=== PATIENT | male | born 1955 | race Caucasian/White ===

== ENCOUNTER → 2020-06-26 13:07 | Outpatient (CLI) | payer MEDICARE, OTHER, SELFPAY ==
--- NOTE | ~2020-06-26 | MR_ITS ---
EXAMINATION: MR brain/brain stem wo con DATE: 06/26/2020 14:03 INDICATION: Transient cerebral ischemic attack. Left arm weakness. 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 TECHNIQUE: Magnetic resonance imaging (MRI) of the brain and brainstem was performed without intraven ous contrast. Sequences included sagittal and axial T1-weighted FSE, axial diffusion-weighted FS EPI, axial T2*-weighted GRE, axial T2-weighted FLAIR Propeller, and axial T2-weighted Propeller. Apparent diffusion coefficient (ADC) maps were created. COMPARISON: None. FINDINGS: There are scattered areas of nonspecific increased T2-weighted signal intensity in the cere bral white matter and deejay. There is no intracranial hemorrhage, acute infarction, or abnormal intrac ranial mass lesion. The ventricles are normal in size. The orbits are normal. There is mild mucosal t hickening in the ethmoid sinuses. The mastoid air cells are normal. IMPRESSION: 1. Mild nonspecific cerebral white matter disease and pontine disease, which likely represents chroni c small vessel ischemic disease. Reviewed, dictated and finalized at location B. TENDER PAPER MACHINE IMPRESSION: 1. Mild nonspecific cerebral white matter disease and pontine disease, which filiberto alfaro represents chronic small vessel ischemic disease.
--- NOTE | ~2020-06-26 | MR_ITS ---
EXAMINATION: MR cervical spine wo con DATE: 06/26/2020 14:34 INDICATION: Other cervical disc displacement. TECHNIQUE: Magnetic resonance imaging (MRI) of the cervical spine was performed without intravenous c ontrast. Sequences included sagittal T2-weighted FSE, sagittal STIR FSE, sagittal T1-weighted FSE, ax ial MERGE, and axial T2-weighted FSE. COMPARISON: None FINDINGS: There is 2 mm retrolisthesis of C4 on C5 and C5 on C6. Vertebral body heights are normal. T here is mildly decreased disc height at C4-C5 and moderately decreased disc height at C5-C6 and C6-C7 . The spinal cord signal intensity is normal. The following disc levels are specifically discussed: C2-C3: There is a central protrusion. There is no uncovertebral joint osteoarthritis. There is modera te right and severe left facet joint osteoarthritis. There is no neural foraminal stenosis. There is mild central canal stenosis. C3-C4: The disc is bulging. There is mild bilateral uncovertebral joint osteoarthritis. There is mild bilateral facet joint osteoarthritis. There is mild bilateral neural foraminal stenosis. There is mi ld central canal stenosis. C4-C5: The disc is bulging. There is moderate right and severe left uncovertebral joint osteoarthriti s. There is mild bilateral facet joint osteoarthritis. There is mild right and moderate left neural f oraminal stenosis. There is mild central canal stenosis with ventral indentation of spinal cord. C5-C6: The disc is bulging. There is severe bilateral uncovertebral joint osteoarthritis. There is mi ld bilateral facet joint osteoarthritis. There is moderate bilateral neural foraminal stenosis. There is mild central canal stenosis with ventral indentation of the spinal cord. C6-C7: The disc is bulging. There is severe bilateral uncovertebral joint osteoarthritis. There is no facet joint osteoarthritis. There is moderate bilateral neural foraminal stenosis. There is mild dick tral canal stenosis with ventral indentation of the spinal cord. C7-T1: The disc does not extend beyond the endplate margin. There is no uncovertebral joint osteoarth ritis. There is mild bilateral facet joint osteoarthritis. There is no neural foraminal stenosis. The re is no central canal stenosis. IMPRESSION: 1. Moderate cervical spondylosis. Reviewed, dictated and finalized at location B. FIC INCIDENT MANAGEMENT MANAGER
== END ==
PROVIDERS: PCP Internal Medicine; Visit Provider Internal Medicine
DX: G45.9 Transient cerebral ischemic attack, unspecified (principal); M50.20 Other cervical disc displacement, unspecified cervical region; M47.892 Other spondylosis, cervical region; R93.0 Abnormal findings on diagnostic imaging of skull and head, not elsewhere classified
CPT/HCPCS: 70551; 72141

== ENCOUNTER → 2020-11-21 10:25 | Outpatient (CLI) | payer MEDICARE, OTHER, SELFPAY ==
--- NOTE | ~2020-11-21 | XR_ITS ---
EXAMINATION: XR chest 2V DATE: 11/21/2020 10:43 INDICATION: Cough and COPD TECHNIQUE: PA and lateral views of the chest are obtained. COMPARISON: None available FINDINGS: The lungs are hyperinflated but free of acute opacities. There is scarring of the lung apic es. There is no pleural effusion or pneumothorax. The heart size is normal. A coronary artery stent i s noted. There are bridging osteophytes at multiple levels in the spine, consistent with diffuse idio pathic skeletal hyperostosis (DISH). IMPRESSION: 1. Hyperinflation without acute cardiopulmonary abnormality. Reviewed, dictated and finalized at location A.
== END ==
PROVIDERS: PCP Internal Medicine; Visit Provider Internal Medicine
DX: J44.9 Chronic obstructive pulmonary disease, unspecified (principal); R91.8 Other nonspecific abnormal finding of lung field
CPT/HCPCS: 71046

== ENCOUNTER 2022-03-27 08:13 | Outpatient (CLI) | payer MEDICARE, OTHER, SELFPAY ==
--- NOTE | ~2022-03-27 | US_ITS ---
EXAMINATION: US aorta DATE: 03/27/2022 09:05 INDICATION: Screening for abdominal aortic aneurysm TECHNIQUE: Grayscale, color Doppler, and pulsed Doppler images of the aorta and common iliac arteries were obtained. COMPARISON: None. FINDINGS: The proximal aorta measures 2.8 cm AP.. The proximal to mid aorta measures 2.8 cm AP. The region of t he mid to distal aorta as well as the common iliac arteries is obscured by large amount of shadowing bowel gas. IMPRESSION: 1. Normal caliber proximal to mid abdominal aorta. The region of the mid to distal abdominal aorta an d common iliac arteries is obscured by shadowing bowel gas. Reviewed, dictated and finalized at location A. IMPRESSION: 1. Normal caliber proximal to mid abdominal aorta. The region of the mid to dis raf abdominal aorta and common iliac arteries is obscured by shadowing bowel ga s.
--- NOTE | ~2022-03-27 | CT_ITS ---
EXAMINATION: CT lung screening DATE: 03/27/2022 08:58 INDICATION: Personal history of nicotine dependence, current smoker with 45 pack year history TECHNIQUE: Computed tomography (CT) of the chest was performed without intravenous contrast. The dose -length product (DLP) was 116.91 mGy-cm. Automated exposure control and iterative reconstruction tech [employer] were employed. COMPARISON: None FINDINGS: There is severe emphysema. There is a 5 mm nodule in the right lung apex. No pleural effusi on or pneumothorax. There our secretions in the trachea. No pathologically enlarged thoracic lymph no paulo are identified. The heart size is normal. Calcified coronary artery atherosclerosis is noted. Craig cified pulmonary nodules and calcified right hilar lymph nodes are consistent with old granulomatous disease. Punctate calcifications in an otherwise normal spleen likely represent healed granulomatous disease. Pneumobilia is noted in the left hepatic lobe, likely related to prior biliary intervention. There are bridging osteophytes at multiple levels in the spine, consistent with diffuse idiopathic s keletal hyperostosis (DISH). IMPRESSION: 1. Lung-RADS category 2: Benign appearance or behavior. Continue annual screening with noncontrast lo w-dose chest CT in 12 months. Reviewed, dictated and finalized at location B. IMPRESSION: 1. Lung-RADS category 2: Benign appearance or behavior. Continue annual screeni ng with noncontrast low-dose chest CT in 12 months.
== END 2022-03-27 08:14 | disposition home or self-care (01) ==
LOC: ANHIMG 08:22
PROVIDERS: PCP Internal Medicine; Visit Provider Internal Medicine
DX: Z12.2 Encounter for screening for malignant neoplasm of respiratory organs (principal); Z87.891 Personal history of nicotine dependence; Z13.6 Encounter for screening for cardiovascular disorders
CPT/HCPCS: 71271; 76775

== ENCOUNTER 2022-04-10 09:59 | Outpatient (CLI) | payer MEDICARE, OTHER, SELFPAY ==
--- NOTE | 2022-04-10 12:08 | WPDPFTINT ---
PFT Procedure Performed PFT Procedure Performed Plethysmography (Lung Vol) Diffusing Cap (DLCO) Flow Vol Loop Spirometry w/o Bronchodil PFT Interpretation This is a pulmonary function test with spirometry, plethysmography and diffusing capacity. The test was performed and results interpreted in accordance with the 2019 and 2005 ATS/ERS Task Force guidelines respectively using the Global Lung Function Initiative-2012 reference equations. Patient demonstrated good effort and cooperation. Reproducibility criteria were met. The quality of the spirometry maneuver was Grade A. Findings: Spirometry: There is decreased maximal expiratory airflow at all lung volumes with concave expiratory flow tracing. The contour the inspiratory flow tracing is normal. The FVC is 3.33 L, 85% predicted. The FEV1 is 1.61 L, a 53% predicted. The FEV1: FVC ratio is 48%. Plethysmography: The total lung capacity is 6.12 L, 96% predicted. The functional residual capacity is 4.49 L, 135% predicted. The residual volume is 2.79 L, 126% predicted. Diffusion capacity: The diffusing capacity unadjusted for hemoglobin and carboxyhemoglobin is 16.2, 63% predicted. The diffusing capacity adjusted for alveolar volume is 2.15, 51% predicted. Impression: There is a moderately severe obstructive abnormality. The lung volumes are normal. The diffusing capacity unadjusted for hemoglobin is mildly decreased and remains moderately decreased when adjusted for alveolar volume. There are no prior studies for comparison
== END 2022-04-10 10:00 | disposition home or self-care (01) ==
LOC: ANHPFT 10:01
PROVIDERS: PCP Internal Medicine; Visit Provider Internal Medicine
DX: J44.9 Chronic obstructive pulmonary disease, unspecified (principal); R94.2 Abnormal results of pulmonary function studies
CPT/HCPCS: 94375; 94726; 94729

== ENCOUNTER 2022-08-14 16:30 | Outpatient (RCR) | payer MEDICARE, OTHER, SELFPAY ==
[2022-05-21 12:21] VITALS: PULSE 87
== END 2022-08-14 18:37 | disposition home or self-care (01) ==
LOC: ANHCPREHAB 16:30
PROVIDERS: PCP Internal Medicine; Visit Provider Internal Medicine
DX: Z95.5 Presence of coronary angioplasty implant and graft (principal)
CPT/HCPCS: 93798

== ENCOUNTER 2022-10-17 11:32 | Outpatient (CLI) | payer MEDICARE, OTHER, SELFPAY ==
[2022-10-20 14:42] LABS: Alpha-1-Antitrypsin, QN 120 mg/dL (83-199)
== END 2022-10-17 11:33 | disposition home or self-care (01) ==
PROVIDERS: PCP Internal Medicine; Visit Provider Internal Medicine Pulmonary Disease
DX: E88.01 Alpha-1-antitrypsin deficiency (principal)
CPT/HCPCS: 36415; 82103

== ENCOUNTER 2022-10-21 12:44 | Outpatient (CLI) | payer MEDICARE, OTHER, SELFPAY ==
--- NOTE | 2022-10-22 10:28 | WPDSIXMINUTE ---
Six Minute Walk Procedure Procedure Performed Pulmonary Stress Test (6 min walk) Six Minute Walk Six Minute Walk: This is a 6 minute walk test. The test was performed and interpreted in accordance with the 2014 ERS/ATS task force guidelines. Findings: The patient's resting room air oxygen saturation measured by pulse oximetry was 98% and heart rate was 65 bpm. Patient ambulated for 244 meters and oxygen saturation remained 98 to 100%. Heart rate at the end of the study was 70 bpm. The patient did not qualify for supplemental oxygen at rest or with ambulation. There are no prior studies for comparison.
== END 2022-10-21 12:45 | disposition home or self-care (01) ==
LOC: ANHPFT 12:45
PROVIDERS: PCP Internal Medicine; Visit Provider Internal Medicine Pulmonary Disease
DX: J40 Bronchitis, not specified as acute or chronic (principal); Z72.0 Tobacco use
CPT/HCPCS: 94618

== ENCOUNTER → 2023-04-29 12:53 | Outpatient (CLI) | payer MEDICARE, OTHER, SELFPAY ==
--- NOTE | ~2023-04-29 | CT_ITS ---
EXAMINATION: CT lung screening DATE: 04/29/2023 13:14 INDICATION: Personal history of nicotine dependence TECHNIQUE: Computed tomography (CT) of the chest was performed without intravenous contrast. The dose -length product was 47.80 mGy-cm. Automated exposure control and iterative reconstruction technique w ere employed. COMPARISON: CT dated 03/27/2022 FINDINGS: No thoracic lymphadenopathy. There is atherosclerosis. Heart size normal. No significant pl eural or pericardial effusion. There is evidence for chronic granulomatous disease. There is apical p leural thickening/scarring. There is a stable 4 mm right apical nodule, image 18. There is lower lobe atelectasis. There is severe emphysema. No new pulmonary nodules or masses. No focal airspace consol idation. There is diffuse idiopathic skeletal hyperostosis (DISH) of the thoracic spine. There is pne umobilia of the left hepatic lobe, consistent with previous sphincterotomy. IMPRESSION: 1. Lung-RADS category 2: Benign appearance or behavior. Continue annual screening with noncontrast lo w-dose chest CT in 12 months. Reviewed, dictated and finalized at location L. IMPRESSION: 1. Lung-RADS category 2: Benign appearance or behavior. Continue annual screeni ng with noncontrast low-dose chest CT in 12 months.
== END ==
PROVIDERS: PCP Internal Medicine Pulmonary Disease; Visit Provider Internal Medicine Pulmonary Disease
DX: Z12.2 Encounter for screening for malignant neoplasm of respiratory organs (principal); Z87.891 Personal history of nicotine dependence
CPT/HCPCS: 71271

== ENCOUNTER 2024-05-03 13:48 | Outpatient (CLI) | payer MEDICARE, OTHER, SELFPAY ==
--- NOTE | ~2024-05-03 | CT_ITS ---
CT Scan of the Chest without Contrast: Clinical Indication: Lung cancer screening, nicotine dependence Technique: Contiguous sections were acquired throughout the chest without intravenous contrast. Dose reduction technique was used on this scan by utilizing automated exposure control and iterative recon struction technique. The dose-length product (DLP) was 41.38 mGy-cm. COMPARISON: 04/29/2023 Findings: There is no evidence of any significant mediastinal, hilar or axillary lymphadenopathy. Coronary nadia ry calcifications are present. There is no evidence of pleural or pericardial effusion. 6 mm right lower lobe pulmonary nodule present (axial image 90). Severe emphysema present. Images through the upper abdomen reveal no abnormalities. Impression: Lung RADS 3: Probably benign. Six-month follow-up CT recommended. Reviewed, dictated and finalized at location . Impression: Lung RADS 3: Probably benign. Six-month follow-up CT recommended.
== END 2024-05-03 13:49 | disposition home or self-care (01) ==
LOC: MICIMG 13:49
PROVIDERS: PCP Internal Medicine Pulmonary Disease; Visit Provider Internal Medicine Pulmonary Disease
DX: Z12.2 Encounter for screening for malignant neoplasm of respiratory organs (principal); Z87.891 Personal history of nicotine dependence; R91.8 Other nonspecific abnormal finding of lung field
CPT/HCPCS: 71271

== ENCOUNTER 2024-10-24 17:14 | Inpatient (IN) | payer MEDICARE, OTHER, SELFPAY ==
[2024-10-24] VITALS (40 sets, daily range): BP systolic 72–99; BP diastolic 40–70; PULSE 83–99; RESP 11–25; TEMP 36.4–36.6; O2SAT 96–100; BMI 18.2
--- NOTE | ~2024-10-24 | CT_ITS ---
EXAMINATION: CTA chest PE protocol DATE: 10/25/2024 21:04 CDT INDICATION: Elevated d-dimer, shortness of breath and hypoxia. COPD exacerbation, with inability to o btain adequate oxygenation. TECHNIQUE: Computed tomographic angiography (CTA) of the chest was performed with 100 mL Omnipaque-35 0 intravenous contrast. The dose-length product was 222.62 mGy-cm. Maximum intensity projection 3D-re constructions of the aorta and other arteries were constructed by the technologist on a separate work station. COMPARISON: 05/03/2024 FINDINGS/OBSERVATIONS: PULMONARY ARTERIES: No filling defect is identified within the main or proximal pulmonary artery. The main pulmonary artery is not enlarged. THORACIC AORTA: No aneurysmal dilatation or dissection is present. The great vessels are intact LUNGS: Redemonstration of severe panlobular bullous emphysema. While the lung disease is significant, it is unchanged from 05/03/2024. Interval development of small bilateral pleural effusions, right greater than left with adjacent comp ressive atelectasis. The 6 mm nodule within the right lower lobe is not visualized on the current study, likely secondary to patient's tachypnea rather than nodule resolution. MEDIASTINUM: No morphologically suspicious or pathologically enlarged lymph nodes are identified with in the mediastinum or bilateral axilla. BONES OF THE CHEST: No acute fracture. Significant degenerative disease. No lytic or blastic lesions. HEART: The heart is of normal size, without pericardial effusion. IMPRESSION: No pulmonary embolus. No thoracic aortic dissection. Severe panlobular bullous emphysema, unchanged from 05/03/2024. Interval development of small bilateral pleural effusions, right greater than left with adjacent comp ressive atelectasis. Reviewed, dictated and finalized at location A. IMPRESSION: No pulmonary embolus. No thoracic aortic dissection. Severe panlobular bullous emphysema, unchanged from 05/03/2024. Interval development of small bilateral pleural effusions, right greater than l eft with adjacent compressive atelectasis.
--- NOTE | ~2024-10-24 | XR_ITS ---
CHEST RADIOGRAPH CLINICAL HISTORY: sob, cough . COMPARISON: 11/21/2020 TECHNIQUE: Single portable view of the chest. FINDINGS The cardiomediastinal silhouette is unremarkable. Panlobular emphysematous disease with a bibasilar distribution of lucency. Interstitial thickening is detected bilaterally, with a bilateral upper lobe distribution. The lungs are otherwise clear. IMPRESSION: Emphysematous disease, without focal infiltrate or effusion. Reviewed, dictated and finalized at location A.
--- NOTE | ~2024-10-24 | XR_ITS ---
XR chest 1V portable 10/28/2024 08:19 Indication: COPD Procedure: AP portable chest Comparison: Comparison to multiple prior studies sequentially, with oldest reviewed study dated 10/2020. Findings: Patchy bilateral airspace disease most confluent in the right upper and left lower lobe, co nsistent with pneumonia. Heart size normal. There is atherosclerosis of the aorta. No pleural effusio n or pneumothorax. The lungs are hyperinflated which is consistent with, but not diagnostic of chroni c obstructive pulmonary disease. No acute osseous abnormality. Impression: 1: Patchy bilateral airspace disease, compatible with pneumonia. Reviewed, dictated and finalized at location A. Impression: 1: Patchy bilateral airspace disease, compatible with pneumonia.
--- NOTE | 2024-10-24 17:20 | ECG_ITS ---
Test Date: 2024-10-24 17:19:59 Measurements Intervals [place] Rate: 96 P: 71 DC: 120 QRS: 257 QRSD: 113 T: 99 QT: 371 QTc: 469 Interpretive Statements SINUS RHYTHM POSSIBLE LEFT ATRIAL ENLARGEMENT INCOMPLETE RIGHT BUNDLE BRANCH BLOCK CONSIDER HIGH LATERAL INFARCT, AGE INDETERMINATE INFERIOR INFARCT, AGE INDETERMINATE EXTENSIVE ANTERIOR INFARCT, AGE INDETERMINATE ABNORMAL ECG No previous ECG available for comparison Electronically Signed On 10-24-2024 20:31:59 CDT by Boris Du D.O.
--- NOTE | 2024-10-24 17:26 | ED.SOB ---
HPI - SOB/Dyspnea General Chief Complaint: Shortness of Breath/Dyspnea <Hollis Veras PA-C - Last Filed: 10/24/24 22:53> Stated Complaint: dyspnea <PIOTR Joyce Last Filed: 10/24/24 22:53> Time Seen by Provider: 10/24/24 17:22 <Hollis Veras PA-C - Last Filed: 10/24/24 22:53> Source: patient <PIOTR Joyce Last Filed: 10/24/24 22:53> Mode of arrival: EMS <PIOTR Joyce Last Filed: 10/24/24 22:53> Limitations: no limitations <PIOTR Joyce Last Filed: 10/24/24 22:53> History of Present Illness HPI Narrative: This is a 69-year-old male with PMH of COPD who presents to the ED for chief complaint of shortness of breath over the past 3 days. Patient reports dyspnea on exertion significantly increased today and was unable to get across the rubor walked to his car without becoming severely winded. States that he then called EMS. EMS reports on room air he was saturating in the 70% range so they placed him on nasal cannula and DuoNeb. They do report that his sats went up in the mid 90s with these measures. Patient states he does not normally use oxygen but has been using his prescribed inhalers with no relief. States that he has had a bit of a cough lately and was around a sick family member with viral illness. Denies fevers, chills, chest pain, abdominal pain. <Hollis Veras PA-C - Last Filed: 10/24/24 22:53> Related Data Home Medications: Home Medications ?Medication ?Instructions ?Recorded ?Confirmed ?Last Taken ?Type clopidogrel 75 mg tablet 75 mg PO DAILY 05/21/22 10/24/24 Unknown History isosorbide mononitrate 60 mg 30 mg PO BID 05/21/22 10/24/24 Unknown History tablet,extended release 24 hr metoprolol tartrate 25 mg tablet 25 mg PO DAILY 05/21/22 10/24/24 Unknown History rosuvastatin 10 mg tablet 10 mg PO DAILY 05/21/22 10/24/24 Unknown History sacubitril 24 mg-valsartan 26 mg 1 tablet PO BID 05/21/22 10/24/24 Unknown History tablet (Entresto) cyanocobalamin (vitamin B-12) 1,000 mcg PO DAILY 10/24/24 10/24/24 Unknown History 1,000 mcg tablet ergocalciferol (vitamin D2) 1,250 1,250 mcg PO WEEKLY 10/24/24 10/24/24 Unknown History mcg (50,000 unit) capsule pramipexole 1 mg tablet 1 mg PO HS 10/24/24 10/24/24 Unknown History <Hollis Veras PA-C - Last Filed: 10/24/24 22:53> Allergies/Adverse Reactions: Allergies Allergy/AdvReac Type Severity Reaction Status Date / Time No Known Allergies Allergy Verified 10/24/24 17:21 <Hollis Veras PA-C - Last Filed: 10/24/24 22:53> Review of Systems Review of Systems: All systems as dictated in HPI <Hollis Veras PA-C - Last Filed: 10/24/24 22:53> [facility] Surgical History Surgical History: Surgical History History of cholecystectomy Stented coronary artery 2014 & 2018 <Hollis Veras PA-C - Last Filed: 10/24/24 22:53> Family History Family History: Family History Father Acute myocardial infarction Mother Skin cancer Breast cancer Brain cancer Sibling , One brother . Lung cancer Son Diverticulitis Migraines HPV in male <Hollis Veras PA-C - Last Filed: 10/24/24 22:53> Social History Social History: Social History Smoking packs per day: 1 Smoking cigarettes per day: 20.0 Years smoked: 46 Smoking pack-years: 46.00 Smoking status: Current every day smoker Tobacco type: cigarettes Second hand tobacco smoke exposure: Yes Additional smoking assessment comments: states he also smokes cannibus 3 + times per week 2 hits Alcohol intake: never Substance use: current Substance use type: marijuana Do You Feel Safe in your Home?: Yes Lack of Transportation: No Lack of Food: Never True Current Housing: I Have Housing Concerned About Future Housing: No Difficulty Paying Gas/Electric Bills: No Difficulty Paying for Meds: No Currently Unemployed: No Education: Associate Degree Difficulty w/ Childcare or Family Care: No Spiritual care concerns: Yes <Hollis Veras PA-C - Last Filed: 10/24/24 22:53> Exam Narrative: GENERAL: In respiratory distress. Appears chronically emphysematous. HEAD: Normocephalic, atraumatic. EYES: PERRLA and EOMI. ENT: Nares clear, no rhinorrhea or epistaxis. Mucous membranes moist. Oropharynx without tonsillar hypertrophy exudate or other lesions. NECK: Supple. No adenopathy or masses. CHEST: Patient is in respiratory distress, tripod position. Pursed lip breathing. Able to speak in 3-4 word sentences. Saturating 90% on 2 L nasal cannula. HEART: Regular rate and rhythm. No murmur heard. Normal peripheral pulses. ABDOMEN: Soft, nontender, nondistended, normal active bowel sounds. MSK: Normal range of motion. No edema. SKIN: Warm, dry, no rash. NEURO: Alert and oriented x4. No focal deficits. PSYCH: Normal mood and affect. <Hollis Veras PA-C - Last Filed: 10/24/24 22:53> Course DOCUMENTATION CONSULTANT/PA Physician Supervision agree with notes and management <Gerardo Bowen MD - Last Filed: 10/24/24 19:44> Vital Signs Vital signs: Vital Signs Pulse Rate 98 10/24/24 17:15 Respiratory Rate 20 10/24/24 17:15 Pulse Oximetry 98 10/24/24 17:15 Oxygen Delivery Nasal Cannula 10/24/24 17:15 Oxygen Flow Rate 2 10/24/24 17:15 Temperature 97.8 F 10/24/24 21:25 Pulse Rate 87 10/24/24 21:25 Respiratory Rate 20 10/24/24 21:25 Blood Pressure 80/40 L 10/24/24 21:25 Pulse Oximetry 99 10/24/24 21:25 Oxygen Delivery BiPAP 10/24/24 22:31 Oxygen Flow Rate 2 10/24/24 17:15 Fraction of Inspired Oxygen 21 10/24/24 20:13 <Hollis Veras PA-C - Last Filed: 10/24/24 22:53> Vital Signs Pulse Rate 98 10/24/24 17:15 Respiratory Rate 20 10/24/24 17:15 Pulse Oximetry 98 10/24/24 17:15 Oxygen Delivery Nasal Cannula 10/24/24 17:15 Oxygen Flow Rate 2 10/24/24 17:15 Temperature 97.8 F 10/24/24 21:25 Pulse Rate 87 10/24/24 21:25 Respiratory Rate 20 10/24/24 21:25 Blood Pressure 80/40 L 10/24/24 21:25 Pulse Oximetry 99 10/24/24 21:25 Oxygen Delivery BiPAP 10/24/24 22:31 Oxygen Flow Rate 2 10/24/24 17:15 Fraction of Inspired Oxygen 21 10/24/24 20:13 <Gerardo Bowen MD - Last Filed: 10/24/24 19:44> MDM - SOB/Dyspnea MDM Narrative Medical decision making narrative: This is a 69-year-old male presenting in respiratory distress with likely COPD exacerbation. He is meeting sepsis criteria on arrival and requiring BiPAP for work of breathing. The blood pressure soft in the 80s over 50s. He was saturating 70% on room air for EMS. Afebrile. Lab work shows elevated white count of 15.5 on arrival. Lactic acid elevated at 3.3. He was started on sepsis bolus fluids as well as community-acquired antibiotics for COPD exacerbation/pneumonia. Chest x-ray: IMPRESSION: Emphysematous disease, without focal infiltrate or effusion. Patient's work of breathing is drastically improved on BiPAP. He is saturating well on FiO2 21%. Pressure remained stable in the 80s and 90s. Discussed plan of admission with the patient he is agreeable. Discussed with hospitalist DOCUMENTATION CONSULTANTSuma who will admit the patient to IMU. <Hollis Veras PA-C - Last Filed: 10/24/24 22:53> Lab Data Result diagrams: 10/24/24 17:34 10/24/24 17:33 <PIOTR Joyce Last Filed: 10/24/24 22:53> Labs: Lab Results 10/24/24 10/24/24 Range/Units 17:33 17:34 WBC 15.5 H (4.5-10.0) K/mm3 RBC 4.05 L (4.6-6.20) M/mm3 Hgb 12.8 L (14.0-18.0) g/dL Hct 38.8 L (42.0-52.0) % MCV 95.8 (80-100) fl MCH 31.6 (26-34) pg MCHC 33.0 (32-36) g/dl RDW 12.5 (11.5-14.5) % Plt Count 198 (150-375) k/mm3 MPV 9.8 (7.4-10.4) fl Immature Gran % (Auto) 0.5 (0-0.5) % Neut % (Auto) 79.5 H (45.5-73.1) % Lymph % (Auto) 7.6 L (18.3-44.2) % [place] % (Auto) 12.1 H (2.6-8.5) % Eos % (Auto) 0.1 (0-4.4) % Baso % (Auto) 0.2 (0.2-1.2) % Lymph # (Auto) 1.18 (0.9-3.2) K/mm3 [place] # (Auto) 1.9 H (0.1-0.6) K/mm3 Eos # (Auto) 0.0 (0-0.3) K/mm3 Baso # (Auto) 0.0 (0.0-0.1) K/mm3 Abs Immat Gran (auto) 0.08 H (0.00-0.031) K/mm3 Absolute Neuts (auto) 12.3 H (1.3-6.7) K/mm3 Absolute Nucleated RBC 0.000 (0.0-0.012) K/mm3 Nucleated RBC % 0.0 (0.0-0.2) % ESR 25 H (0-20) mm/hr Sodium 129 L (137-145) mmol/L Potassium 4.2 (3.4-5.0) mmol/L Chloride 94 L (98-107) mmol/L Carbon Dioxide 24 (22-30) mmol/L Anion Gap 11 (4-12) mmol/L BUN 13 (9-20) mg/dL Creatinine 0.86 (0.7-1.3) mg/dL Estim Creat Clear Calc 47 ml/min Estimated GFR > 60 (59 - ) Glucose 122 H (65-110) mg/dL Lactic Acid 3.3 H (0.7-2.0) mmol/L Calcium 8.6 (8.4-10.2) mg/dL Magnesium 1.8 (1.6-2.3) mg/dL Total Bilirubin 0.7 (0.2-1.3) mg/dL AST 36 (17-59) U/L ALT 23 (6-50) U/L Alkaline Phosphatase 79 (38-126) U/L Troponin I 0.806 H* (0.000-0.034) ng/mL C-Reactive Protein 2.0 H (<1.0) mg/dL Total Protein 7.0 (6.3-8.2) g/dL Albumin 4.2 (3.5-5.1) g/dL Influenza A (RT-PCR) Negative (Negative) Influenza B (RT-PCR) Negative (Negative) RSV (RT-PCR) Negative (Negative) SARS-CoV-2 RNA (RT-PCR) Negative (Negative) <Hollis Veras PA-C - Last Filed: 10/24/24 22:53> Lab Results 10/24/24 10/24/24 Range/Units 17:33 17:34 WBC 15.5 H (4.5-10.0) K/mm3 RBC 4.05 L (4.6-6.20) M/mm3 Hgb 12.8 L (14.0-18.0) g/dL Hct 38.8 L (42.0-52.0) % MCV 95.8 (80-100) fl MCH 31.6 (26-34) pg MCHC 33.0 (32-36) g/dl RDW 12.5 (11.5-14.5) % Plt Count 198 (150-375) k/mm3 MPV 9.8 (7.4-10.4) fl Immature Gran % (Auto) 0.5 (0-0.5) % Neut % (Auto) 79.5 H (45.5-73.1) % Lymph % (Auto) 7.6 L (18.3-44.2) % [place] % (Auto) 12.1 H (2.6-8.5) % Eos % (Auto) 0.1 (0-4.4) % Baso % (Auto) 0.2 (0.2-1.2) % Lymph # (Auto) 1.18 (0.9-3.2) K/mm3 [place] # (Auto) 1.9 H (0.1-0.6) K/mm3 Eos # (Auto) 0.0 (0-0.3) K/mm3 Baso # (Auto) 0.0 (0.0-0.1) K/mm3 Abs Immat Gran (auto) 0.08 H (0.00-0.031) K/mm3 Absolute Neuts (auto) 12.3 H (1.3-6.7) K/mm3 Absolute Nucleated RBC 0.000 (0.0-0.012) K/mm3 Nucleated RBC % 0.0 (0.0-0.2) % ESR 25 H (0-20) mm/hr Sodium 129 L (137-145) mmol/L Potassium 4.2 (3.4-5.0) mmol/L Chloride 94 L (98-107) mmol/L Carbon Dioxide 24 (22-30) mmol/L Anion Gap 11 (4-12) mmol/L BUN 13 (9-20) mg/dL Creatinine 0.86 (0.7-1.3) mg/dL Estim Creat Clear Calc 47 ml/min Estimated GFR > 60 (59 - ) Glucose 122 H (65-110) mg/dL Lactic Acid 3.3 H (0.7-2.0) mmol/L Calcium 8.6 (8.4-10.2) mg/dL Magnesium 1.8 (1.6-2.3) mg/dL Total Bilirubin 0.7 (0.2-1.3) mg/dL AST 36 (17-59) U/L ALT 23 (6-50) U/L Alkaline Phosphatase 79 (38-126) U/L Troponin I 0.806 H* (0.000-0.034) ng/mL C-Reactive Protein 2.0 H (<1.0) mg/dL Total Protein 7.0 (6.3-8.2) g/dL Albumin 4.2 (3.5-5.1) g/dL Influenza A (RT-PCR) Negative (Negative) Influenza B (RT-PCR) Negative (Negative) RSV (RT-PCR) Negative (Negative) SARS-CoV-2 RNA (RT-PCR) Negative (Negative) <Gerardo Bowen MD - Last Filed: 10/24/24 19:44> ABG Data ABG results: 10/24/24 17:59 VBG pH 7.288 L VBG pCO2 56.8 H VBG pO2 < 27.0 L VBG HCO3 26.6 O2 Delivery Device Nasal cannula O2 Liters/Min 2.0 FiO2 28 <Hollis Veras PA-C - Last Filed: 10/24/24 22:53> 10/24/24 17:59 VBG pH 7.288 L VBG pCO2 56.8 H VBG pO2 < 27.0 L VBG HCO3 26.6 O2 Delivery Device Nasal cannula O2 Liters/Min 2.0 FiO2 28 <Gerardo Bowen MD - Last Filed: 10/24/24 19:44> ECG Data EKG #1: ECG completion date: 10/24/24 <Hollis Veras PA-C - Last Filed: 10/24/24 22:53> ECG completion time: 17:19 <Hollis Veras PA-C - Last Filed: 10/24/24 22:53> Prior ECG tracings: not available for review <Hollis Veras PA-C - Last Filed: 10/24/24 22:53> Discharge Plan Discharge Clinical Impression: COPD exacerbation, Sepsis, Elevated troponin, Acute hypercapnic respiratory failure <Hollis Veras PA-C - Last Filed: 10/24/24 22:53> Patient Disposition: Still a Patient <Hollis Veras PA-C - Last Filed: 10/24/24 22:53> Condition: Stable <Hollis Veras PA-C - Last Filed: 10/24/24 22:53>
[2024-10-24] MEDS: methylPREDNISolone SOD SUCC 125 MG VIAL IV PUSH (17:38)
[2024-10-24] MEDS: SODIUM CHLORIDE 0.9% IV 1,000 ML 999 ML IV CONT ×2 (17:40)
--- NOTE | 2024-10-24 17:41 | PC.NURSE ---
called lab to add on Trop I, CRP, and ESR
--- NOTE | 2024-10-24 17:42 | PC.NURSE ---
per RN Rossi, will wait until patient has IV fluids to draw second set of blood cultures due to poor perfusion
[2024-10-24 17:45] LABS: Basophils Percent Auto 0.2 % (0.2-1.2); Eosinophils Percent Auto 0.1 % (0-4.4); Hematocrit 38.8 % (42.0-52.0); Hemoglobin 12.8 g/dL (14.0-18.0); Immature Granulocyte Absolute 0.08 K/mm3 (0.00-0.031); Immature Granulocyte Percent A 0.5 % (0-0.5); Lymphocytes Absolute Auto 1.18 K/mm3 (0.9-3.2); Lymphocytes Percent Auto 7.6 % (18.3-44.2); Mean Corpuscular Hemoglobin 31.6 pg (26-34); Mean Corpuscular Volume 95.8 fl (80-100); Mean Platelet Volume 9.8 fl (7.4-10.4); Monocytes Absolute Auto 1.9 K/mm3 (0.1-0.6); Monocytes Percent Auto 12.1 % (2.6-8.5); Neutrophils Absolute Auto 12.3 K/mm3 (1.3-6.7); Neutrophils Percent Auto 79.5 % (45.5-73.1); Platelet Count Result 198 k/mm3 (150-375); Red Blood Count 4.05 M/mm3 (4.6-6.20); Red Cell Distribution Width 12.5 % (11.5-14.5); White Blood Count 15.5 K/mm3 (4.5-10.0)
[2024-10-24] MEDS: MAGNESIUM SULF 1 GM/D5W 100 ML 1 GM/100 ML BAG IVPB (17:48)
[2024-10-24 17:57] LABS: Lactic Acid Reflex 3.3 mmol/L (0.7-2.0)
[2024-10-24] MEDS: ALBUTEROL SULFATE NEB 2.5 MG/3 ML INH 10 MG INHALATION (18:01)
[2024-10-24] MEDS: IPRATROPIUM BR 0.02% INH SOLN 0.5 MG/2.5 ML VIAL 1 MG INHALATION (18:01)
[2024-10-24 18:05] LABS: Alanine Aminotransferase 23 U/L (6-50); Albumin Level 4.2 g/dL (3.5-5.1); Alkaline Phosphatase 79 U/L (38-126); Anion Gap 11 mmol/L (4-12); Aspartate Amino Transferase 36 U/L (17-59); Bilirubin,Total 0.7 mg/dL (0.2-1.3); Blood Urea Nitrogen 13 mg/dL (9-20); Calcium 8.6 mg/dL (8.4-10.2); Carbon Dioxide 24 mmol/L (22-30); Chloride 94 mmol/L (98-107); Estimated CRCL calculation 47 ml/min; Estimated Glomerular Filt Rate > 60; Glucose 122 mg/dL (65-110); Magnesium 1.8 mg/dL (1.6-2.3); Potassium 4.2 mmol/L (3.4-5.0); Sodium 129 mmol/L (137-145)
[2024-10-24 18:11] LABS: Device NASAL CANNULA; Fractional Inspired Oxygen 28 %; HCO3 VBG 26.6 mEq/l (24.0-30.0); PCO2 VBG 56.8 mmHg (42.0-48.0); PO2 VBG < 27.0 mmHg (35.0-45.0); pH VBG 7.288 (7.300-7.400)
[2024-10-24 18:15] LABS: Erythrocyte Sedimentation Rate 25 mm/hr (0-20)
[2024-10-24 18:17] LABS: Troponin I 0.806 ng/mL (0.000-0.034)
[2024-10-24 18:22] LABS: Influenza A QL RT-PCR Negative (Negative); Influenza B QL RT-PCR Negative (Negative); RSV RNA, RT-PCR Negative (Negative); SARS-CoV-2 RNA PCR Negative (Negative)
--- OUTSIDE RECORDS SUMMARY | 2024-10-24 18:36 | XMS_ITS ---
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 Name Role Phone Chase Barrientos Primary Care Provider [phone] REASON FOR VISIT lab Medications Medication SIG (Take, Route, Frequency, Duration) Notes Start Date End Date Status Isosorbide Mononitrate ER 60 MG TAKE 1/2 TABLET BY MOUTH TWICE A DAY for 90 Active Metoprolol Tartrate 25 MG TAKE 1 TABLET BY MOUTH DAILY WITH FOOD for 90 Active Vitamin D (Ergocalciferol) 1.25 MG (79724 UT) TAKE 1 CAPSULE BY MOUTH WEEKLY for 27 Active Pramipexole Dihydrochloride 1 MG TAKE 1 TABLET BY MOUTH AT NIGHT for 90 Active Entresto 24-26 MG 1/2 tablet Orally Tw ice a day for 90 days Active Nitroglycerin 0.4 MG 1 tablet every 5 MINUTES Sublingual as directed As needed up to 3 as needed for chest pain Active Clopidogrel Bisulfate 75 MG TAKE 1 TABLE T BY MOUTH EVERY DAY for 90 Active Vitamin B-12 1000 MCG TAKE 1 TABLET BY M OUTH EVERY DAY for 90 Active Rosuvastatin Calcium 10 MG 1 tablet Oral ly Once a day Active Aspirin Adult Low Dose 81 MG 1 tablet Or ally Once a day for 90 days Active hydrOXYzine Pamoate 25 MG 1 CAPSULE N EEDED ORALLY UP TO THREE TIMES DAILY 30 DAYS for 90 days Active Nebulizer - as directed FOR DX J44.9 EXTERNALLY DIRECTED Active Albuterol Sulfate (2.5 MG/3ML) 0.083% 3 mL as needed FOR COUGH OR DYSPEA Inhalation EVERY 4 HOURS Active Ventolin HFA 108 (90 Base) MCG/ACT 2 puffs as needed for dyspnea (BRAND NAME ONLY) Inhalation every 4 hrs Active Stiolto Respimat 2.5-2.5 MCG/ACT 2 puffs Inhalation Once a day Active Social History Sex Assigned At : Social History Observation Description Sex Assigned At Male Encounters Encounter Location Date Provider Diagnosis [address] [place] [address] 03/30/2024 Chase Barrientos Plan Of Treatment No Information Progress Notes * SOPHIEJosiasDOB:1955 (69 yo M)Acc No.[id number]:03/30/2024 UNLOCKED PROGRESS NOTE Patient: Josias NICOLE Provider: Jenna Barrientos :1955 A ge:68 Y S ex:Male Date:03/30/2024 Phone: Address:[address] [place] [address] [address] , [id number] Subjective: * Chief Complaints: * 1 . Lab. * Medical History: * Medications: T aking Stiolto Respimat 2.5-2.5 MCG/ACT Aerosol Solution 2 puffs Inhalation Once a day , Taking Albuterol Sulfate (2.5 MG/3ML) 0.083% Nebulization Solution 3 mL as needed FOR COUGH OR DYSPEA Inhalation EVERY 4 HOURS , Taking Nebulizer - Miscellaneous as directed FOR DX J44.9 EXTERNALLY DIRECTED , Taking hydrOXYzine Pamoate 25 MG Capsule 1 CAPSULE NEEDED ORALLY UP TO THREE TIMES DAILY 30 DAYS , Taking Ventolin HFA 108 (90 Base) MCG/ACT Aerosol Solution 2 puffs as needed for dyspnea (BRAND NAME ONLY) Inhalation every 4 hrs , Taking Vitamin B-12 1000 MCG Tablet TAKE 1 TABLET BY MOUTH EVERY DAY , Taking Clopidogrel Bisulfate 75 MG Tablet TAKE 1 TABLET BY MOUTH EVERY DAY , Taking Nitroglycerin 0.4 MG Tablet Sublingual 1 tablet every 5 MINUTES Sublingual as directed As needed up to 3 as needed for chest pain, Taking Aspirin Adult Low Dose 81 MG Tablet Delayed Release 1 tablet Orally Once a day , Taking Rosuvastatin Calcium 10 MG Tablet 1 tablet Orally Once a day , Taking Entresto 24-26 MG Tablet 1/2 tablet Orally Twice a day , Taking Pramipexole Dihydrochloride 1 MG Tablet TAKE 1 TABLET BY MOUTH AT NIGHT , Taking Metoprolol Tartrate 25 MG Tablet TAKE 1 TABLET BY MOUTH DAILY WITH FOOD , Taking Isosorbide Mononitrate ER 60 MG Tablet Extended Release 24 Hour TAKE 1/2 TABLET BY MOUTH TWICE A DAY , Taking Vitamin D (Ergocalciferol) 1.25 MG (63582 UT) Capsule TAKE 1 CAPSULE BY MOUTH WEEKLY Objective: * Vitals: Assessment: Plan: * Treatment: * * Electronic signature of Scott Barrientos , [id number] on 10/24/2024 at 06:36 PM CDT Sign off status: Pending * Provider: Jenna Barrientos Date: 03/30/2024 Generated for Valorie campos/Jennifer/Shanice on: 10/24/2024 06:36 PM CDT
--- OUTSIDE RECORDS SUMMARY | 2024-10-24 18:36 | XMS_ITS | CONTINUITY OF CARE DOCUMENT ---
Author Name gala, gala Address Unknown Organization [facility] Address [address] [place] [address] Phone [phone] Care Team Providers Care Nylon Operator Name Role Phone Emi ESPAÑA, Zi Cunha Unavailable STEPHANIE BARKLEY MD Unavailable STEPHANIE BARKLEY MD Unavailable PROBLEMS Condition Status Date Provider Notes Blood glucose abnormal= 11/30 labs gluc elev active Ernesto Whiting RN Shortness of breath active Salinas Fregoso CAD-s/p stent placement active Ori Valladares MD Tobacco abuse active Ori Valladares MD Acute myocardial infarction, of other anterior wall, subsequent episode of care active Ori Valladares MD Palpitations active Kristen Elena MD Angina active Kristen Elena MD Anxiety, chronic active Ori Valladares MD Restless leg syndrome active Ori Hull Cardiology examination active Zi tim MD CHF - systolic active Zi Middleton MD PSVT active Stepan Mckenzie Cardiomyopathy active Zi Middleton MD Cardiology examination active Zi tim MD ENCOUNTERS Date Type Provider Location Encounter Diag nosis - In-person encounter Office Visit Zi Middleton MD [facility] - In-person encounter Office Visit Zi Middleton MD [facility] Cardiology examination - In-person encounter Office Visit Zi Middleton MD [facility] - In-person encounter Office Visit Zi Middleton MD [facility] - In-person encounter Office Visit Zi Middleton MD [facility] - In-person encounter Office Visit Zi Middleton MD [facility] - In-person encounter Office Visit Zi Middleton MD [facility] Cardiomyopathy - In-person encounter Office Visit Kristen Elena MD [facility] PSVT - In-person encounter Office Visit Kristen Elena MD [facility] - In-person encounter Office Visit Zi Middleton MD [facility] - In-person encounter Office Visit Zi Middleton MD [facility] CHF - systolic - In-person encounter Office Visit Zi Middleton MD [facility] Cardiology examination - In-person encounter Office Visit Ori Valladares MD [facility] Restless leg syndrome - In-person encounter Office Visit Ori Valladares MD [facility] - In-person encounter Office Visit Ori Valladares MD [facility] - In-person encounter Office Visit Ori Valladares MD [facility] - In-person encounter Office Visit Ori Valladares MD [facility] Anxiety, chronic - In-person encounter Office Visit Kristen Elena MD [facility] - In-person encounter Office Visit Kristen Elena MD [facility] PalpitationsAngina - In-person encounter Office Visit Ori Valladares MD [facility] CAD-s/p stent placementTobacco abuseAcute myocardial infarction, of other anterior wall, subsequent episode of care VITAL SIGNS Date Observation Value Provider Body Mass Index (Ratio) 17.35 kg/m2 Jerzy Middleton MD blood pressure, diastolic 59 mm[Hg] Bird [facility] blood pressure, systolic 83 mm[Hg] April linder Gipsy oxygen saturation, oximetry 100 % [facility] pulse rate 71 /min [facility] blood pressure, cuff size regular Bird [facility] weight E&M 110.8 [lb_av] [facility] height E&M 67 [in_i] [facility] Body Mass Index (Ratio) 16.94 kg/m2 Sarabjit ntha Cranmer blood pressure, diastolic 58 mm[Hg] Li nkLogic blood pressure, systolic 102 mm[Hg] Cheryle kLogic blood pressure, cuff size small Ta bitjoselyn Davenport blood pressure, diastolic 58 mm[Hg] Ta bitha Davenport blood pressure, systolic 102 mm[Hg] Tab itha Davenport oxygen saturation, oximetry 97 % Rebecca Davenport pulse rate 71 /min Rebecca Davenport weight E&M 108.2 [lb_av] Rebecca Davenport respiratory rate E&M 12 /min Rebecca Davenport height E&M 67 [in_i] Rebecca Davenport blood pressure, diastolic 45 mm[Hg] Li nkLogic blood pressure, systolic 70 mm[Hg] Cheryle Melonyogic blood pressure, diastolic 45 mm[Hg] Li tannerLogic blood pressure, systolic 70 mm[Hg] Cheryle Melonyogic Body Mass Index (Ratio) 16.91 kg/m2 Sarabjit diego Smith pulse rate 81 /min Velia Raphael weight E&M 108 [lb_av] Velia Raphael blood pressure, diastolic 45 mm[Hg] An bharat Raphael blood pressure, systolic 70 mm[Hg] Any a blood pressure, cuff size large An bharat height E&M 67 [in_i] Velia Body Mass Index (Ratio) 16.91 kg/m2 Jerzy Middleton MD blood pressure, diastolic -1 mm[Hg] Ailyn hartLog blood pressure, systolic 88 mm[Hg] [facility], [facility] 63 mm[Hg] An bharat blood pressure, systolic 88 mm[Hg] Any a pulse rate 80 /min Velia blood pressure, cuff size large An bharat oxygen saturation, oximetry 97 % Velia weight E&M 108 [lb_av] Velia height E&M 67 [in_i] Velia Body Mass Index (Ratio) 17.07 kg/m2 Jerzy Middleton MD blood pressure, diastolic 66 mm[Hg] St anam Fuentes blood pressure, systolic 97 mm[Hg] Lilian Fuentes oxygen saturation, oximetry 97 % Charla Fuentes pulse rate 99 /min Charla Fuentes respiratory rate E&M 18 /min Charla rodgers weight E&M 109 [lb_av] Charla Alfredo height E&M 67 [in_i] Charla Alfredo Body Mass Index (Ratio) 17.85 kg/m2 Jerzy Middleton MD blood pressure, diastolic 59 mm[Hg] Li sa Daly blood pressure, systolic 86 mm[Hg] Lis a Daly blood pressure, cuff size regular Li sa Daly pulse rate 73 /min Juliet Daly oxygen saturation, oximetry 97 % Juliet Daly weight E&M 114 [lb_av] Juliet Daly Body Mass Index (Ratio) 18.01 kg/m2 Jerzy Middleton MD blood pressure, diastolic 56 mm[Hg] Li nkLogic blood pressure, systolic 98 mm[Hg] Cheryle kLogic blood pressure, diastolic 56 mm[Hg] Christiana daronsaji Reid blood pressure, systolic 98 mm[Hg] Marco nicolasa Reid oxygen saturation, oximetry 97 % Agnieszka Reid pulse rate 70 /min Agnieszka hull weight E&M 115 [lb_av] Agnieszka hull respiratory rate E&M 16 /min Shara Reid height E&M 67 [in_i] Agnieszka hull Body Mass Index (Ratio) 17.70 kg/m2 Stepan Mckenzie blood pressure, cuff size regular Ke rri Gruenenfelder blood pressure, diastolic 59 mm[Hg] Ke rri Gruenenfelder blood pressure, systolic 89 mm[Hg] Ker ri Gruenenfelder oxygen saturation, oximetry 99 % Cinthya Gruenenfelder respiratory rate E&M 14 /min Cinthya G ruenenfelder pulse rate 86 /min Cinthya Bansal lder weight E&M 113 [lb_av] Cinthya Bansal lder height E&M 67 [in_i] Cinthya Bansal lder Body Mass Index (Ratio) 17.54 kg/m2 Stepan Mckenzie blood pressure, diastolic 59 mm[Hg] Ri daron Zuhair blood pressure, systolic 90 mm[Hg] Nicolas helle Moffett blood pressure, cuff size regular Ri daron Moffett oxygen saturation, oximetry 98 % Binta Moffett respiratory rate E&M 16 /min Efremell e Moffett pulse rate 69 /min Binta Galvez son weight E&M 112 [lb_av] Binta Galvez son height E&M 67 [in_i] Binta Galvez [facility] Body Mass Index (Ratio) 17.07 kg/m2 Jerzy Middleton MD blood pressure, cuff size regular Ri daron Moffett blood pressure, diastolic 64 mm[Hg] Ri daron Moffett blood pressure, systolic 85 mm[Hg] Nicolas nicolasa Moffett oxygen saturation, oximetry 96 % Binta Moffett respiratory rate E&M 16 /min Efremell e Moffett pulse rate 77 /min Binta Galvez [facility] weight E&M 109 [lb_av] Binta Galvez [facility] height E&M 67 [in_i] Binta Galvez [facility] Body Mass Index (Ratio) 17.07 kg/m2 Jerzy Middleton MD blood pressure, diastolic 63 mm[Hg] Ailyn nkLogic blood pressure, systolic 91 mm[Hg] Cheryle kLogic blood pressure, diastolic 63 mm[Hg] Ri daron Moffett blood pressure, systolic 91 mm[Hg] Nicolas nicolasa Moffett blood pressure, cuff size regular Tawny Moffett oxygen saturation, oximetry 98 % Binta Moffett respiratory rate E&M 16 /min Jim Moffett pulse rate 77 /min Binta Galvez son weight E&M 109 [lb_av] Binta Galvez son height E&M 67 [in_i] Binta terrazas Body Mass Index (Ratio) 17.01 kg/m2 Carol ssa Puhse blood pressure, diastolic 70 mm[Hg] Li nkLogic blood pressure, systolic 137 mm[Hg] Cheryle kLogic blood pressure, cuff size large Ta nelda Van blood pressure, diastolic 70 mm[Hg] Ta nelda Van blood pressure, systolic 137 mm[Hg] [facility] oxygen saturation, oximetry 97 % [facility] respiratory rate E&M 18 /min [facility] pulse rate 79 /min [facility] weight E&M 108.6 [lb_av] [facility] height E&M 67 [in_i] Leta Prescott Body Mass Index (Ratio) 22.39 kg/m2 John Valladares MD blood pressure, cuff size regular Ke rri Matt blood pressure, diastolic 72 mm[Hg] Ke rri Matt blood pressure, systolic 111 mm[Hg] Naseem Gutierrez oxygen saturation, oximetry 98 % Cinthya Gutierrez respiratory rate E&M 18 /min Cinthya thomas pulse rate 75 /min Cinthya brownlee weight E&M 143 [lb_av] Cinthya Bansal gunnarer height E&M 67 [in_i] Cinthya Bansal er blood pressure, diastolic 70 mm[Hg] Ke colby Gutierrez blood pressure, systolic 160 mm[Hg] Naseem Gutierrez Body Mass Index (Ratio) 21.92 kg/m2 John Valladares MD oxygen saturation, oximetry 97 % Cinthya Gutierrez pulse rate 78 /min Cinthya Bansal [facility] respiratory rate E&M 16 /min Cinthya Watkins devanteriodereck blood pressure, cuff size regular [facility], diastolic 80 mm[Hg] Ke rri Matt blood pressure, systolic 130 mm[Hg] Naseem Nunnhareshruperto weight E&M 140 [lb_av] Cinthya Bansal [facility] height E&M 67 [in_i] Cinthya Bansal gunnar Body Mass Index (Ratio) 21.45 kg/m2 Sebastián Contreras blood pressure, cuff size regular Kellen Crooks blood pressure, diastolic 70 mm[Hg] Kellen Crooks blood pressure, systolic 110 mm[Hg] Kash Crooks oxygen saturation, oximetry 98 % Shira Crooks respiratory rate E&M 16 /min Shira Crooks pulse rate 87 /min Shira Crooks weight E&M 137 [lb_av] Shira Crooks height E&M 67 [in_i] Shira Crooks Body Mass Index (Ratio) 23.80 kg/m2 John Valladares MD blood pressure, cuff size regular Nm stan Ortez blood pressure, diastolic 75 mm[Hg] Nm stan Ortez blood pressure, systolic 106 mm[Hg] Ana Ortez oxygen saturation, oximetry 98 % Eliz Ortez respiratory rate E&M 15 /min Eliz Ortez pulse rate 82 /min Eliz Ortez weight E&M 152 [lb_av] Eliz Ortez height E&M 67 [in_i] Eliz Ortez blood pressure, diastolic 73 mm[Hg] Me stan Valdovinos blood pressure, systolic 106 mm[Hg] Ana Valdovinos pulse rate 71 /min Eliz Valdovinos oxygen saturation, oximetry 98 % Eliz Valdovinos respiratory rate E&M 16 /min Eliz Valdovinos Body Mass Index (Ratio) 22.83 kg/m2 Carol Valdovinos weight E&M 145.8 [lb_av] Eliz Valdovinos blood pressure, diastolic 77 mm[Hg] Byron Almeidakailey Kayden blood pressure, systolic 111 mm[Hg] Glendy Monique pulse rate 96 /min AureliaRosario wolf oxygen saturation, oximetry 98 % Aurelia Souzaenson respiratory rate E&M 18 /min Uriel Monique Body Mass Index (Ratio) 22.49 kg/m2 RadhaRosario Monique weight E&M 143.6 [lb_av] Aurelia fountain Body Mass Index (Ratio) 22.05 kg/m2 Carolnicole Valdovinos blood pressure, diastolic 81 mm[Hg] Me stan Valdovinos blood pressure, systolic 120 mm[Hg] Ana Valdovinos pulse rate 89 /min Eliz Valdovinos oxygen saturation, oximetry 98 % Eliz Valdovinos respiratory rate E&M 18 /min Eliz Valdovinos weight E&M 140.8 [lb_av] Eliz aVldovinos Body Mass Index (Ratio) 23.02 kg/m2 Anea gabrielle Brown blood pressure, diastolic 83 mm[Hg] An elian [facility] blood pressure, systolic 121 mm[Hg] Ane atris [facility] pulse rate 86 /min Aneatris [facility] oxygen saturation, oximetry 97 % Aneatris [facility] respiratory rate E&M 18 /min Aneatri s [facility] weight E&M 147 [lb_av] Aneatris [facility] height E&M 67 [in_i] Aneatris [facility] ALLERGIES No Known Drug Allergies RESULTS Date Observation Value Provider Reference Range Interpretation Location hemoglobin A1C, blood, as % of total hemoglobin 5.6 % OF TOTAL HGB LinkLog[facility] <5.7 Normal prothrombin time (patient) 10.0 s LinkLog[facility] 9.0-11.5 Normal international normalized ratio (INR) 1.0 [facility] Normal basophils as percent of blood leukocytes 0.6 % Link[facility] Normal eosinophils as percent of blood leukocytes 4.2 % Link[facility] Normal monocyte count, blood 13.3 % Link[facility] Normal lymphocyte count, blood 23.2 % Link[facility] Normal neutrophils as percent of blood leukocytes 58.7 % Link[facility] Normal basophils, absolute, manual 51 cells/mcL [facility] 0-200 Normal eosinophils, absolute, manual 357 cells/mcL [facility] 15-500 Normal monocytes, absolute, manual 1131 cells/mcL [facility] 200-950 High lymphocytes, absolute 1972 CELLS/UL Link[facility] [id number] Normal Absolute Neutrophil count 4990 cells/mcL [facility] [id number] Normal mean platelet volume 10.3 fL [facility] 7.5-12.5 Normal platelet count 282 THOUSAND/UL [facility] 140-400 Normal red blood cell distribution width 12.4 % [facility] 11.0-15.0 Normal mean corpuscular hemoglobin concentration, RBC 34.4 G/DL [facility] 32.0-36.0 Normal mean corpuscular hemoglobin, RBC 32.1 pg [facility] 27.0-33.0 Normal mean corpuscular volume, RBC 93.2 fL [facility] 80.0-100.0 Normal hematocrit, blood 39.5 % [facility] 38.5-50.0 Normal hemoglobin electrophoresis, blood 13.6 [facility] 13.2-17.1 Normal erythrocyte (RBC) count 4.24 MILLION/UL Link[facility] 4.20-5.80 Normal leukocyte (white blood cells) count, blood 8.5 THOUSAND/UL Link[facility] 3.8-10.8 Normal alanine aminotransferase (SGPT), serum 17 1/L [facility] 9-46 Normal aspartate aminotransferase (SGOT), serum 22 1/L [facility] 10-35 Normal alkaline phosphatase, serum 63 1/L [facility] 35-144 Normal bilirubin, serum, total 0.4 mg/dL Link[facility] 0.2-1.2 Normal albumin/globulin ratio, serum 1.5 (calc) LinkLogic 1.0-2.5 Normal globulins, serum, total 2.7 G/DL (CALC) LinkLogic 1.9-3.7 Normal albumin, serum 4.1 g/dL Link[facility] 3.6-5.1 Normal protein, total, serum 6.8 g/dL [facility] 6.1-8.1 Normal calcium, serum 9.4 mg/dL [facility] 8.6-10.3 Normal carbon dioxide, venous blood 26 mmol/L [facility] 20-32 Normal chloride, serum 101 mmol/L [facility] 98-110 Normal potassium, serum 5.0 mmol/L Link[facility] 3.5-5.3 Normal sodium, serum 134 mmol/L [facility] 135-146 Low urea nitrogen/creatinine ratio, serum NOT APPLICABLE (calc) Link[facility]ic 6-22 creatinine, serum 0.89 mg/dL Link[facility] 0.70-1.35 Normal urea nitrogen, blood 9 mg/dL [facility] 7-25 Normal blood glucose, random 122 mg/dL Link[facility] 65-99 High cholesterol, non-HDL, total 62 MG/DL (CALC) LinkLogic <130 Normal cholesterol/HDL ratio, serum, percent 2.0 (calc) Link[facility]ic <5.0 Normal LDL cholesterol, serum 42 MG/DL (CALC) LinkLogic Normal triglyceride, serum, fasting 113 mg/dL LinkLogic <150 Normal HDL cholesterol, serum 63 mg/dL LinkLogic > OR = 40 Normal cholesterol, serum 125 mg/dL LinkLogic <200 Normal HISTORY OF MEDICATION USE Medication Status Instructions Dates Provider Indications Com ments metoprolol tartrate 25 mg tablet active Jose Madden NP guaifenesin 600 mg tablet extended release 12hr active 1 tablet by mouth twice a day Jose Madden NP nicotine 21 mg/24 hr patch 24 hour active 1 patch to skin once a day Jose Madden NP Stiolto Respimat 2.5-2.5 mcg/actuation mist active Jose Madden NP hydroxyzine pamoate 25 mg capsule active Jose Madden NP albuterol sulfate 90 mcg/actuation HFA aerosol inhaler active Jose Madden NP Crestor 10 mg tablet active Take 1 tablet by mouth once a day Cinthya Gutierrez Spiriva Respimat 1.25 mcg/actuation mist completed - Jose Madden NP Entresto 24-26 mg tablet active TAKE 1 TABLET BY MOUTH TWICE A DAY Jeannette Serna Entresto 24-26 mg tablet completed Take 1 tablet by mouth twice a day - Jeannette Serna Plavix 75 mg tablet active Take 1 tablet by mouth once daily Zi Middleton MD isosorbide mononitrate 60 mg tablet extended release 24 hr active 0.5 tablet once a day Ori Valladares MD Symbicort 160-4.5 mcg/actuation HFA aerosol inhaler completed 1 puff twice a day - Jose Madden NP BUSPIRONE HCL 15 MG ORAL TABLET completed one tablet twice daily - Eliz Ortez ASMANEX HFA AEROSOL completed 1-2 puffs twice daily - Eliz Ortez Ventolin HFA 90 mcg/actuation HFA aerosol inhaler completed 2 puff every four to six hours - Kesha Aiken ergocalciferol (vitamin D2) 1,250 mcg (50,000 unit) capsule active 1 tablet once a week Zi Middleton MD Crestor 10 mg tablet completed once a day - Cinthya Gutierrez COZAAR 25 MG ORAL TABLET completed once daily - Eliz Ortez Asacol HD 800 mg tablet,delayed release (/EC) completed 1 tablet twice a day - Kesha Aiken Cardizem 30 mg tablet completed 1 three times a day - Zi Middleton MD RANEXA 500 MG ORAL TABLET EXTENDED RELEASE 12 HOUR completed one tablet twice daily - Cinthya Gutierrez LORAZEPAM 1 MG TABS completed three times a day - Jose Madden NP Nexium 40 mg capsule,delayed release(/EC) completed 1 tablet once a day - Kesha Aiken PREDNISONE 10 MG ORAL TABLET completed 1 tab daily - Eliz Valdovinos [facility] VITAMIN E CAPSULE active 1 tablet once a day Zi Middleton MD ASPIRIN 81 MG ORAL TABLET active 1 tablet once a day Zi Middleton MD CRESTOR 10 MG ORAL TABLET completed ONE TAB. DAILY - Eliz Valdovinos Brilinta 90 mg tablet completed 1 tablet once a day - Zi Middleton MD ISOSORBIDE MONONITRATE ER 60 MG ORAL TABLET EXTENDED RELEASE 24 HOUR completed 1/2 tab twice daily - Ori Valladares MD AMLODIPINE BESYLATE 2.5 MG ORAL TABLET completed 1 tab daily - Kristen Elena MD SOCIAL HISTORY Date Observation Value Provider Underweight yes Zi rizo MD personal history of marijuana use yes Jose Shultzreri [employer] drug use no Jose Bonareri [employer] alcohol use no Jose Bonareri [employer] smoking/tobacco cess ation, patient education and counseling yes Jose Shultzreri [employer] smoking, year quit 2015 Jose Aldrichri [employer] smoking, date started 1974 Jose Bonareri [employer] smoking history, tot al pack/year 47 Jose Shultzreri [employer] smoking history, tot al pack/day 5-10 cigs a day Jose Shultzreri [employer] cigarette use yes Jose Bonareri [employer] smoking status Current every day smoker V corey Wallaceri [employer] Underweight yes Arias Morris personal history of marijuana use yes Zi Middleton MD drug use no Zi rizo MD alcohol use no Zi rizo MD smoking/tobacco cess ation, patient education and counseling yes Zi Middleton MD smoking, year quit 2015 Zi Middleton MD smoking, date started 1974 Ethan Middleton MD smoking history, tot al pack/year 47 Zi Middleton MD smoking history, tot al pack/day 1-2 cigs a day Zi Middleton MD cigarette use yes Zi loving MD smoking status Current every day smoker S eric Middleton MD Underweight yes Zi irzo MD personal history of marijuana use yes Jose Shultzabelardo [employer] drug use no Jose Shultzabelardo [employer] alcohol use no Velia Lim smoking/tobacco cess ation, patient education and counseling yes Velia Lim smoking, year quit 2015 Velia Will wi smoking, date started 1974 Velia W carey smoking history, tot al pack/year 47 Velia Lim smoking history, tot al pack/day 1-2 cigs a day Velia Lim cigarette use yes Velia Lim smoking status Current every day smoker A shannon Lim Underweight yes Zi rizo MD social history E&M Patient is a former smoker. Smoking History: P atient currently smokes every day. P atient has been counseled to quit. Zi Middleton MD social history reviewed E&M revi ewed - no changes required Zi Middleton MD smoking/tobacco cess ation, patient education and counseling yes Velia Lim smoking, year quit 2015 Velia Will wi smoking, date started 1974 Veliasallie patino smoking history, tot al pack/year 47 Velia Lim smoking history, tot al pack/day 1-2 cigs a day Velia Lim cigarette use yes Velia Lim smoking status Current every day smoker A shannon Raphael Underweight yes Zi rizo MD social history E&M Patient is a former smoker. Smoking History: P atient currently smokes every day. P atient has been counseled to quit. Zi Middleton MD social history reviewed E&M revi ewed - no changes required Zi Middleton MD smoking/tobacco cess ation, patient education and counseling yes Charla Fuentes smoking, year quit 2015 Charla johansen smoking, date started 1975 Charla Fuentes smoking history, tot al pack/year 47 Charla Fuentes smoking history, tot al pack/day 1-2 cigs a day Charla Fuentes cigarette use yes Charla Fuentes smoking status Current every day smoker Kevyn Fuentes Underweight yes Zi rizo MD social history reviewed E&M revi ewed - no changes required Zi Middleton MD smoking history, tot al pack/year 47 Ernesto Whiting RN Underweight yes Zi rizo MD social history reviewed E&M revi ewed - no changes required Zi Middleton MD social history E&M Patient is a former smoker. Smoking History: P atient currently smokes every day. P atient has been counseled to quit. Zi Middleton MD alcohol use no Zi rizo MD smoking/tobacco cess ation, patient education and counseling yes Agnieszka Reid smoking, year quit 2015 Agnieszka Reid smoking, date started 1974 Rowdy Nixon smoking history, tot al pack/day 1-2 cigs a day Agnieszka Reid cigarette use yes Agnieszka Kelley french smoking status Current every day smoker Monica Reid Underweight yes Stepan Mckenzie social history E&M Patient is a former smoker. Smoking History: P atient currently smokes every day. P atient has been counseled to quit. Stepan Mckenzie social history reviewed E&M revi ewed - no changes required Stepan Mckenzie smoking/tobacco cess ation, patient education and counseling yes Cinthya Gutierrez smoking, year quit 2015 Cinthya abel smoking, date started 1974 Cinthya Gutierrez smoking history, tot al pack/day 1-2 cigs a day Cinthya Gutierrez cigarette use yes Cinthya harden smoking status Current every day smoker Jenna Gutierrez Underweight yes Stepan Rileynicole social history E&M Patient is a former smoker. Smoking History: P angela currently smokes every day. P angela has been counseled to quit. Stepan Crrosa social history reviewed E&M revi ewed - no changes required Stepan Rileynicole smoking/tobacco cess ation, patient education and counseling yes Binta Moffett smoking, year quit 2015 Bintaalonso Moffett smoking, date started 1974 Chris Benton smoking history, tot al pack/day 1-2 cigs a day Binta Moffett cigarette use yes Binta bruce smoking status Current every day smoker R sarahy Moffett Underweight yes Zi rizo MD social history E&M Patient is a former smoker. Smoking History: P angela currently smokes every day. P angela has been counseled to quit. Zi Midldeton MD social history reviewed E&M revi ewed - no changes required Zi Middleton MD smoking/tobacco cess ation, patient education and counseling yes Binta Moffett smoking, year quit 2015 Binta Moffett smoking, date started 1974 Chris Benton smoking history, tot al pack/day 1-2 cigs a day Binta Moffett cigarette use yes Binta bruce smoking status Current every day smoker R sarahy Zuhair Underweight yes Zi rizo MD smoking/tobacco cess ation, patient education and counseling yes Binta Moffett smoking, year quit 2015 Binta Moffett smoking, date started 1974 Chris Benton smoking history, tot al pack/day 1-2 cigs a day Binta Moffett cigarette use yes Binta nievesclaire smoking status Current every day smoker R sarahy Zuhair Underweight yes Bharti Limjovanna number of grandchildren Zi Middleton MD smoking/tobacco cess ation, patient education and counseling yes Zi Middleton MD social history E&M Patient is a former smoker. Smoking History: P atient currently smokes every day. Zi Middleton MD social history reviewed E&M revi ewed - no changes required Zi Middleton MD smoking status Current every day smoker Darrian Borja social history reviewed E&M revi ewed - no changes required Ori Valladares MD smoking/tobacco cess ation, patient education and counseling yes Cinthya Gutierrez alcohol use no Cinthya brownlee smoking, year quit 2015 Cinthya abel smoking, date started 1974 Cinthya Gutierrez smoking history, tot al pack/day 1-2 cigs a day Cinthya Gutierrez cigarette use yes Cinthya harden smoking status Current every day smoker K diego Gutierrez smoking status Current every day smoker K diego Gutierrez alcohol use no Cinthya brownlee smoking, year quit 2015 Cinthya abel smoking, date started 1974 Cinthyatawny Gutierrez smoking history, tot al pack/day 1-2 cigs a day Cinthya Matt cigarette use yes Cinthya Edouard harden smoking status Current every day smoker Jenna cortez Matt social history reviewed E&M revi ewed - no changes required Ori Valladares MD social history reviewed E&M revi ewed - no changes required Ori Valladares MD alcohol use no Shira Crooks smoking, year quit 2015 Shira Bree garcia smoking, date started 1974 Shira Crooks smoking history, tot al pack/day 0.5 Shirasallie Crooks cigarette use yes Shira Crooks smoking status Former smoker Shira Crooks smoking, year quit 2015 Delmi stephens NP social history E&M Patient is a former smoker. Smoking History: Lien miller is a former smoker. Delim Mota NP number of grandchildren Ori Valladares MD S ya Mota NP social history reviewed E&M revi ewed - no changes required Delmi Mota NP smoking, date started 1974 Kaushal rizo Pérez smoking history, tot al pack/day 0.5 Eliz Pérez cigarette use yes Eliz Pérez smoking status Former smoker Delmi esteves NP social history E&M S moking History: Lien miller currently smokes every day. Lien miller has been counseled to quit. Ori Valladares MD smoking/tobacco cess ation, patient education and counseling yes Ori Valladares MD smoking, date started 1974 Ori Valladares MD smoking history, tot al pack/day 0.5 Ori Valladares MD smoking status Current every day smoker U ryan Valladares MD social history reviewed E&M revi ewed - no changes required Ori Valladares MD cigarette use yes Eliz Valdovinos social history E&M Smoking Histo ry: P atient currently smokes every day. P atient has been counseled to quit. Kristen Elena MD social history reviewed E&M revi ewed - no changes required Kristen Elena MD smoking/tobacco cess ation, patient education and counseling yes Aurelia Monique smoking, date started 1974 Monse Moinque smoking history, tot al pack/day 0.5 Aurelia Monique cigarette use yes Aurelia fountain smoking status current every day smoker Monica Monique social history E&M Patient carlos fernández smokes every day. Smoking History: P atient currently smokes every day. P atient has been counseled to quit. Kristen Elena MD social history reviewed E&M revi ewed - no changes required Kristen Elena MD smoking/tobacco cess ation, patient education and counseling yes Eliz Valdovinos smoking, date started 1974 Kaushal Valdovinos smoking history, tot al pack/day 1 Eliz Valdovinos cigarette use yes Eliz Valdovinos smoking status current every day smoker Monica Valdovinos social history E&M Patient carlos fernández smokes every day. Smoking History: P atient currently smokes every day. P atient has been counseled to quit. Ori Valladares MD social history reviewed E&M revi ewed - no changes required Ori Valladares MD smoking/tobacco cess ation, patient education and counseling yes Ori Valladares MD smoking, date started 1975 Yoly Ochoa smoking history, tot al pack/day 1 Jerica Ochoa cigarette use yes Jerica Ochoa smoking status current every day smoker U ryan Valladares MD FUNCTIONAL STATUS Date Observation Value Provider HRA, CV Assess/Plan, Angina (inactive) Management Plan continue current therapy Jose Madden NP HRA, CV Assess/Plan, Angina (inactive) Management Plan continue current therapy Zi Middleton MD HRA, CV Assess/Plan, Angina (inactive) Management Plan continue current therapy Jose Madden NP HRA, CV Assess/Plan, Angina (inactive) Management Plan continue current therapy Zi Middleton MD HRA, CV Assess/Plan, Angina (inactive) Management Plan continue current therapy Zi Middleton MD HRA, CV Assess/Plan, Angina (inactive) Management Plan continue current therapy Zi Middleton MD HRA, CV Assess/Plan, Angina (inactive) Management Plan continue current therapy Zi Middleton MD HRA, CV Assess/Plan, Angina (inactive) Management Plan continue current therapy Stepan Mckenzie HRA, CV Assess/Plan, Angina (inactive) Management Plan continue current therapy Stepan Mckenzie HRA, CV Assess/Plan, Angina (inactive) Management Plan continue current therapy Zi Middleton MD HRA, CV Assess/Plan, Angina (inactive) Management Plan continue current therapy Zi Middleton MD HRA, CV Assess/Plan, Angina (inactive) Management Plan continue current therapy Ori Valladares MD periodic limb movement index absent (0) Kristen Elena MD HRA, CV Assess/Plan, Angina (inactive) Management Plan continue current therapy Ori Valladares MD HRA, CV Assess/Plan, Angina (inactive) Management Plan continue current therapy Ori Valladares MD HRA, CV Assess/Plan, Angina (inactive) Management Plan continue current therapy Delmi Mota NP FAMILY HISTORY Family Member Condition Father Family History of Co ronary Artery Disease: INSURANCE PROVIDERS Payer name Policy type / Coverage type [facility] [employer] [phone] [place] MEDIC[place] Medicare [id number] ADVANCE DIRECTIVES Name Date DISCUSSED - NO DECISION MADE TREATMENT PLAN Date Name Performer [id number],Karie M ultifactorial, advised him to stop smoking . August 16, 2022 S till smoking March 07, 2023 T he Patient was reencouraged to stop smoking. Zi Middleton MD [id number],C, H is updated medication list for this problem includes: Isosorbide Mononitrate 60 Mg Tablet Extended Release 24 Hr (Isosorbide mononitrate) ..... 0.5 tablet once a day Plavix 75 Mg Tablet (Clopidogrel) ..... Take 1 tablet by mouth once daily prior stent in the LAD h ad stent in RCA Stress nuc from 04/2022 C ONCLUSIONS: 1 . Normal sinus rhythm. Non-specific T wave abnormality Old inferior wall myocardial infarction. Old anterior wall myocardial i nfarction. 2 . Normal Regadenoson ECG with no ischemic ST or T changes. There is no ECG evidence of myocardial ischemia with v asodilator stress. 3 . No arrhythmias seen during stress portion of the exam. 4 . Mildly enlarged left ventricle. 5 . Abnormal LV fntn Moderate to severe left ventricular dysfunction. Left Ventricular Ejection Fraction is 28 % TID: 1.07. 6 . Abnormal perfusion imaging in grace-septal wall with a severe perfusion, which is large in size and is not reversible. A bnormal perfusion imaging in the apical wall with a severe perfusion defect, which is moderate in size and is not reversible. Zi Middleton MD [id number],C, D iscussion of benefits for remote patient monitoring took place. Patient gives consent for remote monitoring of physiologic parameters including, but not limited to, weight, blood pressure, pulse oximetry, respiratory flow rate. RPM monitor reviewed Zi Middleton MD [id number],C, W e cannot increase his entresto dose. H is updated medication list for this problem includes: Entresto 24-26 Mg Tablet (Sacubitril-valsartan) ..... Take 1 tablet by mouth twice a day Isosorbide Mononitrate 60 Mg Tablet Extended Release 24 Hr (Isosorbide mononitrate) ..... 0.5 tablet once a day Plavix 75 Mg Tablet (Clopidogrel) ..... Take 1 tablet by mouth once daily Zi Middleton MD [id number],S,g et tele montior and keep lifevest until monitor avaialiable Zi Middleton MD [id number],C, p rior stent in the LAD h ad stent in RCA Stress nuc from 04/2022 C ONCLUSIONS: 1 . Normal sinus rhythm. Non-specific T wave abnormality Old inferior wall myocardial infarction. Old anterior wall myocardial i nfarction. 2 . Normal Regadenoson ECG with no ischemic ST or T changes. There is no ECG evidence of myocardial ischemia with v asodilator stress. 3 . No arrhythmias seen during stress portion of the exam. 4 . Mildly enlarged left ventricle. 5 . Abnormal LV fntn Moderate to severe left ventricular dysfunction. Left Ventricular Ejection Fraction is 28 % TID: 1.07. 6 . Abnormal perfusion imaging in grace-septal wall with a severe perfusion, which is large in size and is not reversible. A bnormal perfusion imaging in the apical wall with a severe perfusion defect, which is moderate in size and is not reversible. Zi Middleton MD [id number],S, C ath from february 2022 S UMMARY 1 . Mild candywraper stenosis to the distal edge of LAD stent 2 . Mild-Mod ISR of the RCA stent 3 . Apical hypokinesis of LVG with LVEF 35-40% 4 . Elevated LVEDP and normal SBP iZ Middleton MD [id number],C, M ultifactorial, advised him to stop smoking . August 16, 2022 S till smoking Zi Middleton MD [id number],C, D iscussion of benefits for remote patient monitoring took place. Patient gives consent for remote monitoring of physiologic parameters including, but not limited to, weight, blood pressure, pulse oximetry, respiratory flow rate. RPM monitor reviewed Zi Middleton MD [id number],C, T he Patient was reencouraged to stop smoking. 1 PPD August 16, 2022 T he Patient was reencouraged to stop smoking. October 16, 2022 T he Patient was reencouraged to stop smoking. Zi Middleton MD [id number],C, S een on monitoring analyst, as well as PVCs and PACs. The average heart rate was 87bpm with a maximum rate of 141bpm and a minimum rate of 57bpm. PSVT was documented as 5 beats with a maximum rate of 116bpm. Zi Middleton MD [id number],S, M ultifactorial, advised him to stop smoking . August 16, 2022 S till smoking Zi Middleton MD [id number],C, p rior stent in the LAD h ad stent in RCA Stress nuc from 04/2022 C ONCLUSIONS: 1 . Normal sinus rhythm. Non-specific T wave abnormality Old inferior wall myocardial infarction. Old anterior wall myocardial i nfarction. 2 . Normal Regadenoson ECG with no ischemic ST or T changes. There is no ECG evidence of myocardial ischemia with v asodilator stress. 3 . No arrhythmias seen during stress portion of the exam. 4 . Mildly enlarged left ventricle. 5 . Abnormal LV fntn Moderate to severe left ventricular dysfunction. Left Ventricular Ejection Fraction is 28 % TID: 1.07. 6 . Abnormal perfusion imaging in grace-septal wall with a severe perfusion, which is large in size and is not reversible. A bnormal perfusion imaging in the apical wall with a severe perfusion defect, which is moderate in size and is not reversible. Zi Middleton MD [id number],B, Zi Middleton MD [id number],C, H e has been on optimal medical therapy and his EF has been depressed around 25%. He has been on optimal medical therapy to see if his EF improves, per pt request. Echo was done today showing EF of ~30%. I discussed with him about undergoing dual chamber ICD implant, discussed risks and benefits, details of the procedure, he expressed understanding and was agreeable. & #13;August 16, 2022 R epeat echo, he has been on Entresto. Will see if EF is better than 40% or not. May also need to consider getting a MUGA done for more precise EF. Zi Middleton MD [id number],S, D iscussion of benefits for remote patient monitoring took place. Patient gives consent for remote monitoring of physiologic parameters including, but not limited to, weight, blood pressure, pulse oximetry, respiratory flow rate. RPM monitor reviewed Zi Middleton MD [id number],C,D iscussion of benefits for remote patient monitoring took place. Patient gives consent for remote monitoring of physiologic parameters including, but not limited to, weight, blood pressure, pulse oximetry, respiratory flow rate. RPM monitor reviewed Zi Middleton MD [id number],S,Episodes of a nxiety Zi Middleton MD [id number],C, M ultifactorial, advised him to stop smoking . August 16, 2022 S till smoking Zi Middleton MD [id number],C, T he Patient was reencouraged to stop smoking. 1 PPD August 16, 2022 T he Patient was reencouraged to stop smoking. Zi Middleton MD [id number],C, H e has been on optimal medical therapy and his EF has been depressed around 25%. He has been on optimal medical therapy to see if his EF improves, per pt request. Echo was done today showing EF of ~30%. I discussed with him about undergoing dual chamber ICD implant, discussed risks and benefits, details of the procedure, he expressed understanding and was agreeable. & #13;August 16, 2022 R epeat echo, he has been on Entresto. Will see if EF is better than 40% or not. May also need to consider getting a MUGA done for more precise EF. Zi Middleton MD [id number],C, C ath from february 2022 S PEARL 1 . Mild candywraper stenosis to the distal edge of LAD stent 2 . Mild-Mod ISR of the RCA stent 3 . Apical hypokinesis of LVG with LVEF 35-40% 4 . Elevated LVEDP and normal SBP Zi Middleton MD [id number],C, H henrique has been on optimal medical therapy and his EF has been depressed around 25%. He has been on optimal medical therapy to see if his EF improves, per pt request. Echo was done today showing EF of ~30%. I discussed with him about undergoing dual chamber ICD implant, discussed risks and benefits, details of the procedure, he expressed understanding and was agreeable. Stepan Tonyte [id number],B,S een on monitoring analyst, as well as PVCs and PACs. The average heart rate was 87bpm with a maximum rate of 141bpm and a minimum rate of 57bpm. PSVT was documented as 5 beats with a maximum rate of 116bpm. Stepan Rileynicole [id number],C H henrique has been on optimal medical therapy and his EF has been depressed around 25%. He has been on optimal medical therapy to see if his EF improves, per pt request. His Echo is later today, we will see if it continues to be decreased and proceed with ICD implantation. Pt understood and was agreeable. Stepan Tonyjosiahrosa [id number],C, C ath from february 2022 S PEARL 1 . Mild candywraper stenosis to the distal edge of LAD stent 2 . Mild-Mod ISR of the RCA stent 3 . Apical hypokinesis of LVG with LVEF 35-40% 4 . Elevated LVEDP and normal SBP Stepan Mckenzie [id number],C,M ultifactorial, advised him to stop smoking . Stepan Mckenzie [id number],C, p rior stent in the LAD h ad stent in RCA Stress nuc from 04/2022 C ONCLUSIONS: 1 . Normal sinus rhythm. Non-specific T wave abnormality Old inferior wall myocardial infarction. Old anterior wall myocardial i nfarction. 2 . Normal Regadenoson ECG with no ischemic ST or T changes. There is no ECG evidence of myocardial ischemia with v asodilator stress. 3 . No arrhythmias seen during stress portion of the exam. 4 . Mildly enlarged left ventricle. 5 . Abnormal LV fntn Moderate to severe left ventricular dysfunction. Left Ventricular Ejection Fraction is 28 % TID: 1.07. 6 . Abnormal perfusion imaging in grace-septal wall with a severe perfusion, which is large in size and is not reversible. A bnormal perfusion imaging in the apical wall with a severe perfusion defect, which is moderate in size and is not reversible. Stepan Mckenzie [id number],C,H e has been on optimal medical therapy and his EF has been depressed around 25%, he would like to wait a little longer and see if it improves. Will follow up in one month and continue with ICD implantation if there is no improvement. Pt was agreeable. D ue to presence of bradycardia he should not be on BB, will check 2 week telemetry. Stepan Mckenzie [id number],C,C ath from february PEARL 1 . Mild candywraper stenosis to the distal edge of LAD stent 2 . Mild-Mod ISR of the RCA stent 3 . Apical hypokinesis of LVG with LVEF 35-40% 4 . Elevated LVEDP and normal SBP Stepan Mckenzie [id number],S, T he Patient was reencouraged to stop smoking. 1 PPD Zi Middleton MD [id number],C, H is updated medication list for this problem includes: Isosorbide Mononitrate 60 Mg Tablet Extended Release 24 Hr (Isosorbide mononitrate) ..... 0.5 tablet once a day Plavix 75 Mg Tablet (Clopidogrel) ..... Take 1 tablet by mouth once daily Zi Middleton MD [id number],C, H ad PFTs done at [facility] by PCP Zi Middleton MD [id number],C, p rior stent in the LAD needs nuc study h ad stent in RCA E KG is abnormal Zi Middleton MD [id number],C, B P runs a little low. ideally he needs to go on Farxiga or Jardiance and needs to be on Entresto. Will give him samples of Farxiga 10 mg and Entresto 24-26 mg BID, have him come back in 2 weeks and see if he is toleratig the medications. He will ultimately need ICD if he is not able to improve his LVF on med Rx. May 17, 2022 R cierawed with him about ICD stress test EF 28%. Echo EF 25% Zi Middleton MD [id number],C, C hest pain free. EKG is abn needs nuc study and echo R eviewed nuclear stress and echo, will try med Rx for now. Zi Middleton MD [id number],C, C hest pain free. EKG is abn needs nuc study and echo R eviewed nuclear stress and echo, will try med Rx for now. Zi Middleton MD [id number],C,B P runs a little low. ideally he needs to go on Farxiga or Jardiance and needs to be on Entresto. Will give him samples of Farxiga 10 mg and Entresto 24-26 mg BID, have him come back in 2 weeks and see if he is toleratig the medications. He will ultimately need ICD if he is not able to improve his LVF on med Rx. Zi Middleton MD [id number],C, T he Patient was reencouraged to stop smoking. Zi Middleton MD [id number],C,Had PFTs done at [facility] by PCP Zi Middleton MD [id number],C, p rior stent in the LAD needs nuc study h ad stent in RCA E KG is abnormal Zi Middleton MD [id number],C,E cho 03/2022 C ONCLUSIONS: 1 . Abnormal septal motion consistent with pacemaker or ICD implant . Severe global left ventricular systolic hypokinesis. N ormal left ventricular size. Normal left ventricular wall thickness. E/E': 12.0 Left ventricular ejection fraction is measured at 2 5 %. 2 . Normal right ventricular size. 3 . There is non-specific thickening of the mitral valve leaflets. There is trace physiologic mitral valve regurgitation. 4 . Normal appearing tricuspid valve leaflets. There is trace physiologic tricuspid valve regurgitation. IVC is dilated with normal r espiratory response, consistent with mildly elevated right atrial pressures. Estimated peak pulmonary artery systolic p ressure is 20.0 mmHg. E lectronically Signed By: Zi Middleton MD, [facility] 2 21:35:43 CDT Stress nuclear 04/2022 C ONCLUSIONS: 1 . Normal sinus rhythm. Non-specific T wave abnormality Old inferior wall myocardial infarction. Old anterior wall myocardial i nfarction. 2 . Normal Regadenoson ECG with no ischemic ST or T changes. There is no ECG evidence of myocardial ischemia with v asodilator stress. 3 . No arrhythmias seen during stress portion of the exam. 4 . Mildly enlarged left ventricle. 5 . Abnormal LV fntn Moderate to severe left ventricular dysfunction. Left Ventricular Ejection Fraction is 28 % TID: 1.07. 6 . Abnormal perfusion imaging in grace-septal wall with a severe perfusion, which is large in size and is not reversible. A bnormal perfusion imaging in the apical wall with a severe perfusion defect, which is moderate in size and is not reversible. Zi Middleton MD [id number],S,T he Patient was reencouraged to stop smoking. Zi Middleton MD [id number],C,p rior stent in the LAD needs nuc study h ad stent in RCA E KG is abnormal Zi Middleton MD [id number],C, C hest pain free. EKG is abn needs nuc study and echo Zi Middleton MD Cardiology: C omplete cessation encouraged Jose Madden NP Cardiology: H is updated medication list for this problem includes: Isosorbide Mononitrate 60 Mg Tablet Extended Release 24 Hr (Isosorbide mononitrate) ..... 0.5 tablet once a day Plavix 75 Mg Tablet (Clopidogrel) ..... Take 1 tablet by mouth once daily prior stent in the LAD h ad stent in RCA Stress nuc from 04/2022 C ONCLUSIONS: 1 . Normal sinus rhythm. Non-specific T wave abnormality Old inferior wall myocardial infarction. Old anterior wall myocardial i nfarction. 2 . Normal Regadenoson ECG with no ischemic ST or T changes. There is no ECG evidence of myocardial ischemia with v asodilator stress. 3 . No arrhythmias seen during stress portion of the exam. 4 . Mildly enlarged left ventricle. 5 . Abnormal LV fntn Moderate to severe left ventricular dysfunction. Left Ventricular Ejection Fraction is 28 % TID: 1.07. 6 . Abnormal perfusion imaging in grace-septal wall with a severe perfusion, which is large in size and is not reversible. A bnormal perfusion imaging in the apical wall with a severe perfusion defect, which is moderate in size and is not reversible. October 17, 2023 n o angina T his visit has been a part of the consistent, comprehensive, and ongoing management of the chronic medical condition(s) listed above for the patient. February 27, 2024 C ontinue with entresto and lopresoor June 08, 2024 A RRANGE FOR NUCLEAR STRESS TO EVAL THE STENTS PLACED IN LAD AND RCA WILL GET A PET CT DONE Jose Madden NP Cardiology: Scar E HAD AN EF OF 25% BEFORE ENTRESTO AND NOW IS 45% l ast echo 11/2022 ef 45% R PM BP Avg 98/63 HR 82 February 27, 2024 c ontinue with medrx despite low BP. June 08, 2024 O n Entresto and BB C ONCLUSIONS: 1 . Technically difficult study, secondary to poor acoustic windows. There is poor endocardial visualization. Interpretation is b ased on available limited views. Moderate global left ventricular systolic hypokinesis . There is hypokinesis in the apical a nterior wall and apex. Normal left ventricular systolic function. Normal left ventricular size. Normal left ventricular wall t hickness. There is E to A wave reversal consistent with impaired LV relaxation. E/E': 7.9. Left ventricular ejection fraction is m easured at 40 %. 2 . Normal right ventricular size. Normal right ventricular systolic function. 3 . There is non-specific thickening of the mitral valve leaflets. There is trace physiologic mitral valve regurgitation. 4 . Normal appearing tricuspid valve leaflets. There is mild tricuspid regurgitation. Estimated peak pulmonary artery systolic p ressure is 24.0 mmHg. Jose Madden ESTATE PLANNER Cardiology: R EMAINS ON PLAVIX RARE NOSEBLEED OTHERWISE STABLE ON IT C ath from february 2022 S UMMARY 1 . Mild candywraper stenosis to the distal edge of LAD stent 2 . Mild-Mod ISR of the RCA stent 3 . Apical hypokinesis of LVG with LVEF 35-40% 4 . Elevated LVEDP and normal SBP June 08, 2024 N o angina Jose Madden ESTATE PLANNER Cardiology:LVEF 40% ON ECHO ON 04/16/24 T his visit has been a part of the consistent, comprehensive, and ongoing management of the chronic medical condition(s) listed above for the patient. & #13;Has soft BPs C linically appears compensated H is updated medication list for this problem includes: Metoprolol Tartrate 25 Mg Tablet (Metoprolol tartrate) Isosorbide Mononitrate 60 Mg Tablet Extended Release 24 Hr (Isosorbide mononitrate) ..... 0.5 tablet once a day Plavix 75 Mg Tablet (Clopidogrel) ..... Take 1 tablet by mouth once daily C ONCLUSIONS: 1 . Technically difficult study, secondary to poor acoustic windows. There is poor endocardial visualization. Interpretation is b ased on available limited views. Moderate global left ventricular systolic hypokinesis . There is hypokinesis in the apical a nterior wall and apex. Normal left ventricular systolic function. Normal left ventricular size. Normal left ventricular wall t hickness. There is E to A wave reversal consistent with impaired LV relaxation. E/E': 7.9. Left ventricular ejection fraction is m easured at 40 %. 2 . Normal right ventricular size. Normal right ventricular systolic function. 3 . There is non-specific thickening of the mitral valve leaflets. There is trace physiologic mitral valve regurgitation. 4 . Normal appearing tricuspid valve leaflets. There is mild tricuspid regurgitation. Estimated peak pulmonary artery systolic p ressure is 24.0 mmHg. Jose Maryanne ELY Cardiology:The Patie nt was reencouraged to stop smoking. 1 /2 PPD Zi Middleton MD Cardiology: H is updated medication list for this problem includes: Isosorbide Mononitrate 60 Mg Tablet Extended Release 24 Hr (Isosorbide mononitrate) ..... 0.5 tablet once a day Plavix 75 Mg Tablet (Clopidogrel) ..... Take 1 tablet by mouth once daily prior stent in the LAD h ad stent in RCA Stress nuc from 04/2022 C ONCLUSIONS: 1 . Normal sinus rhythm. Non-specific T wave abnormality Old inferior wall myocardial infarction. Old anterior wall myocardial i nfarction. 2 . Normal Regadenoson ECG with no ischemic ST or T changes. There is no ECG evidence of myocardial ischemia with v asodilator stress. 3 . No arrhythmias seen during stress portion of the exam. 4 . Mildly enlarged left ventricle. 5 . Abnormal LV fntn Moderate to severe left ventricular dysfunction. Left Ventricular Ejection Fraction is 28 % TID: 1.07. 6 . Abnormal perfusion imaging in grace-septal wall with a severe perfusion, which is large in size and is not reversible. A bnormal perfusion imaging in the apical wall with a severe perfusion defect, which is moderate in size and is not reversible. October 17, 2023 n o angina T his visit has been a part of the consistent, comprehensive, and ongoing management of the chronic medical condition(s) listed above for the patient. February 27, 2024 C ontinue with entresto and lopresoor Zi Middleton MD Cardiology: H E HAD AN EF OF 25% BEFORE ENTRESTO AND NOW IS 45% l ast echo 11/2022 ef 45% R PM BP Avg 98/63 HR 82 February 27, 2024 c ontinue with medrx despite low BP. Zi Middleton MD Cardiology:He needs a new echo done this year and blood work. Zi Middleton MD Cardiology: B P IS LOWISH CANNOT INCREASE O n Entresto 24-26 mg BID. Cannot be increased. His updated medication list for this problem includes: Isosorbide Mononitrate 60 Mg Tablet Extended Release 24 Hr (Isosorbide mononitrate) ..... 0.5 tablet once a day Plavix 75 Mg Tablet (Clopidogrel) ..... Take 1 tablet by mouth once daily Zi Middleton MD Cardiology: T he Patient was reencouraged to stop smoking. 1 PPD August 16, 2022 T he Patient was reencouraged to stop smoking. October 16, 2022 T he Patient was reencouraged to stop smoking. October 17, 2023 I DONT WRIITE FOR CHANTIX DUE TO THE SUICIDE IDEATION RISK HOWEVER CAN GET FROM PCP WITH FREQUEN F/U IF PCP IS AGREEABLE Jose Madden NP Cardiology: H is updated medication list for this problem includes: Isosorbide Mononitrate 60 Mg Tablet Extended Release 24 Hr (Isosorbide mononitrate) ..... 0.5 tablet once a day Plavix 75 Mg Tablet (Clopidogrel) ..... Take 1 tablet by mouth once daily prior stent in the LAD h ad stent in RCA Stress nuc from 04/2022 C ONCLUSIONS: 1 . Normal sinus rhythm. Non-specific T wave abnormality Old inferior wall myocardial infarction. Old anterior wall myocardial i nfarction. 2 . Normal Regadenoson ECG with no ischemic ST or T changes. There is no ECG evidence of myocardial ischemia with v asodilator stress. 3 . No arrhythmias seen during stress portion of the exam. 4 . Mildly enlarged left ventricle. 5 . Abnormal LV fntn Moderate to severe left ventricular dysfunction. Left Ventricular Ejection Fraction is 28 % TID: 1.07. 6 . Abnormal perfusion imaging in grace-septal wall with a severe perfusion, which is large in size and is not reversible. A bnormal perfusion imaging in the apical wall with a severe perfusion defect, which is moderate in size and is not reversible. October 17, 2023 n o angina Jose Madden NP Cardiology:REMAINS O N PLAVIX RARE NOSEBLEED OTHERWISE STABLE ON IT C ath from february 2022 S UMMARY 1 . Mild candywraper stenosis to the distal edge of LAD stent 2 . Mild-Mod ISR of the RCA stent 3 . Apical hypokinesis of LVG with LVEF 35-40% 4 . Elevated LVEDP and normal SBP Jose Madden NP Cardiology:BP IS LOW GISEL CANNOT INCREASE O n Entresto 24-26 mg BID. Cannot be increased. His updated medication list for this problem includes: Isosorbide Mononitrate 60 Mg Tablet Extended Release 24 Hr (Isosorbide mononitrate) ..... 0.5 tablet once a day Plavix 75 Mg Tablet (Clopidogrel) ..... 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 August 16, 2022 S till smoking March 07, 2023 T he Patient was reencouraged to stop smoking. Zi Middleton MD Cardiology: H is updated medication list for this problem includes: Isosorbide Mononitrate 60 Mg Tablet Extended Release 24 Hr (Isosorbide mononitrate) ..... 0.5 tablet once a day Plavix 75 Mg Tablet (Clopidogrel) ..... Take 1 tablet by mouth once daily prior stent in the LAD h ad stent in RCA Stress nuc from 04/2022 C ONCLUSIONS: 1 . Normal sinus rhythm. Non-specific T wave abnormality Old inferior wall myocardial infarction. Old anterior wall myocardial i nfarction. 2 . Normal Regadenoson ECG with no ischemic ST or T changes. There is no ECG evidence of myocardial ischemia with v asodilator stress. 3 . No arrhythmias seen during stress portion of the exam. 4 . Mildly enlarged left ventricle. 5 . Abnormal LV fntn Moderate to severe left ventricular dysfunction. Left Ventricular Ejection Fraction is 28 % TID: 1.07. 6 . Abnormal perfusion imaging in grace-septal wall with a severe perfusion, which is large in size and is not reversible. A bnormal perfusion imaging in the apical wall with a severe perfusion defect, which is moderate in size and is not reversible. Zi Middleton MD Cardiology: D iscussion of benefits for remote patient monitoring took place. Patient gives consent for remote monitoring of physiologic parameters including, but not limited to, weight, blood pressure, pulse oximetry, respiratory flow rate. RPM monitor reviewed Zi Middleton MD Cardiology: W henrique cannot increase his entresto dose. H is updated medication list for this problem includes: Entresto 24-26 Mg Tablet (Sacubitril-valsartan) ..... Take 1 tablet by mouth twice a day Isosorbide Mononitrate 60 Mg Tablet Extended Release 24 Hr (Isosorbide mononitrate) ..... 0.5 tablet once a day Plavix 75 Mg Tablet (Clopidogrel) ..... Take 1 tablet by mouth once daily Zi Middleton MD Cardiology:get tele montior and keep lifevest until monitor avaialiable Zi Middleton MD Cardiology: p rior stent in the LAD h ad stent in RCA Stress nuc from 04/2022 C ONCLUSIONS: 1 . Normal sinus rhythm. Non-specific T wave abnormality Old inferior wall myocardial infarction. Old anterior wall myocardial i nfarction. 2 . Normal Regadenoson ECG with no ischemic ST or T changes. There is no ECG evidence of myocardial ischemia with v asodilator stress. 3. No arrhythmias seen during stress portion of the exam. 4 . Mildly enlarged left ventricle. 5 . Abnormal LV fntn Moderate to severe left ventricular dysfunction. Left Ventricular Ejection Fraction is 28 % TID: 1.07. 6 . Abnormal perfusion imaging in grace-septal wall with a severe perfusion, which is large in size and is not reversible. A bnormal perfusion imaging in the apical wall with a severe perfusion defect, which is moderate in size and is not reversible. Zi Middleton MD Cardiology: C ath from february 2022 S UMMARY 1 . Mild candywraper stenosis to the distal edge of LAD stent 2 . Mild-Mod ISR of the RCA stent 3 . Apical hypokinesis of LVG with LVEF 35-40% 4 . Elevated LVEDP and normal SBP Zi Middleton MD Cardiology: M ultifactorial, advised him to stop smoking . August 16, 2022 S till smoking Zi Middleton MD Cardiology: D iscussion of benefits for remote patient monitoring took place. Patient gives consent for remote monitoring of physiologic parameters including, but not limited to, weight, blood pressure, pulse oximetry, respiratory flow rate. RPM monitor reviewed Zi Middleton MD Cardiology: T he Patient was reencouraged to stop smoking. 1 PPD August 16, 2022 T he Patient was reencouraged to stop smoking. October 16, 2022 T he Patient was reencouraged to stop smoking. Zi Middleton MD Cardiology: S een on monitoring analyst, as well as PVCs and PACs. The average heart rate was 87bpm with a maximum rate of 141bpm and a minimum rate of 57bpm. PSVT was documented as 5 beats with a maximum rate of 116bpm. Zi Middleton MD Cardiology: M ultifactorial, advised him to stop smoking . August 16, 2022 S till smoking iZ Middleton MD Cardiology: p rior stent in the LAD h ad stent in RCA Stress nuc from 04/2022 C ONCLUSIONS: 1 . Normal sinus rhythm. Non-specific T wave abnormality Old inferior wall myocardial infarction. Old anterior wall myocardial i nfarction. 2 . Normal Regadenoson ECG with no ischemic ST or T changes. There is no ECG evidence of myocardial ischemia with v asodilator stress. 3. No arrhythmias seen during stress portion of the exam. 4 . Mildly enlarged left ventricle. 5 . Abnormal LV fntn Moderate to severe left ventricular dysfunction. Left Ventricular Ejection Fraction is 28 % TID: 1.07. 6 . Abnormal perfusion imaging in grace-septal wall with a severe perfusion, which is large in size and is not reversible. A bnormal perfusion imaging in the apical wall with a severe perfusion defect, which is moderate in size and is not reversible. Zi Middleton MD Cardiology Zi Middleton MD Cardiology: Scar duenas has been on optimal medical therapy and his EF has been depressed around 25%. He has been on optimal medical therapy to see if his EF improves, per pt request. Echo was done today showing EF of ~30%. I discussed with him about undergoing dual chamber ICD implant, discussed risks and benefits, details of the procedure, he expressed understanding and was agreeable. August 16, 2022 R epeat echo, he has been on Entresto. Will see if EF is better than 40% or not. May also need to consider getting a MUGA done for more precise EF. Zi Middleton MD Cardiology: D iscussion of benefits for remote patient monitoring took place. Patient gives consent for remote monitoring of physiologic parameters including, but not limited to, weight, blood pressure, pulse oximetry, respiratory flow rate. RPM monitor reviewed Zi Middleton MD Cardiology:Discussio n of benefits for remote patient monitoring took place. Patient gives consent for remote monitoring of physiologic parameters including, but not limited to, weight, blood pressure, pulse oximetry, respiratory flow rate. RPM monitor reviewed Zi Middleton MD Cardiology:Episodes of anxiety S eric Middleton MD Cardiology: Monica ultifactorial, advised him to stop smoking . August 16, 2022 S till smoking Zi Middleton MD Cardiology: T he Patient was reencouraged to stop smoking. 1 PPD August 16, 2022 T he Patient was reencouraged to stop smoking. Zi Middleton MD Cardiology: Scar duenas has been on optimal medical therapy and his EF has been depressed around 25%. He has been on optimal medical therapy to see if his EF improves, per pt request. Echo was done today showing EF of ~30%. I discussed with him about undergoing dual chamber ICD implant, discussed risks and benefits, details of the procedure, he expressed understanding and was agreeable. August 16, 2022 R epeat echo, he has been on Entresto. Will see if EF is better than 40% or not. May also need to consider getting a MUGA done for more precise EF. Zi Middleton MD Cardiology: C ath from february 2022 S PEARL 1 . Mild candywraper stenosis to the distal edge of LAD stent 2 . Mild-Mod ISR of the RCA stent 3 . Apical hypokinesis of LVG with LVEF 35-40% 4 . Elevated LVEDP and normal SBP Zi Middleton MD Electrophysiology: Scar duenas has been on optimal medical therapy and his EF has been depressed around 25%. He has been on optimal medical therapy to see if his EF improves, per pt request. Echo was done today showing EF of ~30%. I discussed with him about undergoing dual chamber ICD implant, discussed risks and benefits, details of the procedure, he expressed understanding and was agreeable. Stepan te Electrophysiology:Se en on monitoring analyst, as well as PVCs and PACs. The average heart rate was 87bpm with a maximum rate of 141bpm and a minimum rate of 57bpm. PSVT was documented as 5 beats with a maximum rate of 116bpm. Stepan te Electrophysiology: Scar duenas has been on optimal medical therapy and his EF has been depressed around 25%. He has been on optimal medical therapy to see if his EF improves, per pt request. His Echo is later today, we will see if it continues to be decreased and proceed with ICD implantation. [facility] understood [facility] february [facility] S PEARL 1 . Mild candywraper stenosis to the distal edge of LAD stent 2 . Mild-Mod ISR of the RCA stent 3 . Apical hypokinesis of LVG with LVEF 35-40% 4 . Elevated LVEDP and normal SBP [facility]Mu ltifactorial, advised him to stop smoking . [facility] Electrophysiology: p rior stent in the LAD h ad stent in RCA Stress nuc from 04/2022 C ONCLUSIONS: 1 . Normal sinus rhythm. Non-specific T wave abnormality Old inferior wall myocardial infarction. Old anterior wall myocardial i nfarction. 2 . Normal Regadenoson ECG with no ischemic ST or T changes. There is no ECG evidence of myocardial ischemia with v asodilator stress. 3 . No arrhythmias seen during stress portion of the exam. 4 . Mildly enlarged left ventricle. 5 . Abnormal LV fntn Moderate to severe left ventricular dysfunction. Left Ventricular Ejection Fraction is 28 % TID: 1.07. 6 . Abnormal perfusion imaging in grace-septal wall with a severe perfusion, which is large in size and is not reversible. A bnormal perfusion imaging in the apical wall with a severe perfusion defect, which is moderate in size and is not reversible. Stepan Rileynicole Electrophysiology:He has been on optimal medical therapy and his EF has been depressed around 25%, he would like to wait a little longer and see if it improves. Will follow up in one month and continue with ICD implantation if there is no improvement. Pt was agreeable. D ue to presence of bradycardia he should not be on BB, will check 2 week telemetry. Stepan Rileynicole Electrophysiology:Ca from february PEARL 1 . Mild candywraper stenosis to the distal edge of LAD stent 2 . Mild-Mod ISR of the RCA stent 3 . Apical hypokinesis of LVG with LVEF 35-40% 4 . Elevated LVEDP and normal SBP Stepan Mckenzie Cardiology: T he Patient was reencouraged to stop smoking. 1 PPD Zi Middleton MD Cardiology: H is updated medication list for this problem includes: Isosorbide Mononitrate 60 Mg Tablet Extended Release 24 Hr (Isosorbide mononitrate) ..... 0.5 tablet once a day Plavix 75 Mg Tablet (Clopidogrel) ..... Take 1 tablet by mouth once daily Zi Middleton MD Cardiology: H ad PFTs done at [facility] by PCP Zi Middleton MD Cardiology: p rior stent in the LAD needs nuc study h ad stent in RCA E KG is abnormal Zi Middleton MD Cardiology: B P runs a little low. ideally he needs to go on Farxiga or Jardiance and needs to be on Entresto. Will give him samples of Farxiga 10 mg and Entresto 24-26 mg BID, have him come back in 2 weeks and see if he is toleratig the medications. He will ultimately need ICD if he is not able to improve his LVF on med Rx. May 17, 2022 R eviewed with him about ICD stress test EF 28%. Echo EF 25% Zi Middleton MD Cardiology: C hest pain free. EKG is abn needs nuc study and echo R eviewed nuclear stress and echo, will try med Rx for now. Zi Middleton MD Cardiology: C hest pain free. EKG is abn needs nuc study and echo R eviewed nuclear stress and echo, will try med Rx for now. Zi Middleton MD Cardiology:BP runs a little low. ideally he needs to go on Farxiga or Jardiance and needs to be on Entresto. Will give him samples of Farxiga 10 mg and Entresto 24-26 mg BID, have him come back in 2 weeks and see if he is toleratig the medications. He will ultimately need ICD if he is not able to improve his LVF on med Rx. Zi Middleton MD Cardiology: T he Patient was reencouraged to stop smoking. Zi Middleton MD Cardiology:Had PFTs done at [facility] by PCP Zi Middleton MD Cardiology: p rior stent in the LAD needs nuc study h ad stent in RCA E KG is abnormal Zi Middleton MD Cardiology:Echo 03/22 C ONCLUSIONS: 1 . Abnormal septal motion consistent with pacemaker or ICD implant . Severe global left ventricular systolic hypokinesis. N ormal left ventricular size. Normal left ventricular wall thickness. E/E': 12.0 Left ventricular ejection fraction is measured at 2 5 %. 2 . Normal right ventricular size. 3 . There is non-specific thickening of the mitral valve leaflets. There is trace physiologic mitral valve regurgitation. 4 . Normal appearing tricuspid valve leaflets. There is trace physiologic tricuspid valve regurgitation. IVC is dilated with normal r espiratory response, consistent with mildly elevated right atrial pressures. Estimated peak pulmonary artery systolic p ressure is 20.0 mmHg. E lectronically Signed By: Kevyn Middleton MD, [facility] 21:35:43 CDT Stress nuclear 04/2022 C ONCLUSIONS: 1 . Normal sinus rhythm. Non-specific T wave abnormality Old inferior wall myocardial infarction. Old anterior wall myocardial i nfarction. 2 . Normal Regadenoson ECG with no ischemic ST or T changes. There is no ECG evidence of myocardial ischemia with v asodilator stress. 3 . No arrhythmias seen during stress portion of the exam. 4 . Mildly enlarged left ventricle. 5 . Abnormal LV fntn Moderate to severe left ventricular dysfunction. Left Ventricular Ejection Fraction is 28 % TID: 1.07. 6 . Abnormal perfusion imaging in grace-septal wall with a severe perfusion, which is large in size and is not reversible. A bnormal perfusion imaging in the apical wall with a severe perfusion defect, which is moderate in size and is not reversible. Zi Middleton MD Cardiology:The Patie nt was reencouraged to stop smoking. Zi Middleton MD Cardiology:prior taz nt in the LAD needs nuc study h ad stent in RCA E KG is abnormal Zi Middleton MD Cardiology: C hest pain free. EKG is abn needs nuc study and echo Zi Middleton MD Cardiology Follow up :The Patient was reencouraged to stop smoking. Ori Valladares MD Cardiology Follow up :Placed on pramipexole, but caused insomnia. He will discontinue this and is advised to drink tonic water at night for cramping. Ori Valladares MD Cardiology Follow up :Chest pain free. Effort tolerance stable. Stress test was normal. Patent stent on cath a few years. Ori Valladares MD Cardiology:Described as similar to those experienced prior to his previous cath in 2012. Will order routine stress test. Ori Valladares MD Cardiology Ori Valladares MD Cardiology:The Patie nt was reencouraged to stop smoking. Ori Valladares MD Cardiology Follow up Ori de leon MD Cardiology Follow up Ori de leon MD Cardiology:Occasiona l jabbing pain that lasts for about a second. Recommend that he discuss repeat stress test with Dr. Clemente. His updated medication list for this problem includes: Cardizem 30 Mg Oral Tabs (Diltiazem hcl) ..... One three times a day Ranexa 500 Mg Oral [id number] (Ranolazine) ..... One tablet twice daily Aspirin 81 Mg Tabs (Aspirin) ..... One tab. daily Brilinta 90 Mg Tabs (Ticagrelor) ..... One tab. daily Ori Valladares MD Cardiology:Occasiona l jabbing pain that lasts for about a second. His updated medication list for this problem includes: Cardizem 30 Mg Oral Tabs (Diltiazem hcl) ..... One three times a day Ranexa 500 Mg Oral [id number] (Ranolazine) ..... One tablet twice daily Aspirin 81 Mg Tabs (Aspirin) ..... One tab. daily Brilinta 90 Mg Tabs (Ticagrelor) ..... One tab. daily Delmi Mota NP Cardiology:Patient has quit smok ing since September Delmi Mota NP Cardiology:He is sti ll experiencing panic/anxiety attacks. They usually happen in the afternoon and he believes this is due to stress at work. Delmi Mota NP Cardiology:Stable. His updated medication list for this problem includes: Cardizem 30 Mg Oral Tabs (Diltiazem hcl) ..... One three times a day Ranexa 500 Mg Oral Re24e-rhr (Ranolazine) ..... One tablet twice daily Aspirin 81 Mg Tabs (Aspirin) ..... One tab. daily Brilinta 90 Mg Tabs (Ticagrelor) ..... One tab. daily Delmi Mota NP Cardiology:Chest autumn n free. On aspirin and Brilinta 90mg daily. Ori Valladares MD Cardiology:Unchanged. Remains on inhalers. Ori Valladares MD Cardiology:He is now following a psychiatrist. On Buspirone 15 mg twice daily. He does not feel that the antidepressants that he has tried have been effective. Ori Valladares MD Cardiology Kristen ritter MD hos follow up:The Pa martell was reencouraged to stop smoking. Ori Valladares MD Date Name myocardial blood luis w (PET) Stress Cardiac PET-C T MAGNESIUM HEMOGLOBIN A1c LIPID PANEL COMPREHENSIVE METABO LIC PANEL, W/EGFR Carotid Duplex Bilat eral Complete Echo HEMOGLOBIN A1c LIPID PANEL Lipoprotein (a) CRP, high sensitivit y Troponin T PROBNP, N TERMINAL Monitor - Telemetry (Mobile Cardiac) Complete Echo EKG MUGA (LVEF) Complete Echo AICD Implant - SLHV Complete Echo Monitor - Telemetry (Mobile Cardiac) RPM (remote patient monitoring) Cardiac Cath - Left - GC PROTHROMBIN TIME WIT H INR CBC (INCLUDES DIFF/P LT) HEMOGLOBIN A1c LIPID PANEL COMPREHENSIVE METABO LIC PANEL, W/EGFR Stress Regadenoson Complete Echo Complete Echo STR - Routine Holter Monitor 24 Hr ECP Commercial DLCO - 22177 FRC - 13245 FVC - 11373 ECP Commercial Complete Echo Carotid Duplex Bilat eral HISTORY OF PROCEDURES Procedure Date Procedure Name Provider Procedure Notes S tatus Complex e/m visit add on Zi Middleton MD [06/14/2024 - solo] MEDICARE [ 06/09/2024 - bobby] completed EKG Zi Middleton MD [06/14/2024 - solo] MEDICARE [ 06/09/2024 - bobby] completed EKG Zi Middleton MD completed EKG Zi Middleton MD completed EKG Zi Middleton MD completed EKG Zi Middleton MD completed EKG Kristen ritter MD completed EKG Zi Middleton MD completed EKG Zi Middleton MD completed EKG Zi Middleton MD completed Stress EKG Kristen ritter MD completed Stress EKG Kristen ritter MD completed EKG Ori Valladares MD completed SNOMED-CT: 042025498400640 Current Medications Documented Ori Valladares MD completed SNOMED-CT: [id number] Current Medications Documented Ori Valladares MD completed SNOMED-CT: 92520596 Physical Exam, Performed: Pulse Exam of Foot Ori Valladares MD completed SNOMED-CT: 01541810 Physical Exam, Performed: Pulse Exam of Foot Ori Valladares MD completed SNOMED-CT: [id number] Current Medications Documented Ori Valladares MD completed SNOMED-CT: 753652591 Smoking Cessation Counseling Ori Valladares MD completed SNOMED-CT: 08049464 Physical Exam, Performed: Pulse Exam of Foot Ori Valladares MD completed EKG Ori Valladares MD completed SNOMED-CT: [id number] Current Medications Documented Ori Valladares MD completed SNOMED-CT: 172543536 Smoking Cessation Counseling Ori Valladares MD completed SNOMED-CT: 72826624 Physical Exam, Performed: Pulse Exam of Foot Ori Valladares MD completed SNOMED-CT: [id number] Current Medications Documented Ori Valladares MD completed SNOMED-CT: 639852464 Smoking Cessation Counseling Kristen Elena MD completed EKG Kristen ritter MD completed SNOMED-CT: [id number] Current Medications Documented Kristen Elena MD completed BLOOD COUNT HEMOGLOBIN Kristen galarza MD completed FVC - 86202 Kristen ritter MD completed FRC - 51148 Kristen ritter MD completed DLCO - 80323 Kristen ritter MD completed EKG Kristen ritter MD completed
--- OUTSIDE RECORDS SUMMARY | 2024-10-24 18:37 | XMS_ITS ---
Author Organization [facility] Address [address] [place] [address] Care Team Providers Care Manufacturing Production Technician Name Role Phone Chase Barrientos Primary Care Provider [phone] REASON FOR VISIT Med Refill Medications Medication SIG (Take, Route, Frequency, Duration) Notes Start Date End Date Status hydrOXYzine Pamoate 25 MG 1 CAPSULE ORALLY THREE TIMES DAILY for 90 days As needed anxiety Active Social History Sex Assigned At : Social History Observation Description Sex Assigned At Male Encounters Encounter Location Date Provider Diagnosis [address] [address] 05/28/2024 Chase Barrientos Anxiety about knowledge deficit F41.1 Assessments Encounter Date Diagnosis (ICD Code) Assessment Notes Treatment Notes Treatment Clinical Notes Section Notes 05/28/2024 Anxiety about knowledge deficit (ICD-10 - F41.1) Plan Of Treatment Medication Medication Name Sig Start Date Stop Date Notes hydrOXYzine Pamoate 25 MG 1 CAPSULE ORAL LY THREE TIMES DAILY for 90 days Progress Notes * Josias RAMIREZDOB:1955 (69 yo M)Acc No.[id number]:05/28/2024 Patient: Vadim BROOKS Josias :1955 A ge:69 Y S ex:Male Phone: Address:[address] [place] [address] , [place], [address] * Refills Refill hydrOXYzine Pamoate Capsule, 25 MG, 270, 1 CAPSULE ORALLY THREE TIMES DAILY, 90 days, Refills=0 * true * Date: Generated for Printi ng/Faxing/eTransmitting on: 0 10/24/2024 06:36 PM CDT
--- OUTSIDE RECORDS SUMMARY | 2024-10-24 18:37 | XMS_ITS ---
Author Organization [facility] Address [address] [place] [address] Care Team Providers Care Concession Worker Name Role Phone Chase Barrientos Primary Care Provider REASON FOR VISIT Refill Medications Medication SIG (Take, Route, Fr equency, Duration) Notes Start Date End Date Status Vitamin B-12 1000 MCG TAKE 1 TABLET BY M OUTH EVERY DAY for 90 Active Social History Sex Assigned At : Social History Observation Description Sex Assigned At Male Encounters Encounter Location Date Provider Diagnosis [address] [address] 07/16/2024 Chase Barrientos Plan Of Treatment Medication Medication Name Sig Start Date Stop Date Notes Vitamin B-12 1000 MCG TAKE 1 TABLET BY M OUTH EVERY DAY for 90 Progress Notes * Josias RAMIREZDOB:1955 (69 yo M)Acc No.[id number]:07/16/2024 Patient: Vadim Josias BROOKS :1955 A ge:69 Y S ex:Male Phone: Address:[address] [place] [address] , [place], [address] * Refills Refill Vitamin B-12 Tablet, 1000 MCG, 90 Tablet, TAKE 1 TABLET BY MOUTH EVERY DAY, 90, Refills=3 * true * Date: Generated for Mendezi ng/Faxing/eTransmitting on: 0 10/24/2024 06:36 PM CDT
--- OUTSIDE RECORDS SUMMARY | 2024-10-24 18:37 | XMS_ITS | Patient Health Record ---
Author Organization [facility] Address [address] [place] [address] Care Team Providers Care Manager Country Name Role Phone Chase Barrientos Primary Care Provider Allergies No Known Allergies Results Component Value Reference Range Notes Hemoglobin A1c* Reviewed date:05/28/2024 10:44:36 AM Interpretation: Performing Lab:[facility], [facility], Phone - [phone], [facility] Notes/Report: Hemoglobin A1c 5.9 4.8-5.6 % . Prediabetes: 5.7 - 6.4 Diabetes: >6.4 Glycemic control for adults with diabetes: <7.0 Iron and TIBC* Reviewed date:05/28/2024 10:44:36 AM Interpretation: Performing Lab:[facility], [facility], Phone - [phone], [facility] Notes/Report: Iron Bind.Cap.(TIBC) 457 250-450 ug/dL UIBC 371 111-343 ug/dL Iron 86 38-169 ug/dL Iron Saturation 19 15-55 % CBC With Differential/Platel et* Reviewed date:05/28/2024 10:44:36 AM Interpretation: Performing Lab:[facility], [facility], Phone - [phone], [facility] Notes/Report: WBC 14.0 3.4-10.8 x10E3/uL RBC 4.44 4.14-5.80 x10E6/uL Hemoglobin 14.5 13.0-17.7 g/dL Hematocrit 43.6 37.5-51.0 % MCV 98 79-97 fL MCH 32.7 26.6-33.0 pg MCHC 33.3 31.5-35.7 g/dL RDW 12.0 11.6-15.4 % Platelets 310 150-450 x10E3/uL Neutrophils 67 Not Estab. % Lymphs 15 Not Estab. % Monocytes 15 Not Estab. % Eos 2 Not Estab. % Basos 1 Not Estab. % Neutrophils (Absolute) 9.5 1.4-7.0 x10E3/uL Lymphs (Absolute) 2.1 0.7-3.1 x10E3/uL Monocytes(Absolute) 2.0 0.1-0.9 x10E3/uL Eos (Absolute) 0.2 0.0-0.4 x10E3/uL Baso (Absolute) 0.1 0.0-0.2 x10E3/uL Immature Granulocytes 0 Not Estab. % Immature Grans (Abs) 0.0 0.0-0.1 x10E3/uL PDF Report Reviewed date:05/28/2024 10:44:36 AM Interpretation: Performing Lab:[facility], Phone - [phone], Director - [facility] Notes/Report: PDF Report1 LCLS TSH Rfx on Abnormal to Free T4 Reviewed date:05/28/2024 10:44:36 AM Interpretation: Performing Lab:[facility], Phone - [phone], Director - [facility] Notes/Report: TSH 1.610 0.450-4.500 uIU/mL CMP 14 Comprehensive Metabol ic Panel* Reviewed date:05/28/2024 10:44:36 AM Interpretation: Performing Lab:[facility] [address], Phone - [phone], Director - [facility] Notes/Report: Glucose 99 70-99 mg/dL BUN 14 8-27 mg/dL Creatinine 0.98 0.76-1.27 mg/dL eGFR 83 >59 mL/min/1.73 BUN/Creatinine Ratio 14 10-24 Sodium 141 134-144 mmol/L Potassium 5.2 3.5-5.2 mmol/L Chloride 102 96-106 mmol/L Carbon Dioxide, Total 19 20-29 mmol/L Calcium 9.9 8.6-10.2 mg/dL Protein, Total 7.5 6.0-8.5 g/dL Albumin 4.6 3.9-4.9 g/dL Globulin, Total 2.9 1.5-4.5 g/dL Bilirubin, Total 0.5 0.0-1.2 mg/dL Alkaline Phosphatase 87 44-121 IU/L AST (SGOT) 25 0-40 IU/L ALT (SGPT) 16 0-44 IU/L Vitamin D, 25-Hydroxy* Reviewed date:05/28/2024 10:44:36 AM Interpretation: Performing Lab:[facility] [address] [facility], Phone - [phone], Director - [facility] Notes/Report: Vitamin D, 25-Hydroxy 38.2 30.0-100.0 ng/mL Vitamin D deficiency has been defined by the Ethel of Medicine and an Endocrine Society practice guideline as a level of serum 25-OH vitamin D less than 20 ng/mL (1,2). The Endocrine Society went on to further define vitamin D insufficiency as a level between 21 and 29 ng/mL (2). 1. IOM (Ethel of Medicine). 2010. Dietary reference intakes for calcium and D. [place]: The National Academies Press. 2. Katerine MF, [place], Gertrude MCKEON, et al. Evaluation, treatment, and prevention of vitamin D deficiency: an Endocrine Society clinical practice guideline. JCEM. 2010; 96(7):1911-30. Lipid Panel* Reviewed date:05/28/2024 10:44:36 AM Interpretation: Performing Lab:[facility], Phone - [phone], Director - [facility] Notes/Report: Cholesterol, Total 128 100-199 mg/dL Triglycerides 120 0-149 mg/dL HDL Cholesterol 61 >39 mg/dL VLDL Cholesterol Craig 21 5-40 mg/dL LDL Chol Calc (NIH) 46 0-99 mg/dL PSA, Serum (Serial Monitor)* Reviewed date:05/28/2024 10:44:36 AM Interpretation: Performing Lab:[facility] [employer] [employer], Phone - [phone], Director - [facility] Notes/Report: Prostate Specific Ag 0.6 0.0-4.0 ng/mL Rosey ECLIA methodology. . According to the [place] U[employer] Association, Serum PSA should decrease and remain at undetectable levels after radical prostatectomy. The AUA defines biochemical recurrence as an initial PSA value 0.2 ng/mL or greater followed by a subsequent confirmatory PSA value 0.2 ng/mL or greater. Values obtained with different assay methods or kits cannot be used interchangeably. Results cannot be interpreted as absolute evidence of the presence or absence of malignant disease. PDF . Reason For Referral Reason NONHEALING LESION RI GHT LEG FOR ONE YEAR, POSSIBLE SQUAMOUS CELL CA Diagnosis 1 Nonhealing nonsurgic al wound (T14.8XXA) Referral Organization [facility] Referring Provider First Name Chase Referring Provider Last Name Iliana Referring Provider Speciality Internal M edicine Referred Provider Specialty Dermatology General Notes SABINA Lim, Akosua Lopez 05/10/2024 08:14:47 AM > Referral to [facility]. Letter to Pt Clinical Notes [facility], [address] [place] [phone], , Referral Priority Routine Medications Medication SIG (Take, Route, Frequency, Duration) Notes Start Date End Date Status Nitroglycerin 0.4 MG 1 tablet every 5 MINUTES Sublingual as directed Active Metoprolol Tartrate 25 MG TAKE 1 TABLET BY MOUTH DAILY WITH FOOD for 90 Active Clopidogrel Bisulfate 75 MG TAKE 1 TABLE T BY MOUTH EVERY DAY for 90 Active Vitamin B-12 1000 MCG TAKE 1 TABLET BY M OUTH EVERY DAY for 90 Active Vitamin D (Ergocalciferol) 1.25 MG (01247 UT) TAKE 1 CAPSULE BY MOUTH WEEKLY for 27 Active Rosuvastatin Calcium 10 MG 1 tablet Oral ly Once a day Active Pramipexole Dihydrochloride 1 MG TAKE 1 TABLET BY MOUTH AT NIGHT for 90 Active Nebulizer - as directed FOR DX J44.9 EXTERNALLY DIRECTED Active Isosorbide Mononitrate ER 60 MG TAKE 1/2 TABLET BY MOUTH TWICE A DAY for 90 Active Albuterol Sulfate (2.5 MG/3ML) 0.083% 3 mL as needed FOR COUGH OR DYSPEA Inhalation EVERY 4 HOURS Active hydrOXYzine Pamoate 25 MG 1 CAPSULE ORALLY THREE TIMES DAILY for 90 days As needed anxiety Active Stiolto Respimat 2.5-2.5 MCG/ACT 2 puffs Inhalation Once a day Active Entresto 24-26 MG 1/2 tablet Orally Tw ice a day for 90 days Active Ventolin HFA 108 (90 Base) MCG/ACT 2 puffs as needed for dyspnea (BRAND NAME ONLY) Inhalation every 4 hrs Active Aspirin Adult Low Dose 81 MG 1 tablet Or ally Once a day for 90 days Active Social History Tobacco Use: Social History Observation Description Date Details (start date - stop date) Current Smoker NA - NA Sex Assigned At : Social History Observation Description Sex Assigned At Male Dont use, Tobacco Use/Smoking Question Answer Notes Are you a current smoker Problems Problem Type SNOMED Code ICD Code Onset Dates Problem Status W/U Status Risk Notes Problem Tobacco user (284624615) Nicotine dependence, unspecified, uncomplicated (F17.200) Active confirmed Problem Generalized anxiety disorder (22143423) Generalized anxiety disorder (F41.1) Active confirmed Problem 078070613 Ischemic cardiomyopathy (I25.5) Active confirmed Problem Major depression (190929397) Major depression (F32.9) Active confirmed Working diagnosis , eval for bipolar chemistry . Problem 99651728 Vitamin D deficiency (E55.9) Active confirmed Problem 19276063 Restless leg syndrome (G25.81) Active confirmed Problem Benzodiazepine dependence (622989480) Benzodiazepine dependence (F13.20) Active confirmed Problem Vitamin B12 deficiency (010092802) Vitamin B12 deficiency (E53.8) Active confirmed Problem 84735396 Hyperlipidemia, unspecified hyperlipidemia type (E78.5) Active confirmed Problem 88808598 Chronic obstructive pulmonary disease, unspecified COPD type (J44.9) Active confirmed Problem 233907336 Coronary artery disease of [place] artery of [place] heart with stable angina pectoris (I25.118) Active confirmed Problem 628745472 Stented coronary artery (Z95.5) Active confirmed Problem 54831326 Crohn's disease without complication, unspecified gastrointestinal tract location (K50.90) Active confirmed Problem 535490777 Diverticulosis o f colon (K57.30) Active confirmed Vital Signs Heart Rate 83 /min 03/30/2024 Respiratory Rate 16 /min 03/30/2024 Blood pressure diastolic 80 mm Hg 03/30/2024 Oximetry 98 % 03/30/2024 Height 65 in 03/30/2024 Blood pressure systolic 120 mm Hg 03/30/2024 Weight 107.4 lbs 03/30/2024 BMI 17.87 kg/m2 03/30/2024 Encounters Encounter Location Date Provider Diagnosis [address] [address] 03/30/2024 Chase Barrientos [address] [address] 03/30/2024 Chase Barrientos Chronic obstructive pulmonary disease, unspecified COPD type J44.9 ; Coronary artery disease of [place] artery of [place] heart with stable angina pectoris I25.118 ; Hyperlipidemia, unspecified hyperlipidemia type E78.5 ; Major depression F32.9 ; Vitamin D deficiency E55.9 ; Generalized anxiety disorder F41.1 ; Nonhealing nonsurgical wound T14.8XXA ; Prostate cancer screening Z12.5 ; Restless leg syndrome G25.81 and Screening for diabetes mellitus Z13.[address] [address] 05/28/2024 Chase Barrientos Anxiety about knowledge deficit F41.[address] [address] 07/16/2024 Chase Barrientos Assessments Encounter Date Diagnosis (ICD Code) Assessment Notes Treatment Notes Treatment Clinical Notes Section Notes 03/30/2024 Chronic obstructive pulmonary disease, unspecified COPD type (ICD-10 - J44.9) 03/30/2024 Coronary artery disease of [place] artery of [place] heart with stable angina pectoris (ICD-10 - I25.118) 05/28/2024 Anxiety about knowledge deficit (ICD-10 - F41.1) 03/30/2024 Hyperlipidemia, unspecified hyperlipidemia type (ICD-10 - E78.5) 03/30/2024 Major depression (ICD-10 - F32.9) 03/30/2024 Vitamin D deficiency (ICD-10 - E55.9) 03/30/2024 Generalized anxiety disorder (ICD-10 - F41.1) 03/30/2024 Nonhealing nonsurgical wound (ICD-10 - T14.8XXA) 03/30/2024 Prostate cancer screening (ICD-10 - Z12.5) 03/30/2024 Restless leg syndrome (ICD-10 - G25.81) 03/30/2024 Screening for diabetes mellitus (ICD-10 - Z13.1) Plan Of Treatment No Information Insurance Providers Payer Name Payer Address Payer Phone Subscriber Number Group Number Insured Name Patient Relationship to Insured Coverage Start Date Coverage End Date MEDICARE PART A [address] [place] [phone] [id number] Josias Ramirez Self - patient is the insured 2 Medical (General) History Medical History History ICD Code chronic obstructive pulmonary disease (C OPD) 3 stents 2019 Surgical History Surgery Date(Month/Year) Stent 2019 Stent 2015 Gallbladder removal Hospitalization History Reason Date(Month/Year) Stent 2018
--- NOTE | 2024-10-24 18:56 | P.HP_ITS ---
H&P: HPI History of Present Illness Date/Time: 10/24/24 18:56 Chief Complaint: Shortness of breath Narrative: 69-year-old male past medical history of COPD complaining of shortness of breath. Patient states that he was using home inhalers with no relief. Per the ED attending when the patient arrived. In the tripod position and acute respiratory distress. Patient placed on BiPAP in the emergency room. Patient seen on the floor on 2 L nasal cannula he states that he does not need BiPAP he is breathing just fine. He states that he is hungry and he sees sandwiches instead of talking to the provider. Patient in no acute respiratory distress at this time. Lung sounds with wheezing. In the ED patient has leukocytosis of 15.5, hemoglobin of 12.8, venous gas showing hypercarbic and hypoxic respiratory failure, sodium of 129, lactic acid 3.3, troponin of 0.806, C-reactive protein of 2.0, influenza A/B RSV and COVID negative. Chest x-ray shows emphysema. Patient was started on DuoNebs, azithromycin Rocephin magnesium Solu-Medrol and IV fluids per sepsis protocol. Review of Systems Review of Systems: 12 systems were reviewed and are negativ e except for as per HPI. [facility]LY [facility], [facility] Surgical History Surgical History History of cholecystectomy Stented coronary artery 2014 & 2018 Family History Family History Father Acute myocardial infarction Mother Skin cancer Breast cancer Brain cancer Sibling , One brother . Lung cancer Son Diverticulitis Migraines HPV in male Social History Social History Smoking packs per day: 1 Smoking cigarettes per day: 20.0 Years smoked: 46 Smoking pack-years: 46.00 Smoking status: Current every day smoker Tobacco type: cigarettes Second hand tobacco smoke exposure: Yes Additional smoking assessment comments: states he also smokes cannibus 3 + times per week 2 hits Alcohol intake: never Substance use: current Substance use type: marijuana Do You Feel Safe in your Home?: Yes Lack of Transportation: No Lack of Food: Never True Current Housing: I Have Housing Concerned About Future Housing: No Difficulty Paying Gas/Electric Bills: No Difficulty Paying for Meds: No Currently Unemployed: No Education: Associate Degree Difficulty w/ Childcare or Family Care: No Spiritual care concerns: Yes Meds Home Medications and Allergies Home Medications ?Medication ?Instructions ?Recorded ?Confirmed ?Type clopidogrel 75 mg tablet 75 mg PO DAILY 05/21/22 10/24/24 History isosorbide mononitrate 60 mg 30 mg PO BID 05/21/22 10/24/24 History tablet,extended release 24 hr metoprolol tartrate 25 mg tablet 25 mg PO DAILY 05/21/22 10/24/24 History rosuvastatin 10 mg tablet 10 mg PO DAILY 05/21/22 10/24/24 History sacubitril 24 mg-valsartan 26 mg 1 tablet PO BID 05/21/22 10/24/24 History tablet (Entresto) Ventolin HFA 90 mcg/actuation 1 inh inhalation QID PRN Shortness 08/19/23 10/24/24 Rx aerosol inhaler (albuterol sulfate) Of Breath #8 grams guaifenesin 600 mg tablet, See Rx Instructions .Route 07/23/24 10/24/24 Rx extended release 12 hr .COMPLEX #60 tabs tiotropium 2.5 mcg-olodaterol 2.5 See Rx Instructions .Route 10/08/24 10/24/24 Rx mcg/actuation mist for inhalation .COMPLEX #4 mL (Stiolto Respimat) cyanocobalamin (vitamin B-12) 1,000 mcg PO DAILY 10/24/24 10/24/24 History 1,000 mcg tablet ergocalciferol (vitamin D2) 1,250 1,250 mcg PO WEEKLY 10/24/24 10/24/24 History mcg (50,000 unit) capsule pramipexole 1 mg tablet 1 mg PO HS 10/24/24 10/24/24 History Allergies Allergy/AdvReac Type Severity Reaction Status Date / Time No Known Allergies Allergy Verified 10/24/24 17:21 Vital Signs Vital Signs - 24 hr 10/24/24 17:15 10/24/24 17:22 10/24/24 17:23 Temperature Pulse Rate 98 98 96 Respiratory Rate 20 24 H 17 Blood Pressure 83/56 L Pulse Oximetry 98 100 99 Oxygen Delivery Nasal Cannula Oxygen Flow Rate 2 10/24/24 17:24 10/24/24 17:25 10/24/24 17:29 Temperature 97.6 F Pulse Rate 99 98 99 Respiratory Rate 22 H 17 25 H Blood Pressure 83/56 L 73/53 L 78/52 L Pulse Oximetry 100 100 100 Oxygen Delivery Oxygen Flow Rate 10/24/24 17:30 10/24/24 17:31 10/24/24 17:42 Temperature Pulse Rate 95 94 90 Respiratory Rate 11 L 13 12 Blood Pressure 72/57 L 83/61 L Pulse Oximetry 100 100 100 Oxygen Delivery Oxygen Flow Rate 10/24/24 17:45 10/24/24 17:50 10/24/24 18:00 Temperature Pulse Rate 95 92 83 Respiratory Rate 21 H 14 20 Blood Pressure 81/61 L Pulse Oximetry Oxygen Delivery Oxygen Flow Rate 10/24/24 18:00 10/24/24 18:00 10/24/24 18:00 Temperature Pulse Rate 92 Respiratory Rate 13 18 Blood Pressure 83/61 L Pulse Oximetry 100 100 Oxygen Delivery BiPAP BiPAP Oxygen Flow Rate 10/24/24 18:01 10/24/24 18:10 10/24/24 18:15 Temperature Pulse Rate 93 94 94 Respiratory Rate 16 24 H 23 H Blood Pressure 99/62 L Pulse Oximetry 100 100 Oxygen Delivery Oxygen Flow Rate 10/24/24 18:20 10/24/24 18:30 10/24/24 18:31 Temperature Pulse Rate 96 94 92 Respiratory Rate 20 17 18 Blood Pressure 90/64 L 86/64 L Pulse Oximetry 100 100 100 Oxygen Delivery Oxygen Flow Rate 10/24/24 18:40 10/24/24 18:45 Temperature Pulse Rate 90 90 Respiratory Rate 13 12 Blood Pressure 92/63 L Pulse Oximetry 100 100 Oxygen Delivery Oxygen Flow Rate Exam Narrative: General: Chronically ill appearing, no acute distress HEENT: normocephalic, atraumatic. Mucous membranes moist. EOMI, PERRLA, bilateral sclera anicteric, no conjunctival injection. Neck supple without JVD, lymphadenopathy, or bruit. Respiratory: Wheezing to ascultation bilaterally. No rales/rhonic/wheezes. Cardiovascular: Regular rate and rhythm, normal S1-S2 upon ascultation. No murmurs, rubs, or clicks. PMI is nondisplaced, capillary refill less than 3 second. Abdomen: Soft, round, no pulsatile masses, nondistended and nontender. No rebound, no guarding. No CVA tenderness, no hepatosplenomegaly. Bowel sounds present to all four quadrants. No high pitch or tinkling sounds, resonant to percussion. Extremities: No cyanosis, clubbing, or edema present. Pulses are palpable 2/2. Active ROM to all four extremities. Neuro: Alert and orientated x 4. PERRLA. Cranial nerves 2-12 intact without focal deficit. Skin: Warm, dry, and intact, without rash, erythema, or lesion. Psych: pleasant, cooperative, normal speech, normal affect, no hallucinations, no dysarthia On BiPAP H&P: Results Labs Labs: Short CBC 10/24/24 Range/Units 17:34 WBC 15.5 H (4.5-10.0) K/mm3 Hgb 12.8 L (14.0-18.0) g/dL Hct 38.8 L (42.0-52.0) % Plt Count 198 (150-375) k/mm3 BMP 10/24/24 17:33 Sodium 129 L Potassium 4.2 Chloride 94 L Carbon Dioxide 24 BUN 13 Creatinine 0.86 Glucose 122 H Calcium 8.6 Cardiac Enzymes 10/24/24 Range/Units 17:33 Troponin I 0.806 H* (0.000-0.034) ng/mL Liver Function 10/24/24 Range/Units 17:33 Total Bilirubin 0.7 (0.2-1.3) mg/dL AST 36 (17-59) U/L ALT 23 (6-50) U/L Alkaline Phosphatase 79 (38-126) U/L Albumin 4.2 (3.5-5.1) g/dL Assessment and Plan Assessment and plan (1) COPD exacerbation: Code(s): J44.1 - Chronic obstructive pulmonary disease with (acute) exacerbation Status: Acute Assessment and Plan: BiPAP as needed Azithromycin Rocephin Scheduled breathing treatments Magnesium x1 IV Solu-Medrol DuoNebs Q 4 (2) Sepsis: Code(s): A41.9 - Sepsis, unspecified organism Status: Acute Assessment and Plan: Hypotension and lactic at 3.3 Sepsis bolus protocol Blood cultures pending Repeat lactic increased Blood pressure goal for systolic and 80 and map above 60 Calcium, albumin and fluids ordered (3) Elevated troponin: Code(s): R79.89 - Other specified abnormal findings of blood chemistry Status: Acute Assessment and Plan: Likely demanding ischemia Trend troponin till flat EKG shows sinus rhythm QTC of 469 Repeat troponin trending down (4) Afib: Code(s): I48.91 - Unspecified atrial fibrillation Status: Acute Assessment and Plan: Rhythm rate controlled Metoprolol ordered with parameters Quality VTE Prophylaxis VTE prophylaxis: mechanical ordered and pharmacologic ordered Hospitalist MIPS Advance Care Plan I have confirmed that the patient's Advanced Care Plan is present, code status is documented, or surrogate decision maker is listed in patient medical record.: Yes Medication Reconciliation I have utilized all available resources to obtain, update and review the patients current medications (includes all prescriptions, OTC, herbals, c annabis, and nutritional supplements).: Yes
--- NOTE | 2024-10-24 19:40 | PC.NURSE ---
Respiratory at bedside. Mask change attempted due to continual leak. Facial hair obstructing good seal.
[2024-10-24 19:43] LABS: Reflex Lactic Acid Yes or No Add Lactic
[2024-10-24] MEDS: SODIUM CHLORIDE 0.9% IV 500 ML IV CONT ×2 (20:21→23:48)
[2024-10-24] MEDS: SODIUM CHLORIDE 0.9% IV 1,000 ML 125 ML IV CONT (20:21)
[2024-10-24] MEDS: AZITHROMYCIN 500 MG/NS 250 ML 500 MG/250 ML BAG 250 MG IVPB (20:21)
[2024-10-24] MEDS: MIDODRINE HCL 10 MG TABLET PO (21:43)
[2024-10-24] MEDS: ALBUMIN HUMAN 25% 25 GM/100 ML 100 ML IVPB (22:01)
[2024-10-24 22:07] LABS: Lactic Acid Reflex 3.7 mmol/L (0.7-2.0)
--- NOTE | 2024-10-24 22:15 | ADMGEN ---
This patient, Josias Ramirez, was admitted to IMU Room 211-01 at 2108. Patient/family oriented to hospital policies and general routines including ID bracelet, bed and alarms, visiting hours, pain management, procedures, bathroom and other care routines, personal items, smoking policy, room service/diet, and visiting hours. Information on how to activate the Rapid Response Team has been discussed. Patient/Family are encouraged to report perceived risks to care and to ask questions if they do not understand what they are told or what they should do.
[2024-10-24 22:54] LABS: Anion Gap 11 mmol/L (4-12); Blood Urea Nitrogen 11 mg/dL (9-20); Carbon Dioxide 19 mmol/L (22-30); Chloride 102 mmol/L (98-107); Estimated CRCL calculation 65 ml/min; Estimated Glomerular Filt Rate > 60; Glucose 138 mg/dL (65-110); Magnesium 2.1 mg/dL (1.6-2.3); Phosphorus 2.9 mg/dL (2.5-4.5); Potassium 4.1 mmol/L (3.4-5.0); Sodium 132 mmol/L (137-145)
[2024-10-24 23:13] LABS: Troponin I 0.545 ng/mL (0.000-0.034)
[2024-10-25] VITALS (36 sets, daily range): BP systolic 92–162; BP diastolic 55–100; PULSE 56–133; RESP 17–39; TEMP 36.4–36.8; O2SAT 94–100; BMI 18.2
--- NOTE | 2024-10-25 | ECHO_ITS ---
Patient Info Name: Josias Ramirez Age: 69 years : 1955 Gender: Male Ht: 67 in Wt: 116 lbs BSA: 1.57 m2 HR: 99 bpm BP: 105 / 68 mmHg Technical Quality: Fair Exam Date: 10/25/2024 2:32 PM Exam Location: Echo Lab Patient Status: Inpatient Admit Date: 10/25/2024 Staff Ordering Physician: Raya Watkins MD Decorator Hand: Una Lim RDCS Attending Provider: Raya Watkins MD Exam Type: CA echo dop color flow w con Study Info Indications - NSTEMI Complete two-dimensional, color flow and Doppler transthoracic echocardiogram is performed with contrast to opacify the left ventricle and to improve the deliniation of the left ventricle endocardial borders. Contrast/Agitated Saline Contrast/Ag. Saline: Definity Amount: 2.00 ml Existing IV Access: Yes IV Access Condition: patent with no signs of infiltration Summary 1. Definity contrast administered improved wall motion interpretation. 2. Left ventricular chamber dimension is moderately enlarged. 3. Mid to apical anteroseptum/septum are akinetic. Basal segments have normal contractility and remaining wall segments are hypokinetic. 4. Left ventricular systolic function is severely reduced, estimated at 30-35%. 5. The left ventricular diastolic function is grade I diastolic dysfunction. 6. There is mild aortic valve sclerosis. 7. There is mild to moderate mitral valve regurgitation. 8. There is trace tricuspid valve regurgitation. 9. No pulmonary hypertension, estimated pulmonary arterial systolic pressure is 39 mmHg. Left Ventricle Definity contrast administered improved wall motion interpretation. Mid to apical anteroseptum/septum are akinetic. Basal segments have normal contractility and remaining wall segments are hypokinetic. Tissue doppler is not performed. Left ventricular chamber dimension is moderately enlarged. Left ventricular systolic function is severely reduced, estimated at 30-35%. The left ventricular diastolic function is grade I diastolic dysfunction. Right Ventricle Right ventricular systolic function is normal and with normal TAPSE 1.9 cm. Right ventricular chamber dimension is normal. Left Atria Left atrial chamber dimension is normal. Right Atria Right atrial chamber dimension is normal. Aortic Valve The aortic valve is trileaflet. There is mild aortic valve sclerosis. There is no aortic valve stenosis. There is no aortic valve regurgitation. Pulmonic Valve There is no pulmonic regurgitation. Mitral Valve There is no mitral valve stenosis. There is mild to moderate mitral valve regurgitation. Tricuspid Valve There is trace tricuspid valve regurgitation. No pulmonary hypertension, estimated pulmonary arterial systolic pressure is 39 mmHg. Pericardium/Pleural There is no pericardial effusion. Inferior Vena Cava Normal inferior vena cava with >50% collapse upon inspiration consistent with normal right atrial pressure, 5 mmHg. Aorta The aortic root size at the sinus of Valsalva is normal. Left Ventricular Outflow Tract Name Value Normal LVOT 2D LVOT Diameter 1.79 cm LVOT Doppler LVOT Peak Gradient 4 mmHg LVOT Mean Gradient 3 mmHg LVOT VTI 19.96 cm LVOT VTI/AV VTI Ratio 0.88 LVOT Stroke Volume 49.98 ml LVOT CO 11.67 l/min LVOT CI 7.45 L/min/m2 Tricuspid Valve Name Value Normal TV Regurgitation Doppler TR Peak Velocity 292.07 cm/s TR Peak Gradient 34 mmHg Estimated PAP/RSVP RA Pressure 5 mmHg <=5 PA Systolic Pressure 39 mmHg <36 RV Systolic Pressure 39 mmHg <36 Aorta Name Value Normal Ascending Aorta Ao Root Diameter (MM) 3.46 cm Ao Root Diam Index (MM) 2.21 cm/m2 Aortic Valve Name Value Normal AV Doppler AV Peak Velocity 110.43 cm/s AV Peak Gradient 5 mmHg AV Mean Gradient 3 mmHg AV VTI 22.79 cm AV Area (Cont Eq VTI) 2.19 cm2 >=3.00 AV Area (Cont Eq Hamlet) 2.16 cm2 AV Regurgitation 2D LVOT Area 2.50 cm2 Ventricles Name Value Normal LV Dimensions 2D/MM IVS Diastolic Thickness (2D) 0.92 cm 0.60-1.00 LVID Diastole (2D) 4.13 cm 4.20-5.80 LVIW Diastolic Thickness (2D) 0.86 cm 0.60-1.00 LVID Systole (2D) 2.86 cm 2.50-4.00 LVOT Diameter 1.79 cm LV Mass (2D Cubed) 113.13 g 88.00-224.00 LV Mass Index (2D Cubed) 0.01 g/cm2 0.00-0.01 Relative Wall Thickness (2D) 0.42 LV Fractional Shortening/Ejection Fraction 2D/MM LV Fractional Shortening (2D) 31 % 25-43 LV EF (2D Teichartisz) 59 % 52-72 LV Diastolic Volume (4C MOD) 109.55 ml LV EF (4C MOD) 31 % LV Diastolic Volume (2C MOD) 118.38 ml LV EF (2C MOD) 42 % LV Diastolic Volume (BP MOD) 115.40 ml 62.00-150.00 LV Diastolic Volume Index (BP MOD) 0.07 l/m2 0.03-0.07 LV Systolic Volume (BP MOD) 76.80 ml 21.00-61.00 LV Systolic Volume Index (BP MOD) 0.05 l/m2 0.01-0.03 LV EF (BP MOD) 33 % 52-72 LV Diastolic Length (4C) 8.20 cm LV Systolic Length (4C) 7.43 cm LV Stroke Volume (4C MOD) 33.79 ml RV Dimensions 2D/MM RVID Diastole (2D) 3.09 cm 2.50-3.50 Atria Name Value Normal LA Dimensions LA Dimension (MM) 3.08 cm 3.00-4.10 LA Volume (4C A-L) 37.51 ml LA Volume (BP A-L) 34.85 ml RA Dimensions RA Area (4C) 13.15 cm2 <=18.00 Report Signatures
[2024-10-25] MEDS: methylPREDNISolone SOD SUCC 125 MG VIAL 60 MG IV PUSH ×5 (00:07→20:21)
[2024-10-25] MEDS: PRAMIPEXOLE 1 MG TABLET PO ×2 (00:07→20:21)
[2024-10-25] MEDS: CALCIUM GLUC 2,000 MG/NS 100ML 2,000 MG/100 ML BAG 100 MG IVPB (00:07)
[2024-10-25] MEDS: IPRATROPIUM 0.5 MG/ALBUTEROL SULFATE 2.5 MG AMPUL.NEB 3 ML INHALATION ×5 (01:56→23:01)
[2024-10-25] MEDS: hydrOXYzine HCL 25 MG TABLET PO (04:52)
[2024-10-25 04:59] LABS: Basophils Percent Auto 0.1 % (0.2-1.2); Hemoglobin 11.4 g/dL (14.0-18.0); Immature Granulocyte Absolute 0.05 K/mm3 (0.00-0.031); Immature Granulocyte Percent A 0.4 % (0-0.5); Lymphocytes Absolute Auto 0.63 K/mm3 (0.9-3.2); Lymphocytes Percent Auto 4.9 % (18.3-44.2); Mean Corpuscular HGB Conc 32.6 g/dl (32-36); Mean Corpuscular Hemoglobin 31.2 pg (26-34); Mean Corpuscular Volume 95.9 fl (80-100); Mean Platelet Volume 10.4 fl (7.4-10.4); Monocytes Absolute Auto 0.2 K/mm3 (0.1-0.6); Monocytes Percent Auto 1.3 % (2.6-8.5); Neutrophils Absolute Auto 11.9 K/mm3 (1.3-6.7); Neutrophils Percent Auto 93.3 % (45.5-73.1); Platelet Count Result 193 k/mm3 (150-375); Red Blood Count 3.65 M/mm3 (4.6-6.20); Red Cell Distribution Width 12.7 % (11.5-14.5); White Blood Count 12.7 K/mm3 (4.5-10.0)
[2024-10-25 05:17] LABS: Anion Gap 10 mmol/L (4-12); Blood Urea Nitrogen 11 mg/dL (9-20); Calcium 8.7 mg/dL (8.4-10.2); Carbon Dioxide 18 mmol/L (22-30); Chloride 105 mmol/L (98-107); Estimated CRCL calculation 73 ml/min; Estimated Glomerular Filt Rate > 60; Glucose 141 mg/dL (65-110); Lactic Acid Reflex 2.7 mmol/L (0.7-2.0); Sodium 133 mmol/L (137-145)
[2024-10-25] MEDS: SODIUM CHLORIDE 0.9% IV 1,000 ML 125 ML IV CONT (05:48)
[2024-10-25] MEDS: UMECLIDINIUM/VILANTEROL 62.5-25 MCG ELLIPTA 1 PUFF INHALATION (08:09)
[2024-10-25] MEDS: ISOSORBIDE MONONITRATE 30 MG TAB.ER.24H PO (09:30)
[2024-10-25] MEDS: DOCUSATE SODIUM 100 MG CAPSULE PO (09:30)
[2024-10-25] MEDS: ENOXAPARIN 40 MG/0.4 ML SYRINGE SUB-Q (09:30)
[2024-10-25] MEDS: CLOPIDOGREL BISULFATE 75 MG TABLET PO (09:30)
[2024-10-25] MEDS: METOPROLOL SUCCINATE EXT REL 25 MG TABCR PO (09:37)
[2024-10-25] MEDS: ROSUVASTATIN 10 MG TABLET PO (09:39)
[2024-10-25] MEDS: MIDODRINE HCL 10 MG TABLET PO ×3 (09:39→17:20)
--- NOTE | 2024-10-25 13:00 | P.PNIM_ITS ---
Progress Note: A&P Assessment and Plan (1) COPD exacerbation: Code(s): J44.1 - Chronic obstructive pulmonary disease with (acute) exacerbation Status: Acute Assessment and Plan: BiPAP as needed Azithromycin Rocephin Scheduled breathing treatments IV Solu-Medrol DuoNebs Q 4 will get ABG DDimer, BNP and Procalcitonin, Resp PCR pending consult pulmonary (2) Sepsis: Code(s): A41.9 - Sepsis, unspecified organism Status: Acute Assessment and Plan: Hypotension and lactic at 3.3 Sepsis bolus protocol Blood cultures pending IV Abx Blood pressure goal for systolic and 80 and map above 60 continue to monitor (3) Elevated troponin: Code(s): R79.89 - Other specified abnormal findings of blood chemistry Status: Acute Assessment and Plan: Likely demanding ischemia Trend troponin EKG shows sinus rhythm QTC of 469 will get Echo Consult cardiology (4) Afib: Code(s): I48.91 - Unspecified atrial fibrillation Status: Acute Assessment and Plan: Rhythm rate controlled Metoprolol ordered with parameters Subjective Date/time seen: 10/25/24 13:00 Interval history: per HPI: 69-year-old male past medical history of COPD complaining of shortness of breath . Patient states that he was using home inhalers with no relief. Per the ED attending when the patient arrived. In the tripod position and acute respiratory distress. Patient placed on BiPAP in the emergency room. Patient seen on the floor on 2 L nasal cannula he states that he does not need BiPAP he is breathing just fine. He states that he is hungry and he sees sandwiches instead of talking to the provider. Patient in no acute respiratory distress at this time. Lung sounds with wheezing. In the ED patient has leukocytosis of 15.5, hemoglobin of 12.8, venous gas showi ng hypercarbic and hypoxic respiratory failure, sodium of 129, lactic acid 3.3, troponin of 0.806, C-reactive protein of 2.0, influenza A/B RSV and COVID negative. Chest x-ray shows emphysema. Patient was started on DuoNebs, azithromycin Rocephin magnesium Solu-Medrol and IV fluids per sepsis protocol. 10/25/24 Patient was seen and examined at bedside. He is feeling better. Breathing is better. Denies any chest pain, abdominal pain, nausea vomiting. Continue with Rocephin azithromycin for possible pneumonia. Continue Solu-Medrol and DuoNeb for COPD exacerbation Concern for sepsis. Follow culture result. Continue with IV antibiotics WBC 12.7, hemoglobin 11.4, sodium 133, creatinine 0.6 Chest x-ray showed emphysema Elevated troponin. We will get echo. Will check troponin level. Will consult Cardiology Review of Systems Review of Systems: 12 systems were reviewed and are negativ e except for as per HPI. Exam Narrative: General: Chronically ill appearing, no acute distress HEENT: normocephalic, atraumatic. Mucous membranes moist. EOMI, PERRLA, bilateral sclera anicteric, no conjunctival injection. Neck supple without JVD, lymphadenopathy, or bruit. Respiratory: Wheezing to ascultation bilaterally. No rales/rhonic/wheezes. Cardiovascular: Regular rate and rhythm, normal S1-S2 upon ascultation. No murmurs, rubs, or clicks. PMI is nondisplaced, capillary refill less than 3 second. Abdomen: Soft, round, no pulsatile masses, nondistended and nontender. No rebound, no guarding. No CVA tenderness, no hepatosplenomegaly. Bowel sounds present to all four quadrants. No high pitch or tinkling sounds, resonant to percussion. Extremities: No cyanosis, clubbing, or edema present. Pulses are palpable 2/2. Active ROM to all four extremities. Neuro: Alert and orientated x 4. PERRLA. Cranial nerves 2-12 intact without focal deficit. Skin: Warm, dry, and intact, without rash, erythema, or lesion. Psych: pleasant, cooperative, normal speech, normal affect, no hallucinations, no dysarthia On BiPAP Objective Data Vital Signs Vital Signs: Vital Signs - 24 hr 10/24/24 17:15 10/24/24 17:22 10/24/24 17:23 Temperature Pulse Rate 98 98 96 Respiratory Rate 20 24 H 17 Blood Pressure 83/56 L Pulse Oximetry 98 100 99 Oxygen Delivery Nasal Cannula Oxygen Flow Rate 2 Fraction of Inspired Oxygen 10/24/24 17:24 10/24/24 17:25 10/24/24 17:29 Temperature 97.6 F Pulse Rate 99 98 99 Respiratory Rate 22 H 17 25 H Blood Pressure 83/56 L 73/53 L 78/52 L Pulse Oximetry 100 100 100 Oxygen Delivery Oxygen Flow Rate Fraction of Inspired Oxygen 10/24/24 17:30 10/24/24 17:31 10/24/24 17:42 Temperature Pulse Rate 95 94 90 Respiratory Rate 11 L 13 12 Blood Pressure 72/57 L 83/61 L Pulse Oximetry 100 100 100 Oxygen Delivery Oxygen Flow Rate Fraction of Inspired Oxygen 10/24/24 17:45 10/24/24 17:50 10/24/24 18:00 Temperature Pulse Rate 95 92 83 Respiratory Rate 21 H 14 20 Blood Pressure 81/61 L Pulse Oximetry Oxygen Delivery Oxygen Flow Rate Fraction of Inspired Oxygen 10/24/24 18:00 10/24/24 18:00 10/24/24 18:00 Temperature Pulse Rate 92 Respiratory Rate 13 18 Blood Pressure 83/61 L Pulse Oximetry 100 100 Oxygen Delivery BiPAP BiPAP Oxygen Flow Rate Fraction of Inspired Oxygen 10/24/24 18:01 10/24/24 18:10 10/24/24 18:15 Temperature Pulse Rate 93 94 94 Respiratory Rate 16 24 H 23 H Blood Pressure 99/62 L Pulse Oximetry 100 100 Oxygen Delivery Oxygen Flow Rate Fraction of Inspired Oxygen 10/24/24 18:20 10/24/24 18:30 10/24/24 18:31 Temperature Pulse Rate 96 94 92 Respiratory Rate 20 17 18 Blood Pressure 90/64 L 86/64 L Pulse Oximetry 100 100 100 Oxygen Delivery Oxygen Flow Rate Fraction of Inspired Oxygen 10/24/24 18:40 10/24/24 18:45 10/24/24 18:50 Temperature Pulse Rate 90 90 94 Respiratory Rate 13 12 17 Blood Pressure 92/63 L 89/70 L Pulse Oximetry 100 100 100 Oxygen Delivery Oxygen Flow Rate Fraction of Inspired Oxygen 10/24/24 19:00 10/24/24 19:01 10/24/24 19:10 Temperature Pulse Rate 90 91 89 Respiratory Rate 14 18 20 Blood Pressure 81/56 L 88/64 L Pulse Oximetry 100 100 100 Oxygen Delivery Oxygen Flow Rate Fraction of Inspired Oxygen 10/24/24 19:15 10/24/24 19:20 10/24/24 19:27 Temperature Pulse Rate 92 88 89 Respiratory Rate 14 15 18 Blood Pressure 81/58 L Pulse Oximetry 100 99 100 Oxygen Delivery BiPAP Oxygen Flow Rate Fraction of Inspired Oxygen 10/24/24 19:30 10/24/24 19:31 10/24/24 19:40 Temperature Pulse Rate 91 91 90 Respiratory Rate 14 16 22 H Blood Pressure 86/65 L 95/61 L Pulse Oximetry 99 98 96 Oxygen Delivery Oxygen Flow Rate Fraction of Inspired Oxygen 10/24/24 19:45 10/24/24 19:50 10/24/24 20:00 Temperature Pulse Rate 95 91 89 Respiratory Rate 20 23 H 18 Blood Pressure 92/66 L 88/60 L Pulse Oximetry 97 97 98 Oxygen Delivery Oxygen Flow Rate Fraction of Inspired Oxygen 10/24/24 20:01 10/24/24 20:13 10/24/24 20:15 Temperature Pulse Rate 90 88 Respiratory Rate 16 19 Blood Pressure Pulse Oximetry 97 97 98 Oxygen Delivery BiPAP Oxygen Flow Rate Fraction of Inspired Oxygen 21 10/24/24 20:21 10/24/24 20:26 10/24/24 21:13 Temperature Pulse Rate 87 87 Respiratory Rate 16 22 H Blood Pressure 78/58 L 90/57 L Pulse Oximetry 99 99 Oxygen Delivery BiPAP Oxygen Flow Rate Fraction of Inspired Oxygen 10/24/24 21:25 10/24/24 22:31 10/25/24 00:00 Temperature 97.8 F 97.9 F Pulse Rate 87 85 Respiratory Rate 20 18 Blood Pressure 80/40 L 92/55 L Pulse Oximetry 99 98 Oxygen Delivery BiPAP Oxygen Flow Rate Fraction of Inspired Oxygen 10/25/24 00:00 10/25/24 00:00 10/25/24 02:00 Temperature Pulse Rate 86 81 Respiratory Rate 20 Blood Pressure Pulse Oximetry Oxygen Delivery BiPAP Oxygen Flow Rate Fraction of Inspired Oxygen 21 10/25/24 02:10 10/25/24 02:10 10/25/24 04:00 Temperature Pulse Rate 84 81 Respiratory Rate 20 20 Blood Pressure Pulse Oximetry 96 97 Oxygen Delivery BiPAP BiPAP Oxygen Flow Rate Fraction of Inspired Oxygen 21 10/25/24 04:00 10/25/24 04:00 10/25/24 07:46 Temperature 98.2 F Pulse Rate 84 79 Respiratory Rate 24 H 17 Blood Pressure 109/77 100/66 Pulse Oximetry 97 97 Oxygen Delivery Oxygen Flow Rate Fraction of Inspired Oxygen 10/25/24 07:58 10/25/24 07:58 10/25/24 08:00 Temperature Pulse Rate 86 Respiratory Rate 20 Blood Pressure Pulse Oximetry 98 98 Oxygen Delivery Room Air Nasal Cannula Oxygen Flow Rate 2 Fraction of Inspired Oxygen 21 10/25/24 08:00 10/25/24 08:09 10/25/24 08:14 Temperature Pulse Rate 68 97 88 Respiratory Rate 20 25 H Blood Pressure Pulse Oximetry 98 Oxygen Delivery BiPAP Oxygen Flow Rate Fraction of Inspired Oxygen 10/25/24 09:37 10/25/24 10:00 10/25/24 11:34 Temperature 97.5 F L Pulse Rate 68 68 86 Respiratory Rate 24 H Blood Pressure 105/68 Pulse Oximetry 100 Oxygen Delivery Oxygen Flow Rate Fraction of Inspired Oxygen Intake/Output Intake/Output: Intake & Output 10/22/24 10/23/24 10/24/24 10/25/24 23:59 23:59 23:59 23:59 Intake Total 2250 2748 Balance 2250 2748 Meds/Results Medications: Active Medications Generic Name Dose Route Start Last Admin Trade Name Freq PRN Reason Stop Dose Admin Acetaminophen 650 mg 10/24/24 18:55 Acetaminophen 325 Mg Tablet PO Q4H PRN Mild Pain (1-3) or Fever Hydrocodone Bitart/Acetaminophen 1 tab 10/24/24 19:04 Hydrocodone/Acetaminophen (*Crx) 5-325 Mg Tablet PO Q4H PRN Moderate Pain (4-6) Albuterol/Ipratropium 3 ml 10/24/24 20:00 10/25/24 07:58 Ipratropium 0.5 Mg/Albuterol Sulfate 2.5 Mg Ampul.Neb 3 Ml INHALATION 3 ml Q6HRT LIANE Administration Clopidogrel Bisulfate 75 mg 10/25/24 09:00 10/25/24 09:30 Clopidogrel Bisulfate 75 Mg Tablet PO 75 mg DAILY LIANE Administration Docusate Sodium 100 mg 10/25/24 09:00 10/25/24 09:30 Docusate Sodium 100 Mg Capsule PO 100 mg Q12HR LIANE Administration Enoxaparin Sodium 40 mg 10/25/24 09:00 10/25/24 09:30 Enoxaparin 40 Mg/0.4 Ml Syringe SUB-Q 40 mg DAILY LIANE Administration Sodium Chloride 1,000 mls @ 125 mls/hr 10/24/24 18:55 10/25/24 05:48 Normal Saline Iv IV CONT 125 mls/hr .Q8H LIANE Administration Isosorbide Mononitrate 30 mg 10/24/24 23:15 10/25/24 09:30 Isosorbide Mononitrate 30 Mg Tab.Er.24h PO 30 mg Q12HR LIANE Administration Methylprednisolone Sodium Succinate 60 mg 10/25/24 00:00 10/25/24 12:03 Methylprednisolone Sod Succ 125 Mg Vial IV PUSH 60 mg Q6HR LIANE Administration Metoprolol Succinate 25 mg 10/25/24 09:00 10/25/24 09:37 Metoprolol Succinate Ext Rel 25 Mg Tabcr PO 25 mg QAM LIANE Administration Midodrine 10 mg 10/24/24 21:25 10/25/24 09:39 Midodrine Hcl 10 Mg Tablet PO 10 mg TID LIANE Administration Pramipexole Dihydrochloride 1 mg 10/24/24 23:15 10/25/24 00:07 Pramipexole 1 Mg Tablet PO 1 mg HS LIANE Administration Rosuvastatin Calcium 10 mg 10/25/24 09:00 10/25/24 09:39 Rosuvastatin 10 Mg Tablet PO 10 mg DAILY LIANE Administration Umeclidinium/Vilanterol 1 puff 10/25/24 08:00 10/25/24 08:09 Umeclidinium/Vilanterol 62.5-25 Mcg Ellipta INHALATION 1 puff DAILYRT LIANE Administration Radiology Results: ITS Impressions Chest X-Ray 10/24/24 18:53 IMPRESSION: Emphysematous disease, without focal infiltrate or effusion. Labs Labs: Laboratory Results - last 24 hr 10/24/24 10/24/24 10/24/24 17:33 17:34 17:59 WBC 15.5 H RBC 4.05 L Hgb 12.8 L Hct 38.8 L MCV 95.8 MCH 31.6 MCHC 33.0 RDW 12.5 Plt Count 198 MPV 9.8 Immature Gran % (Auto) 0.5 Neut % (Auto) 79.5 H Lymph % (Auto) 7.6 L Camp % (Auto) 12.1 H Eos % (Auto) 0.1 Baso % (Auto) 0.2 Lymph # (Auto) 1.18 Camp # (Auto) 1.9 H Eos # (Auto) 0.0 Baso # (Auto) 0.0 Abs Immat Gran (auto) 0.08 H Absolute Neuts (auto) 12.3 H Absolute Nucleated RBC 0.000 Nucleated RBC % 0.0 ESR 25 H VBG pH 7.288 L VBG pCO2 56.8 H VBG pO2 < 27.0 L VBG HCO3 26.6 O2 Delivery Device Nasal cannula O2 Liters/Min 2.0 FiO2 28 Sodium 129 L Potassium 4.2 Chloride 94 L Carbon Dioxide 24 Anion Gap 11 BUN 13 Creatinine 0.86 Estim Creat Clear Calc 47 Estimated GFR > 60 Glucose 122 H Lactic Acid 3.3 H Calcium 8.6 Phosphorus Magnesium 1.8 Total Bilirubin 0.7 AST 36 ALT 23 Alkaline Phosphatase 79 Troponin I 0.806 H* C-Reactive Protein 2.0 H Total Protein 7.0 Albumin 4.2 Influenza A (RT-PCR) Negative Influenza B (RT-PCR) Negative RSV (RT-PCR) Negative SARS-CoV-2 RNA (RT-PCR) Negative 10/24/24 10/24/24 10/25/24 21:47 22:24 04:32 WBC 12.7 H RBC 3.65 L Hgb 11.4 L Hct 35.0 L MCV 95.9 MCH 31.2 MCHC 32.6 RDW 12.7 Plt Count 193 MPV 10.4 Immature Gran % (Auto) 0.4 Neut % (Auto) 93.3 H Lymph % (Auto) 4.9 L Camp % (Auto) 1.3 L Eos % (Auto) 0.0 Baso % (Auto) 0.1 L Lymph # (Auto) 0.63 L Camp # (Auto) 0.2 Eos # (Auto) 0.0 Baso # (Auto) 0.0 Abs Immat Gran (auto) 0.05 H Absolute Neuts (auto) 11.9 H Absolute Nucleated RBC 0.000 Nucleated RBC % 0.0 ESR VBG pH VBG pCO2 VBG pO2 VBG HCO3 O2 Delivery Device O2 Liters/Min FiO2 Sodium 132 L 133 L Potassium 4.1 4.0 Chloride 102 105 Carbon Dioxide 19 L 18 L Anion Gap 11 10 BUN 11 11 Creatinine 0.68 L 0.60 L Estim Creat Clear Calc 65 73 Estimated GFR > 60 > 60 Glucose 138 H 141 H Lactic Acid 3.7 H 2.7 H Calcium 8.0 L 8.7 Phosphorus 2.9 Magnesium 2.1 Total Bilirubin AST ALT Alkaline Phosphatase Troponin I 0.545 H* D C-Reactive Protein Total Protein Albumin Influenza A (RT-PCR) Influenza B (RT-PCR) RSV (RT-PCR) SARS-CoV-2 RNA (RT-PCR) Quality VTE Prophylaxis VTE prophylaxis: mechanical ordered and pharmacologic ordered
[2024-10-25] MEDS: ALPRAZolam (*CRX) 0.25 MG TABLET (13:01)
--- NOTE | 2024-10-25 13:18 | PC.NURSE ---
Pt with increasing shortness of breath. Very anxious, keeps ripping at bi-pap machine. O2 sat initially 95%. Dropping to 81% while bi-pap was ill-fitting and pt unable to sit still. Dr. Watkins called, order for xanax PO and ABG. Respiratory at bedside to adjust bipap and deliver neb treament.
[2024-10-25 13:27] LABS: Alveolar/Arterial O2 Gradient 55.9 mmHg; Base Excess ABG -10.8 mEq/l (+/-2.0); Fractional Inspired Oxygen 28 %; HCO3 ABG 15.6 mEq/l (22.0-26.0); Oxygen Content ABG 17.5 %vol (16.0-22.0); Oxygen Saturation ABG 96.7 % (95.0-100.0); Oxyhemoglobin 96.5 % THb (90.0-100.0); PCO2 ABG 36.7 mmHg (35.0-45.0); PO2 ABG 100.4 mmHg (80.0-100.0); PO2 FiO2 Ratio Arterial Blood 3.59 %; Total Hemoglobin 12.8 g/dL (12.0-18.0)
[2024-10-25 13:30] LABS: Device BIPAP; Expiratory Pressure 5 cmH2O; Inspiratory Pressure 10 cmH2O; Modified Allen's Test Pass; Site Drawn RIGHT RADIAL; pH ABG 7.247 (7.350-7.450)
--- NOTE | 2024-10-25 14:05 | PM.CNPUL ---
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 CT scan on 03/27/2022 with severe apical predominant panlobular emphysema.? PFTs on 04/10/2022 demonstrate moderately severe obstructive abnormality, FEV1 1.61 L, 53% predicted, FEV1:FVC ratio 48%, ?normal lung volumes, DLCO moderately decreased when adjusted for alveolar volume at 51%. ?No oxygen at rest, with ambulation or at night per 6 minutes walk on 10/21/2022 and overnight oximetry on 10/12/2022. Outpatient exacerbation 03/2023. he was clinically stable with dyspnea on exertion at 5 blocks, M MRC grade of 1, cat score of 17 on Stiolto Respimat 1 puff twice a day, rescue albuterol which she use 2 to 3 times a month and guaifenesin 1200 p.o. twice a day. He was smoking 10 cigarettes a day. He was up-to-date on influenza and COVID vaccine and received RSV and 2022. 10/24/2024: Patient presents with 3 days history acute worsening shortness of breath, dyspnea on exertion and hypoxic respiratory distress. He had wheezing in the emergency room. Son had COVID last week his initial COVID test in the ED was negative. Treated with steroids, bronchodilators, ceftriaxone and azithromycin. 10/26/2023: The patient tells me he feels about the same as yesterday. When I enter the room he was on BiPAP rate of 16 breathing 30, pressures 10/5 with tidal volumes 576. He was on 28% FiO2 with saturations 98%. ABG 7.25/37/100. His white blood cell count is 12.7, creatinine 0.6. His weight is 52.9. He was in mild respiratory distress with decreased air movement bilaterally. He said the machine was not giving him air fast enough and I switched him to a noninvasive ventilation mode with the AVAPS mode rate of 20, tidal volume 500, EPAP 5, minimal inspiratory pressure 6, maximal inspiratory pressure 25, inspiratory time 0.8, rise of 1 and 28% FiO2. Peak airway pressures were 12. Patient told me this felt better. Plan: I will check a D-dimer and if this is positive will do a CT angiogram of the chest. Place the patient on DuoNebs q.4 hours. Currently is on Solu-Medrol 60 mg IV q.8 hours, will continue. Continue ceftriaxone and azithromycin, both day 2. I have ordered an respiratory pathogen panel, urine Legionella, urine pneumococcal, serum mycoplasma IgM and will repeat COVID, RSV, influenza swab on 10/27/2023. Will place on guaifenesin 1200 mg p.o. b.i.d. to aid expectoration. Patient with difficulty breathing on BiPAP and I have changed to noninvasive ventilation with the AVAPS mode and will check a blood gas in 30 minutes.. Patient tells me he takes Ativan 2 mg 4 times a day at home and he is very anxious at this time. Discussed with girlfriend in the room, Drs. Watkins and Walt. (2) Acute hypercapnic respiratory failure: Code(s): J96.02 - Acute respiratory failure with hypercapnia Status: Acute Assessment and Plan: Patient is on no oxygen at rest, with activity or with sleep. VBG in the emergency department on 2 L was 7.29/57/less than 27. Plan: Patient in mild respiratory distress on BiPAP and if changed to noninvasive ventilation with the AVAPS mode using the settings as above which were adjusted for comfort. Will repeat a blood gas in 30 minutes. I have discussed the case with the director of strategic partnerships to make him aware that the patient is in mild respiratory distress on maximal noninvasive ventilation settings and and he has a history of severe anxiety requiring Ativan 2 mg p.o. 4 times a day at home in case he needs transfer to the ICU for respiratory failure or agitation requiring Precedex. I did talk to the patient and he is in agreement for intubation if needed. History of Present Illness History of Present Illness Consult date: 10/25/24 Chief complaint: COPD exacerbation, sepsis Narrative: 10/25/2024: This is a new pulmonary consult for COPD exacerbation on BiPAP. 69-year-old with a history of gold grade 2 group B COPD on no home oxygen, coronary artery disease S/P LAD and RCA stents, CHF (previously with EF of 25% wearing a life vest with plans for an ICD) per outside cardiology. patient last seen on 06/30/2024 in the [facility]. 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 CT scan on 03/27/2022 with severe apical predominant panlobular emphysema.? PFTs on 04/10/2022 demonstrate moderately severe obstructive abnormality, FEV1 1.61 L, 53% predicted, FEV1:FVC ratio 48%, ?normal lung volumes, DLCO moderately decreased when adjusted for alveolar volume at 51%. ?No oxygen at rest, with ambulation or at night per 6 minutes walk on 10/21/2022 and overnight oximetry on 10/12/2022. Outpatient exacerbation 03/2023. he was clinically stable with dyspnea on exertion at 5 blocks, M MRC grade of 1, cat score of 17 on Stiolto Respimat 1 puff twice a day, rescue albuterol which she use 2 to 3 times a month and guaifenesin 1200 p.o. twice a day. He was smoking 10 cigarettes a day. He was up-to-date on influenza and COVID vaccine and received RSV and 2022. The patient is currently on BiPAP so history is limited. Patient has acute illness for the last 3 days with worsening shortness of breath and dyspnea on exertion. patient's girlfriend tells me that his son who lives with him had COVID last week and the patient did well and is now back at work. His girlfriend who is in the room went to his house and he was in distress and they called EMS on 10/24/2024. Room air saturations were 70 the placed him on oxygen gave him a DuoNeb. In the emergency department blood pressure was 80/40, heart rate 87, 2 L nasal cannula saturation 98%. he had wheezing on exam. He was placed on BiPAP for work of breathing or respiratory distress. His white blood cell count was 15.5 with eosinophil 0.1% equals 15 per micro L, creatinine 0.86. Venous blood gas on 2 L 7.29/57/ less than 27. COVID, influenza, RSV RT PCR studies negative. Chest x-ray with hyperinflation and increased interstitial infiltrates in the upper lobes. Patient was treated with IV steroids, DuoNebs, ceftriaxone and azithromycin. 10/26/2023: The patient tells me he feels about the same as yesterday. When I enter the room he was on BiPAP rate of 16 breathing 30, pressures 10/5 with tidal volumes 576. He was on 28% FiO2 with saturations 98%. ABG 7.25/37/100. His white blood cell count is 12.7, creatinine 0.6. His weight is 52.9. He was in mild respiratory distress with decreased air movement bilaterally. He said the machine was not giving him air fast enough and I switched him to a noninvasive ventilation mode with the AVAPS mode rate of 20, tidal volume 500, EPAP 5, minimal inspiratory pressure 6, maximal inspiratory pressure 25, inspiratory time 0.8, rise of 1 and 28% FiO2. Peak airway pressures were 12. Patient told me this felt better. DATA: 04/29/24: CT Scan of the Chest without Contrast: Clinical Indication: Lung cancer screening, nicotine dependence COMPARISON: 04/29/2023 Findings: There is no evidence of any significant mediastinal, hilar or axillary lymphadenopathy. Coronary artery calcifications are present. There is no evidence of pleural or pericardial effusion. 6 mm right lower lobe pulmonary nodule present (axial image 90). Severe emphysema present. Images through the upper abdomen reveal no abnormalities. Impression: Lung RADS 3: Probably benign. Six-month follow-up CT recommended. 04/29/23:?EXAMINATION: CT lung screening ?INDICATION: Personal history of nicotine dependence ?COMPARISON: CT dated 03/27/2022 ?FINDINGS: No thoracic lymphadenopathy. There is atherosclerosis. Heart size normal. No significant pleural or pericardial effusion. There is evidence for chronic granulomatous disease. There is apical pleural thickening/scarring. There is a stable 4 mm right apical nodule, image 18. There is lower lobe atelectasis. There is severe emphysema. No new pulmonary nodules or masses. No focal airspace consolidation. There is diffuse idiopathic skeletal hyperostosis (DISH) of the thoracic spine. There is pneumobilia of the left hepatic lobe, consistent with previous sphincterotomy. ?IMPRESSION: ?1. Lung-RADS category 2: Benign appearance or behavior. Continue annual screening with noncontrast low-dose chest CT in 12 months. ?10/21/2022 This is a 6 minute walk test. The test was performed and interpreted in accordance with the 2014 ERS/ATS task force guidelines. ??Findings:? The patient's resting room air oxygen saturation measured by pulse oximetry was 98% and heart rate was 65 bpm.? Patient ambulated for 244 meters and oxygen saturation remained 98 to 100%.? Heart rate at the end of the study was 70 bpm. ??The patient did not qualify for supplemental oxygen at rest or with ambulation. ??There are no prior studies for comparison. ? 10/12/2022: Overnight oximetry on room air.? Basal saturation 93.8%.? High saturation 99%.? Low saturation 87%.? Time with saturation less than or equal to 88% was 33 seconds.? Oxygen desaturation index was 9 events per hour.? Patient requires no supplemental oxygen at night. ? ??04/10/2022 PFTs ??The test was performed and results interpreted in accordance with the 2019 and 2005 ATS/ERS Task Force guidelines respectively using the Global Lung Function Initiative-2012 reference equations. Patient demonstrated good effort and cooperation. Reproducibility criteria were met. The quality of the spirometry maneuver was Grade A. ???Findings: ???Spirometry:? There is decreased maximal expiratory airflow at all lung volumes with concave expiratory flow tracing.? The contour the inspiratory flow tracing is normal.? The FVC is 3.33 L, 85% predicted.? The FEV1 is 1.61 L, a 53% predicted.? The FEV1:? FVC ratio is 48%.?Plethysmography:? The total lung capacity is 6.12 L, 96% predicted.? The functional residual capacity is 4.49 L, 135% predicted.? The residual volume is 2.79 L, 126% predicted.?Diffusion capacity:? The diffusing capacity unadjusted for hemoglobin and carboxyhemoglobin is 16.2, 63% predicted.? The diffusing capacity adjusted for alveolar volume is 2.15, 51% predicted. ???Impression:?There is a moderately severe obstructive abnormality.?? The lung volumes are normal.? The diffusing capacity unadjusted for hemoglobin is mildly decreased and?remains moderately decreased when adjusted for alveolar volume. ???There are no prior studies for comparison. ? ?03/27/2022 EXAMINATION: CT lung screening ???DATE: 03/27/2022 08:58 ???INDICATION: Personal history of nicotine dependence, current smoker with 45 pack year history. ??COMPARISON: None ???FINDINGS: There is severe emphysema. There is a 5 mm nodule in the right lung apex. No pleural effusion or pneumothorax. There our secretions in the trachea. No pathologically enlarged thoracic lymph nodes are identified. The heart size is normal. Calcified coronary artery atherosclerosis is noted. Calcified pulmonary nodules and calcified right hilar lymph nodes are consistent with old granulomatous disease. Punctate calcifications in an otherwise normal spleen likely represent healed granulomatous disease. Pneumobilia is noted in the left hepatic lobe, likely related to prior biliary intervention. There are bridging osteophytes at multiple levels in the spine, consistent with diffuse idiopathic skeletal hyperostosis (DISH). ???IMPRESSION: ???1. Lung-RADS category 2: Benign appearance or behavior. Continue annual screening with noncontrast low-dose chest CT in 12 months. ?04/04/2022:? Echocardiogram at [facility]: ??Conclusions:? 1. Abnormal septal motion consistent with pacemaker ICD implant.? Severe global LV systolic hypokinesis.? Normal left ventricular size.? Normal left ventricular wall thickness.? Left ventricular ejection fraction is measured at 25%.? Normal right ventricular size.? There is nonspecific thickening of the mitral valve leaflets.? There is trace physiologic mitral valve regurgitation.? Normal appearing tricuspid valve leaflets.? There is trace physiologic tricuspid valve regurgitation.? Estimated peak pulmonary arterial systolic pressure is 20. Review of Systems Review of Systems: ROS unobtainable: Yes unobtainable due to medical condition [facility] Surgical History Surgical History History of cholecystectomy Stented coronary artery 2014 & 2018 Family History Family History Father Acute myocardial infarction Mother Skin cancer Breast cancer Brain cancer Sibling , One brother . Lung cancer Son Diverticulitis Migraines HPV in male Social History Social History Smoking packs per day: 1 Smoking cigarettes per day: 20.0 Years smoked: 46 Smoking pack-years: 46.00 Smoking status: Current every day smoker Tobacco type: cigarettes Second hand tobacco smoke exposure: Yes Additional smoking assessment comments: states he also smokes cannibus 3 + times per week 2 hits Alcohol intake: never Substance use: current Substance use type: marijuana Do You Feel Safe in your Home?: Yes Lack of Transportation: No Lack of Food: Never True Current Housing: I Have Housing Concerned About Future Housing: No Difficulty Paying Gas/Electric Bills: No Difficulty Paying for Meds: No Currently Unemployed: No Education: Associate Degree Difficulty w/ Childcare or Family Care: No Spiritual care concerns: No Meds Home Medications and Allergies Home Medications ?Medication ?Instructions ?Recorded ?Confirmed ?Type clopidogrel 75 mg tablet 75 mg PO DAILY 05/21/22 10/24/24 History isosorbide mononitrate 60 mg 30 mg PO BID 05/21/22 10/24/24 History tablet,extended release 24 hr metoprolol tartrate 25 mg tablet 25 mg PO DAILY 05/21/22 10/24/24 History rosuvastatin 10 mg tablet 10 mg PO DAILY 05/21/22 10/24/24 History sacubitril 24 mg-valsartan 26 mg 1 tablet PO BID 05/21/22 10/24/24 History tablet (Entresto) Ventolin HFA 90 mcg/actuation 1 inh inhalation QID PRN Shortness 08/19/23 10/24/24 Rx aerosol inhaler (albuterol sulfate) Of Breath #8 grams guaifenesin 600 mg tablet, See Rx Instructions .Route 07/23/24 10/24/24 Rx extended release 12 hr .COMPLEX #60 tabs tiotropium 2.5 mcg-olodaterol 2.5 See Rx Instructions .Route 10/08/24 10/24/24 Rx mcg/actuation mist for inhalation .COMPLEX #4 mL (Stiolto Respimat) cyanocobalamin (vitamin B-12) 1,000 mcg PO DAILY 10/24/24 10/24/24 History 1,000 mcg tablet ergocalciferol (vitamin D2) 1,250 1,250 mcg PO WEEKLY 10/24/24 10/24/24 History mcg (50,000 unit) capsule pramipexole 1 mg tablet 1 mg PO HS 10/24/24 10/24/24 History Allergies Allergy/AdvReac Type Severity Reaction Status Date / Time No Known Allergies Allergy Verified 10/24/24 17:21 Vital Signs Vital Signs - 24 hr 10/24/24 17:15 10/24/24 17:22 10/24/24 17:23 Temperature Pulse Rate 98 98 96 Respiratory Rate 20 24 H 17 Blood Pressure 83/56 L Pulse Oximetry 98 100 99 Oxygen Delivery Nasal Cannula Oxygen Flow Rate 2 Fraction of Inspired Oxygen 10/24/24 17:24 10/24/24 17:25 10/24/24 17:29 Temperature 36.4 C Pulse Rate 99 98 99 Respiratory Rate 22 H 17 25 H Blood Pressure 83/56 L 73/53 L 78/52 L Pulse Oximetry 100 100 100 Oxygen Delivery Oxygen Flow Rate Fraction of Inspired Oxygen 10/24/24 17:30 10/24/24 17:31 10/24/24 17:42 Temperature Pulse Rate 95 94 90 Respiratory Rate 11 L 13 12 Blood Pressure 72/57 L 83/61 L Pulse Oximetry 100 100 100 Oxygen Delivery Oxygen Flow Rate Fraction of Inspired Oxygen 10/24/24 17:45 10/24/24 17:50 10/24/24 18:00 Temperature Pulse Rate 95 92 83 Respiratory Rate 21 H 14 20 Blood Pressure 81/61 L Pulse Oximetry Oxygen Delivery Oxygen Flow Rate Fraction of Inspired Oxygen 10/24/24 18:00 10/24/24 18:00 10/24/24 18:00 Temperature Pulse Rate 92 Respiratory Rate 13 18 Blood Pressure 83/61 L Pulse Oximetry 100 100 Oxygen Delivery BiPAP BiPAP Oxygen Flow Rate Fraction of Inspired Oxygen 10/24/24 18:01 10/24/24 18:10 10/24/24 18:15 Temperature Pulse Rate 93 94 94 Respiratory Rate 16 24 H 23 H Blood Pressure 99/62 L Pulse Oximetry 100 100 Oxygen Delivery Oxygen Flow Rate Fraction of Inspired Oxygen 10/24/24 18:20 10/24/24 18:30 10/24/24 18:31 Temperature Pulse Rate 96 94 92 Respiratory Rate 20 17 18 Blood Pressure 90/64 L 86/64 L Pulse Oximetry 100 100 100 Oxygen Delivery Oxygen Flow Rate Fraction of Inspired Oxygen 10/24/24 18:40 10/24/24 18:45 10/24/24 18:50 Temperature Pulse Rate 90 90 94 Respiratory Rate 13 12 17 Blood Pressure 92/63 L 89/70 L Pulse Oximetry 100 100 100 Oxygen Delivery Oxygen Flow Rate Fraction of Inspired Oxygen 10/24/24 19:00 10/24/24 19:01 10/24/24 19:10 Temperature Pulse Rate 90 91 89 Respiratory Rate 14 18 20 Blood Pressure 81/56 L 88/64 L Pulse Oximetry 100 100 100 Oxygen Delivery Oxygen Flow Rate Fraction of Inspired Oxygen 10/24/24 19:15 10/24/24 19:20 10/24/24 19:27 Temperature Pulse Rate 92 88 89 Respiratory Rate 14 15 18 Blood Pressure 81/58 L Pulse Oximetry 100 99 100 Oxygen Delivery BiPAP Oxygen Flow Rate Fraction of Inspired Oxygen 10/24/24 19:30 10/24/24 19:31 10/24/24 19:40 Temperature Pulse Rate 91 91 90 Respiratory Rate 14 16 22 H Blood Pressure 86/65 L 95/61 L Pulse Oximetry 99 98 96 Oxygen Delivery Oxygen Flow Rate Fraction of Inspired Oxygen 10/24/24 19:45 10/24/24 19:50 10/24/24 20:00 Temperature Pulse Rate 95 91 89 Respiratory Rate 20 23 H 18 Blood Pressure 92/66 L 88/60 L Pulse Oximetry 97 97 98 Oxygen Delivery Oxygen Flow Rate Fraction of Inspired Oxygen 10/24/24 20:01 10/24/24 20:13 10/24/24 20:15 Temperature Pulse Rate 90 88 Respiratory Rate 16 19 Blood Pressure Pulse Oximetry 97 97 98 Oxygen Delivery BiPAP Oxygen Flow Rate Fraction of Inspired Oxygen 21 10/24/24 20:21 10/24/24 20:26 10/24/24 21:13 Temperature Pulse Rate 87 87 Respiratory Rate 16 22 H Blood Pressure 78/58 L 90/57 L Pulse Oximetry 99 99 Oxygen Delivery BiPAP Oxygen Flow Rate Fraction of Inspired Oxygen 10/24/24 21:25 10/24/24 22:31 10/25/24 00:00 Temperature 36.6 C 36.6 C Pulse Rate 87 85 Respiratory Rate 20 18 Blood Pressure 80/40 L 92/55 L Pulse Oximetry 99 98 Oxygen Delivery BiPAP Oxygen Flow Rate Fraction of Inspired Oxygen 10/25/24 00:00 10/25/24 00:00 10/25/24 02:00 Temperature Pulse Rate 86 81 Respiratory Rate 20 Blood Pressure Pulse Oximetry Oxygen Delivery BiPAP Oxygen Flow Rate Fraction of Inspired Oxygen 21 10/25/24 02:10 10/25/24 02:10 10/25/24 04:00 Temperature Pulse Rate 84 81 Respiratory Rate 20 20 Blood Pressure Pulse Oximetry 96 97 Oxygen Delivery BiPAP BiPAP Oxygen Flow Rate Fraction of Inspired Oxygen 21 10/25/24 04:00 10/25/24 04:00 10/25/24 07:46 Temperature 36.8 C Pulse Rate 84 79 Respiratory Rate 24 H 17 Blood Pressure 109/77 100/66 Pulse Oximetry 97 97 Oxygen Delivery Oxygen Flow Rate Fraction of Inspired Oxygen 10/25/24 07:58 10/25/24 07:58 10/25/24 08:00 Temperature Pulse Rate 86 Respiratory Rate 20 Blood Pressure Pulse Oximetry 98 98 Oxygen Delivery Room Air Nasal Cannula Oxygen Flow Rate 2 Fraction of Inspired Oxygen 21 10/25/24 08:00 10/25/24 08:09 10/25/24 08:14 Temperature Pulse Rate 68 97 88 Respiratory Rate 20 25 H Blood Pressure Pulse Oximetry 98 Oxygen Delivery BiPAP Oxygen Flow Rate Fraction of Inspired Oxygen 10/25/24 09:37 10/25/24 10:00 10/25/24 11:34 Temperature 36.4 C L Pulse Rate 68 68 86 Respiratory Rate 24 H Blood Pressure 105/68 Pulse Oximetry 100 Oxygen Delivery Oxygen Flow Rate Fraction of Inspired Oxygen 10/25/24 13:13 10/25/24 13:13 10/25/24 13:23 Temperature Pulse Rate 127 H 127 H 113 H Respiratory Rate 34 H 34 H 28 H Blood Pressure Pulse Oximetry 94 Oxygen Delivery BiPAP Oxygen Flow Rate Fraction of Inspired Oxygen Exam Const: General: cooperative, healthy appearing and in distress Orientation/consciousness: oriented to person, oriented to place and oriented to time Other: In mild distress on noninvasive ventilation HENMT: Head: normal to inspection Ears: hearing grossly normal bilaterally Eyes: General: appearance normal, both eyes and all related structures Neck: Neck: normal visual inspection Chest: Chest palpation & inspection: normal inspection of the chest Resp: Effort & Inspection: normal respiratory effort and able to speak in complete sentences Auscultation: no crackles, no rales, no rhonchi, no wheezes and diminished lung sounds Other: no wheezes Cardio: Jugular venous distension: no JVD GI: Inspection: normal to inspection GI Palp: No abdominal tenderness Skin: General skin exam: normal color Neuro: General: oriented to person, oriented to place and oriented to time Extrem: General: normal to inspection and no edema Psych: Appearance: grossly normal Results Laboratory Findings 10/25/24 04:32 10/25/24 04:32 ABG, PT/INR, D-dimer: ABG ABG pH 7.247 (7.350-7.450) L* 10/25/24 13:23 ABG pCO2 36.7 mmHg (35.0-45.0) 10/25/24 13:23 ABG pO2 100.4 mmHg (80.0-100.0) H 10/25/24 13:23 ABG O2 Saturation 96.7 % (95.0-100.0) 10/25/24 13:23 Abnormal lab findings: Abnormal Labs 10/24/24 10/24/24 10/24/24 17:33 17:34 17:59 WBC 15.5 H RBC 4.05 L Hgb 12.8 L Hct 38.8 L Neut % (Auto) 79.5 H Lymph % (Auto) 7.6 L Crane % (Auto) 12.1 H Baso % (Auto) Lymph # (Auto) Crane # (Auto) 1.9 H Abs Immat Gran (auto) 0.08 H Absolute Neuts (auto) 12.3 H ESR 25 H ABG pH ABG pO2 ABG HCO3 VBG pH 7.288 L VBG pCO2 56.8 H VBG pO2 < 27.0 L Sodium 129 L Chloride 94 L Carbon Dioxide Creatinine Glucose 122 H Lactic Acid 3.3 H Calcium Troponin I 0.806 H* C-Reactive Protein 2.0 H 10/24/24 10/24/24 10/25/24 21:47 22:24 04:32 WBC 12.7 H RBC 3.65 L Hgb 11.4 L Hct 35.0 L Neut % (Auto) 93.3 H Lymph % (Auto) 4.9 L Crane % (Auto) 1.3 L Baso % (Auto) 0.1 L Lymph # (Auto) 0.63 L Crane # (Auto) Abs Immat Gran (auto) 0.05 H Absolute Neuts (auto) 11.9 H ESR ABG pH ABG pO2 ABG HCO3 VBG pH VBG pCO2 VBG pO2 Sodium 132 L 133 L Chloride Carbon Dioxide 19 L 18 L Creatinine 0.68 L 0.60 L Glucose 138 H 141 H Lactic Acid 3.7 H 2.7 H Calcium 8.0 L Troponin I 0.545 H* D C-Reactive Protein 10/25/24 13:23 WBC RBC Hgb Hct Neut % (Auto) Lymph % (Auto) Crane % (Auto) Baso % (Auto) Lymph # (Auto) Crane # (Auto) Abs Immat Gran (auto) Absolute Neuts (auto) ESR ABG pH 7.247 L* ABG pO2 100.4 H ABG HCO3 15.6 L VBG pH VBG pCO2 VBG pO2 Sodium Chloride Carbon Dioxide Creatinine Glucose Lactic Acid Calcium Troponin I C-Reactive Protein Diagnostic Findings Additional studies: ITS Impressions Chest X-Ray 10/24/24 18:53 IMPRESSION: Emphysematous disease, without focal infiltrate or effusion.
[2024-10-25 14:18] LABS: NT Pro B Type Natriuretic Pept 5950 pg/mL (19.9-100)
--- NOTE | 2024-10-25 14:18 | PM.CNCAR ---
Assessment and Plan Assessment and plan (1) Elevated troponin: Code(s): R79.89 - Other specified abnormal findings of blood chemistry Status: Acute Assessment and Plan: Troponin levels are elevated at 0.806, 0.545. He denies any chest pain and his EKG does not show any acute ischemic changes. He does have a known history of coronary artery disease with prior stenting. 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 Third level pending. His troponin levels are probably related to hypoxia and hypotension. At this point do not plan to initiate any ischemic workup. (2) COPD exacerbation: Code(s): J44.1 - Chronic obstructive pulmonary disease with (acute) exacerbation Status: Acute Assessment and Plan: On BiPAP, receiving DuoNebs. Pulmonology following. (3) Cardiomyopathy: Code(s): I42.9 - Cardiomyopathy, unspecified Status: Acute Assessment and Plan: Reportedly has a history of severe cardiomyopathy with EF 25%. Ordered records be obtained from [facility]. Does not have any clinical signs of CHF currently. Resume GDMT when blood pressure improves. (4) Coronary artery disease: Code(s): I25.10 - Atherosclerotic heart disease of [place] coronary artery without angina pectoris Status: Acute Assessment and Plan: As above, stable. Continue Plavix, statin. History of Present Illness History of Present Illness Consult date/time: 10/25/24 14:18 Requesting physician: Raya Watkins MD Consult reason: Other (elevated troponin) Reason For Visit: COPD exacerbation, sepsis Narrative: Josias Ramirez is a 69-year-old male with COPD, coronary artery disease, and cardiomyopathy. This is a patient follows with [facility] (Dr. Middleton). He comes to hospital with a chief complaint of shortness of breath and is being treated for COPD exacerbation. During his workup, troponin levels were sampled and were found to be elevated. Cardiology is consulted because of elevated troponin levels. Patient is on BiPAP at the time of my evaluation and has some difficulty communicating, but he is able to tell me that he has not been experiencing any chest pain. He also says that he has a history of 3 stents with the most recent 1 placed a couple of years ago. Doing well from a cardiac standpoint per the patient's who is at the bedside and able to provide some history. Review of Systems Review of Systems: All systems reviewed & are unremarkable except as noted in HPI and below [facility] Surgical History Surgical History History of cholecystectomy Stented coronary artery 2015 & 2019 Family History Family History Father Acute myocardial infarction Mother Skin cancer Breast cancer Brain cancer Sibling , One brother . Lung cancer Son Diverticulitis Migraines HPV in male Social History Social History Smoking packs per day: 1 Smoking cigarettes per day: 20.0 Years smoked: 46 Smoking pack-years: 46.00 Smoking status: Current every day smoker Tobacco type: cigarettes Second hand tobacco smoke exposure: Yes Additional smoking assessment comments: states he also smokes cannibus 3 + times per week 2 hits Alcohol intake: never Substance use: current Substance use type: marijuana Do You Feel Safe in your Home?: Yes Lack of Transportation: No Lack of Food: Never True Current Housing: I Have Housing Concerned About Future Housing: No Difficulty Paying Gas/Electric Bills: No Difficulty Paying for Meds: No Currently Unemployed: No Education: Associate Degree Difficulty w/ Childcare or Family Care: No Spiritual care concerns: No Meds Home Medications and Allergies Home Medications ?Medication ?Instructions ?Recorded ?Confirmed ?Type clopidogrel 75 mg tablet 75 mg PO DAILY 05/21/22 10/24/24 History isosorbide mononitrate 60 mg 30 mg PO BID 05/21/22 10/24/24 History tablet,extended release 24 hr metoprolol tartrate 25 mg tablet 25 mg PO DAILY 05/21/22 10/24/24 History rosuvastatin 10 mg tablet 10 mg PO DAILY 05/21/22 10/24/24 History sacubitril 24 mg-valsartan 26 mg 1 tablet PO BID 05/21/22 10/24/24 History tablet (Entresto) Ventolin HFA 90 mcg/actuation 1 inh inhalation QID PRN Shortness 08/19/23 10/24/24 Rx aerosol inhaler (albuterol sulfate) Of Breath #8 grams guaifenesin 600 mg tablet, See Rx Instructions .Route 07/23/24 10/24/24 Rx extended release 12 hr .COMPLEX #60 tabs tiotropium 2.5 mcg-olodaterol 2.5 See Rx Instructions .Route 10/08/24 10/24/24 Rx mcg/actuation mist for inhalation .COMPLEX #4 mL (Stiolto Respimat) cyanocobalamin (vitamin B-12) 1,000 mcg PO DAILY 10/24/24 10/24/24 History 1,000 mcg tablet ergocalciferol (vitamin D2) 1,250 1,250 mcg PO WEEKLY 10/24/24 10/24/24 History mcg (50,000 unit) capsule pramipexole 1 mg tablet 1 mg PO HS 10/24/24 10/24/24 History Allergies Allergy/AdvReac Type Severity Reaction Status Date / Time No Known Allergies Allergy Verified 10/24/24 17:21 Vital Signs Vital Signs - 24 hr 10/24/24 17:15 10/24/24 17:22 10/24/24 17:23 Temperature Pulse Rate 98 98 96 Respiratory Rate 20 24 H 17 Blood Pressure 83/56 L Pulse Oximetry 98 100 99 Oxygen Delivery Nasal Cannula Oxygen Flow Rate 2 Fraction of Inspired Oxygen 10/24/24 17:24 10/24/24 17:25 10/24/24 17:29 Temperature 36.4 C Pulse Rate 99 98 99 Respiratory Rate 22 H 17 25 H Blood Pressure 83/56 L 73/53 L 78/52 L Pulse Oximetry 100 100 100 Oxygen Delivery Oxygen Flow Rate Fraction of Inspired Oxygen 10/24/24 17:30 10/24/24 17:31 10/24/24 17:42 Temperature Pulse Rate 95 94 90 Respiratory Rate 11 L 13 12 Blood Pressure 72/57 L 83/61 L Pulse Oximetry 100 100 100 Oxygen Delivery Oxygen Flow Rate Fraction of Inspired Oxygen 10/24/24 17:45 10/24/24 17:50 10/24/24 18:00 Temperature Pulse Rate 95 92 83 Respiratory Rate 21 H 14 20 Blood Pressure 81/61 L Pulse Oximetry Oxygen Delivery Oxygen Flow Rate Fraction of Inspired Oxygen 10/24/24 18:00 10/24/24 18:00 10/24/24 18:00 Temperature Pulse Rate 92 Respiratory Rate 13 18 Blood Pressure 83/61 L Pulse Oximetry 100 100 Oxygen Delivery BiPAP BiPAP Oxygen Flow Rate Fraction of Inspired Oxygen 10/24/24 18:01 10/24/24 18:10 10/24/24 18:15 Temperature Pulse Rate 93 94 94 Respiratory Rate 16 24 H 23 H Blood Pressure 99/62 L Pulse Oximetry 100 100 Oxygen Delivery Oxygen Flow Rate Fraction of Inspired Oxygen 10/24/24 18:20 10/24/24 18:30 10/24/24 18:31 Temperature Pulse Rate 96 94 92 Respiratory Rate 20 17 18 Blood Pressure 90/64 L 86/64 L Pulse Oximetry 100 100 100 Oxygen Delivery Oxygen Flow Rate Fraction of Inspired Oxygen 10/24/24 18:40 10/24/24 18:45 10/24/24 18:50 Temperature Pulse Rate 90 90 94 Respiratory Rate 13 12 17 Blood Pressure 92/63 L 89/70 L Pulse Oximetry 100 100 100 Oxygen Delivery Oxygen Flow Rate Fraction of Inspired Oxygen 10/24/24 19:00 10/24/24 19:01 10/24/24 19:10 Temperature Pulse Rate 90 91 89 Respiratory Rate 14 18 20 Blood Pressure 81/56 L 88/64 L Pulse Oximetry 100 100 100 Oxygen Delivery Oxygen Flow Rate Fraction of Inspired Oxygen 10/24/24 19:15 10/24/24 19:20 10/24/24 19:27 Temperature Pulse Rate 92 88 89 Respiratory Rate 14 15 18 Blood Pressure 81/58 L Pulse Oximetry 100 99 100 Oxygen Delivery BiPAP Oxygen Flow Rate Fraction of Inspired Oxygen 10/24/24 19:30 10/24/24 19:31 10/24/24 19:40 Temperature Pulse Rate 91 91 90 Respiratory Rate 14 16 22 H Blood Pressure 86/65 L 95/61 L Pulse Oximetry 99 98 96 Oxygen Delivery Oxygen Flow Rate Fraction of Inspired Oxygen 10/24/24 19:45 10/24/24 19:50 10/24/24 20:00 Temperature Pulse Rate 95 91 89 Respiratory Rate 20 23 H 18 Blood Pressure 92/66 L 88/60 L Pulse Oximetry 97 97 98 Oxygen Delivery Oxygen Flow Rate Fraction of Inspired Oxygen 10/24/24 20:01 10/24/24 20:13 10/24/24 20:15 Temperature Pulse Rate 90 88 Respiratory Rate 16 19 Blood Pressure Pulse Oximetry 97 97 98 Oxygen Delivery BiPAP Oxygen Flow Rate Fraction of Inspired Oxygen 21 10/24/24 20:21 10/24/24 20:26 10/24/24 21:13 Temperature Pulse Rate 87 87 Respiratory Rate 16 22 H Blood Pressure 78/58 L 90/57 L Pulse Oximetry 99 99 Oxygen Delivery BiPAP Oxygen Flow Rate Fraction of Inspired Oxygen 10/24/24 21:25 10/24/24 22:31 10/25/24 00:00 Temperature 36.6 C 36.6 C Pulse Rate 87 85 Respiratory Rate 20 18 Blood Pressure 80/40 L 92/55 L Pulse Oximetry 99 98 Oxygen Delivery BiPAP Oxygen Flow Rate Fraction of Inspired Oxygen 10/25/24 00:00 10/25/24 00:00 10/25/24 02:00 Temperature Pulse Rate 86 81 Respiratory Rate 20 Blood Pressure Pulse Oximetry Oxygen Delivery BiPAP Oxygen Flow Rate Fraction of Inspired Oxygen 21 10/25/24 02:10 10/25/24 02:10 10/25/24 04:00 Temperature Pulse Rate 84 81 Respiratory Rate 20 20 Blood Pressure Pulse Oximetry 96 97 Oxygen Delivery BiPAP BiPAP Oxygen Flow Rate Fraction of Inspired Oxygen 21 10/25/24 04:00 10/25/24 04:00 10/25/24 07:46 Temperature 36.8 C Pulse Rate 84 79 Respiratory Rate 24 H 17 Blood Pressure 109/77 100/66 Pulse Oximetry 97 97 Oxygen Delivery Oxygen Flow Rate Fraction of Inspired Oxygen 10/25/24 07:58 10/25/24 07:58 10/25/24 08:00 Temperature Pulse Rate 86 Respiratory Rate 20 Blood Pressure Pulse Oximetry 98 98 Oxygen Delivery Room Air Nasal Cannula Oxygen Flow Rate 2 Fraction of Inspired Oxygen 21 10/25/24 08:00 10/25/24 08:09 10/25/24 08:14 Temperature Pulse Rate 68 97 88 Respiratory Rate 20 25 H Blood Pressure Pulse Oximetry 98 Oxygen Delivery BiPAP Oxygen Flow Rate Fraction of Inspired Oxygen 10/25/24 09:37 10/25/24 10:00 10/25/24 11:34 Temperature 36.4 C L Pulse Rate 68 68 86 Respiratory Rate 24 H Blood Pressure 105/68 Pulse Oximetry 100 Oxygen Delivery Oxygen Flow Rate Fraction of Inspired Oxygen 10/25/24 12:00 10/25/24 12:00 10/25/24 13:13 Temperature Pulse Rate 113 H 127 H Respiratory Rate 34 H Blood Pressure Pulse Oximetry 95 94 Oxygen Delivery BiPAP BiPAP Oxygen Flow Rate Fraction of Inspired Oxygen 10/25/24 13:13 10/25/24 13:23 10/25/24 14:00 Temperature Pulse Rate 127 H 113 H 110 H Respiratory Rate 34 H 28 H Blood Pressure Pulse Oximetry Oxygen Delivery Oxygen Flow Rate Fraction of Inspired Oxygen Exam Const: General: comfortable, no acute distress and awake Orientation/consciousness: patient oriented x3 Other: on BiPAP HENMT: Head: normal to inspection Eyes: General: appearance normal, both eyes and all related structures Pupils: Equal, round and reactive pupils present Neck: Neck: normal visual inspection, supple and no JVD Carotids: normal carotid upstroke Resp: Effort & Inspection: normal respiratory effort Auscultation: clear to auscultation bilaterally and diminished lung sounds Cardio: Rate: regular rate Rhythm: regular rhythm Heart sounds: S1 normal heart sound present, S2 normal heart sound present and no murmurs GI: Auscultation: normal bowel sounds Skin: General skin exam: normal color Neuro: General: patient oriented x3 Cranial nerves: Yes Equal, round and reactive pupils present Extrem: General: normal to inspection Psych: Appearance: grossly normal Mental Status: mental status grossly normal Results Labs and Meds 10/25/24 04:32 10/25/24 04:32 Lab results: Cardiac Enzymes 10/24/24 10/24/24 Range/Units 17:33 22:24 AST 36 (17-59) U/L Troponin I 0.806 H* 0.545 H* D (0.000-0.034) ng/mL CBC 10/24/24 10/25/24 Range/Units 17:34 04:32 WBC 15.5 H 12.7 H (4.5-10.0) K/mm3 RBC 4.05 L 3.65 L (4.6-6.20) M/mm3 Hgb 12.8 L 11.4 L (14.0-18.0) g/dL Hct 38.8 L 35.0 L (42.0-52.0) % Plt Count 198 193 (150-375) k/mm3 Lymph # (Auto) 1.18 0.63 L (0.9-3.2) K/mm3 [place] # (Auto) 1.9 H 0.2 (0.1-0.6) K/mm3 Eos # (Auto) 0.0 0.0 (0-0.3) K/mm3 Baso # (Auto) 0.0 0.0 (0.0-0.1) K/mm3 Comprehensive Metabolic Panel 10/24/24 10/24/24 10/25/24 Range/Units 17:33 22:24 04:32 Sodium 129 L 132 L 133 L (137-145) mmol/L Potassium 4.2 4.1 4.0 (3.4-5.0) mmol/L Chloride 94 L 102 105 (98-107) mmol/L Carbon Dioxide 24 19 L 18 L (22-30) mmol/L BUN 13 11 11 (9-20) mg/dL Creatinine 0.86 0.68 L 0.60 L (0.7-1.3) mg/dL Glucose 122 H 138 H 141 H (65-110) mg/dL Calcium 8.6 8.0 L 8.7 (8.4-10.2) mg/dL AST 36 (17-59) U/L ALT 23 (6-50) U/L Alkaline Phosphatase 79 (38-126) U/L Total Protein 7.0 (6.3-8.2) g/dL Albumin 4.2 (3.5-5.1) g/dL Intake and Output 10/24/24 10/25/24 10/25/24 23:59 07:59 15:59 Intake Total 2250 2090 658 Balance 2250 2090 658 Intake: IV 2250 1850 Sodium Chloride 0.9% IV 1,000 2000 1000 ml @ 125 mls/hr IV CONT .Q8H [facility] Rx#:[id number] Sodium Chloride 0.9% IV 500 ml 500 @ 500 mls/hr IV CONT .Q1H ONE Rx#:[id number] Albumin Human 25% 25 gm/100 ml 100 100 ml @ 60 mls/hr IVPB ONCE ONE Rx#:[id number] Azithromycin 500 mg/Ns 250 ml 250 500 mg In 250 ml @ 250 mls/hr IVPB ONCE STA Rx#:[id number] Calcium Gluc 2,000 mg/Ns 100Ml 100 2,000 mg In 100 ml @ 100 mls/hr IVPB ONCE ONE Rx#:[id number] Magnesium Sulf 1 gm/D5w 100 ml 100 1 gm In 100 ml @ 100 mls/hr IVPB ONCE ONE Rx#:[id number] cefTRIAXone 1 GM/NS 50 ML 1 gm 50 In 50 ml @ 100 mls/hr IVPB ONCE STA Rx#:[id number] Oral 240 338 Patient Weight 10/25/24 23:59 Weight 52.9 kg
[2024-10-25 14:21] LABS: D Dimer 1.03 ug/mL (<0.48)
[2024-10-25 14:34] LABS: Troponin I 0.255 ng/mL (0.000-0.034)
[2024-10-25 14:40] LABS: Alveolar/Arterial O2 Gradient 71.6 mmHg; Base Excess ABG -4.4 mEq/l (+/-2.0); Fractional Inspired Oxygen 28 %; HCO3 ABG 20.3 mEq/l (22.0-26.0); Oxygen Content ABG 16.1 %vol (16.0-22.0); Oxygen Saturation ABG 96.3 % (95.0-100.0); Oxyhemoglobin 95.7 % THb (90.0-100.0); PCO2 ABG 35.9 mmHg (35.0-45.0); PO2 ABG 85.7 mmHg (80.0-100.0); PO2 FiO2 Ratio Arterial Blood 3.06 %; Total Hemoglobin 11.9 g/dL (12.0-18.0)
[2024-10-25 14:41] LABS: Device BIPAP; Modified Allen's Test Pass; Site Drawn RIGHT RADIAL
[2024-10-25 14:42] LABS: Expiratory Pressure 5 cmH2O
[2024-10-25] MEDS: PERFLUTREN LIPID MICROSPHERES 1.5 ML VIAL DILUTED TO 10 ML TOTAL VOLUME IV PUSH (14:50)
[2024-10-25 14:57] LABS: Procalcitonin 0.4 ng/mL
--- NOTE | 2024-10-25 15:18 | IVDEFINITY ---
Prior to administration of IV Definity the patient was educated on the risks and benefits of the imaging enhancing agent including potential adverse side effects. The patient verbalized understanding. Allergies were verified. No exclusion criteria were identified and at least one of the following inclusion criteria were met: 1) physician request, 2) patient technically difficult to image (per the [place] [employer] guidelines of two or more segments not discernable within the apical view), or 3) questionable left ventricular function. ?
--- NOTE | 2024-10-25 15:27 | WPDCNINT ---
Assessment and Plan Assessment and plan (1) COPD exacerbation: Code(s): J44.1 - Chronic obstructive pulmonary disease with (acute) exacerbation Status: Acute (2) Acute and chronic respiratory failure with hypoxia: Code(s): J96.21 - Acute and chronic respiratory failure with hypoxia Status: Acute Assessment and Plan: Patient has acute on chronic respiratory failure secondary to COPD exacerbation Patient is on and NIPPV and using accessory muscles but is not tachypneic and able to speak full sentences. His blood gas does not show any hyper car be a or hypoxia and he is only on 28% FiO2 I suspect anxiety is playing a part as patient states that he takes than X and Ativan at home which improves his breathing. Patient has been pulling his BiPAP mask off few times earlier I will transfer him to ICU and started on Precedex infusion for anxiolysis tube allow safe and effective and NIPPV Obviously if he fails or deteriorates he may need intubation and mechanical ventilation P Pulmonology is patient ABG reviewed Continue steroids and bronchodilator Continue antibiotics Rocephin azithromycin CTA chest ordered and pending (3) Cardiomyopathy: Code(s): I42.9 - Cardiomyopathy, unspecified Status: Acute Assessment and Plan: Patient has history of cardiomyopathy Continue Plavix but hold Imdur and metoprolol in light of soft blood pressure Continue statin (4) Sepsis: Code(s): A41.9 - Sepsis, unspecified organism Status: Acute Assessment and Plan: Patient met criteria for sepsis and had elevated lactic acid level which has improved Chest x-ray did not show any pneumonia patient is on empiric antibiotics in the phone Rocephin azithromycin I will check UA Blood cultures ordered and pending (5) Elevated troponin: Code(s): R79.89 - Other specified abnormal findings of blood chemistry Status: Acute Assessment and Plan: Mild elevation in troponin level which is already improving. EKG reviewed and patient denies any chest pain Likely type 2 NSTEMI from respiratory failure Continue aspirin and statin Resume beta-nae when blood pressure allows Echo has been done and report is pain (6) Coronary artery disease: Code(s): I25.10 - Atherosclerotic heart disease of nikolai coronary artery without angina pectoris Status: Acute Assessment and Plan: See above (7) Afib: Code(s): I48.91 - Unspecified atrial fibrillation Status: Acute Assessment and Plan: Continue beta-nae AddIV p.r.n. metoprolol Plan DVT prophylaxis - Lovenox Stress ulcer prophylaxis - Nutrition - NPO Code Status - Full Code Total Critical Care Time - 35 minutes Due to a high probability of clinically significant, life threatening deterioration, the patient required my highest level of preparedness to intervene emergently and I personally spent this critical care time directly and personally managing the patient. This critical care time included obtaining a history; examining the patient; pulse oximetry; ordering and review of studies; arranging urgent treatment with development of a management plan; evaluation of patient's response to treatment; frequent reassessment; and discussions with other providers. It was exclusive of separately billable procedures and treating other patients and teaching time. 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 He was admitted yesterday with chief complaint of shortness of breath. He states that despite using inhalers multiple times he felt no relief and had to come to the ER. In ER he was in respiratory distress and was placed on BiPAP and then later weaned down to nasal cannula. This morning he again became short of breath and was placed on BiPAP. I was asked to evaluate patient due to his work of breathing. Patient tells me that he is feeling short of breath and also feeling anxious. He states that he takes Ativan at home although he was unable to give me does. He states that the Ativan takes distress away and makes his breathing better. He denies any chest pain abdominal pain nausea vomiting at this time. No fever. On exam patient is using accessory muscles but is not tachypneic and able to speak full sentences. On BiPAP his respiratory rate was 20 2-23 with tidal volumes in the range of 500 cc. History was limited due to patient being on BiPAP and in respiratory failure. Patient was tested negative for RSV COVID influenza at the time of admission and was started on antibiotics Rocephin azithromycin and bronchodilator along with Solu-Medrol. Patient was also evaluated by web services professional to made some adjustment in his NIPPV settings to AVAP CT scan on 03/27/2022 with severe apical predominant panlobular emphysema.? PFTs on 04/10/2022 demonstrate moderately severe obstructive abnormality, FEV1 1.61 L, 53% predicted, FEV1:FVC ratio 48%, ?normal lung volumes, DLCO moderately decreased when adjusted for alveolar volume at 51%. ?No oxygen at rest, with ambulation or at night per 6 minutes walk on 10/21/2022 and overnight oximetry on 10/12/2022. Review of Systems Review of Systems: ROS unobtainable: Yes unobtainable due to medical condition [facility] Surgical History Surgical History History of cholecystectomy Stented coronary artery 2014 & 2018 Family History Family History Father Acute myocardial infarction Mother Skin cancer Breast cancer Brain cancer Sibling , One brother . Lung cancer Son Diverticulitis Migraines HPV in male Social History Social History Smoking packs per day: 1 Smoking cigarettes per day: 20.0 Years smoked: 46 Smoking pack-years: 46.00 Smoking status: Current every day smoker Tobacco type: cigarettes Second hand tobacco smoke exposure: Yes Additional smoking assessment comments: states he also smokes cannibus 3 + times per week 2 hits Alcohol intake: never Substance use: current Substance use type: marijuana Do You Feel Safe in your Home?: Yes Lack of Transportation: No Lack of Food: Never True Current Housing: I Have Housing Concerned About Future Housing: No Difficulty Paying Gas/Electric Bills: No Difficulty Paying for Meds: No Currently Unemployed: No Education: Associate Degree Difficulty w/ Childcare or Family Care: No Spiritual care concerns: No Meds Home Medications and Allergies Home Medications ?Medication ?Instructions ?Recorded ?Confirmed ?Type clopidogrel 75 mg tablet 75 mg PO DAILY 05/21/22 10/24/24 History isosorbide mononitrate 60 mg 30 mg PO BID 05/21/22 10/24/24 History tablet,extended release 24 hr metoprolol tartrate 25 mg tablet 25 mg PO DAILY 05/21/22 10/24/24 History rosuvastatin 10 mg tablet 10 mg PO DAILY 05/21/22 10/24/24 History sacubitril 24 mg-valsartan 26 mg 1 tablet PO BID 05/21/22 10/24/24 History tablet (Entresto) Ventolin HFA 90 mcg/actuation 1 inh inhalation QID PRN Shortness 08/19/23 10/24/24 Rx aerosol inhaler (albuterol sulfate) Of Breath #8 grams guaifenesin 600 mg tablet, See Rx Instructions .Route 07/23/24 10/24/24 Rx extended release 12 hr .COMPLEX #60 tabs tiotropium 2.5 mcg-olodaterol 2.5 See Rx Instructions .Route 10/08/24 10/24/24 Rx mcg/actuation mist for inhalation .COMPLEX #4 mL (Stiolto Respimat) cyanocobalamin (vitamin B-12) 1,000 mcg PO DAILY 10/24/24 10/24/24 History 1,000 mcg tablet ergocalciferol (vitamin D2) 1,250 1,250 mcg PO WEEKLY 10/24/24 10/24/24 History mcg (50,000 unit) capsule pramipexole 1 mg tablet 1 mg PO HS 10/24/24 10/24/24 History Allergies Allergy/AdvReac Type Severity Reaction Status Date / Time No Known Allergies Allergy Verified 10/24/24 17:21 Vital Signs Vital Signs - 24 hr 10/24/24 17:15 10/24/24 17:22 10/24/24 17:23 Temperature Pulse Rate 98 98 96 Respiratory Rate 20 24 H 17 Blood Pressure 83/56 L Pulse Oximetry 98 100 99 Oxygen Delivery Nasal Cannula Oxygen Flow Rate 2 Fraction of Inspired Oxygen 10/24/24 17:24 10/24/24 17:25 10/24/24 17:29 Temperature 36.4 C Pulse Rate 99 98 99 Respiratory Rate 22 H 17 25 H Blood Pressure 83/56 L 73/53 L 78/52 L Pulse Oximetry 100 100 100 Oxygen Delivery Oxygen Flow Rate Fraction of Inspired Oxygen 10/24/24 17:30 10/24/24 17:31 10/24/24 17:42 Temperature Pulse Rate 95 94 90 Respiratory Rate 11 L 13 12 Blood Pressure 72/57 L 83/61 L Pulse Oximetry 100 100 100 Oxygen Delivery Oxygen Flow Rate Fraction of Inspired Oxygen 10/24/24 17:45 10/24/24 17:50 10/24/24 18:00 Temperature Pulse Rate 95 92 83 Respiratory Rate 21 H 14 20 Blood Pressure 81/61 L Pulse Oximetry Oxygen Delivery Oxygen Flow Rate Fraction of Inspired Oxygen 10/24/24 18:00 10/24/24 18:00 10/24/24 18:00 Temperature Pulse Rate 92 Respiratory Rate 13 18 Blood Pressure 83/61 L Pulse Oximetry 100 100 Oxygen Delivery BiPAP BiPAP Oxygen Flow Rate Fraction of Inspired Oxygen 10/24/24 18:01 10/24/24 18:10 10/24/24 18:15 Temperature Pulse Rate 93 94 94 Respiratory Rate 16 24 H 23 H Blood Pressure 99/62 L Pulse Oximetry 100 100 Oxygen Delivery Oxygen Flow Rate Fraction of Inspired Oxygen 10/24/24 18:20 10/24/24 18:30 10/24/24 18:31 Temperature Pulse Rate 96 94 92 Respiratory Rate 20 17 18 Blood Pressure 90/64 L 86/64 L Pulse Oximetry 100 100 100 Oxygen Delivery Oxygen Flow Rate Fraction of Inspired Oxygen 10/24/24 18:40 10/24/24 18:45 10/24/24 18:50 Temperature Pulse Rate 90 90 94 Respiratory Rate 13 12 17 Blood Pressure 92/63 L 89/70 L Pulse Oximetry 100 100 100 Oxygen Delivery Oxygen Flow Rate Fraction of Inspired Oxygen 10/24/24 19:00 10/24/24 19:01 10/24/24 19:10 Temperature Pulse Rate 90 91 89 Respiratory Rate 14 18 20 Blood Pressure 81/56 L 88/64 L Pulse Oximetry 100 100 100 Oxygen Delivery Oxygen Flow Rate Fraction of Inspired Oxygen 10/24/24 19:15 10/24/24 19:20 10/24/24 19:27 Temperature Pulse Rate 92 88 89 Respiratory Rate 14 15 18 Blood Pressure 81/58 L Pulse Oximetry 100 99 100 Oxygen Delivery BiPAP Oxygen Flow Rate Fraction of Inspired Oxygen 10/24/24 19:30 10/24/24 19:31 10/24/24 19:40 Temperature Pulse Rate 91 91 90 Respiratory Rate 14 16 22 H Blood Pressure 86/65 L 95/61 L Pulse Oximetry 99 98 96 Oxygen Delivery Oxygen Flow Rate Fraction of Inspired Oxygen 10/24/24 19:45 10/24/24 19:50 10/24/24 20:00 Temperature Pulse Rate 95 91 89 Respiratory Rate 20 23 H 18 Blood Pressure 92/66 L 88/60 L Pulse Oximetry 97 97 98 Oxygen Delivery Oxygen Flow Rate Fraction of Inspired Oxygen 10/24/24 20:01 10/24/24 20:13 10/24/24 20:15 Temperature Pulse Rate 90 88 Respiratory Rate 16 19 Blood Pressure Pulse Oximetry 97 97 98 Oxygen Delivery BiPAP Oxygen Flow Rate Fraction of Inspired Oxygen 21 10/24/24 20:21 10/24/24 20:26 10/24/24 21:13 Temperature Pulse Rate 87 87 Respiratory Rate 16 22 H Blood Pressure 78/58 L 90/57 L Pulse Oximetry 99 99 Oxygen Delivery BiPAP Oxygen Flow Rate Fraction of Inspired Oxygen 10/24/24 21:25 10/24/24 22:31 10/25/24 00:00 Temperature 36.6 C 36.6 C Pulse Rate 87 85 Respiratory Rate 20 18 Blood Pressure 80/40 L 92/55 L Pulse Oximetry 99 98 Oxygen Delivery BiPAP Oxygen Flow Rate Fraction of Inspired Oxygen 10/25/24 00:00 10/25/24 00:00 10/25/24 02:00 Temperature Pulse Rate 86 81 Respiratory Rate 20 Blood Pressure Pulse Oximetry Oxygen Delivery BiPAP Oxygen Flow Rate Fraction of Inspired Oxygen 21 10/25/24 02:10 10/25/24 02:10 10/25/24 04:00 Temperature Pulse Rate 84 81 Respiratory Rate 20 20 Blood Pressure Pulse Oximetry 96 97 Oxygen Delivery BiPAP BiPAP Oxygen Flow Rate Fraction of Inspired Oxygen 21 10/25/24 04:00 10/25/24 04:00 10/25/24 07:46 Temperature 36.8 C Pulse Rate 84 79 Respiratory Rate 24 H 17 Blood Pressure 109/77 100/66 Pulse Oximetry 97 97 Oxygen Delivery Oxygen Flow Rate Fraction of Inspired Oxygen 10/25/24 07:58 10/25/24 07:58 10/25/24 08:00 Temperature Pulse Rate 86 Respiratory Rate 20 Blood Pressure Pulse Oximetry 98 98 Oxygen Delivery Room Air Nasal Cannula Oxygen Flow Rate 2 Fraction of Inspired Oxygen 21 10/25/24 08:00 10/25/24 08:09 10/25/24 08:14 Temperature Pulse Rate 68 97 88 Respiratory Rate 20 25 H Blood Pressure Pulse Oximetry 98 Oxygen Delivery BiPAP Oxygen Flow Rate Fraction of Inspired Oxygen 10/25/24 09:37 10/25/24 10:00 10/25/24 11:34 Temperature 36.4 C L Pulse Rate 68 68 86 Respiratory Rate 24 H Blood Pressure 105/68 Pulse Oximetry 100 Oxygen Delivery Oxygen Flow Rate Fraction of Inspired Oxygen 10/25/24 12:00 10/25/24 12:00 10/25/24 13:13 Temperature Pulse Rate 113 H 127 H Respiratory Rate 34 H Blood Pressure Pulse Oximetry 95 94 Oxygen Delivery BiPAP BiPAP Oxygen Flow Rate Fraction of Inspired Oxygen 10/25/24 13:13 10/25/24 13:23 10/25/24 14:00 Temperature Pulse Rate 127 H 113 H 110 H Respiratory Rate 34 H 28 H Blood Pressure Pulse Oximetry Oxygen Delivery Oxygen Flow Rate Fraction of Inspired Oxygen 10/25/24 14:34 10/25/24 15:12 10/25/24 15:12 Temperature Pulse Rate 103 H 121 H 121 H Respiratory Rate 23 H 25 H 25 H Blood Pressure Pulse Oximetry 100 100 Oxygen Delivery BiPAP BiPAP Oxygen Flow Rate Fraction of Inspired Oxygen Exam Narrative: General: Pt is frail old male who looks older than his age and on BiPAP, appears anxious Lungs/Chest: Bilateral wheezing, use of accessory muscles but not tachypneic able to speak full sentence Cardiac: Tachycardia. Normal S1 S2. No murmurs Circulation: Pedal pulses are intact and symmetrical. Abdomen: Normal bowel sounds. Soft. NT. ND. Extremities: No clubbing, cyanosis or edema. Warm : Lazo in place Neurologic: AO x3 Moves all 4 extremities to painful stimuli. PERRL Results Labs 10/25/24 04:32 10/25/24 04:32 Labs: Impressions Chest X-Ray 10/24/24 18:53 IMPRESSION: Emphysematous disease, without focal infiltrate or effusion. Short CBC 10/24/24 10/25/24 Range/Units 17:34 04:32 WBC 15.5 H 12.7 H (4.5-10.0) K/mm3 Hgb 12.8 L 11.4 L (14.0-18.0) g/dL Hct 38.8 L 35.0 L (42.0-52.0) % Plt Count 198 193 (150-375) k/mm3 BMP 10/24/24 10/24/24 10/25/24 17:33 22:24 04:32 Sodium 129 L 132 L 133 L Potassium 4.2 4.1 4.0 Chloride 94 L 102 105 Carbon Dioxide 24 19 L 18 L BUN 13 11 11 Creatinine 0.86 0.68 L 0.60 L Glucose 122 H 138 H 141 H Calcium 8.6 8.0 L 8.7 Cardiac Enzymes 10/24/24 10/24/24 10/25/24 Range/Units 17:33 22:24 13:54 Troponin I 0.806 H* 0.545 H* D 0.255 H* (0.000-0.034) ng/mL Liver Function 10/24/24 Range/Units 17:33 Total Bilirubin 0.7 (0.2-1.3) mg/dL AST 36 (17-59) U/L ALT 23 (6-50) U/L Alkaline Phosphatase 79 (38-126) U/L Albumin 4.2 (3.5-5.1) g/dL Quality VTE Prophylaxis VTE prophylaxis: pharmacologic ordered Hospitalist MIPS Advance Care Plan I have confirmed that the patient's Advanced Care Plan is present, code status is documented, or surrogate decision maker is listed in patient medical record.: Yes Medication Reconciliation I have utilized all available resources to obtain, update and review the patients current medications (includes all prescriptions, OTC, herbals, cannabis, and nutritional supplements).: Yes
[2024-10-25] MEDS: cefTRIAXone 2 GM/NS 100 ML 2 GM/100 ML BAG IVPB (15:35)
[2024-10-25] MEDS: dexmedeTOMIDine 400 MCG/100 ML 400 MCG/100 ML BAG IV CONT (16:37)
[2024-10-25] MEDS: AZITHROMYCIN 500 MG/NS 250 ML 500 MG/250 ML BAG 250 MG IVPB (16:47)
[2024-10-25 18:08] LABS: MRSA (PCR) NOT DETECTED (NOT DETECTE)
[2024-10-25 19:10] LABS: Add Urine Microscopic? YES; Appearance Urine Clear (Clear); Bacteria Urine None Seen /hpf; Bilirubin Urine Negative (Negative); Blood Urine Negative (Negative); Color Urine Yellow (Yellow); Glucose Urine UA Trace mg/dL (Negative); Hyaline Casts Urine Present /lpf; Ketones Urine Negative (Negative); Leukocyte Esterase Ur Negative LEU/UL (Negative); Nitrate Urine Negative (Negative); Protein Urine 1+ mg/dL (Negative); RBC Urine 0-2 /hpf (0-2); Squamous Epithelial Cell Urine Occasional /hpf (Few); Urobilinogen Urine 0.2 mg/dL (<2.0); WBC Urine 0-5 /hpf (0-3); pH Urine 5.5 (5.0-9.0)
[2024-10-25] MEDS: guaiFENesin 12 HR 600 MG TABCR 1200 MG PO (20:21)
[2024-10-25] MEDS: MIDAZOLAM HCL (*CRX) 2 MG/2 ML VIAL 1 MG IV PUSH (20:50)
--- NOTE | 2024-10-25 22:42 | PCRCNOTE ---
1999 TX not given due to pt being at CT.
[2024-10-26] VITALS (34 sets, daily range): BP systolic 107–137; BP diastolic 55–99; PULSE 48–99; RESP 18–31; TEMP 36.2–36.7; O2SAT 92–100
[2024-10-26] MEDS: IPRATROPIUM 0.5 MG/ALBUTEROL SULFATE 2.5 MG AMPUL.NEB 3 ML INHALATION ×5 (03:18→21:06)
[2024-10-26] MEDS: dexmedeTOMIDine 400 MCG/100 ML 400 MCG/100 ML BAG 9.26 MCG IV CONT ×3 (03:26→23:42)
[2024-10-26 04:53] LABS: Hemoglobin 12.1 g/dL (14.0-18.0); Mean Corpuscular HGB Conc 32.7 g/dl (32-36); Mean Corpuscular Hemoglobin 31.7 pg (26-34); Mean Corpuscular Volume 96.9 fl (80-100); Mean Platelet Volume 10.2 fl (7.4-10.4); Platelet Count Result 195 k/mm3 (150-375); Red Blood Count 3.82 M/mm3 (4.6-6.20); Red Cell Distribution Width 13.2 % (11.5-14.5); White Blood Count 11.8 K/mm3 (4.5-10.0)
[2024-10-26 05:14] LABS: Anion Gap 6 mmol/L (4-12); Blood Urea Nitrogen 18 mg/dL (9-20); Calcium 9.4 mg/dL (8.4-10.2); Carbon Dioxide 26 mmol/L (22-30); Chloride 105 mmol/L (98-107); Estimated CRCL calculation 51 ml/min; Estimated Glomerular Filt Rate > 60; Glucose 147 mg/dL (65-110); Potassium 5.8 mmol/L (3.4-5.0); Sodium 137 mmol/L (137-145)
[2024-10-26] MEDS: methylPREDNISolone SOD SUCC 125 MG VIAL 60 MG IV PUSH (05:18)
--- NOTE | 2024-10-26 08:32 | PC.NURSE ---
Pt. refusing to take any medications at this time because can't you see I can't breathe right now. Pt. became irate at family at bedside and they have left.
--- NOTE | 2024-10-26 08:46 | P.PNINT_ITS ---
Progress Note: A&P Assessment and Plan (1) Acute and chronic respiratory failure with hypoxia: Code(s): J96.21 - Acute and chronic respiratory failure with hypoxia Status: Acute Assessment and Plan: Patient has acute on chronic respiratory failure secondary to COPD exacerbation and component of anxiety Patient was transferred to ICU yesterday and was on AVAPS. He claimed that he takes Ativan at home although I was not able to confirm a prescription for this pharmacy. He was started on Precedex infusion and has made significant improvement and is not in respiratory distress this morning. He is down to room air I will add p.r.n. 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 He plans to change patient from IV Solu- Medrol to p.o. prednisone ABG reviewed Continue bronchodilator Continue antibiotics Rocephin azithromycin CTA chest IMPRESSION: No pulmonary embolus. No thoracic aortic dissection. Severe panlobular bullous emphysema, unchanged from 05/03/2024. Interval development of small bilateral pleural effusions, right greater than left with adjacent compressive atelectasis. (2) COPD exacerbation: Code(s): J44.1 - Chronic obstructive pulmonary disease with (acute) exacerbation Status: Acute Assessment and Plan: See above (3) Cardiomyopathy: Code(s): I42.9 - Cardiomyopathy, unspecified Status: Acute Assessment and Plan: Patient has history of cardiomyopathy Continue Plavix but holding Imdur Continue statin and beta (4) Sepsis: Code(s): A41.9 - Sepsis, unspecified organism Status: Acute Assessment and Plan: Patient met criteria for sepsis and had elevated lactic acid level which has improved Chest x-ray did not show any pneumonia patient is on empiric antibiotics in the phone Rocephin azithromycin UA was not Blood cultures ordered and pending (5) Elevated troponin: Code(s): R79.89 - Other specified abnormal findings of blood chemistry Status: Acute Assessment and Plan: Mild elevation in troponin level which is already improving. EKG reviewed and patient denies any chest pain Likely type 2 NSTEMI from respiratory failure Continue aspirin, beta blood and statin Echo Summary 10/25 1. Definity contrast administered improved wall motion interpretation. 2. Left ventricular chamber dimension is moderately enlarged. 3. Mid to apical anteroseptum/septum are akinetic. Basal segments have normal contractility and remaining wall segments are hypokinetic. 4. Left ventricular systolic function is severely reduced, estimated at 30- 35%. 5. The left ventricular diastolic function is grade I diastolic dysfunction. 6. There is mild aortic valve sclerosis. 7. There is mild to moderate mitral valve regurgitation. 8. There is trace tricuspid valve regurgitation. 9. No pulmonary hypertension, estimated pulmonary arterial systolic pressure is 39 mmHg. (6) Coronary artery disease: Code(s): I25.10 - Atherosclerotic heart disease of habematolel coronary artery without angina pectoris Status: Acute Assessment and Plan: See above (7) Afib: Code(s): I48.91 - Unspecified atrial fibrillation Status: Acute Assessment and Plan: Continue beta-nae p.o. metoprolol IV p.r.n. metoprolol Plan DVT prophylaxis - Lovenox Stress ulcer prophylaxis - Nutrition - NPO Code Status - Full Code Total Critical Care Time - 35 minutes Due to a high probability of clinically significant, life threatening deterioration, the patient required my highest level of preparedness to intervene emergently and I personally spent this critical care time directly and personally managing the patient. This critical care time included obtaining a history; examining the patient; pulse oximetry; ordering and review of studies; arranging urgent treatment with development of a management plan; evaluation of patient's response to treatment; frequent reassessment; and discussions with other providers. It was exclusive of separately billable procedures and treating other patients and teaching time. Please see Assessment and Plan section and the rest of the note for further information on patient assessment and treatment Subjective Date/time seen: 10/26/24 Patient was transferred yesterday to ICU and started on Precedex infusion. He wore BiPAP for most of the night and came off to room air at 5:45 a.m. this morning. When I evaluated him he was on Precedex infusion at 0.7 appeared calm with no respiratory distress or use accessory muscles. He was satting 94-95% on room air. He states that he was feeling better his breathing was better and he slept well. His only request was that he would like to eat food and is very hungry. He denied any other complaints. Patient denies fever, chest pain, shortness of breath, cough, nausea vomiting, abdominal pain,, diarrhea, headache or constipation.. All other systems were reviewed and negative Review of Systems Review of Systems: All systems reviewed & are unremarkable except as noted in HPI and below (HPI) Exam Narrative: General: Pt is frail old male who looks older than his age and room air Lungs/Chest: Bilateral minimal wheezing, no use of accessory muscles or tachypnea. Able to speak full sentence Cardiac: RRR. Normal S1 S2. No murmurs Circulation: Pedal pulses are intact and symmetrical. Abdomen: Normal bowel sounds. Soft. NT. ND. Extremities: No clubbing, cyanosis or edema. Warm : Lazo in place Neurologic: AO x3 Moves all 4 extremities to painful stimuli. PERRL a AO x3 Objective Data Vital Signs Vital Signs: Vital Signs - 24 hr 10/25/24 09:37 10/25/24 10:00 10/25/24 11:34 Temperature 36.4 C L Pulse Rate 68 68 86 Respiratory Rate 24 H Blood Pressure 105/68 Pulse Oximetry 100 Oxygen Delivery Fraction of Inspired Oxygen 10/25/24 12:00 10/25/24 12:00 10/25/24 13:13 Temperature Pulse Rate 113 H 127 H Respiratory Rate 34 H Blood Pressure Pulse Oximetry 95 94 Oxygen Delivery BiPAP BiPAP Fraction of Inspired Oxygen 10/25/24 13:13 10/25/24 13:23 10/25/24 14:00 Temperature Pulse Rate 127 H 113 H 110 H Respiratory Rate 34 H 28 H Blood Pressure Pulse Oximetry Oxygen Delivery Fraction of Inspired Oxygen 10/25/24 14:34 10/25/24 15:12 10/25/24 15:12 Temperature Pulse Rate 103 H 121 H 121 H Respiratory Rate 23 H 25 H 25 H Blood Pressure Pulse Oximetry 100 100 Oxygen Delivery BiPAP BiPAP Fraction of Inspired Oxygen 10/25/24 15:28 10/25/24 15:36 10/25/24 16:00 Temperature 36.6 C Pulse Rate 118 H 133 H Respiratory Rate 25 H 27 H Blood Pressure 162/100 H Pulse Oximetry 96 97 Oxygen Delivery BiPAP Fraction of Inspired Oxygen 10/25/24 16:33 10/25/24 16:37 10/25/24 16:40 Temperature Pulse Rate 108 H 129 H 108 H Respiratory Rate 27 H 31 H 27 H Blood Pressure Pulse Oximetry 100 Oxygen Delivery BiPAP Fraction of Inspired Oxygen 10/25/24 17:00 10/25/24 17:10 10/25/24 17:40 Temperature Pulse Rate 120 H 120 H 93 Respiratory Rate 31 H 28 H 25 H Blood Pressure 133/91 H Pulse Oximetry 98 Oxygen Delivery Fraction of Inspired Oxygen 10/25/24 18:00 10/25/24 18:00 10/25/24 18:00 Temperature Pulse Rate 88 64 70 Respiratory Rate 24 H 20 Blood Pressure 104/78 Pulse Oximetry 97 Oxygen Delivery Fraction of Inspired Oxygen 10/25/24 19:15 10/25/24 19:45 10/25/24 20:00 Temperature 36.4 C Pulse Rate 65 63 64 Respiratory Rate 39 H 34 H 22 H Blood Pressure 122/83 Pulse Oximetry 99 Oxygen Delivery Fraction of Inspired Oxygen 10/25/24 20:00 10/25/24 20:00 10/25/24 20:00 Temperature Pulse Rate 63 64 Respiratory Rate 22 H Blood Pressure Pulse Oximetry 99 Oxygen Delivery BiPAP Fraction of Inspired Oxygen 28 10/25/24 20:40 10/25/24 21:15 10/25/24 22:00 Temperature Pulse Rate 64 60 Respiratory Rate 20 Blood Pressure Pulse Oximetry 95 Oxygen Delivery Nasal Cannula Fraction of Inspired Oxygen 10/25/24 22:00 10/25/24 22:00 10/25/24 23:02 Temperature Pulse Rate 60 60 56 L Respiratory Rate 20 28 H 20 Blood Pressure 120/81 Pulse Oximetry 98 98 Oxygen Delivery BiPAP Fraction of Inspired Oxygen 10/25/24 23:02 10/25/24 23:07 10/26/24 00:00 Temperature Pulse Rate 56 L 58 L Respiratory Rate 20 20 Blood Pressure Pulse Oximetry 99 Oxygen Delivery BiPAP Fraction of Inspired Oxygen 28 10/26/24 00:00 10/26/24 00:00 10/26/24 00:00 Temperature 36.6 C Pulse Rate 56 L 48 L 56 L Respiratory Rate 20 20 Blood Pressure 123/83 Pulse Oximetry 99 Oxygen Delivery Fraction of Inspired Oxygen 10/26/24 01:00 10/26/24 02:00 10/26/24 02:00 Temperature Pulse Rate 65 56 L 56 L Respiratory Rate 31 H 21 H Blood Pressure 113/82 Pulse Oximetry 99 Oxygen Delivery Fraction of Inspired Oxygen 10/26/24 02:00 10/26/24 02:18 10/26/24 03:19 Temperature Pulse Rate 56 L 56 L 54 L Respiratory Rate 21 H 20 21 H Blood Pressure Pulse Oximetry 100 Oxygen Delivery BiPAP Fraction of Inspired Oxygen 10/26/24 03:26 10/26/24 03:26 10/26/24 04:00 Temperature 36.2 C L Pulse Rate 56 L 56 L 56 L Respiratory Rate 20 20 21 H Blood Pressure 116/83 Pulse Oximetry 99 Oxygen Delivery Fraction of Inspired Oxygen 10/26/24 04:00 10/26/24 04:00 10/26/24 04:00 Temperature Pulse Rate 55 L 78 Respiratory Rate 20 Blood Pressure Pulse Oximetry 99 Oxygen Delivery BiPAP Fraction of Inspired Oxygen 28 10/26/24 04:20 10/26/24 05:45 10/26/24 06:00 Temperature Pulse Rate 55 L 90 Respiratory Rate 21 H Blood Pressure Pulse Oximetry 99 97 Oxygen Delivery BiPAP Room Air Fraction of Inspired Oxygen 10/26/24 06:00 10/26/24 06:00 10/26/24 08:00 Temperature Pulse Rate 90 90 Respiratory Rate 20 20 Blood Pressure 107/55 L Pulse Oximetry 94 Oxygen Delivery Room Air Fraction of Inspired Oxygen 28 10/26/24 08:00 10/26/24 08:00 10/26/24 08:05 Temperature Pulse Rate 92 92 86 Respiratory Rate 26 H 25 H Blood Pressure 136/86 Pulse Oximetry 99 99 Oxygen Delivery BiPAP Fraction of Inspired Oxygen 10/26/24 08:05 Temperature Pulse Rate 86 Respiratory Rate 20 Blood Pressure Pulse Oximetry Oxygen Delivery Fraction of Inspired Oxygen Intake/Output Intake/Output: Intake & Output 10/23/24 10/24/24 10/25/24 10/26/24 23:59 23:59 23:59 23:59 Intake Total 2250 4000.1 120.1 Output Total 450 425 Balance 2250 3550.1 -304.9 Meds/Results Medications: Active Medications Generic Name Dose Route Start Last Admin Trade Name Freq PRN Reason Stop Dose Admin Acetaminophen 650 mg 10/24/24 18:55 Acetaminophen 325 Mg Tablet PO Q4H PRN Mild Pain (1-3) or Fever Hydrocodone Bitart/Acetaminophen 1 tab 10/24/24 19:04 Hydrocodone/Acetaminophen (*Crx) 5-325 Mg Tablet PO Q4H PRN Moderate Pain (4-6) Albuterol/Ipratropium 3 ml 10/25/24 16:00 10/26/24 08:05 Ipratropium 0.5 Mg/Albuterol Sulfate 2.5 Mg Ampul.Neb 3 Ml INHALATION 3 ml Q4HRT LIANE Administration Alprazolam 1 mg 10/26/24 07:50 Alprazolam (*Crx) 0.5 Mg Tablet PO TID PRN Anxiety Clopidogrel Bisulfate 75 mg 10/25/24 09:00 10/25/24 09:30 Clopidogrel Bisulfate 75 Mg Tablet PO 75 mg DAILY LIANE Administration Docusate Sodium 100 mg 10/25/24 09:00 10/25/24 20:22 Docusate Sodium 100 Mg Capsule PO Not Given Q12HR LIANE Enoxaparin Sodium 40 mg 10/25/24 09:00 10/25/24 09:30 Enoxaparin 40 Mg/0.4 Ml Syringe SUB-Q 40 mg DAILY LIANE Administration Guaifenesin 1,200 mg 10/25/24 14:30 10/25/24 20:21 Guaifenesin 12 Hr 600 Mg Tabcr PO 1,200 mg Q12HR LIANE Administration Ceftriaxone Sodium 2 gm in 100 mls @ 200 mls/hr 10/25/24 14:00 10/25/24 17:24 Rocephin 2 Gm/Ns 100 Ml IVPB Infused Q24H LIANE Infusion Azithromycin 500 mg in 250 mls @ 250 mls/hr 10/25/24 14:00 10/25/24 16:47 Zithromax IVPB 250 mls/hr Q24H LIANE Administration Dexmedetomidine HCl 400 mcg in 100 mls @ 9.258 mls/hr 10/25/24 15:30 10/26/24 06:00 Precedex 400 Mcg/100 Ml IV CONT 0.7 mcg/kg/hr .[id number] LIANE 9.26 mls/hr Titration Protocol 0.7 MCG/KG/HR Isosorbide Mononitrate 30 mg 10/24/24 23:15 10/25/24 09:30 Isosorbide Mononitrate 30 Mg Tab.Er.24h PO 30 mg Q12HR LIANE Administration Methylprednisolone Sodium Succinate 60 mg 10/25/24 14:00 10/26/24 05:18 Methylprednisolone Sod Succ 125 Mg Vial IV PUSH 60 mg Q8HR LIANE Administration Metoprolol Succinate 25 mg 10/25/24 09:00 10/25/24 09:37 Metoprolol Succinate Ext Rel 25 Mg Tabcr PO 25 mg QAM LIANE Administration Metoprolol Tartrate 5 mg 10/25/24 15:39 Metoprolol Tartrate Inj 5 Mg/5 Ml Vial IV PUSH Q4H PRN Heart rate > 120 and SBP > 100 Midodrine 10 mg 10/24/24 21:25 10/25/24 17:20 Midodrine Hcl 10 Mg Tablet PO 10 mg TID LIANE Administration Multi-Ingred Cream/Lotion/Oil/Oint 1 applic 10/25/24 21:00 10/25/24 20:21 Mineral Oil/White Petrolatum Ointment EACH EYE Not Given Q12HR [facility] Pramipexole Dihydrochloride 1 mg 10/24/24 23:15 10/25/24 20:21 Pramipexole 1 Mg Tablet PO 1 mg HS LIANE Administration Rosuvastatin Calcium 10 mg 10/25/24 09:00 10/25/24 09:39 Rosuvastatin 10 Mg Tablet PO 10 mg DAILY LIANE Administration Radiology Results: ITS Impressions Chest X-Ray 10/24/24 18:53 IMPRESSION: Emphysematous disease, without focal infiltrate or effusion. Chest CTA 10/25/24 21:04 IMPRESSION: No pulmonary embolus. No thoracic aortic dissection. Severe panlobular bullous emphysema, unchanged from 05/03/2024. Interval development of small bilateral pleural effusions, right greater than left with adjacent compressive atelectasis. Labs Labs: Laboratory Results - last 24 hr 10/25/24 10/25/24 10/25/24 13:23 13:54 14:32 WBC RBC Hgb Hct MCV MCH MCHC RDW Plt Count MPV D-Dimer 1.03 H Puncture Site Right radial Right radial ABG pH 7.247 L* 7.370 ABG pCO2 36.7 35.9 ABG pO2 100.4 H 85.7 ABG PO2/FiO2 Ratio 3.59 3.06 ABG HCO3 15.6 L 20.3 L ABG O2 Saturation 96.7 96.3 ABG O2 Content 17.5 16.1 ABG Base Excess -10.8 -4.4 A-a Gradient 55.9 71.6 Oxyhemoglobin 96.5 95.7 Total Hemoglobin 12.8 11.9 L O2 Delivery Device Bipap Bipap O2 Liters/Min Not Reportable Not Reportable FiO2 28 28 Expiratory Pressure 5 5 Inspiratory Pressure 10 Not Reportable Sodium Potassium Chloride Carbon Dioxide Anion Gap BUN Creatinine Estim Creat Clear Calc Estimated GFR Glucose Calcium Troponin I 0.255 H* NT-Pro-B Natriuret Pep 5950 H Procalcitonin 0.4 Urine Color Urine Appearance Urine pH Ur Specific [place] Urine Protein Urine Glucose (UA) Urine Ketones Ur Blood (Man) Urine Nitrate Urine Bilirubin Urine Urobilinogen Leukocyte Esterase Rfl Urine RBC Urine WBC Ur Squamous Epith Cells Urine Bacteria Urine Casts Hyaline Casts Nasal MRSA (PCR) 10/25/24 10/25/24 10/26/24 16:45 17:55 04:33 WBC 11.8 H RBC 3.82 L Hgb 12.1 L Hct 37.0 L MCV 96.9 MCH 31.7 MCHC 32.7 RDW 13.2 Plt Count 195 MPV 10.2 D-Dimer Puncture Site ABG pH ABG pCO2 ABG pO2 ABG PO2/FiO2 Ratio ABG HCO3 ABG O2 Saturation ABG O2 Content ABG Base Excess A-a Gradient Oxyhemoglobin Total Hemoglobin O2 Delivery Device O2 Liters/Min FiO2 Expiratory Pressure Inspiratory Pressure Sodium 137 Potassium 5.8 H Chloride 105 Carbon Dioxide 26 Anion Gap 6 BUN 18 Creatinine 0.89 Estim Creat Clear Calc 51 Estimated GFR > 60 Glucose 147 H Calcium 9.4 Troponin I NT-Pro-B Natriuret Pep Procalcitonin Urine Color Yellow Urine Appearance Clear Urine pH 5.5 Ur Specific [place] 1.020 Urine Protein 1+ H Urine Glucose (UA) Trace H Urine Ketones Negative Ur Blood (Man) Negative Urine Nitrate Negative Urine Bilirubin Negative Urine Urobilinogen 0.2 Leukocyte Esterase Rfl Negative Urine RBC 0-2 Urine WBC 0-5 Ur Squamous Epith Cells Occasional Urine Bacteria None seen Urine Casts 11-20 Hyaline Casts Present Nasal MRSA (PCR) Not detected Quality VTE Prophylaxis VTE prophylaxis: pharmacologic ordered
--- NOTE | 2024-10-26 09:19 | P.PNPL_ITS ---
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 CT scan on 03/27/2022 with severe apical predominant panlobular emphysema.? PFTs on 04/10/2022 demonstrate moderately severe obstructive abnormality, FEV1 1.61 L, 53% predicted, FEV1:FVC ratio 48%, ?normal lung volumes, DLCO moderately decreased when adjusted for alveolar volume at 51%. ?No oxygen at rest, with ambulation or at night per 6 minutes walk on 10/21/2022 and overnight oximetry on 10/12/2022. Outpatient exacerbation 03/2023. he was clinically stable with dyspnea on exertion at 5 blocks, M MRC grade of 1, cat score of 17 on Stiolto Respimat 1 puff twice a day, rescue albuterol which she use 2 to 3 times a month and guaifenesin 1200 p.o. twice a day. He was smoking 10 cigarettes a day. He was up-to-date on influenza and COVID vaccine and received RSV and 2022. 10/24/2024: Patient presents with 3 days history acute worsening shortness of breath, dyspnea on exertion and hypoxic respiratory distress. He had wheezing in the emergency room. Son had COVID last week his initial COVID test in the ED was negative. Treated with steroids, bronchodilators, ceftriaxone and azithromycin. 10/26/2023: The patient tells me he feels about the same as yesterday. When I enter the room he was on BiPAP rate of 16 breathing 30, pressures 10/5 with tidal volumes 576. He was on 28% FiO2 with saturations 98%. ABG 7.25/37/100. His white blood cell count is 12.7, creatinine 0.6. His weight is 52.9. He was in mild respiratory distress with decreased air movement bilaterally. He said the machine was not giving him air fast enough and I switched him to a noninvasive ventilation mode with the AVAPS mode rate of 20, tidal volume 500, EPAP 5, minimal inspiratory pressure 6, maximal inspiratory pressure 25, inspiratory time 0.8, rise of 1 and 28% FiO2. Peak airway pressures were 12. Patient told me this felt better. Plan: I will check a D-dimer and if this is positive will do a CT angiogram of the chest. Place the patient on DuoNebs q.4 hours. Currently is on Solu- Medrol 60 mg IV q.8 hours, will continue. Continue ceftriaxone and azithromycin, both day 2. I have ordered an respiratory pathogen panel, urine Legionella, urine pneumococcal, serum mycoplasma IgM and will repeat COVID, RSV, influenza swab on 10/27/2023. Will place on guaifenesin 1200 mg p.o. b.i.d. to aid expectoration. Patient with difficulty breathing on BiPAP and I have changed to noninvasive ventilation with the AVAPS mode and will check a blood gas in 30 minutes.. Patient tells me he takes Ativan 2 mg 4 times a day at home and he is very anxious at this time. Discussed with girlfriend in the room, Drs. Watkins and Walt. Patient developed worsening anxiety and shortness of breath and was transferred to the ICU and started on a Precedex drip. CT angiogram of the chest showed no PE, right upper lobe posterior infiltrate new since 05/03/2024 and panlobular emphysema unchanged. Patient had an echocardiogram with an EF of 30-35%, grade 1 diastolic dysfunction, [id number] mitral regurg, normal RV size and function, normal right atrial size, PASP 39. 10/27/2023. Overall patient tells me he is breathing about the same. He is afebrile. He remains on Precedex drip 0.7 and noninvasive ventilation with the AVAPS mode at 28% FiO2 with saturations 100%. He has no wheezing on exam. White blood cell count 11.8, creatinine 0.89. He was +3.5 L yesterday and is +5.5 L since admission. Weight is 51.6 with an admission weight of 48. Respiratory pathogen panel, urine Legionella, urine pneumococcal and mycoplasma IgM pending. Plan: Continue noninvasive ventilation with the AVAPS mode on a p.r.n. basis during the day and continue this at night. Will decrease his Solu-Medrol to prednisone 40 mg p.o. q.day. Continue DuoNebs q.4 hours, guaifenesin 1200 mg p.o. b.i.d.. Continue ceftriaxone and azithromycin, both day 3. Discussed with Dr. Godoy (2) Acute hypercapnic respiratory failure: Code(s): J96.02 - Acute respiratory failure with hypercapnia Status: Acute Assessment and Plan: Patient is on no oxygen at rest, with activity or with sleep. VBG in the emergency department on 2 L was 7.29/57/less than 27. 4/02/11: Plan: Patient in mild respiratory distress on BiPAP and if changed to noninvasive ventilation with the AVAPS mode using the settings as above which were adjusted for comfort. Will repeat a blood gas in 30 minutes. I have discussed the case with the assembler for puller over machine to make him aware that the patient is in mild respiratory distress on maximal noninvasive ventilation settings and and he has a history of severe anxiety requiring Ativan 2 mg p.o. 4 times a day at home in case he needs transfer to the ICU for respiratory failure or agitation requiring Precedex. I did talk to the patient and he is in agreement for intubation if needed. repeat blood gas on the AVAPS settings was 7.37/36/86. Patient developed worsening anxiety and shortness of breath and was transferred to the ICU and started on a Precedex drip. 10/27/2023. Overall patient tells me he is breathing about the same. He is afebrile. He remains on Precedex drip 0.7 and noninvasive ventilation with the AVAPS mode at 28% FiO2 with saturations 100%. Plan: attempt to wean Precedex off today. Subjective Date/time seen: 10/26/24 09:19 Interval history: 10/25/2024: This is a new pulmonary consult for COPD exacerbation on BiPAP. 69-year-old with a history of gold grade 2 group B COPD on no home oxygen, coronary artery disease S/P LAD and RCA stents, CHF (previously with EF of 25% wearing a life vest with plans for an ICD) per outside cardiology. patient last seen on 06/30/2024 in the [facility]. 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 CT scan on 03/27/2022 with severe apical predominant panlobular emphysema.? PFTs on 04/10/2022 demonstrate moderately severe obstructive abnormality, FEV1 1.61 L, 53% predicted, FEV1:FVC ratio 48%, ?normal lung volumes, DLCO moderately decreased when adjusted for alveolar volume at 51%. ?No oxygen at rest, with a mbulation or at night per 6 minutes walk on 10/21/2022 and overnight oximetry on 10/12/2022. Outpatient exacerbation 03/2023. he was clinically stable with dyspnea on exertion at 5 blocks, M MRC grade of 1, cat score of 17 on Stiolto Respimat 1 puff twice a day, rescue albuterol which she use 2 to 3 times a month and guaifenesin 1200 p.o. twice a day. He was smoking 10 cigarettes a day. He was up-to-date on influenza and COVID vaccine and received RSV and 2022. The patient is currently on BiPAP so history is limited. Patient has acute illness for the last 3 days with worsening shortness of breath and dyspnea on exertion. patient's girlfriend tells me that his son who lives with him had COVID last week and the patient did well and is now back at work. His girlfriend who is in the room went to his house and he was in distress and they called EMS on 10/24/2024. Room air saturations were 70 the placed him on oxygen gave him a DuoNeb. In the emergency department blood pressure was 80/40, heart rate 87, 2 L nasal cannula saturation 98%. he had wheezing on exam. He was placed on BiPAP for work of breathing or respiratory distress. His white blood cell count was 15.5 with eosinophil 0.1% equals 15 per micro L, creatinine 0.86. Venous blood gas on 2 L 7.29/57/ less than 27. COVID, influenza, RSV RT PCR studies negative. Chest x-ray with hyperinflation and increased interstitial infiltrates in the upper lobes. Patient was treated with IV steroids, DuoNebs, ceftriaxone and azithromycin. 10/26/2023: The patient tells me he feels about the same as yesterday. When I enter the room he was on BiPAP rate of 16 breathing 30, pressures 10/5 with tidal volumes 576. He was on 28% FiO2 with saturations 98%. ABG 7.25/37/100. His white blood cell count is 12.7, creatinine 0.6. His weight is 52.9. He was in mild respiratory distress with decreased air movement bilaterally. He said the machine was not giving him air fast enough and I switched him to a noninva sive ventilation mode with the AVAPS mode rate of 20, tidal volume 500, EPAP 5, minimal inspiratory pressure 6, maximal inspiratory pressure 25, inspiratory time 0.8, rise of 1 and 28% FiO2. Peak airway pressures were 12. Patient told me this felt better. repeat blood gas on the AVAPS settings was 7.37/36/86. Patient developed worsening anxiety and shortness of breath and was transferred to the ICU and started on a Precedex drip. CT angiogram of the chest showed no PE, right upper lobe posterior infiltrate new since 05/03/2024 and panlobular emphysema unchanged. Patient had an echoca rdiogram with an EF of 30-35%, grade 1 diastolic dysfunction, [id number] mitral regurg, normal RV size and function, normal right atrial size, PASP 39. 10/27/2023. Overall patient tells me he is breathing about the same. He is afebrile. He remains on Precedex drip 0.7 and noninvasive ventilation with the AVAPS mode at 28% FiO2 with saturations 100%. He has no wheezing on exam. White blood cell count 11.8, creatinine 0.89. He was +3.5 L yesterday and is +5.5 L since admission. Weight is 51.6 with an admission weight of 48. DATA: 04/29/24: CT Scan of the Chest without Contrast: Clinical Indication: Lung cancer screening, nicotine dependence COMPARISON: 04/29/2023 Findings: There is no evidence of any significant mediastinal, hilar or axillary lymph adenopathy. Coronary artery calcifications are present. There is no evidence of pleural or pericardial effusion. 6 mm right lower lobe pulmonary nodule present (axial image 90). Severe emphysema present. Images through the upper abdomen reveal no abnormalities. Impression: Lung RADS 3: Probably benign. Six-month follow-up CT recommended. 04/29/23:?EXAMINATION: CT lung screening ?INDICATION: Personal history of nicotine dependence ?COMPARISON: CT dated 03/27/2022 ?FINDINGS: No thoracic lymphadenopathy. There is atherosclerosis. Heart size normal. No significant pleural or pericardial effusion. There is evidence for chronic granulomatous disease. There is apical pleural thickening/scarring. There is a stable 4 mm right apical nodule, image 18. There is lower lobe atelectasis. There is severe emphysema. No new pulmonary nodules or masses. No focal airspace consolidation. There is diffuse idiopathic skeletal hyperostosis (DISH) of the thoracic spine. There is pneumobilia of the left hepatic lobe, consistent with previous sphincterotomy. ?IMPRESSION: ?1. Lung-RADS category 2: Benign appearance or behavior. Continue annual screening with noncontrast low-dose chest CT in 12 months. ?10/21/2022 This is a 6 minute walk test. The test was performed and interpreted in accordance with the 2014 ERS/ATS task force guidelines. ??Findings:? The patient's resting room air oxygen saturation measured by pulse oximetry was 98% and heart rate was 65 bpm.? Patient ambulated for 244 meters and oxygen saturation remained 98 to 100%.? Heart rate at the end of the study was 70 bpm. ??The patient did not qualify for supplemental oxygen at rest or with ambulation. ??There are no prior studies for comparison. ? 10/12/2022: Overnight oximetry on room air.? Basal saturation 93.8%.? High saturation 99%.? Low saturation 87%.? Time with saturation less than or equal to 88% was 33 seconds.? Oxygen desaturation index was 9 events per hour.? Patient requires no supplemental oxygen at night. ? ??04/10/2022 PFTs ??The test was performed and results interpreted in accordance with the 2019 and 2005 ATS/ERS Task Force guidelines respectively using the Global Lung Function Initiative-2012 reference equations. Patient demonstrated good effort and cooperation. Reproducibility criteria were met. The quality of the spirometry maneuver was Grade A. ???Findings: ???Spirometry:? There is decreased maximal expiratory airflow at all lung volumes with concave expiratory flow tracing.? The contour the inspiratory flow tracing is normal.? The FVC is 3.33 L, 85% predicted.? The FEV1 is 1.61 L, a 53% predicted.? The FEV1:? FVC ratio is 48%.?Plethysmography:? The total lung capacity is 6.12 L, 96% predicted.? The functional residual capacity is 4.49 L, 135% predicted.? The residual volume is 2.79 L, 126% predicted.?Diffusion capacity:? The diffusing capacity unadjusted for hemoglobin and carboxyhemoglobin is 16.2, 63% predicted.? The diffusing capacity adjusted for alveolar volume is 2.15, 51% predicted. ???Impression:?There is a moderately severe obstructive abnormality.?? The lung volumes are normal.? The diffusing capacity unadjusted for hemoglobin is mildly decreased and?remains moderately decreased when adjusted for alveolar volume. ???There are no prior studies for comparison. ? ?03/27/2022 EXAMINATION: CT lung screening ???DATE: 03/27/2022 08:58 ???INDICATION: Personal history of nicotine dependence, current smoker with 45 pack year history. ??COMPARISON: None ???FINDINGS: There is severe emphysema. There is a 5 mm nodule in the right lung apex. No pleural effusion or pneumothorax. There our secretions in the trachea. No pathologically enlarged thoracic lymph nodes are identified. The heart size is normal. Calcified coronary artery atherosclerosis is noted. Calcified pulmonary nodules and calcified right hilar lymph nodes are consistent with old granulomatous disease. Punctate calcifications in an otherwise normal spleen likely represent healed granulomatous disease. Pneumobilia is noted in the left hepatic lobe, likely related to prior biliary intervention. There are bridging osteophytes at multiple levels in the spine, consistent with diffuse idiopathic skeletal hyperostosis (DISH). ???IMPRESSION: ???1. Lung-RADS category 2: Benign appearance or behavior. Continue annual screening with noncontrast low-dose chest CT in 12 months. ?04/04/2022:? Echocardiogram at [facility]: ??Conclusions:? 1. Abnormal septal motion consistent with pacemaker ICD implant.? Severe global LV systolic hypokinesis.? Normal left ventricular size.? Normal left ventricular wall thickness.? Left ventricular ejection fraction is measured at 25%.? Normal right ventricular size.? There is nonspecific thicke luli of the mitral valve leaflets.? There is trace physiologic mitral valve regurgitation.? Normal appearing tricuspid valve leaflets.? There is trace physiologic tricuspid valve regurgitation.? Estimated peak pulmonary arterial systolic pressure is 20. Review of Systems Review of Systems: ROS unobtainable: Yes unobtainable due to medical condition Exam Const: General: cooperative, healthy appearing and in distress Orientation/consciousness: oriented to person, oriented to place and oriented to time Other: In mild distress on noninvasive ventilation HENMT: Head: normal to inspection Ears: hearing grossly normal bilaterally Eyes: General: appearance normal, both eyes and all related structures Neck: Neck: normal visual inspection Chest: Chest palpation & inspection: normal inspection of the chest Resp: Effort & Inspection: normal respiratory effort and able to speak in complete sentences Auscultation: no crackles, no rales, no rhonchi, no wheezes and diminished lung sounds Other: no wheezes Cardio: Jugular venous distension: no JVD GI: Inspection: normal to inspection Skin: General skin exam: normal color Neuro: General: oriented to person, oriented to place and oriented to time Extrem: General: normal to inspection and no edema Psych: Appearance: grossly normal Objective Data Vital Signs Vital Signs: Vital Signs - 24 hr 10/25/24 09:37 10/25/24 10:00 10/25/24 11:34 Temperature 36.4 C L Pulse Rate 68 68 86 Respiratory Rate 24 H Blood Pressure 105/68 Pulse Oximetry 100 Oxygen Delivery Fraction of Inspired Oxygen 10/25/24 12:00 10/25/24 12:00 10/25/24 13:13 Temperature Pulse Rate 113 H 127 H Respiratory Rate 34 H Blood Pressure Pulse Oximetry 95 94 Oxygen Delivery BiPAP BiPAP Fraction of Inspired Oxygen 10/25/24 13:13 10/25/24 13:23 10/25/24 14:00 Temperature Pulse Rate 127 H 113 H 110 H Respiratory Rate 34 H 28 H Blood Pressure Pulse Oximetry Oxygen Delivery Fraction of Inspired Oxygen 10/25/24 14:34 10/25/24 15:12 10/25/24 15:12 Temperature Pulse Rate 103 H 121 H 121 H Respiratory Rate 23 H 25 H 25 H Blood Pressure Pulse Oximetry 100 100 Oxygen Delivery BiPAP BiPAP Fraction of Inspired Oxygen 10/25/24 15:28 10/25/24 15:36 10/25/24 16:00 Temperature 36.6 C Pulse Rate 118 H 133 H Respiratory Rate 25 H 27 H Blood Pressure 162/100 H Pulse Oximetry 96 97 Oxygen Delivery BiPAP Fraction of Inspired Oxygen 10/25/24 16:33 10/25/24 16:37 10/25/24 16:40 Temperature Pulse Rate 108 H 129 H 108 H Respiratory Rate 27 H 31 H 27 H Blood Pressure Pulse Oximetry 100 Oxygen Delivery BiPAP Fraction of Inspired Oxygen 10/25/24 17:00 10/25/24 17:10 10/25/24 17:40 Temperature Pulse Rate 120 H 120 H 93 Respiratory Rate 31 H 28 H 25 H Blood Pressure 133/91 H Pulse Oximetry 98 Oxygen Delivery Fraction of Inspired Oxygen 10/25/24 18:00 10/25/24 18:00 10/25/24 18:00 Temperature Pulse Rate 88 64 70 Respiratory Rate 24 H 20 Blood Pressure 104/78 Pulse Oximetry 97 Oxygen Delivery Fraction of Inspired Oxygen 10/25/24 19:15 10/25/24 19:45 10/25/24 20:00 Temperature 36.4 C Pulse Rate 65 63 64 Respiratory Rate 39 H 34 H 22 H Blood Pressure 122/83 Pulse Oximetry 99 Oxygen Delivery Fraction of Inspired Oxygen 10/25/24 20:00 10/25/24 20:00 10/25/24 20:00 Temperature Pulse Rate 63 64 Respiratory Rate 22 H Blood Pressure Pulse Oximetry 99 Oxygen Delivery BiPAP Fraction of Inspired Oxygen 28 10/25/24 20:40 10/25/24 21:15 10/25/24 22:00 Temperature Pulse Rate 64 60 Respiratory Rate 20 Blood Pressure Pulse Oximetry 95 Oxygen Delivery Nasal Cannula Fraction of Inspired Oxygen 10/25/24 22:00 10/25/24 22:00 10/25/24 23:02 Temperature Pulse Rate 60 60 56 L Respiratory Rate 20 28 H 20 Blood Pressure 120/81 Pulse Oximetry 98 98 Oxygen Delivery BiPAP Fraction of Inspired Oxygen 10/25/24 23:02 10/25/24 23:07 10/26/24 00:00 Temperature Pulse Rate 56 L 58 L Respiratory Rate 20 20 Blood Pressure Pulse Oximetry 99 Oxygen Delivery BiPAP Fraction of Inspired Oxygen 28 10/26/24 00:00 10/26/24 00:00 10/26/24 00:00 Temperature 36.6 C Pulse Rate 56 L 48 L 56 L Respiratory Rate 20 20 Blood Pressure 123/83 Pulse Oximetry 99 Oxygen Delivery Fraction of Inspired Oxygen 10/26/24 01:00 10/26/24 02:00 10/26/24 02:00 Temperature Pulse Rate 65 56 L 56 L Respiratory Rate 31 H 21 H Blood Pressure 113/82 Pulse Oximetry 99 Oxygen Delivery Fraction of Inspired Oxygen 10/26/24 02:00 10/26/24 02:18 10/26/24 03:19 Temperature Pulse Rate 56 L 56 L 54 L Respiratory Rate 21 H 20 21 H Blood Pressure Pulse Oximetry 100 Oxygen Delivery BiPAP Fraction of Inspired Oxygen 10/26/24 03:26 10/26/24 03:26 10/26/24 04:00 Temperature 36.2 C L Pulse Rate 56 L 56 L 56 L Respiratory Rate 20 20 21 H Blood Pressure 116/83 Pulse Oximetry 99 Oxygen Delivery Fraction of Inspired Oxygen 10/26/24 04:00 10/26/24 04:00 10/26/24 04:00 Temperature Pulse Rate 55 L 78 Respiratory Rate 20 Blood Pressure Pulse Oximetry 99 Oxygen Delivery BiPAP Fraction of Inspired Oxygen 28 10/26/24 04:20 10/26/24 05:45 10/26/24 06:00 Temperature Pulse Rate 55 L 90 Respiratory Rate 21 H Blood Pressure Pulse Oximetry 99 97 Oxygen Delivery BiPAP Room Air Fraction of Inspired Oxygen 10/26/24 06:00 10/26/24 06:00 10/26/24 08:00 Temperature Pulse Rate 90 90 Respiratory Rate 20 20 Blood Pressure 107/55 L Pulse Oximetry 94 Oxygen Delivery Room Air Fraction of Inspired Oxygen 28 10/26/24 08:00 10/26/24 08:00 10/26/24 08:00 Temperature Pulse Rate 92 92 67 Respiratory Rate 26 H 19 Blood Pressure 136/86 Pulse Oximetry 99 Oxygen Delivery Fraction of Inspired Oxygen 10/26/24 08:05 10/26/24 08:05 10/26/24 08:15 Temperature Pulse Rate 86 86 89 Respiratory Rate 25 H 20 22 H Blood Pressure Pulse Oximetry 99 Oxygen Delivery BiPAP Fraction of Inspired Oxygen Intake/Output Intake/Output: Intake & Output 10/23/24 10/24/24 10/25/24 10/26/24 23:59 23:59 23:59 23:59 Intake Total 2250 4000.1 138.6 Output Total 450 425 Balance 2250 3550.1 -286.4 Meds/Results Medications: Active Medications Generic Name Dose Route Start Last Admin Trade Name Freq PRN Reason Stop Dose Admin Acetaminophen 650 mg 10/24/24 18:55 Acetaminophen 325 Mg Tablet PO Q4H PRN Mild Pain (1-3) or Fever Hydrocodone Bitart/Acetaminophen 1 tab 10/24/24 19:04 Hydrocodone/Acetaminophen (*Crx) 5-325 Mg Tablet PO Q4H PRN Moderate Pain (4-6) Albuterol/Ipratropium 3 ml 10/25/24 16:00 10/26/24 08:05 Ipratropium 0.5 Mg/Albuterol Sulfate 2.5 Mg Ampul.Neb 3 Ml INHALATION 3 ml Q4HRT LIANE Administration Alprazolam 1 mg 10/26/24 07:50 Alprazolam (*Crx) 0.5 Mg Tablet PO TID PRN Anxiety Clopidogrel Bisulfate 75 mg 10/25/24 09:00 10/25/24 09:30 Clopidogrel Bisulfate 75 Mg Tablet PO 75 mg DAILY LIANE Administration Docusate Sodium 100 mg 10/25/24 09:00 10/25/24 20:22 Docusate Sodium 100 Mg Capsule PO Not Given Q12HR LIANE Enoxaparin Sodium 40 mg 10/25/24 09:00 10/25/24 09:30 Enoxaparin 40 Mg/0.4 Ml Syringe SUB-Q 40 mg DAILY LIANE Administration Guaifenesin 1,200 mg 10/25/24 14:30 10/25/24 20:21 Guaifenesin 12 Hr 600 Mg Tabcr PO 1,200 mg Q12HR LIANE Administration Ceftriaxone Sodium 2 gm in 100 mls @ 200 mls/hr 10/25/24 14:00 10/25/24 17:24 Rocephin 2 Gm/Ns 100 Ml IVPB Infused Q24H LIANE Infusion Azithromycin 500 mg in 250 mls @ 250 mls/hr 10/25/24 14:00 10/25/24 16:47 Zithromax IVPB 250 mls/hr Q24H LIANE Administration Dexmedetomidine HCl 400 mcg in 100 mls @ 9.258 mls/hr 10/25/24 15:30 10/26/24 08:00 Precedex 400 Mcg/100 Ml IV CONT 0.7 mcg/kg/hr .[id number] LIANE 9.26 mls/hr Titration Protocol 0.7 MCG/KG/HR Isosorbide Mononitrate 30 mg 10/24/24 23:15 10/25/24 09:30 Isosorbide Mononitrate 30 Mg Tab.Er.24h PO 30 mg Q12HR LIANE Administration Metoprolol Succinate 25 mg 10/25/24 09:00 10/25/24 09:37 Metoprolol Succinate Ext Rel 25 Mg Tabcr PO 25 mg QAM [facility] Administration Metoprolol Tartrate 5 mg 10/25/24 15:39 Metoprolol Tartrate Inj 5 Mg/5 Ml Vial IV PUSH Q4H PRN Heart rate > 120 and SBP > 100 Midodrine 10 mg 10/24/24 21:25 10/25/24 17:20 Midodrine Hcl 10 Mg Tablet PO 10 mg TID [facility] Administration Multi-Ingred Cream/Lotion/Oil/Oint 1 applic 10/25/24 21:00 10/26/24 08:57 Mineral Oil/White Petrolatum Ointment EACH EYE Not Given Q12HR [facility] Pramipexole Dihydrochloride 1 mg 10/24/24 23:15 10/25/24 20:21 Pramipexole 1 Mg Tablet PO 1 mg HS LIANE Administration Prednisone 40 mg 10/26/24 09:20 Prednisone 20 Mg Tablet PO DAILY@0800 [facility] Rosuvastatin Calcium 10 mg 10/25/24 09:00 10/25/24 09:39 Rosuvastatin 10 Mg Tablet PO 10 mg DAILY LIANE Administration Radiology Results: ITS Impressions Chest X-Ray 10/24/24 18:53 IMPRESSION: Emphysematous disease, without focal infiltrate or effusion. Chest CTA 10/25/24 21:04 IMPRESSION: No pulmonary embolus. No thoracic aortic dissection. Severe panlobular bullous emphysema, unchanged from 05/03/2024. Interval development of small bilateral pleural effusions, right greater than left with adjacent compressive atelectasis. Labs Labs: Laboratory Results - last 24 hr 10/25/24 10/25/24 10/25/24 13:23 13:54 14:32 WBC RBC Hgb Hct MCV MCH MCHC RDW Plt Count MPV D-Dimer 1.03 H Puncture Site Right radial Right radial ABG pH 7.247 L* 7.370 ABG pCO2 36.7 35.9 ABG pO2 100.4 H 85.7 ABG PO2/FiO2 Ratio 3.59 3.06 ABG HCO3 15.6 L 20.3 L ABG O2 Saturation 96.7 96.3 ABG O2 Content 17.5 16.1 ABG Base Excess -10.8 -4.4 A-a Gradient 55.9 71.6 Oxyhemoglobin 96.5 95.7 Total Hemoglobin 12.8 11.9 L O2 Delivery Device Bipap Bipap O2 Liters/Min Not Reportable Not Reportable FiO2 28 28 Expiratory Pressure 5 5 Inspiratory Pressure 10 Not Reportable Sodium Potassium Chloride Carbon Dioxide Anion Gap BUN Creatinine Estim Creat Clear Calc Estimated GFR Glucose Calcium Troponin I 0.255 H* NT-Pro-B Natriuret Pep 5950 H Procalcitonin 0.4 Urine Color Urine Appearance Urine pH Ur Specific [place] Urine Protein Urine Glucose (UA) Urine Ketones Ur Blood (Man) Urine Nitrate Urine Bilirubin Urine Urobilinogen Leukocyte Esterase Rfl Urine RBC Urine WBC Ur Squamous Epith Cells Urine Bacteria Urine Casts Hyaline Casts Nasal MRSA (PCR) 10/25/24 10/25/24 10/26/24 16:45 17:55 04:33 WBC 11.8 H RBC 3.82 L Hgb 12.1 L Hct 37.0 L MCV 96.9 MCH 31.7 MCHC 32.7 RDW 13.2 Plt Count 195 MPV 10.2 D-Dimer Puncture Site ABG pH ABG pCO2 ABG pO2 ABG PO2/FiO2 Ratio ABG HCO3 ABG O2 Saturation ABG O2 Content ABG Base Excess A-a Gradient Oxyhemoglobin Total Hemoglobin O2 Delivery Device O2 Liters/Min FiO2 Expiratory Pressure Inspiratory Pressure Sodium 137 Potassium 5.8 H Chloride 105 Carbon Dioxide 26 Anion Gap 6 BUN 18 Creatinine 0.89 Estim Creat Clear Calc 51 Estimated GFR > 60 Glucose 147 H Calcium 9.4 Troponin I NT-Pro-B Natriuret Pep Procalcitonin Urine Color Yellow Urine Appearance Clear Urine pH 5.5 Ur Specific [place] 1.020 Urine Protein 1+ H Urine Glucose (UA) Trace H Urine Ketones Negative Ur Blood (Man) Negative Urine Nitrate Negative Urine Bilirubin Negative Urine Urobilinogen 0.2 Leukocyte Esterase Rfl Negative Urine RBC 0-2 Urine WBC 0-5 Ur Squamous Epith Cells Occasional Urine Bacteria None seen Urine Casts 11-20 Hyaline Casts Present Nasal MRSA (PCR) Not detected
[2024-10-26] MEDS: ALPRAZolam (*CRX) 0.5 MG TABLET 1 MG PO (09:21)
[2024-10-26] MEDS: DOCUSATE SODIUM 100 MG CAPSULE PO ×2 (09:21→20:45)
[2024-10-26] MEDS: METOPROLOL SUCCINATE EXT REL 25 MG TABCR PO (09:21)
[2024-10-26] MEDS: CLOPIDOGREL BISULFATE 75 MG TABLET PO (09:22)
[2024-10-26] MEDS: ROSUVASTATIN 10 MG TABLET PO (09:22)
[2024-10-26] MEDS: ENOXAPARIN 40 MG/0.4 ML SYRINGE SUB-Q (09:22)
[2024-10-26] MEDS: guaiFENesin 12 HR 600 MG TABCR 1200 MG PO ×2 (09:22→20:45)
[2024-10-26] MEDS: MIDODRINE HCL 10 MG TABLET PO ×3 (09:22→17:13)
[2024-10-26] MEDS: predniSONE 20 MG TABLET 40 MG PO (09:23)
--- NOTE | 2024-10-26 09:30 | PC.NURSE ---
Pt. very agitated. Spit pills back at me. Dr. Godoy notified.
--- NOTE | 2024-10-26 10:47 | PCNFU ---
Nutrition Follow-Up Complete: Underweight related to increased energy needs as evidenced by a low BMI of 18.3 Goal: PO intake to remain 75% or greater Patient has limited progress towards goal. We will continue current goal. Pt current nutrition is Clear Liquids. Last recorded weight is 51.6 kg, down from 53 kg on admit. Bowel Motility: No BM reported. Labs Reviewed: Glu 147, K 5.8, Hct 37.0, Hgb 12.1 Meds Noted: Precedex, Rocephin. Skin: WNL Additional Notes: Patient currently on continuos bipap. Diet order clear liquids, drinking sips. Diet supplement of Ensure Clear will be on trays providing an additional 240 kcal and 8 gm protein. Agree with diet orders at this time. Monitor daily in ICU rounds and reassessing intake, wt, labs every 3 days.
[2024-10-26] MEDS: AZITHROMYCIN 500 MG/NS 250 ML 500 MG/250 ML BAG 250 MG IVPB (13:13)
[2024-10-26] MEDS: cefTRIAXone 2 GM/NS 100 ML 2 GM/100 ML BAG IVPB (13:14)
--- NOTE | 2024-10-26 13:25 | P.PNIM_ITS ---
Progress Note: A&P Assessment and Plan (1) COPD exacerbation: Code(s): J44.1 - Chronic obstructive pulmonary disease with (acute) exacerbation Status: Acute Assessment and Plan: BiPAP Azithromycin Rocephin Scheduled breathing treatments IV Solu-Medrol DuoNebs Q 4 DDimer positve, CT neg for PE on Precedex consult pulmonary (2) Sepsis: Code(s): A41.9 - Sepsis, unspecified organism Status: Acute Assessment and Plan: Hypotension and lactic at 3.3 Sepsis bolus protocol Blood cultures pending IV Abx Blood pressure goal for systolic and 80 and map above 60 continue to monitor (3) Elevated troponin: Code(s): R79.89 - Other specified abnormal findings of blood chemistry Status: Acute Assessment and Plan: Likely demanding ischemia Trend troponin EKG shows sinus rhythm QTC of 469 LVEF 30-35%, G1D (4) Afib: Code(s): I48.91 - Unspecified atrial fibrillation Status: Acute Assessment and Plan: Rhythm rate controlled Metoprolol ordered with parameters (5) Hyperkalemia: Code(s): E87.5 - Hyperkalemia Status: Acute Assessment and Plan: will recheck Subjective Date/time seen: 10/26/24 13:25 Interval history: per HPI: 69-year-old male past medical history of COPD complaining of shortness of breath . Patient states that he was using home inhalers with no relief. Per the ED attending when the patient arrived. In the tripod position and acute respiratory distress. Patient placed on BiPAP in the emergency room. Patient seen on the floor on 2 L nasal cannula he states that he does not need BiPAP he is breathing just fine. He states that he is hungry and he sees sandwiches instead of talking to the provider. Patient in no acute respiratory distress at this time. Lung sounds with wheezing. In the ED patient has leukocytosis of 15.5, hemoglobin of 12.8, venous gas showing hypercarbic and hypoxic respiratory failure, sodium of 129, lactic acid 3.3, troponin of 0.806, C-reactive protein of 2.0, influenza A/B RSV and COVID negative. Chest x-ray shows emphysema. Patient was started on DuoNebs, azithromycin Rocephin magnesium Solu-Medrol and IV fluids per sepsis protocol. 10/25/24 Patient was seen and examined at bedside. He is feeling better. Breathing is better. Denies any chest pain, abdominal pain, nausea vomiting. Continue with Rocephin azithromycin for possible pneumonia. Continue Solu-Medrol and DuoNeb for COPD exacerbation Concern for sepsis. Follow culture result. Continue with IV antibiotics WBC 12.7, hemoglobin 11.4, sodium 133, creatinine 0.6 Chest x-ray showed emphysema Elevated troponin. We will get echo. Will check troponin level. Will consult Cardiology Patient was feeling fine in the morning but later he was very anxious has difficulty breathing. Receive Xanax and was feeling better but is still using accessory muscles to breathe. He is on BiPAP. Asking for stronger anxiety medication. Discussed with Pulmonary team, plan to transfer to ICU to start Precedex. ICU attending already has been notified. D-dimer elevated. CTA negative for PE Follow-up blood pressure. Continue midodrine, Imdur and enteresto on hold. 10/26/24 Patient is breathing better. remained on precedex, plan to wean off today. denies chest pain, abd pain, nausea or vomiting. Review of Systems Review of Systems: 12 systems were reviewed and are negativ e except for as per HPI. Exam Narrative: General: Chronically ill appearing, no acute distress HEENT: normocephalic, atraumatic. Mucous membranes moist. EOMI, PERRLA, bilateral sclera anicteric, no conjunctival injection. Neck supple without JVD, lymphadenopathy, or bruit. Respiratory: Wheezing to ascultation bilaterally. No rales/rhonic/wheezes. Cardiovascular: Regular rate and rhythm, normal S1-S2 upon ascultation. No murmurs, rubs, or clicks. PMI is nondisplaced, capillary refill less than 3 second. Abdomen: Soft, round, no pulsatile masses, nondistended and nontender. No rebound, no guarding. No CVA tenderness, no hepatosplenomegaly. Bowel sounds present to all four quadrants. No high pitch or tinkling sounds, resonant to percussion. Extremities: No cyanosis, clubbing, or edema present. Pulses are palpable 2/2. Active ROM to all four extremities. Neuro: Alert and orientated x 4. PERRLA. Cranial nerves 2-12 intact without focal deficit. Skin: Warm, dry, and intact, without rash, erythema, or lesion. Psych: pleasant, cooperative, normal speech, normal affect, no hallucinations, no dysarthia On BiPAP Objective Data Vital Signs Vital Signs: Vital Signs - 24 hr 10/25/24 14:00 10/25/24 14:34 10/25/24 15:12 Temperature Pulse Rate 110 H 103 H 121 H Respiratory Rate 23 H 25 H Blood Pressure Pulse Oximetry 100 100 Oxygen Delivery BiPAP BiPAP Fraction of Inspired Oxygen 10/25/24 15:12 10/25/24 15:28 10/25/24 15:36 Temperature 97.8 F Pulse Rate 121 H 118 H 133 H Respiratory Rate 25 H 25 H 27 H Blood Pressure 162/100 H Pulse Oximetry 96 Oxygen Delivery Fraction of Inspired Oxygen 10/25/24 16:00 10/25/24 16:33 10/25/24 16:37 Temperature Pulse Rate 108 H 129 H Respiratory Rate 27 H 31 H Blood Pressure Pulse Oximetry 97 100 Oxygen Delivery BiPAP BiPAP Fraction of Inspired Oxygen 10/25/24 16:40 10/25/24 17:00 10/25/24 17:10 Temperature Pulse Rate 108 H 120 H 120 H Respiratory Rate 27 H 31 H 28 H Blood Pressure 133/91 H Pulse Oximetry 98 Oxygen Delivery Fraction of Inspired Oxygen 10/25/24 17:40 10/25/24 18:00 10/25/24 18:00 Temperature Pulse Rate 93 88 64 Respiratory Rate 25 H 24 H Blood Pressure 104/78 Pulse Oximetry 97 Oxygen Delivery Fraction of Inspired Oxygen 10/25/24 18:00 10/25/24 19:15 10/25/24 19:45 Temperature Pulse Rate 70 65 63 Respiratory Rate 20 39 H 34 H Blood Pressure Pulse Oximetry Oxygen Delivery Fraction of Inspired Oxygen 10/25/24 20:00 10/25/24 20:00 10/25/24 20:00 Temperature 97.6 F Pulse Rate 64 63 Respiratory Rate 22 H Blood Pressure 122/83 Pulse Oximetry 99 99 Oxygen Delivery BiPAP Fraction of Inspired Oxygen 10/25/24 20:00 10/25/24 20:40 10/25/24 21:15 Temperature Pulse Rate 64 64 Respiratory Rate 22 H 20 Blood Pressure Pulse Oximetry 95 Oxygen Delivery Nasal Cannula Fraction of Inspired Oxygen 10/25/24 22:00 10/25/24 22:00 10/25/24 22:00 Temperature Pulse Rate 60 60 60 Respiratory Rate 20 28 H Blood Pressure 120/81 Pulse Oximetry 98 Oxygen Delivery Fraction of Inspired Oxygen 10/25/24 23:02 10/25/24 23:02 10/25/24 23:07 Temperature Pulse Rate 56 L 56 L 58 L Respiratory Rate 20 20 20 Blood Pressure Pulse Oximetry 98 Oxygen Delivery BiPAP Fraction of Inspired Oxygen 10/26/24 00:00 10/26/24 00:00 10/26/24 00:00 Temperature 97.8 F Pulse Rate 56 L 48 L Respiratory Rate 20 Blood Pressure 123/83 Pulse Oximetry 99 99 Oxygen Delivery BiPAP Fraction of Inspired Oxygen 28 10/26/24 00:00 10/26/24 01:00 10/26/24 02:00 Temperature Pulse Rate 56 L 65 56 L Respiratory Rate 20 31 H 21 H Blood Pressure 113/82 Pulse Oximetry 99 Oxygen Delivery Fraction of Inspired Oxygen 10/26/24 02:00 10/26/24 02:00 10/26/24 02:18 Temperature Pulse Rate 56 L 56 L 56 L Respiratory Rate 21 H 20 Blood Pressure Pulse Oximetry 100 Oxygen Delivery BiPAP Fraction of Inspired Oxygen 10/26/24 03:19 10/26/24 03:26 10/26/24 03:26 Temperature Pulse Rate 54 L 56 L 56 L Respiratory Rate 21 H 20 20 Blood Pressure Pulse Oximetry Oxygen Delivery Fraction of Inspired Oxygen 10/26/24 04:00 10/26/24 04:00 10/26/24 04:00 Temperature 97.2 F L Pulse Rate 56 L 55 L Respiratory Rate 21 H Blood Pressure 116/83 Pulse Oximetry 99 99 Oxygen Delivery BiPAP Fraction of Inspired Oxygen 28 10/26/24 04:00 10/26/24 04:20 10/26/24 05:45 Temperature Pulse Rate 78 55 L Respiratory Rate 20 21 H Blood Pressure Pulse Oximetry 99 97 Oxygen Delivery BiPAP Room Air Fraction of Inspired Oxygen 10/26/24 06:00 10/26/24 06:00 10/26/24 06:00 Temperature Pulse Rate 90 90 90 Respiratory Rate 20 20 Blood Pressure 107/55 L Pulse Oximetry 94 Oxygen Delivery Fraction of Inspired Oxygen 10/26/24 08:00 10/26/24 08:00 10/26/24 08:00 Temperature Pulse Rate 92 92 Respiratory Rate 26 H Blood Pressure 136/86 Pulse Oximetry 99 Oxygen Delivery Room Air Fraction of Inspired Oxygen 28 10/26/24 08:00 10/26/24 08:05 10/26/24 08:05 Temperature Pulse Rate 67 86 86 Respiratory Rate 19 25 H 20 Blood Pressure Pulse Oximetry 99 Oxygen Delivery BiPAP Fraction of Inspired Oxygen 10/26/24 08:15 10/26/24 09:21 10/26/24 10:00 Temperature Pulse Rate 89 67 60 Respiratory Rate 22 H Blood Pressure Pulse Oximetry Oxygen Delivery Fraction of Inspired Oxygen 10/26/24 10:00 10/26/24 10:00 10/26/24 12:00 Temperature Pulse Rate 60 60 Respiratory Rate 28 H 28 H Blood Pressure 131/99 H Pulse Oximetry 98 Oxygen Delivery BiPAP Fraction of Inspired Oxygen 28 10/26/24 12:49 10/26/24 12:50 10/26/24 13:05 Temperature Pulse Rate 69 69 68 Respiratory Rate 24 H 25 H 22 H Blood Pressure Pulse Oximetry 99 Oxygen Delivery BiPAP Fraction of Inspired Oxygen Intake/Output Intake/Output: Intake & Output 10/23/24 10/24/24 10/25/24 10/26/24 23:59 23:59 23:59 23:59 Intake Total 2250 4250.1 157.1 Output Total 450 425 Balance 2250 3800.1 -267.9 Meds/Results Medications: Active Medications Generic Name Dose Route Start Last Admin Trade Name Freq PRN Reason Stop Dose Admin Acetaminophen 650 mg 10/24/24 18:55 Acetaminophen 325 Mg Tablet PO Q4H PRN Mild Pain (1-3) or Fever Hydrocodone Bitart/Acetaminophen 1 tab 10/24/24 19:04 Hydrocodone/Acetaminophen (*Crx) 5-325 Mg Tablet PO Q4H PRN Moderate Pain (4-6) Albuterol/Ipratropium 3 ml 10/25/24 16:00 10/26/24 12:46 Ipratropium 0.5 Mg/Albuterol Sulfate 2.5 Mg Ampul.Neb 3 Ml INHALATION 3 ml Q4HRT LIANE Administration Clopidogrel Bisulfate 75 mg 10/25/24 09:00 10/26/24 09:22 Clopidogrel Bisulfate 75 Mg Tablet PO 75 mg DAILY [facility]ANE Administration Docusate Sodium 100 mg 10/25/24 09:00 10/26/24 09:21 Docusate Sodium 100 Mg Capsule PO 100 mg Q12HR [facility]ANE Administration Enoxaparin Sodium 40 mg 10/25/24 09:00 10/26/24 09:22 Enoxaparin 40 Mg/0.4 Ml Syringe SUB-Q 40 mg DAILY [facility]ANE Administration Guaifenesin 1,200 mg 10/25/24 14:30 10/26/24 09:22 Guaifenesin 12 Hr 600 Mg Tabcr PO 1,200 mg Q12HR [facility]ANE Administration Ceftriaxone Sodium 2 gm in 100 mls @ 200 mls/hr 10/25/24 14:00 10/26/24 13:14 Rocephin 2 Gm/Ns 100 Ml IVPB 200 mls/hr Q24H [facility]ANE Administration Azithromycin 500 mg in 250 mls @ 250 mls/hr 10/25/24 14:00 10/26/24 13:13 Zithromax IVPB 250 mls/hr Q24H [facility] Administration Dexmedetomidine HCl 400 mcg in 100 mls @ 9.258 mls/hr 10/25/24 15:30 10/26/24 10:00 Precedex 400 Mcg/100 Ml IV CONT 0.7 mcg/kg/hr .[id number] [facility] 9.26 mls/hr Titration Protocol 0.7 MCG/KG/HR Isosorbide Mononitrate 30 mg 10/24/24 23:15 10/25/24 09:30 Isosorbide Mononitrate 30 Mg Tab.Er.24h PO 30 mg Q12HR [facility]ANE Administration Lorazepam 1 mg 10/26/24 13:17 Lorazepam (*Crx) 1 Mg Tablet PO Q4H PRN Anxiety Metoprolol Succinate 25 mg 10/25/24 09:00 10/26/24 09:21 Metoprolol Succinate Ext Rel 25 Mg Tabcr PO 25 mg QAM [facility] Administration Metoprolol Tartrate 5 mg 10/25/24 15:39 Metoprolol Tartrate Inj 5 Mg/5 Ml Vial IV PUSH Q4H PRN Heart rate > 120 and SBP > 100 Midodrine 10 mg 10/24/24 21:25 10/26/24 13:13 Midodrine Hcl 10 Mg Tablet PO 10 mg TID [facility] Administration Pramipexole Dihydrochloride 1 mg 10/24/24 23:15 10/25/24 20:21 Pramipexole 1 Mg Tablet PO 1 mg HS [facility] Administration Prednisone 40 mg 10/26/24 09:20 10/26/24 09:23 Prednisone 20 Mg Tablet PO 40 mg DAILY@0800 [facility] Administration Rosuvastatin Calcium 10 mg 10/25/24 09:00 10/26/24 09:22 Rosuvastatin 10 Mg Tablet PO 10 mg DAILY [facility] Administration Radiology Results: ITS Impressions Chest X-Ray 10/24/24 18:53 IMPRESSION: Emphysematous disease, without focal infiltrate or effusion. Chest CTA 10/25/24 21:04 IMPRESSION: No pulmonary embolus. No thoracic aortic dissection. Severe panlobular bullous emphysema, unchanged from 05/03/2024. Interval development of small bilateral pleural effusions, right greater than left with adjacent compressive atelectasis. Labs Labs: Laboratory Results - last 24 hr 10/25/24 10/25/24 10/25/24 13:23 13:54 14:32 WBC RBC Hgb Hct MCV MCH MCHC RDW Plt Count MPV D-Dimer 1.03 H Puncture Site Right radial Right radial ABG pH 7.247 L* 7.370 ABG pCO2 36.7 35.9 ABG pO2 100.4 H 85.7 ABG PO2/FiO2 Ratio 3.59 3.06 ABG HCO3 15.6 L 20.3 L ABG O2 Saturation 96.7 96.3 ABG O2 Content 17.5 16.1 ABG Base Excess -10.8 -4.4 A-a Gradient 55.9 71.6 Oxyhemoglobin 96.5 95.7 Total Hemoglobin 12.8 11.9 L O2 Delivery Device Bipap Bipap O2 Liters/Min Not Reportable Not Reportable FiO2 28 28 Expiratory Pressure 5 5 Inspiratory Pressure 10 Not Reportable Sodium Potassium Chloride Carbon Dioxide Anion Gap BUN Creatinine Estim Creat Clear Calc Estimated GFR Glucose Calcium Troponin I 0.255 H* NT-Pro-B Natriuret Pep 5950 H Procalcitonin 0.4 Urine Color Urine Appearance Urine pH Ur Specific [place] Urine Protein Urine Glucose (UA) Urine Ketones Ur Blood (Man) Urine Nitrate Urine Bilirubin Urine Urobilinogen Leukocyte Esterase Rfl Urine RBC Urine WBC Ur Squamous Epith Cells Urine Bacteria Urine Casts Hyaline Casts Nasal MRSA (PCR) 10/25/24 10/25/24 10/26/24 16:45 17:55 04:33 WBC 11.8 H RBC 3.82 L Hgb 12.1 L Hct 37.0 L MCV 96.9 MCH 31.7 MCHC 32.7 RDW 13.2 Plt Count 195 MPV 10.2 D-Dimer Puncture Site ABG pH ABG pCO2 ABG pO2 ABG PO2/FiO2 Ratio ABG HCO3 ABG O2 Saturation ABG O2 Content ABG Base Excess A-a Gradient Oxyhemoglobin Total Hemoglobin O2 Delivery Device O2 Liters/Min FiO2 Expiratory Pressure Inspiratory Pressure Sodium 137 Potassium 5.8 H Chloride 105 Carbon Dioxide 26 Anion Gap 6 BUN 18 Creatinine 0.89 Estim Creat Clear Calc 51 Estimated GFR > 60 Glucose 147 H Calcium 9.4 Troponin I NT-Pro-B Natriuret Pep Procalcitonin Urine Color Yellow Urine Appearance Clear Urine pH 5.5 Ur Specific [place] 1.020 Urine Protein 1+ H Urine Glucose (UA) Trace H Urine Ketones Negative Ur Blood (Man) Negative Urine Nitrate Negative Urine Bilirubin Negative Urine Urobilinogen 0.2 Leukocyte Esterase Rfl Negative Urine RBC 0-2 Urine WBC 0-5 Ur Squamous Epith Cells Occasional Urine Bacteria None seen Urine Casts 11-20 Hyaline Casts Present Nasal MRSA (PCR) Not detected Quality VTE Prophylaxis VTE prophylaxis: mechanical ordered and pharmacologic ordered
[2024-10-26] MEDS: LORazepam (*CRX) 1 MG TABLET PO ×2 (13:30→20:45)
[2024-10-26 14:18] LABS: Potassium 4.3 mmol/L (3.4-5.0)
[2024-10-26] MEDS: PRAMIPEXOLE 1 MG TABLET PO (20:45)
[2024-10-27] VITALS (39 sets, daily range): BP systolic 107–129; BP diastolic 68–88; PULSE 48–107; RESP 16–28; TEMP 36.2–37.1; O2SAT 93–100
[2024-10-27] MEDS: IPRATROPIUM 0.5 MG/ALBUTEROL SULFATE 2.5 MG AMPUL.NEB 3 ML INHALATION ×6 (01:09→19:54)
[2024-10-27 03:41] LABS: Hematocrit 36.7 % (42.0-52.0); Hemoglobin 12.1 g/dL (14.0-18.0); Mean Corpuscular Hemoglobin 32.1 pg (26-34); Mean Corpuscular Volume 97.3 fl (80-100); Mean Platelet Volume 10.5 fl (7.4-10.4); Platelet Count Result 200 k/mm3 (150-375); Red Blood Count 3.77 M/mm3 (4.6-6.20); Red Cell Distribution Width 13.2 % (11.5-14.5); White Blood Count 14.1 K/mm3 (4.5-10.0)
[2024-10-27 04:01] LABS: Alanine Aminotransferase 24 U/L (6-50); Albumin Level 3.6 g/dL (3.5-5.1); Alkaline Phosphatase 58 U/L (38-126); Anion Gap 8 mmol/L (4-12); Aspartate Amino Transferase 32 U/L (17-59); Bilirubin,Total 0.2 mg/dL (0.2-1.3); Blood Urea Nitrogen 31 mg/dL (9-20); Calcium 9.1 mg/dL (8.4-10.2); Carbon Dioxide 24 mmol/L (22-30); Chloride 106 mmol/L (98-107); Estimated CRCL calculation 49 ml/min; Estimated Glomerular Filt Rate > 60; Glucose 128 mg/dL (65-110); Magnesium 2.6 mg/dL (1.6-2.3); Potassium 4.5 mmol/L (3.4-5.0); Sodium 138 mmol/L (137-145)
[2024-10-27 05:24] LABS: Alveolar/Arterial O2 Gradient 46.8 mmHg; Base Excess ABG -3.1 mEq/l (+/-2.0); Carboxyhemoglobin 0.1 % THb (0-2.0); Fractional Inspired Oxygen 28 %; HCO3 ABG 21.8 mEq/l (22.0-26.0); Methemoglobin ABG 0.1 %THb (0-1.5); Oxygen Saturation ABG 97.8 % (95.0-100.0); Oxyhemoglobin 97.7 % THb (90.0-100.0); PCO2 ABG 38.5 mmHg (35.0-45.0); PO2 ABG 107.4 mmHg (80.0-100.0); PO2 FiO2 Ratio Arterial Blood 3.84 %; Reduced Hemoglobin 2.1 %THb (0-5.0); pH ABG 7.371 (7.350-7.450)
[2024-10-27 05:28] LABS: Site Drawn LEFT BRACHIAL
[2024-10-27 05:29] LABS: Device OTHER DEVICE
[2024-10-27 07:46] LABS: NT Pro B Type Natriuretic Pept 7720 pg/mL (19.9-100)
[2024-10-27] MEDS: LORazepam (*CRX) 1 MG TABLET PO ×4 (08:10→21:17)
--- NOTE | 2024-10-27 09:05 | P.PNPL_ITS ---
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 CT scan on 03/27/2022 with severe apical predominant panlobular emphysema.? PFTs on 04/10/2022 demonstrate moderately severe obstructive abnormality, FEV1 1.61 L, 53% predicted, FEV1:FVC ratio 48%, ?normal lung volumes, DLCO moderately decreased when adjusted for alveolar volume at 51%. ?No oxygen at rest, with ambulation or at night per 6 minutes walk on 10/21/2022 and overnight oximetry on 10/12/2022. Outpatient exacerbation 03/2023. he was clinically stable with dyspnea on exertion at 5 blocks, M MRC grade of 1, cat score of 17 on Stiolto Respimat 1 puff twice a day, rescue albuterol which she use 2 to 3 times a month and guaifenesin 1200 p.o. twice a day. He was smoking 10 cigarettes a day. He was up-to-date on influenza and COVID vaccine and received RSV and 2022. 10/24/2024: Patient presents with 3 days history acute worsening shortness of breath, dyspnea on exertion and hypoxic respiratory distress. He had wheezing in the emergency room. Son had COVID last week his initial COVID test in the ED was negative. Treated with steroids, bronchodilators, ceftriaxone and azithromycin. 10/26/2023: The patient tells me he feels about the same as yesterday. When I enter the room he was on BiPAP rate of 16 breathing 30, pressures 10/5 with tidal volumes 576. He was on 28% FiO2 with saturations 98%. ABG 7.25/37/100. His white blood cell count is 12.7, creatinine 0.6. His weight is 52.9. He was in mild respiratory distress with decreased air movement bilaterally. He said the machine was not giving him air fast enough and I switched him to a noninvasive ventilation mode with the AVAPS mode rate of 20, tidal volume 500, EPAP 5, minimal inspiratory pressure 6, maximal inspiratory pressure 25, inspiratory time 0.8, rise of 1 and 28% FiO2. Peak airway pressures were 12. Patient told me this felt better. Plan: I will check a D-dimer and if this is positive will do a CT angiogram of the chest. Place the patient on DuoNebs q.4 hours. Currently is on Solu- Medrol 60 mg IV q.8 hours, will continue. Continue ceftriaxone and azithromycin, both day 2. I have ordered an respiratory pathogen panel, urine Legionella, urine pneumococcal, serum mycoplasma IgM and will repeat COVID, RSV, influenza swab on 10/27/2023. Will place on guaifenesin 1200 mg p.o. b.i.d. to aid expectoration. Patient with difficulty breathing on BiPAP and I have changed to noninvasive ventilation with the AVAPS mode and will check a blood gas in 30 minutes.. Patient tells me he takes Ativan 2 mg 4 times a day at home and he is very anxious at this time. Discussed with girlfriend in the room, Drs. Watkins and Walt. Patient developed worsening anxiety and shortness of breath and was transferred to the ICU and started on a Precedex drip. CT angiogram of the chest showed no PE, right upper lobe posterior infiltrate new since 05/03/2024 and panlobular emphysema unchanged. Patient had an echocardiogram with an EF of 30-35%, grade 1 diastolic dysfunction, [id number] mitral regurg, normal RV size and function, normal right atrial size, PASP 39. 10/27/2023. Overall patient tells me he is breathing about the same. He is afebrile. He remains on Precedex drip 0.7 and noninvasive ventilation with the AVAPS mode at 28% FiO2 with saturations 100%. He has no wheezing on exam. White blood cell count 11.8, creatinine 0.89. He was +3.5 L yesterday and is +5.5 L since admission. Weight is 51.6 with an admission weight of 48. Respiratory pathogen panel, urine Legionella, urine pneumococcal and mycoplasma IgM pending. Plan: Continue noninvasive ventilation with the AVAPS mode on a p.r.n. basis during the day and continue this at night. Will decrease his Solu-Medrol to prednisone 40 mg p.o. q.day. Continue DuoNebs q.4 hours, guaifenesin 1200 mg p.o. b.i.d.. Continue ceftriaxone and azithromycin, both day 3. 10/27/2024: patient wore the noninvasive ventilation with the AVAPS mode overnight. When I entered the room he was on the noninvasive ventilator and said the airflow was too high and I adjusted the settings to comfort by decreasing his respiratory rate from 20-16. Increasing his inspiratory time from 0.7-1.1 and slowing his rise from a setting of 1 to a setting of 4. He said this was more comfortable. He said he was willing to come off of the noninvasive ventilator and he was placed on 2 L nasal cannula and his saturations were 100% And he was then placed on room air with saturations on room air of 100%. He said his breathing was back to his normal, no cough, a little bit of phlegm which is a baseline and no hemoptysis. His white blood cell count is 14.1, creatinine 0.9. He was -176 mL yesterday and cumulative he is +5.9 mL. His weight is 51.6 kg. Plan: Continue prednisone 40 mg p.o. q.day, day 4 of steroids. Continue DuoNebs q.4 hours. Continue ceftriaxone and azithromycin, both day 4. Goal saturation 90-94% and currently is on room air. Out of bed to chair as tolerated. Discussed with Drs. Godoy and Odilia. (2) Acute hypercapnic respiratory failure: Code(s): J96.02 - Acute respiratory failure with hypercapnia Status: Acute Assessment and Plan: Patient is on no oxygen at rest, with activity or with sleep. VBG in the emergency department on 2 L was 7.29/57/less than 27. 4/02/11: Plan: Patient in mild respiratory distress on BiPAP and if changed to noninvasive ventilation with the AVAPS mode using the settings as above which were adjusted for comfort. Will repeat a blood gas in 30 minutes. I have discussed the case with the major assembly inspector to make him aware that the patient is in mild respiratory distress on maximal noninvasive ventilation settings and and he has a history of severe anxiety requiring Ativan 2 mg p.o. 4 times a day at home in case he needs transfer to the ICU for respiratory failure or agitation requiring Precedex. I did talk to the patient and he is in agreement for intubation if needed. repeat blood gas on the AVAPS settings was 7.37/36/86. Patient developed worsening anxiety and shortness of breath and was transferred to the ICU and started on a Precedex drip. 10/27/2023. Overall patient tells me he is breathing about the same. He is afebrile. He remains on Precedex drip 0.7 and noninvasive ventilation with the AVAPS mode at 28% FiO2 with saturations 100%. Plan: attempt to wean Precedex off today. 10/27/2024: Will continue noninvasive ventilation p.r.n. during the day And at night. Plan: Attempt to wean Precedex off today. Once patient's breathing status has improved and he can tolerate off of the noninvasive ventilator for 24 hours will repeat blood gas to reassess for hypercarbic respiratory failure. Subjective Date/time seen: 10/27/24 09:05 Interval history: 10/25/2024: This is a new pulmonary consult for COPD exacerbation on BiPAP. 69-year-old with a history of gold grade 2 group B COPD on no home oxygen, coronary artery disease S/P LAD and RCA stents, CHF (previously with EF of 25% wearing a life vest with plans for an ICD) per outside cardiology. patient last seen on 06/30/2024 in the [facility]. 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 CT scan on 03/27/2022 with severe apical predominant panlobular emphysema.? PFTs on 04/10/2022 demonstrate moderately severe obstructive abnormality, FEV1 1.61 L, 53% predicted, FEV1:FVC ratio 48%, ?normal lung volumes, DLCO moderately decreased when adjusted for alveolar volume at 51%. ?No oxygen at rest, with ambulation or at night per 6 minutes walk on 10/21/2022 and overnight oximetry on 10/12/2022. Outpatient exacerbation 03/2023. he was clinically stable with dyspnea on exertion at 5 blocks, M MRC grade of 1, cat score of 17 on Stiolto Respimat 1 puff twice a day, rescue albuterol which she use 2 to 3 times a month and guaifenesin 1200 p.o. twice a day. He was smoking 10 cigarettes a day. He was up-to-date on influenza and COVID vaccine and received RSV and 2022. The patient is currently on BiPAP so history is limited. Patient has acute illness for the last 3 days with worsening shortness of breath and dyspnea on exertion. patient's girlfriend tells me that his son who lives with him had COVID last week and the patient did well and is now back at work. His girlfriend who is in the room went to his house and he was in distress and they called EMS on 10/24/2024. Room air saturations were 70 the placed him on oxygen gave him a DuoNeb. In the emergency department blood pressure was 80/40, heart rate 87, 2 L nasal cannula saturation 98%. he had wheezing on exam. He was placed on BiPAP for work of breathing or respiratory distress. His white blood cell count was 15.5 with eosinophil 0.1% equals 15 per micro L, creatinine 0.86. Venous blood gas on 2 L 7.29/57/ less than 27. COVID, influenza, RSV RT PCR studies negative. Chest x-ray with hyperinflation and increased interstitial infiltrates in the upper lobes. Patient was treated with IV steroids, DuoNebs, ceftriaxone and azithromycin. 10/25/2024: The patient tells me he feels about the same as yesterday. When I enter the room he was on BiPAP rate of 16 breathing 30, pressures 10/5 with tidal volumes 576. He was on 28% FiO2 with saturations 98%. ABG 7.25/37/100. His white blood cell count is 12.7, creatinine 0.6. His weight is 52.9. He was in mild respiratory distress with decreased air movement bilaterally. He said the machine was not giving him air fast enough and I switched him to a noninvasive ventilation mode with the AVAPS mode rate of 20, tidal volume 500, EPAP 5, minimal inspiratory pressure 6, maximal inspiratory pressure 25, inspiratory time 0.8, rise of 1 and 28% FiO2. Peak airway pressures were 12. Patient told me this felt better. repeat blood gas on the AVAPS settings was 7.37/36/86. Patient developed worsening anxiety and shortness of breath and was transferred to the ICU and started on a Precedex drip. CT angiogram of the chest showed no PE, right upper lobe posterior infiltrate new since 05/03/2024 and panlobular emphysema unchanged. Patient had an echocardiogram with an EF of 30-35%, grade 1 diastolic dysfunction, [id number] mitral regurg, normal RV size and function, normal right atrial size, PASP 39. 10/26/2024. Overall patient tells me he is breathing about the same. He is afebrile. He remains on Precedex drip 0.7 and noninvasive ventilation with the AVAPS mode at 28% FiO2 with saturations 100%. He has no wheezing on exam. White blood cell count 11.8, creatinine 0.89. He was +3.5 L yesterday and is +5.5 L since admission. Weight is 51.6 with an admission weight of 48. 10/27/2024: Patient remains on Precedex drip 0.7. patient wore the noninvasive ventilation with the AVAPS mode overnight. When I entered the room he was on the noninvasive ventilator and said the airflow was too high and I adjusted the settings to comfort by decreasing his respiratory rate from 20-16. Increasing his inspiratory time from 0.7-1.1 and slowing his rise from a setting of 1 to a setting of 4. He said this was more comfortable. He said he was willing to come off of the noninvasive ventilator and he was placed on 2 L nasal cannula and his saturations were 100% And he was then placed on room air with saturations on room air of 100%. He said his breathing was back to his normal, no cough, a little bit of phlegm which is a baseline and no hemoptysis. His white blood cell count is 14.1, creatinine 0.9. He was -176 mL yesterday and cumulative he is +5.9 mL. His weight is 51.6 kg. DATA: 04/29/24: CT Scan of the Chest without Contrast: Clinical Indication: Lung cancer screening, nicotine dependence COMPARISON: 04/29/2023 Findings: There is no evidence of any significant mediastinal, hilar or axillary lymphadenopathy. Coronary artery calcifications are present. There is no evidence of pleural or pericardial effusion. 6 mm right lower lobe pulmonary nodule present (axial image 90). Severe emphysema present. Images through the upper abdomen reveal no abnormalities. Impression: Lung RADS 3: Probably benign. Six-month follow-up CT recommended. 04/29/23:?EXAMINATION: CT lung screening ?INDICATION: Personal history of nicotine dependence ?COMPARISON: CT dated 03/27/2022 ?FINDINGS: No thoracic lymphadenopathy. There is atherosclerosis. Heart size normal. No significant pleural or pericardial effusion. There is evidence for chronic granulomatous disease. There is apical pleural thickening/scarring. There is a stable 4 mm right apical nodule, image 18. There is lower lobe atelectasis. There is severe emphysema. No new pulmonary nodules or masses. No focal airspace consolidation. There is diffuse idiopathic skeletal hyperostosis (DISH) of the thoracic spine. There is pneumobilia of the left hepatic lobe, consistent with previous sphincterotomy. ?IMPRESSION: ?1. Lung-RADS category 2: Benign appearance or behavior. Continue annual screening with noncontrast low-dose chest CT in 12 months. ?10/21/2022 This is a 6 minute walk test. The test was performed and interpreted in accordance with the 2014 ERS/ATS task force guidelines. ??Findings:? The patient's resting room air oxygen saturation measured by pulse oximetry was 98% and heart rate was 65 bpm.? Patient ambulated for 244 meters and oxygen saturation remained 98 to 100%.? Heart rate at the end of the study was 70 bpm. ??The patient did not qualify for supplemental oxygen at rest or with ambulation. ??There are no prior studies for comparison. ? 10/12/2022: Overnight oximetry on room air.? Basal saturation 93.8%.? High saturation 99%.? Low saturation 87%.? Time with saturation less than or equal to 88% was 33 seconds.? Oxygen desaturation index was 9 events per hour.? Patient requires no supplemental oxygen at night. ? ??04/10/2022 PFTs ??The test was performed and results interpreted in accordance with the 2019 and 2005 ATS/ERS Task Force guidelines respectively using the Global Lung Function Initiative-2012 reference equations. Patient demonstrated good effort and cooperation. Reproducibility criteria were met. The quality of the spirometry maneuver was Grade A. ???Findings: ???Spirometry:? There is decreased maximal expiratory airflow at all lung volumes with concave expiratory flow tracing.? The contour the inspiratory flow tracing is normal.? The FVC is 3.33 L, 85% predicted.? The FEV1 is 1.61 L, a 53% predicted.? The FEV1:? FVC ratio is 48%.?Plethysmography:? The total lung capacity is 6.12 L, 96% predicted.? The functional residual capacity is 4.49 L, 135% predicted.? The residual volume is 2.79 L, 126% predicted.?Diffusion capacity:? The diffusing capacity unadjusted for hemoglobin and carboxyhemoglobin is 16.2, 63% predicted.? The diffusing capacity adjusted for alveolar volume is 2.15, 51% predicted. ???Impression:?There is a moderately severe obstructive abnormality.?? The lung volumes are normal.? The diffusing capacity unadjusted for hemoglobin is mildly decreased and?remains moderately decreased when adjusted for alveolar volume. ???There are no prior studies for comparison. ? ?03/27/2022 EXAMINATION: CT lung screening ???DATE: 03/27/2022 08:58 ???INDICATION: Personal history of nicotine dependence, current smoker with 45 pack year history. ??COMPARISON: None ???FINDINGS: There is severe emphysema. There is a 5 mm nodule in the right lung apex. No pleural effusion or pneumothorax. There our secretions in the trachea. No pathologically enlarged thoracic lymph nodes are identified. The heart size is normal. Calcified coronary artery atherosclerosis is noted. Calcified pulmonary nodules and calcified right hilar lymph nodes are consistent with old granulomatous disease. Punctate calcifications in an otherwise normal spleen likely represent healed granulomatous disease. Pneumobilia is noted in the left hepatic lobe, likely related to prior biliary intervention. There are bridging osteophytes at multiple levels in the spine, consistent with diffuse idiopathic skeletal hyperostosis (DISH). ???IMPRESSION: ???1. Lung-RADS category 2: Benign appearance or behavior. Continue annual screening with noncontrast low-dose chest CT in 12 months. ?04/04/2022:? Echocardiogram at [facility]: ??Conclusions:? 1. Abnormal septal motion consistent with pacemaker ICD implant.? Severe global LV systolic hypokinesis.? Normal left ventricular size.? Normal left ventricular wall thickness.? Left ventricular ejection fraction is measured at 25%.? Normal right ventricular size.? There is nonspecific thickening of the mitral valve leaflets.? There is trace physiologic mitral valve regurgitation.? Normal appearing tricuspid valve leaflets.? There is trace physiologic tricuspid valve regurgitation.? Estimated peak pulmonary arterial systolic pressure is 20. Review of Systems Constitutional: Constitutional: Reports no additional constitutional complaints Eyes: Eyes: Reports no additional eye complaints ENT: Reports system reviewed and no additional complaints, except as documented Cardiovascular: Cardiovascular: Reports no additional cardiovascular complaints Respiratory: Respiratory: Reports no additional respiratory complaints Gastrointestinal: Gastrointestinal: Reports no additional gastrointestinal complaints Musculoskeletal: Musculoskeletal: Reports no additional musculoskeletal complaints Neurologic: Reports system reviewed and no additional complaints, except as documented Psychiatric: Psychiatric: Reports no additional psychiatric complaints Endocrine: Endocrine: Reports no additional endocrine complaints Hematologic/Lymphatic: Hematologic/Lymphatic: Reports no additional hematologic/lymphatic complaints Allergic/Immunologic: Allergic/Immunologic: Reports no additional al lergic/immunologic complaints Exam Const: General: cooperative, healthy appearing and comfortable Orientation/consciousness: oriented to person, oriented to place and oriented to time HENMT: Head: normal to inspection Ears: hearing grossly normal bilaterally Eyes: General: appearance normal, both eyes and all related structures Neck: Neck: normal visual inspection Chest: Chest palpation & inspection: normal inspection of the chest Resp: Effort & Inspection: normal respiratory effort and able to speak in complete sentences Auscultation: no crackles, no rales, no rhonchi, no wheezes and diminished lung sounds Other: no wheezes Cardio: Jugular venous distension: no JVD GI: Inspection: normal to inspection Skin: General skin exam: normal color Neuro: General: oriented to person, oriented to place and oriented to time Extrem: General: normal to inspection and no edema Psych: Appearance: grossly normal Objective Data Vital Signs Vital Signs: Vital Signs - 24 hr 10/26/24 09:21 10/26/24 10:00 10/26/24 10:00 Temperature Pulse Rate 67 60 60 Respiratory Rate 28 H Blood Pressure 131/99 H Pulse Oximetry 98 Oxygen Delivery Oxygen Flow Rate Fraction of Inspired Oxygen 10/26/24 10:00 10/26/24 12:00 10/26/24 12:00 Temperature Pulse Rate 60 68 Respiratory Rate 28 H Blood Pressure Pulse Oximetry Oxygen Delivery BiPAP Oxygen Flow Rate Fraction of Inspired Oxygen 28 10/26/24 12:00 10/26/24 12:00 10/26/24 12:49 Temperature Pulse Rate 68 59 L 69 Respiratory Rate 18 20 24 H Blood Pressure 113/82 Pulse Oximetry 95 Oxygen Delivery Oxygen Flow Rate Fraction of Inspired Oxygen 10/26/24 12:50 10/26/24 13:05 10/26/24 14:00 Temperature Pulse Rate 69 68 59 L Respiratory Rate 25 H 22 H 21 H Blood Pressure Pulse Oximetry 99 Oxygen Delivery BiPAP Oxygen Flow Rate Fraction of Inspired Oxygen 10/26/24 14:00 10/26/24 14:00 10/26/24 14:15 Temperature Pulse Rate 57 L 57 L 59 L Respiratory Rate 20 22 H Blood Pressure 129/94 H Pulse Oximetry 99 Oxygen Delivery Oxygen Flow Rate Fraction of Inspired Oxygen 10/26/24 14:46 10/26/24 16:00 10/26/24 16:00 Temperature Pulse Rate 59 L 65 55 L Respiratory Rate 22 H 20 Blood Pressure Pulse Oximetry Oxygen Delivery Oxygen Flow Rate Fraction of Inspired Oxygen 10/26/24 16:00 10/26/24 16:00 10/26/24 16:24 Temperature 36.7 C Pulse Rate 55 L 70 Respiratory Rate 20 20 Blood Pressure 137/92 H Pulse Oximetry 100 100 Oxygen Delivery BiPAP BiPAP Oxygen Flow Rate Fraction of Inspired Oxygen 28 10/26/24 16:25 10/26/24 18:00 10/26/24 18:00 Temperature Pulse Rate 70 98 84 Respiratory Rate 20 20 Blood Pressure Pulse Oximetry Oxygen Delivery Oxygen Flow Rate Fraction of Inspired Oxygen 10/26/24 18:00 10/26/24 20:00 10/26/24 20:00 Temperature Pulse Rate 84 61 94 Respiratory Rate 20 22 H Blood Pressure 135/87 Pulse Oximetry 100 100 Oxygen Delivery BiPAP Oxygen Flow Rate Fraction of Inspired Oxygen 28 10/26/24 20:00 10/26/24 20:00 10/26/24 21:07 Temperature 36.6 C Pulse Rate 94 94 56 L Respiratory Rate 20 20 22 H Blood Pressure 134/90 Pulse Oximetry 99 Oxygen Delivery Oxygen Flow Rate Fraction of Inspired Oxygen 10/26/24 21:10 10/26/24 21:10 10/26/24 21:17 Temperature Pulse Rate 56 L 58 L Respiratory Rate 22 H 22 H Blood Pressure Pulse Oximetry 100 92 Oxygen Delivery BiPAP BiPAP Oxygen Flow Rate Fraction of Inspired Oxygen 28 10/26/24 21:30 10/26/24 22:00 10/26/24 22:00 Temperature Pulse Rate 99 72 72 Respiratory Rate 28 H 20 Blood Pressure 132/91 H Pulse Oximetry 96 Oxygen Delivery Oxygen Flow Rate Fraction of Inspired Oxygen 10/26/24 22:38 10/26/24 23:42 10/26/24 23:42 Temperature Pulse Rate 55 L 50 L 50 L Respiratory Rate 18 20 20 Blood Pressure Pulse Oximetry Oxygen Delivery Oxygen Flow Rate Fraction of Inspired Oxygen 10/27/24 00:00 10/27/24 00:00 10/27/24 00:00 Temperature Pulse Rate 50 L 50 L 50 L Respiratory Rate 20 20 20 Blood Pressure 128/88 Pulse Oximetry 100 100 Oxygen Delivery BiPAP Oxygen Flow Rate Fraction of Inspired Oxygen 28 10/27/24 00:00 10/27/24 01:05 10/27/24 01:09 Temperature Pulse Rate 50 L 48 L 48 L Respiratory Rate 20 20 Blood Pressure Pulse Oximetry 100 Oxygen Delivery BiPAP Oxygen Flow Rate Fraction of Inspired Oxygen 10/27/24 01:20 10/27/24 02:00 10/27/24 02:00 Temperature Pulse Rate 51 L 53 L 53 L Respiratory Rate 20 18 Blood Pressure Pulse Oximetry Oxygen Delivery Oxygen Flow Rate Fraction of Inspired Oxygen 10/27/24 02:00 10/27/24 04:00 10/27/24 04:00 Temperature Pulse Rate 53 L 50 L 52 L Respiratory Rate 19 20 20 Blood Pressure 129/83 Pulse Oximetry 100 100 Oxygen Delivery BiPAP Oxygen Flow Rate Fraction of Inspired Oxygen 28 10/27/24 04:00 10/27/24 04:00 10/27/24 05:27 Temperature 37.1 C Pulse Rate 52 L 52 L 54 L Respiratory Rate 20 24 H Blood Pressure 124/82 Pulse Oximetry 100 100 Oxygen Delivery BiPAP Oxygen Flow Rate Fraction of Inspired Oxygen 10/27/24 05:57 10/27/24 06:00 10/27/24 06:00 Temperature Pulse Rate 56 L 56 L 56 L Respiratory Rate 19 20 Blood Pressure 123/81 Pulse Oximetry 100 Oxygen Delivery Oxygen Flow Rate Fraction of Inspired Oxygen 10/27/24 07:45 10/27/24 07:55 10/27/24 08:00 Temperature Pulse Rate Respiratory Rate Blood Pressure Pulse Oximetry 100 98 96 Oxygen Delivery Nasal Cannula Room Air Room Air Oxygen Flow Rate 2 Fraction of Inspired Oxygen 10/27/24 08:00 10/27/24 08:05 10/27/24 08:30 Temperature 36.2 C L Pulse Rate 67 67 63 Respiratory Rate 23 H 23 H 18 Blood Pressure 117/81 Pulse Oximetry 100 Oxygen Delivery Oxygen Flow Rate Fraction of Inspired Oxygen 10/27/24 08:56 10/27/24 09:00 Temperature Pulse Rate 107 H 98 Respiratory Rate 22 H 25 H Blood Pressure Pulse Oximetry Oxygen Delivery Oxygen Flow Rate Fraction of Inspired Oxygen Intake/Output Intake/Output: Intake & Output 10/24/24 10/25/24 10/26/24 10/27/24 23:59 23:59 23:59 23:59 Intake Total 2250 4250.1 523.5 84.3 Output Total 450 700 250 Balance 2250 3800.1 -176.5 -165.7 Meds/Results Medications: Active Medications Generic Name Dose Route Start Last Admin Trade Name Freq PRN Reason Stop Dose Admin Acetaminophen 650 mg 10/24/24 18:55 Acetaminophen 325 Mg Tablet PO Q4H PRN Mild Pain (1-3) or Fever Hydrocodone Bitart/Acetaminophen 1 tab 10/24/24 19:04 Hydrocodone/Acetaminophen (*Crx) 5-325 Mg Tablet PO Q4H PRN Moderate Pain (4-6) Albuterol/Ipratropium 3 ml 10/25/24 16:00 10/27/24 08:55 Ipratropium 0.5 Mg/Albuterol Sulfate 2.5 Mg Ampul.Neb 3 Ml INHALATION 3 ml Q4HRT LIANE Administration Clopidogrel Bisulfate 75 mg 10/25/24 09:00 10/26/24 09:22 Clopidogrel Bisulfate 75 Mg Tablet PO 75 mg DAILY LIANE Administration Docusate Sodium 100 mg 10/25/24 09:00 10/26/24 20:45 Docusate Sodium 100 Mg Capsule PO 100 mg Q12HR LIANE Administration Enoxaparin Sodium 40 mg 10/25/24 09:00 10/26/24 09:22 Enoxaparin 40 Mg/0.4 Ml Syringe SUB-Q 40 mg DAILY LIANE Administration Guaifenesin 1,200 mg 10/25/24 14:30 10/26/24 20:45 Guaifenesin 12 Hr 600 Mg Tabcr PO 1,200 mg Q12HR LIANE Administration Ceftriaxone Sodium 2 gm in 100 mls @ 200 mls/hr 10/25/24 14:00 10/26/24 13:14 Rocephin 2 Gm/Ns 100 Ml IVPB 200 mls/hr Q24H LIANE Administration Azithromycin 500 mg in 250 mls @ 250 mls/hr 10/25/24 14:00 10/26/24 13:13 Zithromax IVPB 250 mls/hr Q24H LIANE Administration Dexmedetomidine HCl 400 mcg in 100 mls @ 5.29 mls/hr 10/25/24 15:30 10/27/24 09:00 Precedex 400 Mcg/100 Ml IV CONT 0.4 mcg/kg/hr .[id number] LIANE 5.29 mls/hr Titration Protocol 0.4 MCG/KG/HR Isosorbide Mononitrate 30 mg 10/24/24 23:15 10/25/24 09:30 Isosorbide Mononitrate 30 Mg Tab.Er.24h PO 30 mg Q12HR LIANE Administration Lorazepam 1 mg 10/26/24 13:17 10/27/24 08:10 Lorazepam (*Crx) 1 Mg Tablet PO 1 mg Q4H PRN Administration Anxiety Metoprolol Succinate 25 mg 10/25/24 09:00 10/26/24 09:21 Metoprolol Succinate Ext Rel 25 Mg Tabcr PO 25 mg QAM LIANE Administration Metoprolol Tartrate 5 mg 10/25/24 15:39 Metoprolol Tartrate Inj 5 Mg/5 Ml Vial IV PUSH Q4H PRN Heart rate > 120 and SBP > 100 Midodrine 10 mg 10/24/24 21:25 10/26/24 17:13 Midodrine Hcl 10 Mg Tablet PO 10 mg TID LIANE Administration Pramipexole Dihydrochloride 1 mg 10/24/24 23:15 10/26/24 20:45 Pramipexole 1 Mg Tablet PO 1 mg HS LIANE Administration Prednisone 40 mg 10/26/24 09:20 10/26/24 09:23 Prednisone 20 Mg Tablet PO 40 mg DAILY@0800 LIANE Administration Rosuvastatin Calcium 10 mg 10/25/24 09:00 10/26/24 09:22 Rosuvastatin 10 Mg Tablet PO 10 mg DAILY LIANE Administration Radiology Results: ITS Impressions Chest X-Ray 10/24/24 18:53 IMPRESSION: Emphysematous disease, without focal infiltrate or effusion. Chest CTA 10/25/24 21:04 IMPRESSION: No pulmonary embolus. No thoracic aortic dissection. Severe panlobular bullous emphysema, unchanged from 05/03/2024. Interval development of small bilateral pleural effusions, right greater than left with adjacent compressive atelectasis. Labs Labs: Laboratory Results - last 24 hr 10/26/24 10/27/24 10/27/24 14:03 03:34 03:35 WBC 14.1 H RBC 3.77 L Hgb 12.1 L Hct 36.7 L MCV 97.3 MCH 32.1 MCHC 33.0 RDW 13.2 Plt Count 200 MPV 10.5 H Puncture Site ABG pH ABG pCO2 ABG pO2 ABG PO2/FiO2 Ratio ABG HCO3 ABG O2 Saturation ABG O2 Content ABG Base Excess A-a Gradient Oxyhemoglobin Carboxyhemoglobin Methemoglobin Reduced Hemoglobin Total Hemoglobin O2 Delivery Device O2 Liters/Min FiO2 Sodium 138 Potassium 4.3 4.5 Chloride 106 Carbon Dioxide 24 Anion Gap 8 BUN 31 H D Creatinine 0.90 Estim Creat Clear Calc 49 Estimated GFR > 60 Glucose 128 H Calcium 9.1 Magnesium 2.6 H Total Bilirubin 0.2 AST 32 ALT 24 Alkaline Phosphatase 58 NT-Pro-B Natriuret Pep 7720 H Total Protein 6.0 L Albumin 3.6 10/27/24 05:11 WBC RBC Hgb Hct MCV MCH MCHC RDW Plt Count MPV Puncture Site Left brachial ABG pH 7.371 ABG pCO2 38.5 ABG pO2 107.4 H ABG PO2/FiO2 Ratio 3.84 ABG HCO3 21.8 L ABG O2 Saturation 97.8 ABG O2 Content 18.0 ABG Base Excess -3.1 A-a Gradient 46.8 Oxyhemoglobin 97.7 Carboxyhemoglobin 0.1 Methemoglobin 0.1 Reduced Hemoglobin 2.1 Total Hemoglobin 13.0 O2 Delivery Device Other device O2 Liters/Min FiO2 28 Sodium Potassium Chloride Carbon Dioxide Anion Gap BUN Creatinine Estim Creat Clear Calc Estimated GFR Glucose Calcium Magnesium Total Bilirubin AST ALT Alkaline Phosphatase NT-Pro-B Natriuret Pep Total Protein Albumin
--- NOTE | 2024-10-27 09:21 | WPDINTPN ---
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 basis and at night. Otherwise during the day he is on room air Continue prednisone and bronchodilator Continue antibiotics Rocephin azithromycin CTA chest IMPRESSION: No pulmonary embolus. No thoracic aortic dissection. Severe panlobular bullous emphysema, unchanged from 05/03/2024. Interval development of small bilateral pleural effusions, right greater than left with adjacent compressive atelectasis. Continue p.r.n. Ativan. Will wean down Precedex infusion (2) COPD exacerbation: Code(s): J44.1 - Chronic obstructive pulmonary disease with (acute) exacerbation Status: Acute Assessment and Plan: See above (3) Cardiomyopathy: Code(s): I42.9 - Cardiomyopathy, unspecified Status: Acute Assessment and Plan: Patient has history of cardiomyopathy Continue Plavix and Imdur Continue statin and beta (4) Sepsis: Code(s): A41.9 - Sepsis, unspecified organism Status: Acute Assessment and Plan: Patient met criteria for sepsis and had elevated lactic acid level which has improved Chest x-ray did not show any pneumonia patient is on empiric antibiotics in the phone Rocephin azithromycin UA was not Blood cultures ordered and negative till now (5) Elevated troponin: Code(s): R79.89 - Other specified abnormal findings of blood chemistry Status: Acute Assessment and Plan: Mild elevation in troponin level which is already improving. EKG reviewed and patient denies any chest pain Likely type 2 NSTEMI from respiratory failure Continue aspirin, beta blood and statin Echo Summary 10/25 1. Definity contrast administered improved wall motion interpretation. 2. Left ventricular chamber dimension is moderately enlarged. 3. Mid to apical anteroseptum/septum are akinetic. Basal segments have normal contractility and remaining wall segments are hypokinetic. 4. Left ventricular systolic function is severely reduced, estimated at 30-35%. 5. The left ventricular diastolic function is grade I diastolic dysfunction. 6. There is mild aortic valve sclerosis. 7. There is mild to moderate mitral valve regurgitation. 8. There is trace tricuspid valve regurgitation. 9. No pulmonary hypertension, estimated pulmonary arterial systolic pressure is 39 mmHg. (6) Coronary artery disease: Code(s): I25.10 - Atherosclerotic heart disease of [place] coronary artery without angina pectoris Status: Acute Assessment and Plan: See above (7) Afib: Code(s): I48.91 - Unspecified atrial fibrillation Status: Acute Assessment and Plan: Continue beta-nae p.o. metoprolol IV p.r.n. metoprolol Plan DVT prophylaxis - Lovenox Stress ulcer prophylaxis - Nutrition - Diet ordered Code Status - Full Code Total Critical Care Time - 35 minutes Due to a high probability of clinically significant, life threatening deterioration, the patient required my highest level of preparedness to intervene emergently and I personally spent this critical care time directly and personally managing the patient. This critical care time included obtaining a history; examining the patient; pulse oximetry; ordering and review of studies; arranging urgent treatment with development of a management plan; evaluation of patient's response to treatment; frequent reassessment; and discussions with other providers. It was exclusive of separately billable procedures and treating other patients and teaching time. Please see Assessment and Plan section and the rest of the note for further information on patient assessment and treatment Subjective Date/time seen: 10/27/24 Patient states that he feels better overall this morning. He slept well. He wore BiPAP to the night. Now he is on nasal cannula. Patient has been difficult to manage as he starts shouting and yelling at staff and he does not get his Ativan on time and also does not get his breathing treatment. You can hear him and hallway yelling I can not breathe 'I need my Ativan' and 'I need my breathing treatment' he told me that if he does not get his medicine on time he will go into a panic attack. Although patient does have COPD he appears comfortable and then get short of breath few hours and then back to being comfortable and saturating adequately on room air in next few. Yesterday he states that Xanax does not work for him and he only wants his Ativan 2 mg which she takes at home although he does not have any current prescription. Sinus rhythm on the monitor saturating 94 95% on room air. Review of Systems Review of Systems: All systems reviewed & are unremarkable except as noted in HPI and below (HPI) Exam Narrative: General: Pt is frail old male who looks older than his age and room air Lungs/Chest: Bilateral minimal wheezing, no use of accessory muscles or tachypnea. Able to speak full sentence Cardiac: RRR. Normal S1 S2. No murmurs Circulation: Pedal pulses are intact and symmetrical. Abdomen: Normal bowel sounds. Soft. NT. ND. Extremities: No clubbing, cyanosis or edema. Warm : Lazo in place Neurologic: AO x3 Moves all 4 extremities to painful stimuli. PERRL a AO x3 Objective Data Vital Signs Vital Signs: Vital Signs - 24 hr 10/26/24 10:00 10/26/24 10:00 10/26/24 10:00 Temperature Pulse Rate 60 60 60 Respiratory Rate 28 H 28 H Blood Pressure 131/99 H Pulse Oximetry 98 Oxygen Delivery Oxygen Flow Rate Fraction of Inspired Oxygen 10/26/24 12:00 10/26/24 12:00 10/26/24 12:00 Temperature Pulse Rate 68 68 Respiratory Rate 18 Blood Pressure 113/82 Pulse Oximetry 95 Oxygen Delivery BiPAP Oxygen Flow Rate Fraction of Inspired Oxygen 28 10/26/24 12:00 10/26/24 12:49 10/26/24 12:50 Temperature Pulse Rate 59 L 69 69 Respiratory Rate 20 24 H 25 H Blood Pressure Pulse Oximetry 99 Oxygen Delivery BiPAP Oxygen Flow Rate Fraction of Inspired Oxygen 10/26/24 13:05 10/26/24 14:00 10/26/24 14:00 Temperature Pulse Rate 68 59 L 57 L Respiratory Rate 22 H 21 H Blood Pressure Pulse Oximetry Oxygen Delivery Oxygen Flow Rate Fraction of Inspired Oxygen 10/26/24 14:00 10/26/24 14:15 10/26/24 14:46 Temperature Pulse Rate 57 L 59 L 59 L Respiratory Rate 20 22 H 22 H Blood Pressure 129/94 H Pulse Oximetry 99 Oxygen Delivery Oxygen Flow Rate Fraction of Inspired Oxygen 10/26/24 16:00 10/26/24 16:00 10/26/24 16:00 Temperature 36.7 C Pulse Rate 65 55 L 55 L Respiratory Rate 20 20 Blood Pressure 137/92 H Pulse Oximetry 100 Oxygen Delivery Oxygen Flow Rate Fraction of Inspired Oxygen 10/26/24 16:00 10/26/24 16:24 10/26/24 16:25 Temperature Pulse Rate 70 70 Respiratory Rate 20 20 Blood Pressure Pulse Oximetry 100 Oxygen Delivery BiPAP BiPAP Oxygen Flow Rate Fraction of Inspired Oxygen 28 10/26/24 18:00 10/26/24 18:00 10/26/24 18:00 Temperature Pulse Rate 98 84 84 Respiratory Rate 20 20 Blood Pressure 135/87 Pulse Oximetry 100 Oxygen Delivery Oxygen Flow Rate Fraction of Inspired Oxygen 10/26/24 20:00 10/26/24 20:00 10/26/24 20:00 Temperature Pulse Rate 61 94 94 Respiratory Rate 22 H 20 Blood Pressure Pulse Oximetry 100 Oxygen Delivery BiPAP Oxygen Flow Rate Fraction of Inspired Oxygen 28 10/26/24 20:00 10/26/24 21:07 10/26/24 21:10 Temperature 36.6 C Pulse Rate 94 56 L 56 L Respiratory Rate 20 22 H 22 H Blood Pressure 134/90 Pulse Oximetry 99 100 Oxygen Delivery BiPAP Oxygen Flow Rate Fraction of Inspired Oxygen 10/26/24 21:10 10/26/24 21:17 10/26/24 21:30 Temperature Pulse Rate 58 L 99 Respiratory Rate 22 H 28 H Blood Pressure Pulse Oximetry 92 Oxygen Delivery BiPAP Oxygen Flow Rate Fraction of Inspired Oxygen 28 10/26/24 22:00 10/26/24 22:00 10/26/24 22:38 Temperature Pulse Rate 72 72 55 L Respiratory Rate 20 18 Blood Pressure 132/91 H Pulse Oximetry 96 Oxygen Delivery Oxygen Flow Rate Fraction of Inspired Oxygen 10/26/24 23:42 10/26/24 23:42 10/27/24 00:00 Temperature Pulse Rate 50 L 50 L 50 L Respiratory Rate 20 20 20 Blood Pressure Pulse Oximetry Oxygen Delivery Oxygen Flow Rate Fraction of Inspired Oxygen 10/27/24 00:00 10/27/24 00:00 10/27/24 00:00 Temperature Pulse Rate 50 L 50 L 50 L Respiratory Rate 20 20 Blood Pressure 128/88 Pulse Oximetry 100 100 Oxygen Delivery BiPAP Oxygen Flow Rate Fraction of Inspired Oxygen 28 10/27/24 01:05 10/27/24 01:09 10/27/24 01:20 Temperature Pulse Rate 48 L 48 L 51 L Respiratory Rate 20 20 20 Blood Pressure Pulse Oximetry 100 Oxygen Delivery BiPAP Oxygen Flow Rate Fraction of Inspired Oxygen 10/27/24 02:00 10/27/24 02:00 10/27/24 02:00 Temperature Pulse Rate 53 L 53 L 53 L Respiratory Rate 18 19 Blood Pressure 129/83 Pulse Oximetry 100 Oxygen Delivery Oxygen Flow Rate Fraction of Inspired Oxygen 10/27/24 04:00 10/27/24 04:00 10/27/24 04:00 Temperature Pulse Rate 50 L 52 L 52 L Respiratory Rate 20 20 Blood Pressure Pulse Oximetry 100 Oxygen Delivery BiPAP Oxygen Flow Rate Fraction of Inspired Oxygen 28 10/27/24 04:00 10/27/24 05:27 10/27/24 05:57 Temperature 37.1 C Pulse Rate 52 L 54 L 56 L Respiratory Rate 20 24 H 19 Blood Pressure 124/82 Pulse Oximetry 100 100 Oxygen Delivery BiPAP Oxygen Flow Rate Fraction of Inspired Oxygen 10/27/24 06:00 10/27/24 06:00 10/27/24 07:45 Temperature Pulse Rate 56 L 56 L Respiratory Rate 20 Blood Pressure 123/81 Pulse Oximetry 100 100 Oxygen Delivery Nasal Cannula Oxygen Flow Rate 2 Fraction of Inspired Oxygen 10/27/24 07:55 10/27/24 08:00 10/27/24 08:00 Temperature 36.2 C L Pulse Rate 67 Respiratory Rate 23 H Blood Pressure 117/81 Pulse Oximetry 98 96 100 Oxygen Delivery Room Air Room Air Oxygen Flow Rate Fraction of Inspired Oxygen 10/27/24 08:00 10/27/24 08:05 10/27/24 08:30 Temperature Pulse Rate 66 67 63 Respiratory Rate 23 H 18 Blood Pressure Pulse Oximetry Oxygen Delivery Oxygen Flow Rate Fraction of Inspired Oxygen 10/27/24 08:56 10/27/24 09:00 10/27/24 09:04 Temperature Pulse Rate 107 H 98 85 Respiratory Rate 22 H 25 H 28 H Blood Pressure Pulse Oximetry 100 Oxygen Delivery BiPAP Oxygen Flow Rate Fraction of Inspired Oxygen 10/27/24 09:09 Temperature Pulse Rate 76 Respiratory Rate 28 H Blood Pressure Pulse Oximetry Oxygen Delivery Oxygen Flow Rate Fraction of Inspired Oxygen Intake/Output Intake/Output: Intake & Output 10/24/24 10/25/24 10/26/24 10/27/24 23:59 23:59 23:59 23:59 Intake Total 2250 4250.1 523.5 84.3 Output Total 450 700 250 Balance 2250 3800.1 -176.5 -165.7 Meds/Results Medications: Active Medications Generic Name Dose Route Start Last Admin Trade Name Freq PRN Reason Stop Dose Admin Acetaminophen 650 mg 10/24/24 18:55 Acetaminophen 325 Mg Tablet PO Q4H PRN Mild Pain (1-3) or Fever Hydrocodone Bitart/Acetaminophen 1 tab 10/24/24 19:04 Hydrocodone/Acetaminophen (*Crx) 5-325 Mg Tablet PO Q4H PRN Moderate Pain (4-6) Albuterol 10 mg 10/27/24 09:19 Albuterol Sulfate Neb 2.5 Mg/3 Ml Inh INHALATION 10/27/24 09:20 ONCE STA Albuterol/Ipratropium 3 ml 10/25/24 16:00 10/27/24 08:55 Ipratropium 0.5 Mg/Albuterol Sulfate 2.5 Mg Ampul.Neb 3 Ml INHALATION 3 ml Q4HRT LIANE Administration Clopidogrel Bisulfate 75 mg 10/25/24 09:00 10/26/24 09:22 Clopidogrel Bisulfate 75 Mg Tablet PO 75 mg DAILY LIANE Administration Docusate Sodium 100 mg 10/25/24 09:00 10/26/24 20:45 Docusate Sodium 100 Mg Capsule PO 100 mg Q12HR LIANE Administration Enoxaparin Sodium 40 mg 10/25/24 09:00 10/26/24 09:22 Enoxaparin 40 Mg/0.4 Ml Syringe SUB-Q 40 mg DAILY ILANE Administration Guaifenesin 1,200 mg 10/25/24 14:30 10/26/24 20:45 Guaifenesin 12 Hr 600 Mg Tabcr PO 1,200 mg Q12HR LIANE Administration Ceftriaxone Sodium 2 gm in 100 mls @ 200 mls/hr 10/25/24 14:00 10/26/24 13:14 Rocephin 2 Gm/Ns 100 Ml IVPB 200 mls/hr Q24H LIANE Administration Azithromycin 500 mg in 250 mls @ 250 mls/hr 10/25/24 14:00 10/26/24 13:13 Zithromax IVPB 250 mls/hr Q24H LIANE Administration Dexmedetomidine HCl 400 mcg in 100 mls @ 5.29 mls/hr 10/25/24 15:30 10/27/24 09:00 Precedex 400 Mcg/100 Ml IV CONT 0.4 mcg/kg/hr .[id number] LIANE 5.29 mls/hr Titration Protocol 0.4 MCG/KG/HR Isosorbide Mononitrate 30 mg 10/24/24 23:15 10/25/24 09:30 Isosorbide Mononitrate 30 Mg Tab.Er.24h PO 30 mg Q12HR LIANE Administration Lorazepam 1 mg 10/26/24 13:17 10/27/24 08:10 Lorazepam (*Crx) 1 Mg Tablet PO 1 mg Q4H PRN Administration Anxiety Metoprolol Succinate 25 mg 10/25/24 09:00 10/26/24 09:21 Metoprolol Succinate Ext Rel 25 Mg Tabcr PO 25 mg QAM LIANE Administration Metoprolol Tartrate 5 mg 10/25/24 15:39 Metoprolol Tartrate Inj 5 Mg/5 Ml Vial IV PUSH Q4H PRN Heart rate > 120 and SBP > 100 Midodrine 10 mg 10/24/24 21:25 10/26/24 17:13 Midodrine Hcl 10 Mg Tablet PO 10 mg TID LIANE Administration Pramipexole Dihydrochloride 1 mg 10/24/24 23:15 10/26/24 20:45 Pramipexole 1 Mg Tablet PO 1 mg HS LIANE Administration Prednisone 40 mg 10/26/24 09:20 10/26/24 09:23 Prednisone 20 Mg Tablet PO 40 mg DAILY@0800 LIANE Administration Rosuvastatin Calcium 10 mg 10/25/24 09:00 10/26/24 09:22 Rosuvastatin 10 Mg Tablet PO 10 mg DAILY LIANE Administration Radiology Results: ITS Impressions Chest X-Ray 10/24/24 18:53 IMPRESSION: Emphysematous disease, without focal infiltrate or effusion. Chest CTA 10/25/24 21:04 IMPRESSION: No pulmonary embolus. No thoracic aortic dissection. Severe panlobular bullous emphysema, unchanged from 05/03/2024. Interval development of small bilateral pleural effusions, right greater than left with adjacent compressive atelectasis. Labs Labs: Laboratory Results - last 24 hr 10/26/24 10/27/24 10/27/24 14:03 03:34 03:35 WBC 14.1 H RBC 3.77 L Hgb 12.1 L Hct 36.7 L MCV 97.3 MCH 32.1 MCHC 33.0 RDW 13.2 Plt Count 200 MPV 10.5 H Puncture Site ABG pH ABG pCO2 ABG pO2 ABG PO2/FiO2 Ratio ABG HCO3 ABG O2 Saturation ABG O2 Content ABG Base Excess A-a Gradient Oxyhemoglobin Carboxyhemoglobin Methemoglobin Reduced Hemoglobin Total Hemoglobin O2 Delivery Device O2 Liters/Min FiO2 Sodium 138 Potassium 4.3 4.5 Chloride 106 Carbon Dioxide 24 Anion Gap 8 BUN 31 H D Creatinine 0.90 Estim Creat Clear Calc 49 Estimated GFR > 60 Glucose 128 H Calcium 9.1 Magnesium 2.6 H Total Bilirubin 0.2 AST 32 ALT 24 Alkaline Phosphatase 58 NT-Pro-B Natriuret Pep 7720 H Total Protein 6.0 L Albumin 3.6 10/27/24 05:11 WBC RBC Hgb Hct MCV MCH MCHC RDW Plt Count MPV Puncture Site Left brachial ABG pH 7.371 ABG pCO2 38.5 ABG pO2 107.4 H ABG PO2/FiO2 Ratio 3.84 ABG HCO3 21.8 L ABG O2 Saturation 97.8 ABG O2 Content 18.0 ABG Base Excess -3.1 A-a Gradient 46.8 Oxyhemoglobin 97.7 Carboxyhemoglobin 0.1 Methemoglobin 0.1 Reduced Hemoglobin 2.1 Total Hemoglobin 13.0 O2 Delivery Device Other device O2 Liters/Min FiO2 28 Sodium Potassium Chloride Carbon Dioxide Anion Gap BUN Creatinine Estim Creat Clear Calc Estimated GFR Glucose Calcium Magnesium Total Bilirubin AST ALT Alkaline Phosphatase NT-Pro-B Natriuret Pep Total Protein Albumin Quality VTE Prophylaxis VTE prophylaxis: mechanical ordered and pharmacologic ordered
[2024-10-27] MEDS: ALBUTEROL SULFATE NEB 2.5 MG/3 ML INH 10 MG INHALATION (09:34)
[2024-10-27] MEDS: MIDODRINE HCL 10 MG TABLET PO ×3 (10:32→17:47)
[2024-10-27] MEDS: METOPROLOL SUCCINATE EXT REL 25 MG TABCR PO (10:32)
[2024-10-27] MEDS: predniSONE 20 MG TABLET 40 MG PO (10:32)
[2024-10-27] MEDS: CLOPIDOGREL BISULFATE 75 MG TABLET PO (10:32)
[2024-10-27] MEDS: guaiFENesin 12 HR 600 MG TABCR 1200 MG PO ×2 (10:32→21:02)
[2024-10-27] MEDS: ROSUVASTATIN 10 MG TABLET PO (10:32)
[2024-10-27] MEDS: ENOXAPARIN 40 MG/0.4 ML SYRINGE SUB-Q (10:33)
--- NOTE | 2024-10-27 10:51 | PCFNICU ---
ICU Rounding Note: Pt current nutrition is Regular. Last recorded weight is 53 kg, stable Bowel Motility: No BM reported. Labs Reviewed:Mg 2.6, Glu 128, BUN 31, Hct 36.7, Hgb 12.1 Meds Noted: Rocephin Skin: WNL Additional Notes: orders for regular diet. Discussions in rounds regarding possible bedside swallow. Will follow for any diet order modifications. Following daily in ICU rounds. Monitor intake, wt, labs. Follow up in 7 days.
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
[2024-10-27] MEDS: AZITHROMYCIN 500 MG/NS 250 ML 500 MG/250 ML BAG 250 MG IVPB (13:52)
[2024-10-27] MEDS: cefTRIAXone 2 GM/NS 100 ML 2 GM/100 ML BAG IVPB (13:52)
--- NOTE | 2024-10-27 13:56 | PCSTNOTE ---
Attempted to complete bedside swallow evaluation x2 (10:25 & 13:55) ; per RN pt cannot come off high O2 for testing and to try again tomorrow.
[2024-10-27] MEDS: PRAMIPEXOLE 1 MG TABLET PO (21:03)
[2024-10-27] MEDS: HYDROcodone/acetaminophen (*CRX) 5-325 MG TABLET 1 TAB PO (21:03)
[2024-10-27] MEDS: busPIRone HCL 5 MG TABLET PO (21:03)
[2024-10-27] MEDS: ISOSORBIDE MONONITRATE 30 MG TAB.ER.24H PO (21:03)
[2024-10-28] VITALS (24 sets, daily range): BP systolic 107–141; BP diastolic 59–95; PULSE 60–120; RESP 19–27; TEMP 36.3–36.9; O2SAT 91–100
[2024-10-28] MEDS: IPRATROPIUM 0.5 MG/ALBUTEROL SULFATE 2.5 MG AMPUL.NEB 3 ML INHALATION ×6 (00:16→19:00)
[2024-10-28] MEDS: HYDROcodone/acetaminophen (*CRX) 5-325 MG TABLET 1 TAB PO (01:19)
[2024-10-28] MEDS: LORazepam (*CRX) 1 MG TABLET PO ×4 (01:20→17:34)
[2024-10-28 03:55] LABS: Hemoglobin 11.9 g/dL (14.0-18.0); Mean Corpuscular HGB Conc 32.2 g/dl (32-36); Mean Corpuscular Hemoglobin 31.4 pg (26-34); Mean Corpuscular Volume 97.6 fl (80-100); Mean Platelet Volume 10.4 fl (7.4-10.4); Platelet Count Result 215 k/mm3 (150-375); Red Blood Count 3.79 M/mm3 (4.6-6.20); Red Cell Distribution Width 13.2 % (11.5-14.5); White Blood Count 13.5 K/mm3 (4.5-10.0)
[2024-10-28 04:06] LABS: Alanine Aminotransferase 29 U/L (6-50); Albumin Level 3.8 g/dL (3.5-5.1); Alkaline Phosphatase 65 U/L (38-126); Anion Gap 6 mmol/L (4-12); Aspartate Amino Transferase 41 U/L (17-59); Bilirubin,Total 0.4 mg/dL (0.2-1.3); Blood Urea Nitrogen 32 mg/dL (9-20); Calcium 8.8 mg/dL (8.4-10.2); Carbon Dioxide 29 mmol/L (22-30); Chloride 105 mmol/L (98-107); Estimated CRCL calculation 54 ml/min; Estimated Glomerular Filt Rate > 60; Glucose 87 mg/dL (65-110); Magnesium 2.5 mg/dL (1.6-2.3); Potassium 4.1 mmol/L (3.4-5.0); Sodium 140 mmol/L (137-145)
--- NOTE | 2024-10-28 06:13 | PCRCNOTE ---
ABG scheduled for 10/28/2024 in am was not done, pt was screaming & yelling inappropriately at lab and other staff members. No stick for test at this time, may attempt later while off AVAPS if possible.
--- NOTE | 2024-10-28 09:36 | P.PNINT_ITS ---
Progress Note: A&P Assessment and Plan (1) Acute and chronic respiratory failure with hypoxia: Code(s): J96.21 - Acute and chronic respiratory failure with hypoxia Status: Acute Assessment and Plan: Patient has acute on chronic respiratory failure secondary to COPD exacerbation, anxiety and component of drug-seeking behavior Continue AVAPS as per medical case manager on p.r.n. basis and at night. Otherwise during the day he is on room air Continue prednisone and bronchodilator Continue antibiotics Rocephin azithromycin CTA chest IMPRESSION: No pulmonary embolus. No thoracic aortic dissection. Severe panlobular bullous emphysema, unchanged from 05/03/2024. Interval development of small bilateral pleural effusions, right greater than left with adjacent compressive atelectasis. Continue p.r.n. Ativan. Off Precedex infusion Incentive spirometry (2) COPD exacerbation: Code(s): J44.1 - Chronic obstructive pulmonary disease with (acute) exacerbation Status: Acute Assessment and Plan: See above (3) Cardiomyopathy: Code(s): I42.9 - Cardiomyopathy, unspecified Status: Acute Assessment and Plan: Patient has history of cardiomyopathy Continue Plavix and Imdur Continue statin and beta-nae (4) Sepsis: Code(s): A41.9 - Sepsis, unspecified organism Status: Acute Assessment and Plan: Patient met criteria for sepsis and had elevated lactic acid level which has improved Chest x-ray did not show any pneumonia patient is on empiric antibiotics in the phone Rocephin azithromycin UA was not Blood cultures ordered and negative till now (5) Elevated troponin: Code(s): R79.89 - Other specified abnormal findings of blood chemistry Status: Acute Assessment and Plan: Mild elevation in troponin level which is already improving. EKG reviewed and patient denies any chest pain Likely type 2 NSTEMI from respiratory failure Continue aspirin, beta blood and statin Echo Summary 10/25 1. Definity contrast administered improved wall motion interpretation. 2. Left ventricular chamber dimension is moderately enlarged. 3. Mid to apical anteroseptum/septum are akinetic. Basal segments have normal contractility and remaining wall segments are hypokinetic. 4. Left ventricular systolic function is severely reduced, estimated at 30- 35%. 5. The left ventricular diastolic function is grade I diastolic dysfunction. 6. There is mild aortic valve sclerosis. 7. There is mild to moderate mitral valve regurgitation. 8. There is trace tricuspid valve regurgitation. 9. No pulmonary hypertension, estimated pulmonary arterial systolic pressure is 39 mmHg. (6) Coronary artery disease: Code(s): I25.10 - Atherosclerotic heart disease of [place] coronary artery without angina pectoris Status: Acute Assessment and Plan: See above (7) Afib: Code(s): I48.91 - Unspecified atrial fibrillation Status: Acute Assessment and Plan: Continue beta-nae p.o. metoprolol IV p.r.n. metoprolol Plan DVT prophylaxis - Lovenox Stress ulcer prophylaxis - Nutrition - Diet ordered Code Status - Full Code Consult PT Up in chair Transfer out of ICU Subjective Date/time seen: 10/28/24 He wore BiPAP off and on through the night. He states he feels better. His breathing is better. He wants to get out of bed and sit in a chair. He denies any other complaints. Patient denies fever, chest pain, shortness of breath, cough, nausea vomiting, abdominal pain,, diarrhea, headache or constipation. All other systems were reviewed and were negative Review of Systems Review of Systems: All systems reviewed & are unremarkable except as noted in HPI and below (HPI) Exam Narrative: General: Pt is frail old male who looks older than his age and room air Lungs/Chest: Bilateral minimal wheezing, no use of accessory muscles or tachypnea. Able to speak full sentence Cardiac: RRR. Normal S1 S2. No murmurs Circulation: Pedal pulses are intact and symmetrical. Abdomen: Normal bowel sounds. Soft. NT. ND. Extremities: No clubbing, cyanosis or edema. Warm : Lazo in place Neurologic: AO x3 Moves all 4 extremities to painful stimuli. PERRL a AO x3 Objective Data Vital Signs Vital Signs: Vital Signs - 24 hr 10/27/24 10:00 10/27/24 10:00 10/27/24 10:00 Temperature Pulse Rate 69 69 69 Respiratory Rate 20 20 Blood Pressure 111/73 Pulse Oximetry 99 Oxygen Delivery Oxygen Flow Rate Fraction of Inspired Oxygen 10/27/24 10:30 10/27/24 10:32 10/27/24 10:35 Temperature Pulse Rate 68 77 101 H Respiratory Rate 20 24 H Blood Pressure Pulse Oximetry Oxygen Delivery Oxygen Flow Rate Fraction of Inspired Oxygen 10/27/24 12:00 10/27/24 12:00 10/27/24 12:00 Temperature 36.4 C L Pulse Rate 68 68 70 Respiratory Rate 24 H 24 H Blood Pressure 115/72 Pulse Oximetry 99 99 Oxygen Delivery BiPAP Oxygen Flow Rate Fraction of Inspired Oxygen 28 10/27/24 12:07 10/27/24 13:33 10/27/24 13:38 Temperature Pulse Rate 68 62 66 Respiratory Rate 24 H 22 H 24 H Blood Pressure Pulse Oximetry 99 Oxygen Delivery BiPAP Oxygen Flow Rate Fraction of Inspired Oxygen 10/27/24 14:00 10/27/24 14:00 10/27/24 14:02 Temperature Pulse Rate 80 80 80 Respiratory Rate 23 H 23 H Blood Pressure 118/72 Pulse Oximetry 97 Oxygen Delivery Oxygen Flow Rate Fraction of Inspired Oxygen 10/27/24 16:00 10/27/24 16:00 10/27/24 16:00 Temperature 36.7 C Pulse Rate 80 67 66 Respiratory Rate 23 H 16 Blood Pressure 114/77 Pulse Oximetry 97 99 Oxygen Delivery BiPAP Oxygen Flow Rate Fraction of Inspired Oxygen 28 10/27/24 16:00 10/27/24 16:36 10/27/24 16:49 Temperature Pulse Rate 66 88 88 Respiratory Rate 16 24 H 16 Blood Pressure Pulse Oximetry 96 Oxygen Delivery BiPAP Oxygen Flow Rate Fraction of Inspired Oxygen 10/27/24 16:51 10/27/24 17:38 10/27/24 18:00 Temperature Pulse Rate 73 80 95 Respiratory Rate 25 H 27 H 27 H Blood Pressure 119/68 Pulse Oximetry 93 Oxygen Delivery Oxygen Flow Rate Fraction of Inspired Oxygen 10/27/24 18:00 10/27/24 20:00 10/27/24 20:00 Temperature Pulse Rate 95 87 82 Respiratory Rate 19 Blood Pressure Pulse Oximetry 99 Oxygen Delivery BiPAP Oxygen Flow Rate Fraction of Inspired Oxygen 28 10/27/24 20:00 10/27/24 21:56 10/27/24 21:56 Temperature Pulse Rate 82 87 Respiratory Rate 22 H 26 H Blood Pressure 107/74 Pulse Oximetry 100 99 99 Oxygen Delivery BiPAP Nasal Cannula Oxygen Flow Rate 2 Fraction of Inspired Oxygen 10/27/24 21:56 10/27/24 22:00 10/27/24 22:00 Temperature Pulse Rate 87 84 88 Respiratory Rate 19 23 H Blood Pressure 123/75 Pulse Oximetry 100 Oxygen Delivery Oxygen Flow Rate Fraction of Inspired Oxygen 10/28/24 00:00 10/28/24 00:00 10/28/24 00:00 Temperature 36.9 C Pulse Rate 88 78 80 Respiratory Rate 23 H 19 Blood Pressure 132/82 Pulse Oximetry 100 100 Oxygen Delivery BiPAP Oxygen Flow Rate Fraction of Inspired Oxygen 28 10/28/24 00:16 10/28/24 00:16 10/28/24 00:30 Temperature Pulse Rate 81 81 90 Respiratory Rate 23 H 23 H 22 H Blood Pressure Pulse Oximetry 99 Oxygen Delivery BiPAP Oxygen Flow Rate Fraction of Inspired Oxygen 10/28/24 02:00 10/28/24 02:00 10/28/24 03:35 Temperature Pulse Rate 80 80 80 Respiratory Rate 20 20 Blood Pressure 123/78 Pulse Oximetry 99 99 Oxygen Delivery BiPAP Oxygen Flow Rate Fraction of Inspired Oxygen 28 10/28/24 04:00 10/28/24 04:00 10/28/24 04:15 Temperature Pulse Rate 78 78 90 Respiratory Rate 24 H 24 H Blood Pressure 131/79 Pulse Oximetry 98 99 Oxygen Delivery BiPAP Oxygen Flow Rate Fraction of Inspired Oxygen 10/28/24 04:15 10/28/24 06:00 10/28/24 06:00 Temperature Pulse Rate 92 120 H 120 H Respiratory Rate 24 H 25 H Blood Pressure 107/59 L Pulse Oximetry 100 Oxygen Delivery Oxygen Flow Rate Fraction of Inspired Oxygen 10/28/24 08:00 10/28/24 08:00 10/28/24 08:00 Temperature 36.6 C Pulse Rate 92 96 Respiratory Rate 22 H 21 H Blood Pressure 128/86 Pulse Oximetry 100 99 Oxygen Delivery Nasal Cannula Oxygen Flow Rate 2 Fraction of Inspired Oxygen 10/28/24 08:12 Temperature Pulse Rate 96 Respiratory Rate 24 H Blood Pressure Pulse Oximetry Oxygen Delivery Oxygen Flow Rate Fraction of Inspired Oxygen Intake/Output Intake/Output: Intake & Output 10/25/24 10/26/24 10/27/24 10/28/24 23:59 23:59 23:59 23:59 Intake Total 4250.1 873.5 540.2 Output Total 450 700 625 350 Balance 3800.1 173.5 -84.8 -350 Meds/Results Medications: Active Medications Generic Name Dose Route Start Last Admin Trade Name Freq PRN Reason Stop Dose Admin Acetaminophen 650 mg 10/24/24 18:55 Acetaminophen 325 Mg Tablet PO Q4H PRN Mild Pain (1-3) or Fever Hydrocodone Bitart/Acetaminophen 1 tab 10/24/24 19:04 10/28/24 01:19 Hydrocodone/Acetaminophen (*Crx) 5-325 Mg Tablet PO 1 tab Q4H PRN Administration Moderate Pain (4-6) Albuterol/Ipratropium 3 ml 10/25/24 16:00 10/28/24 07:59 Ipratropium 0.5 Mg/Albuterol Sulfate 2.5 Mg Ampul.Neb 3 Ml INHALATION 3 ml Q4HRT LIANE Administration Buspirone HCl 5 mg 10/27/24 21:00 10/27/24 21:03 Buspirone Hcl 5 Mg Tablet PO 5 mg Q12HR LIANE Administration Clopidogrel Bisulfate 75 mg 10/25/24 09:00 10/27/24 10:32 Clopidogrel Bisulfate 75 Mg Tablet PO 75 mg DAILY LIANE Administration Docusate Sodium 100 mg 10/25/24 09:00 10/27/24 21:03 Docusate Sodium 100 Mg Capsule PO Not Given Q12HR LIANE Enoxaparin Sodium 40 mg 10/25/24 09:00 10/27/24 10:33 Enoxaparin 40 Mg/0.4 Ml Syringe SUB-Q 40 mg DAILY LIANE Administration Guaifenesin 1,200 mg 10/25/24 14:30 10/27/24 21:02 Guaifenesin 12 Hr 600 Mg Tabcr PO 1,200 mg Q12HR LIANE Administration Ceftriaxone Sodium 2 gm in 100 mls @ 200 mls/hr 10/25/24 14:00 10/27/24 17:37 Rocephin 2 Gm/Ns 100 Ml IVPB Infused Q24H LIANE Infusion Azithromycin 500 mg in 250 mls @ 250 mls/hr 10/25/24 14:00 10/27/24 17:37 Zithromax IVPB 10/28/24 14:59 Infused Q24H LIANE Infusion Isosorbide Mononitrate 30 mg 10/24/24 23:15 10/27/24 21:03 Isosorbide Mononitrate 30 Mg Tab.Er.24h PO 30 mg Q12HR LIANE Administration Lorazepam 1 mg 10/26/24 13:17 10/28/24 05:06 Lorazepam (*Crx) 1 Mg Tablet PO 1 mg Q4H PRN Administration Anxiety Metoprolol Succinate 25 mg 10/25/24 09:00 10/27/24 10:32 Metoprolol Succinate Ext Rel 25 Mg Tabcr PO 25 mg QAM LIANE Administration Metoprolol Tartrate 5 mg 10/25/24 15:39 Metoprolol Tartrate Inj 5 Mg/5 Ml Vial IV PUSH Q4H PRN Heart rate > 120 and SBP > 100 Midodrine 10 mg 10/24/24 21:25 10/27/24 17:47 Midodrine Hcl 10 Mg Tablet PO 10 mg TID LIANE Administration Pramipexole Dihydrochloride 1 mg 10/24/24 23:15 10/27/24 21:03 Pramipexole 1 Mg Tablet PO 1 mg HS LIANE Administration Prednisone 40 mg 10/26/24 09:20 10/27/24 10:32 Prednisone 20 Mg Tablet PO 40 mg DAILY@0800 LIANE Administration Rosuvastatin Calcium 10 mg 10/25/24 09:00 10/27/24 10:32 Rosuvastatin 10 Mg Tablet PO 10 mg DAILY LIANE Administration Radiology Results: ITS Impressions Chest CTA 10/25/24 21:04 IMPRESSION: No pulmonary embolus. No thoracic aortic dissection. Severe panlobular bullous emphysema, unchanged from 05/03/2024. Interval development of small bilateral pleural effusions, right greater than left with adjacent compressive atelectasis. Chest X-Ray 10/28/24 08:35 Impression: 1: Patchy bilateral airspace disease, compatible with pneumonia. Labs Labs: Laboratory Results - last 24 hr 10/28/24 03:49 WBC 13.5 H RBC 3.79 L Hgb 11.9 L Hct 37.0 L MCV 97.6 MCH 31.4 MCHC 32.2 RDW 13.2 Plt Count 215 MPV 10.4 Sodium 140 Potassium 4.1 Chloride 105 Carbon Dioxide 29 Anion Gap 6 BUN 32 H Creatinine 0.84 Estim Creat Clear Calc 54 Estimated GFR > 60 Glucose 87 Calcium 8.8 Magnesium 2.5 H Total Bilirubin 0.4 AST 41 ALT 29 Alkaline Phosphatase 65 Total Protein 7.0 Albumin 3.8 Quality VTE Prophylaxis VTE prophylaxis: mechanical ordered and pharmacologic ordered
--- NOTE | 2024-10-28 09:59 | P.PNPL_ITS ---
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 CT scan on 03/27/2022 with severe apical predominant panlobular emphysema.? PFTs on 04/10/2022 demonstrate moderately severe obstructive abnormality, FEV1 1.61 L, 53% predicted, FEV1:FVC ratio 48%, ?normal lung volumes, DLCO moderately decreased when adjusted for alveolar volume at 51%. ?No oxygen at rest, with ambulation or at night per 6 minutes walk on 10/21/2022 and overnight oximetry on 10/12/2022. Outpatient exacerbation 03/2023. he was clinically stable with dyspnea on exertion at 5 blocks, M MRC grade of 1, cat score of 17 on Stiolto Respimat 1 puff twice a day, rescue albuterol which she use 2 to 3 times a month and guaifenesin 1200 p.o. twice a day. He was smoking 10 cigarettes a day. He was up-to-date on influenza and COVID vaccine and received RSV and 2022. 10/24/2024: Patient presents with 3 days history acute worsening shortness of breath, dyspnea on exertion and hypoxic respiratory distress. He had wheezing in the emergency room. Son had COVID last week his initial COVID test in the ED was negative. Treated with steroids, bronchodilators, ceftriaxone and azithromycin. 10/26/2023: The patient tells me he feels about the same as yesterday. When I enter the room he was on BiPAP rate of 16 breathing 30, pressures 10/5 with tidal volumes 576. He was on 28% FiO2 with saturations 98%. ABG 7.25/37/100. His white blood cell count is 12.7, creatinine 0.6. His weight is 52.9. He was in mild respiratory distress with decreased air movement bilaterally. He said the machine was not giving him air fast enough and I switched him to a noninvasive ventilation mode with the AVAPS mode rate of 20, tidal volume 500, EPAP 5, minimal inspiratory pressure 6, maximal inspiratory pressure 25, inspiratory time 0.8, rise of 1 and 28% FiO2. Peak airway pressures were 12. Patient told me this felt better. Plan: I will check a D-dimer and if this is positive will do a CT angiogram of the chest. Place the patient on DuoNebs q.4 hours. Currently is on Solu- Medrol 60 mg IV q.8 hours, will continue. Continue ceftriaxone and azithromycin, both day 2. I have ordered an respiratory pathogen panel, urine Legionella, urine pneumococcal, serum mycoplasma IgM and will repeat COVID, RSV, influenza swab on 10/27/2023. Will place on guaifenesin 1200 mg p.o. b.i.d. to aid expectoration. Patient with difficulty breathing on BiPAP and I have changed to noninvasive ventilation with the AVAPS mode and will check a blood gas in 30 minutes.. Patient tells me he takes Ativan 2 mg 4 times a day at home and he is very anxious at this time. Discussed with girlfriend in the room, Drs. Wtakins and Walt. Patient developed worsening anxiety and shortness of breath and was transferred to the ICU and started on a Precedex drip. CT angiogram of the chest showed no PE, right upper lobe posterior infiltrate new since 05/03/2024 and panlobular emphysema unchanged. Patient had an echocardiogram with an EF of 30-35%, grade 1 diastolic dysfunction, [id number] mitral regurg, normal RV size and function, normal right atrial size, PASP 39. 10/27/2023. Overall patient tells me he is breathing about the same. He is afebrile. He remains on Precedex drip 0.7 and noninvasive ventilation with the AVAPS mode at 28% FiO2 with saturations 100%. He has no wheezing on exam. White blood cell count 11.8, creatinine 0.89. He was +3.5 L yesterday and is +5.5 L since admission. Weight is 51.6 with an admission weight of 48. Respiratory pathogen panel, urine Legionella, urine pneumococcal and mycoplasma IgM pending. Plan: Continue noninvasive ventilation with the AVAPS mode on a p.r.n. basis during the day and continue this at night. Will decrease his Solu-Medrol to prednisone 40 mg p.o. q.day. Continue DuoNebs q.4 hours, guaifenesin 1200 mg p.o. b.i.d.. Continue ceftriaxone and azithromycin, both day 3. 10/27/2024: patient wore the noninvasive ventilation with the AVAPS mode overnight. When I entered the room he was on the noninvasive ventilator and said the airflow was too high and I adjusted the settings to comfort by decreasing his respiratory rate from 20-16. Increasing his inspiratory time from 0.7-1.1 and slowing his rise from a setting of 1 to a setting of 4. He said this was more comfortable. He said he was willing to come off of the noninvasive ventilator and he was placed on 2 L nasal cannula and his saturations were 100% And he was then placed on room air with saturations on room air of 100%. He said his breathing was back to his normal, no cough, a little bit of phlegm which is a baseline and no hemoptysis. His white blood cell count is 14.1, creatinine 0.9. He was -176 mL yesterday and cumulative he is +5.9 mL. His weight is 51.6 kg. Plan: Continue prednisone 40 mg p.o. q.day, day 4 of steroids. Continue DuoNebs q.4 hours. Continue ceftriaxone and azithromycin, both day 4. Goal saturation 90-94% and currently is on room air. Out of bed to chair as tolerated. 10/28/2024: Patient wore the noninvasive ventilator overnight and said that he slept better and he feels better. He currently is wearing the noninvasive ventilator. He says he has little bit of cough and phlegm close to his normal. No hemoptysis. White blood cell count 13.5, creatinine 0.84, BNP 7720. Chest x-ray compared to 10/24/2024 with unchanged right upper lobe infiltrate and new left lower lobe infiltrate. -84 mL yesterday cumulative he is positive 5.7 L. Weight 52.2 with an admission weight of 48. Continues to receive 1 mg of abdomen p.o. q.4 hours p.r.n. and taking this every 4 hours. Plan: today is the 1st day he feels like he is improving. Continue prednisone 40 mg a day, day 5 of steroids. Continue DuoNebs q.4 hours. Continue ceftriaxone and azithromycin both day 5. Will discontinue azithromycin after today's dose. Noninvasive ventilation p.r.n. during the day and nasal cannula oxygen for goal saturation 90-94% as tolerated. Discussed with significant other in the room and Dr. Hartley. (2) Acute hypercapnic respiratory failure: Code(s): J96.02 - Acute respiratory failure with hypercapnia Status: Acute Assessment and Plan: Patient is on no oxygen at rest, with activity or with sleep. VBG in the emergency department on 2 L was 7.29/57/less than 27. 10/25/24: Plan: Patient in mild respiratory distress on BiPAP and if changed to noninvasive ventilation with the AVAPS mode using the settings as above which were adjusted for comfort. Will repeat a blood gas in 30 minutes. I have discussed the case with the director human services to make him aware that the patient is in mild respiratory distress on maximal noninvasive ventilation settings and and he has a history of severe anxiety requiring Ativan 2 mg p.o. 4 times a day at home in case he needs transfer to the ICU for respiratory failure or agitation requiring Precedex. I did talk to the patient and he is in agreement for intubation if needed. repeat blood gas on the AVAPS settings was 7.37/36/86. Patient developed worsening anxiety and shortness of breath and was transferred to the ICU and started on a Precedex drip. 10/27/2023. Overall patient tells me he is breathing about the same. He is afebrile. He remains on Precedex drip 0.7 and noninvasive ventilation with the AVAPS mode at 28% FiO2 with saturations 100%. Plan: attempt to wean Precedex off today. 10/27/2024: Will continue noninvasive ventilation p.r.n. during the day And at night. Plan: Attempt to wean Precedex off today. Once patient's breathing status has improved and he can tolerate off of the noninvasive ventilator for 24 hours will repeat blood gas to reassess for hypercarbic respiratory failure. Precedex turned off at 12 noon. BuSpar 5 bid started. 10/28/24: Patient continues to require noninvasive ventilation for work of breathing. Plan: Currently off Precedex and on BuSpar 5 p.o. b.i.d.. He requiring Ativan 1 mg p.o. q.4 hours p.r.n. and taking this every 4 hours. Subjective Date/time seen: 10/28/24 09:59 Interval history: 10/25/2024: This is a new pulmonary consult for COPD exacerbation on BiPAP. 69-year-old with a history of gold grade 2 group B COPD on no home oxygen, coronary artery disease S/P LAD and RCA stents, CHF (previously with EF of 25% wearing a life vest with plans for an ICD) per outside cardiology. patient last seen on 06/30/2024 in the [facility]. 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 CT scan on 03/27/2022 with severe apical predominant panlobular emphysema.? PFTs on 04/10/2022 demonstrate moderately severe obstructive abnormality, FEV1 1.61 L, 53% predicted, FEV1:FVC ratio 48%, ?normal lung volumes, DLCO moderately decreased when adjusted for alveolar volume at 51%. ?No oxygen at rest, with ambulation or at night per 6 minutes walk on 10/21/2022 and overnight oximetry on 10/12/2022. Outpatient exacerbation 03/2023. he was clinically stable with dyspnea on exertion at 5 blocks, M MRC grade of 1, cat score of 17 on Stiolto Respimat 1 puff twice a day, rescue albuterol which she use 2 to 3 times a month and guaifenesin 1200 p.o. twice a day. He was smoking 10 cigarettes a day. He was up-to-date on influenza and COVID vaccine and received and 2022. The patient is currently on BiPAP so history is limited. Patient has acute illness for the last 3 days with worsening shortness of breath and dyspnea on exertion. patient's girlfriend tells me that his son who lives with him had COVID last week and the patient did well and is now back at work. His girlfriend who is in the room went to his house and he was in distress and they called EMS on 10/24/2024. Room air saturations were 70 the placed him on oxygen gave him a DuoNeb. In the emergency department blood pressure was 80/40, heart rate 87, 2 L nasal cannula saturation 98%. he had wheezing on exam. He was placed on BiPAP for work of breathing or respiratory distress. His white blood cell count was 15.5 with eosinophil 0.1% equals 15 per micro L, creatinine 0.86. Venous blood gas on 2 L 7.29/57/ less than 27. COVID, influenza, RSV RT PCR studies negative. Chest x-ray with hyperinflation and increased interstitial infiltrates in the upper lobes. Patient was treated with IV steroids, DuoNebs, ceftriaxone and azithromycin. 10/25/2024: The patient tells me he feels about the same as yesterday. When I enter the room he was on BiPAP rate of 16 breathing 30, pressures 10/5 with tidal volumes 576. He was on 28% FiO2 with saturations 98%. ABG 7.25/37/100. His white blood cell count is 12.7, creatinine 0.6. His weight is 52.9. He was in mild respiratory distress with decreased air movement bilaterally. He said the machine was not giving him air fast enough and I switched him to a noninvasive ventilation mode with the AVAPS mode rate of 20, tidal volume 500, EPAP 5, minimal inspiratory pressure 6, maximal inspiratory pressure 25, inspiratory time 0.8, rise of 1 and 28% FiO2. Peak airway pressures were 12. Patient told me this felt better. repeat blood gas on the AVAPS settings was 7.37/36/86. Patient developed worsening anxiety and shortness of breath and was transferred to the ICU and started on a Precedex drip. CT angiogram of the chest showed no PE, right upper lobe posterior infiltrate new since 05/03/2024 and panlobular emphysema unchanged. Patient had an echocardiogram with an EF of 30-35%, grade 1 diastolic dysfunction, [id number] mitral regurg, normal RV size and function, normal right atrial size, PASP 39. 10/26/2024. Overall patient tells me he is breathing about the same. He is afebrile. He remains on Precedex drip 0.7 and noninvasive ventilation with the AVAPS mode at 28% FiO2 with saturations 100%. He has no wheezing on exam. White blood cell count 11.8, creatinine 0.89. He was +3.5 L yesterday and is +5.5 L since admission. Weight is 51.6 with an admission weight of 48. 10/27/2024: Patient remains on Precedex drip 0.7. patient wore the noninvasive ventilation with the AVAPS mode overnight. When I entered the room he was on the noninvasive ventilator and said the airflow was too high and I adjusted the settings to comfort by decreasing his respiratory rate from 20-16. Increasing his inspiratory time from 0.7-1.1 and slowing his rise from a setting of 1 to a setting of 4. He said this was more comfortable. He said he was willing to come off of the noninvasive ventilator and he was placed on 2 L nasal cannula and his saturations were 100% And he was then placed on room air with saturations on room air of 100%. He said his breathing was back to his normal, no cough, a little bit of phlegm which is a baseline and no hemoptysis. His white blood cell count is 14.1, creatinine 0.9. He was -176 mL yesterday and cumulative he is +5.9 mL. His weight is 51.6 kg. Precedex turned off at 12 noon. BuSpar 5 bid started. 10/28/2024: Patient wore the noninvasive ventilator overnight and said that he slept better and he feels better. He currently is wearing the noninvasive vent ilator. He says he has little bit of cough and phlegm close to his normal. No hemoptysis. White blood cell count 13.5, creatinine 0.84, BNP 7720. Chest x-ray compared to 10/24/2024 with unchanged right upper lobe infiltrate and new left lower lobe infiltrate. -84 mL yesterday cumulative he is positive 5.7 L. Weight 52.2 with an admission weight of 48. Continues to receive 1 mg of abdomen p.o. q.4 hours p.r.n. and taking this every 4 hours. DATA: 04/29/24: CT Scan of the Chest without Contrast: Clinical Indication: Lung cancer screening, nicotine dependence COMPARISON: 04/29/2023 Findings: There is no evidence of any significant mediastinal, hilar or axillary lymphadenopathy. Coronary artery calcifications are present. There is no evidence of pleural or pericardial effusion. 6 mm right lower lobe pulmonary nodule present (axial image 90). Severe emphysema present. Images through the upper abdomen reveal no abnormalities. Impression: Lung RADS 3: Probably benign. Six-month follow-up CT recommended. 04/29/23:?EXAMINATION: CT lung screening ?INDICATION: Personal history of nicotine dependence ?COMPARISON: CT dated 03/27/2022 ?FINDINGS: No thoracic lymphadenopathy. There is atherosclerosis. Heart size normal. No significant pleural or pericardial effusion. There is evidence for chronic granulomatous disease. There is apical pleural thickening/scarring. There is a stable 4 mm right apical nodule, image 18. There is lower lobe atelectasis. There is severe emphysema. No new pulmonary nodules or masses. No focal airspace consolidation. There is diffuse idiopathic skeletal hyperostosis (DISH) of the thoracic spine. There is pneumobilia of the left hepatic lobe, consistent with previous sphincterotomy. ?IMPRESSION: ?1. Lung-RADS category 2: Benign appearance or behavior. Continue annual screening with noncontrast low-dose chest CT in 12 months. ?10/21/2022 This is a 6 minute walk test. The test was performed and interpreted in accordance with the 2014 ERS/ATS task force guidelines. ??Findings:? The patient's resting room air oxygen saturation measured by pulse oximetry was 98% and heart rate was 65 bpm.? Patient ambulated for 244 meters and oxygen saturation remained 98 to 100%.? Heart rate at the end of the study was 70 bpm. ??The patient did not qualify for supplemental oxygen at rest or with ambulation. ??There are no prior studies for comparison. ? 10/12/2022: Overnight oximetry on room air.? Basal saturation 93.8%.? High saturation 99%.? Low saturation 87%.? Time with saturation less than or equal to 88% was 33 seconds.? Oxygen desaturation index was 9 events per hour.? Patient requires no supplemental oxygen at night. ? ??04/10/2022 PFTs ??The test was performed and results interpreted in accordance with the 2019 and 2005 ATS/ERS Task Force guidelines respectively using the Global Lung Function Initiative-2012 reference equations. Patient demonstrated good effort and cooperation. Reproducibility criteria were met. The quality of the spirometry maneuver was Grade A. ???Findings: ???Spirometry:? There is decreased maximal expiratory airflow at all lung volumes with concave expiratory flow tracing.? The contour the inspiratory flow tracing is normal.? The FVC is 3.33 L, 85% predicted.? The FEV1 is 1.61 L, a 53% predicted.? The FEV1:? FVC ratio is 48%.?Plethysmography:? The total lung capacity is 6.12 L, 96% predicted.? The functional residual capacity is 4.49 L, 135% predicted.? The residual volume is 2.79 L, 126% predicted.?Diffusion capacity:? The diffusing capacity unadjusted for hemoglobin and carboxyhemoglobin is 16.2, 63% predicted.? The diffusing capacity adjusted for alveolar volume is 2.15, 51% predicted. ???Impression:?There is a moderately severe obstructive abnormality.?? The lung volumes are normal.? The diffusing capacity unadjusted for hemoglobin is mildly decreased and?remains moderately decreased when adjusted for alveolar volume. ???There are no prior studies for comparison. ? ?03/27/2022 EXAMINATION: CT lung screening ???DATE: 03/27/2022 08:58 ???INDICATION: Personal history of nicotine dependence, current smoker with 45 pack year history. ??COMPARISON: None ???FINDINGS: There is severe emphysema. There is a 5 mm nodule in the right lung apex. No pleural effusion or pneumothorax. There our secretions in the trachea. No pathologically enlarged thoracic lymph nodes are identified. The heart size is normal. Calcified coronary artery atherosclerosis is noted. Calcified pulmonary nodules and calcified right hilar lymph nodes are consistent with old granulomatous disease. Punctate calcifications in an otherwise normal spleen likely represent healed granulomatous disease. Pneumobilia is noted in the left hepatic lobe, likely related to prior biliary intervention. There are bridging osteophytes at multiple levels in the spine, consistent with diffuse idiopathic skeletal hyperostosis (DISH). ???IMPRESSION: ???1. Lung-RADS category 2: Benign appearance or behavior. Continue annual screening with noncontrast low-dose chest CT in 12 months. ?04/04/2022:? Echocardiogram at [facility]: ??Conclusions:? 1. Abnormal septal motion consistent with pacemaker ICD implant.? Severe global LV systolic hypokinesis.? Normal left ventricular size.? Normal left ventricular wall thickness.? Left ventricular ejection fraction is measured at 25%.? Normal right ventricular size.? There is nonspecific thickening of the mitral valve leaflets.? There is trace physiologic mitral valve regurgitation.? Normal appearing tricuspid valve leaflets.? There is trace physiologic tricuspid valve regurgitation.? Estimated peak pulmonary arterial systolic pressure is 20. Review of Systems Review of Systems: ROS unobtainable: Yes unobtainable due to medical condition Constitutional: Constitutional: Reports no additional constitutional complaints Eyes: Eyes: Reports no additional eye complaints ENT: Reports system reviewed and no additional complaints, except as documented Cardiovascular: Cardiovascular: Reports no additional cardiovascular complaints Respiratory: Respiratory: Reports no additional respiratory complaints Gastrointestinal: Gastrointestinal: Reports no additional gastrointestinal complaints Musculoskeletal: Musculoskeletal: Reports no additional musculoskeletal complaints Neurologic: Reports system reviewed and no additional complaints, except as documented Psychiatric: Psychiatric: Reports no additional psychiatric complaints Endocrine: Endocrine: Reports no additional endocrine complaints Hematologic/Lymphatic: Hematologic/Lymphatic: Reports no additional hematologic/lymphatic complaints Allergic/Immunologic: Allergic/Immunologic: Reports no additional allergic/immunologic complaints Exam Const: General: cooperative, healthy appearing, comfortable and in distress Orientation/consciousness: oriented to person, oriented to place and oriented to time Other: In mild distress on noninvasive ventilation HENMT: Head: normal to inspection Ears: hearing grossly normal bilaterally Eyes: General: appearance normal, both eyes and all related structures Neck: Neck: normal visual inspection Chest: Chest palpation & inspection: normal inspection of the chest Resp: Effort & Inspection: normal respiratory effort and able to speak in complete sentences Auscultation: no crackles, no rales, no rhonchi, no wheezes and diminished lung sounds Other: no wheezes Cardio: Jugular venous distension: no JVD GI: Inspection: normal to inspection Skin: General skin exam: normal color Neuro: General: oriented to person, oriented to place and oriented to time Extrem: General: normal to inspection and no edema Psych: Appearance: grossly normal Objective Data Vital Signs Vital Signs: Vital Signs - 24 hr 10/27/24 10:00 10/27/24 10:00 10/27/24 10:00 Temperature Pulse Rate 69 69 69 Respiratory Rate 20 20 Blood Pressure 111/73 Pulse Oximetry 99 Oxygen Delivery Oxygen Flow Rate Fraction of Inspired Oxygen 10/27/24 10:30 10/27/24 10:32 10/27/24 10:35 Temperature Pulse Rate 68 77 101 H Respiratory Rate 20 24 H Blood Pressure Pulse Oximetry Oxygen Delivery Oxygen Flow Rate Fraction of Inspired Oxygen 10/27/24 12:00 10/27/24 12:00 10/27/24 12:00 Temperature 36.4 C L Pulse Rate 68 68 70 Respiratory Rate 24 H 24 H Blood Pressure 115/72 Pulse Oximetry 99 99 Oxygen Delivery BiPAP Oxygen Flow Rate Fraction of Inspired Oxygen 28 10/27/24 12:07 10/27/24 13:33 10/27/24 13:38 Temperature Pulse Rate 68 62 66 Respiratory Rate 24 H 22 H 24 H Blood Pressure Pulse Oximetry 99 Oxygen Delivery BiPAP Oxygen Flow Rate Fraction of Inspired Oxygen 10/27/24 14:00 10/27/24 14:00 10/27/24 14:02 Temperature Pulse Rate 80 80 80 Respiratory Rate 23 H 23 H Blood Pressure 118/72 Pulse Oximetry 97 Oxygen Delivery Oxygen Flow Rate Fraction of Inspired Oxygen 10/27/24 16:00 10/27/24 16:00 10/27/24 16:00 Temperature 36.7 C Pulse Rate 80 67 66 Respiratory Rate 23 H 16 Blood Pressure 114/77 Pulse Oximetry 97 99 Oxygen Delivery BiPAP Oxygen Flow Rate Fraction of Inspired Oxygen 28 10/27/24 16:00 10/27/24 16:36 10/27/24 16:49 Temperature Pulse Rate 66 88 88 Respiratory Rate 16 24 H 16 Blood Pressure Pulse Oximetry 96 Oxygen Delivery BiPAP Oxygen Flow Rate Fraction of Inspired Oxygen 10/27/24 16:51 10/27/24 17:38 10/27/24 18:00 Temperature Pulse Rate 73 80 95 Respiratory Rate 25 H 27 H 27 H Blood Pressure 119/68 Pulse Oximetry 93 Oxygen Delivery Oxygen Flow Rate Fraction of Inspired Oxygen 10/27/24 18:00 10/27/24 20:00 10/27/24 20:00 Temperature Pulse Rate 95 87 82 Respiratory Rate 19 Blood Pressure Pulse Oximetry 99 Oxygen Delivery BiPAP Oxygen Flow Rate Fraction of Inspired Oxygen 28 10/27/24 20:00 10/27/24 21:56 10/27/24 21:56 Temperature Pulse Rate 82 87 Respiratory Rate 22 H 26 H Blood Pressure 107/74 Pulse Oximetry 100 99 99 Oxygen Delivery BiPAP Nasal Cannula Oxygen Flow Rate 2 Fraction of Inspired Oxygen 10/27/24 21:56 10/27/24 22:00 10/27/24 22:00 Temperature Pulse Rate 87 84 88 Respiratory Rate 19 23 H Blood Pressure 123/75 Pulse Oximetry 100 Oxygen Delivery Oxygen Flow Rate Fraction of Inspired Oxygen 10/28/24 00:00 10/28/24 00:00 10/28/24 00:00 Temperature 36.9 C Pulse Rate 88 78 80 Respiratory Rate 23 H 19 Blood Pressure 132/82 Pulse Oximetry 100 100 Oxygen Delivery BiPAP Oxygen Flow Rate Fraction of Inspired Oxygen 10/28/24 00:16 10/28/24 00:16 10/28/24 00:30 Temperature Pulse Rate 81 81 90 Respiratory Rate 23 H 23 H 22 H Blood Pressure Pulse Oximetry 99 Oxygen Delivery BiPAP Oxygen Flow Rate Fraction of Inspired Oxygen 10/28/24 02:00 10/28/24 02:00 10/28/24 03:35 Temperature Pulse Rate 80 80 80 Respiratory Rate 20 20 Blood Pressure 123/78 Pulse Oximetry 99 99 Oxygen Delivery BiPAP Oxygen Flow Rate Fraction of [employer] 28 10/28/24 04:00 10/28/24 04:00 10/28/24 04:15 Temperature Pulse Rate 78 78 90 Respiratory Rate 24 H 24 H Blood Pressure 131/79 Pulse Oximetry 98 99 Oxygen Delivery BiPAP Oxygen Flow Rate Fraction of [employer] 10/28/24 04:15 10/28/24 06:00 10/28/24 06:00 Temperature Pulse Rate 92 120 H 120 H Respiratory Rate 24 H 25 H Blood Pressure 107/59 L Pulse Oximetry 100 Oxygen Delivery Oxygen Flow Rate Fraction of [employer] O[employer] 10/28/24 08:00 10/28/24 08:00 10/28/24 08:00 Temperature 36.6 C Pulse Rate 92 96 Respiratory Rate 22 H 21 H Blood Pressure 128/86 Pulse Oximetry 100 99 Oxygen Delivery Nasal Cannula Oxygen Flow Rate 2 Fraction of [employer] 10/28/24 08:12 Temperature Pulse Rate 96 Respiratory Rate 24 H Blood Pressure Pulse Oximetry Oxygen Delivery Oxygen Flow Rate Fraction of [employer] O[employer] Intake/Output Intake/Output: Intake & Output 10/25/24 10/26/24 10/27/24 10/28/24 23:59 23:59 23:59 23:59 Intake Total 4250.1 873.5 540.2 Output Total 450 700 625 350 Balance 3800.1 173.5 -84.8 -350 Meds/Results Medications: Active Medications Generic Name Dose Route Start Last Admin Trade Name Freq PRN Reason Stop Dose Admin Acetaminophen 650 mg 10/24/24 18:55 Acetaminophen 325 Mg Tablet PO Q4H PRN Mild Pain (1-3) or Fever Hydrocodone Bitart/Acetaminophen 1 tab 10/24/24 19:04 10/28/24 01:19 Hydrocodone/Acetaminophen (*Crx) 5-325 Mg Tablet PO 1 tab Q4H PRN Administration Moderate Pain (4-6) Albuterol/Ipratropium 3 ml 10/25/24 16:00 10/28/24 07:59 Ipratropium 0.5 Mg/Albuterol Sulfate 2.5 Mg Ampul.Neb 3 Ml INHALATION 3 ml Q4HRT [facility]ANE Administration Buspirone HCl 5 mg 10/27/24 21:00 10/27/24 21:03 Buspirone Hcl 5 Mg Tablet PO 5 mg Q12HR [facility] Administration Clopidogrel Bisulfate 75 mg 10/25/24 09:00 10/27/24 10:32 Clopidogrel Bisulfate 75 Mg Tablet PO 75 mg DAILY [facility] Administration Docusate Sodium 100 mg 10/25/24 09:00 10/27/24 21:03 Docusate Sodium 100 Mg Capsule PO Not Given Q12HR [facility]ANE Enoxaparin Sodium 40 mg 10/25/24 09:00 10/27/24 10:33 Enoxaparin 40 Mg/0.4 Ml Syringe SUB-Q 40 mg DAILY [facility]ANE Administration Guaifenesin 1,200 mg 10/25/24 14:30 10/27/24 21:02 Guaifenesin 12 Hr 600 Mg Tabcr PO 1,200 mg Q12HR [facility] Administration Ceftriaxone Sodium 2 gm in 100 mls @ 200 mls/hr 10/25/24 14:00 10/27/24 17:37 Rocephin 2 Gm/Ns 100 Ml IVPB Infused Q24H [facility] Infusion Azithromycin 500 mg in 250 mls @ 250 mls/hr 10/25/24 14:00 10/27/24 17:37 Zithromax IVPB 10/28/24 14:59 Infused Q24H [facility] Infusion Isosorbide Mononitrate 30 mg 10/24/24 23:15 10/27/24 21:03 Isosorbide Mononitrate 30 Mg Tab.Er.24h PO 30 mg Q12HR [facility] Administration Lorazepam 1 mg 10/26/24 13:17 10/28/24 05:06 Lorazepam (*Crx) 1 Mg Tablet PO 1 mg Q4H PRN Administration Anxiety Metoprolol Succinate 25 mg 10/25/24 09:00 10/27/24 10:32 Metoprolol Succinate Ext Rel 25 Mg Tabcr PO 25 mg QAM [facility]ANE Administration Metoprolol Tartrate 5 mg 10/25/24 15:39 Metoprolol Tartrate Inj 5 Mg/5 Ml Vial IV PUSH Q4H PRN Heart rate > 120 and SBP > 100 Midodrine 10 mg 10/24/24 21:25 10/27/24 17:47 Midodrine Hcl 10 Mg Tablet PO 10 mg TID [facility]ANE Administration Pramipexole Dihydrochloride 1 mg 10/24/24 23:15 10/27/24 21:03 Pramipexole 1 Mg Tablet PO 1 mg HS [facility]ANE Administration Prednisone 40 mg 10/26/24 09:20 10/27/24 10:32 Prednisone 20 Mg Tablet PO 40 mg DAILY@0800 [facility] Administration Rosuvastatin Calcium 10 mg 10/25/24 09:00 10/27/24 10:32 Rosuvastatin 10 Mg Tablet PO 10 mg DAILY [facility]ANE Administration Radiology Results: ITS Impressions Chest CTA 10/25/24 21:04 IMPRESSION: No pulmonary embolus. No thoracic aortic dissection. Severe panlobular bullous emphysema, unchanged from 05/03/2024. Interval development of small bilateral pleural effusions, right greater than left with adjacent compressive atelectasis. Chest X-Ray 10/28/24 08:35 Impression: 1: Patchy bilateral airspace disease, compatible with pneumonia. Labs Labs: Laboratory Results - last 24 hr 10/28/24 03:49 WBC 13.5 H RBC 3.79 L Hgb 11.9 L Hct 37.0 L MCV 97.6 MCH 31.4 MCHC 32.2 RDW 13.2 Plt Count 215 MPV 10.4 Sodium 140 Potassium 4.1 Chloride 105 Carbon Dioxide 29 Anion Gap 6 BUN 32 H Creatinine 0.84 Estim Creat Clear Calc 54 Estimated GFR > 60 Glucose 87 Calcium 8.8 Magnesium 2.5 H Total Bilirubin 0.4 AST 41 ALT 29 Alkaline Phosphatase 65 Total Protein 7.0 Albumin 3.8
[2024-10-28] MEDS: ISOSORBIDE MONONITRATE 30 MG TAB.ER.24H PO ×2 (10:09→20:51)
[2024-10-28] MEDS: CLOPIDOGREL BISULFATE 75 MG TABLET PO (10:09)
[2024-10-28] MEDS: MIDODRINE HCL 10 MG TABLET PO ×3 (10:09→17:34)
[2024-10-28] MEDS: METOPROLOL SUCCINATE EXT REL 25 MG TABCR PO (10:09)
[2024-10-28] MEDS: ROSUVASTATIN 10 MG TABLET PO (10:09)
[2024-10-28] MEDS: busPIRone HCL 5 MG TABLET PO ×2 (10:09→20:50)
[2024-10-28] MEDS: guaiFENesin 12 HR 600 MG TABCR 1200 MG PO ×2 (10:09→20:50)
[2024-10-28] MEDS: predniSONE 20 MG TABLET 40 MG PO (10:09)
[2024-10-28] MEDS: DOCUSATE SODIUM 100 MG CAPSULE PO ×2 (10:09→20:50)
[2024-10-28] MEDS: ENOXAPARIN 40 MG/0.4 ML SYRINGE SUB-Q (10:09)
--- NOTE | 2024-10-28 11:08 | PCFNICU ---
ICU Rounding Note: Pt current nutrition is Regular diet. Last recorded weight is 52.2 kg, down from 53 kg on admit. Bowel Motility: No BM reported. Labs Reviewed: Mg 2.5, BUN 32, Hct 37.0, Hgb 11.9 Meds Noted: Rocephin, Colace, Prednisone. Skin: WNL Additional Notes: Patient on a regular diet. Oral Intake reported 75% of breakfast. Current with 2 liters O2 today. Agree with diet orders. Following daily in ICU rounds. Monitor intake, wt, labs. Follow up in 7 days.
--- NOTE | 2024-10-28 11:52 | PM.IMPN ---
Progress Note: A&P Assessment and Plan (1) Acute and chronic respiratory failure with hypoxia: Code(s): J96.21 - Acute and chronic respiratory failure with hypoxia Status: Acute Assessment and Plan: Patient has acute on chronic respiratory failure secondary to COPD exacerbation, anxiety and component of drug-seeking behavior CTA of the chest showed no PE or aortic dissection. He had severe panlobular bolus emphysema unchanged from last year. Interval development of small bilateral pleural effusions right greater than left with compressive atelectasis noted. Continue AVAPS as per vascular physician on p.r.n. basis and at night. Otherwise during the day he is on room air. Continue prednisone and bronchodilator Continue antibiotics to complete a 5 days course Continue p.r.n. Ativan and buspar for anxiety. Precedex was weaned off. (2) COPD exacerbation: Code(s): J44.1 - Chronic obstructive pulmonary disease with (acute) exacerbation Status: Acute Assessment and Plan: As above (3) Anxiety: Code(s): F41.9 - Anxiety disorder, unspecified Status: Acute Assessment and Plan: Patient with known anxiety and was on lorazepam before being weaned off by his PCP. He becomes extremely agitated and demands lorazepam regularly. Concern for abuse Uncontrolled anxiety is impacting his respiratory problems. Continue Lorazepam prn. Buspar added with some benefit. (4) Cardiomyopathy: Code(s): I42.9 - Cardiomyopathy, unspecified Status: Acute Assessment and Plan: Patient has history of cardiomyopathy. Echo showing EF 30-35% now. Cardiology following and appreciate their input. Continue Plavix, Imdur, Toprol and Crestor. Resume Entresto Follow (5) Sepsis: Code(s): A41.9 - Sepsis, unspecified organism Status: Acute Assessment and Plan: Patient met criteria for sepsis and had elevated lactic acid level which has improved Chest imaging did not show any pneumonia. UA negative. BCx NGTD Patient is on empiric antibiotics; continue to complete a 5 day course Monitor (6) Elevated troponin: Code(s): R79.89 - Other specified abnormal findings of blood chemistry Status: Acute Assessment and Plan: Mild elevation in troponin level to 0.8 that is already tredning down. EKG reviewed and patient denies any chest pain Echo showing EF 30-35% with akinetic anteroseptum and diffuse hypokinetic lobato. Grade I diastolic dysfxn. Mild-mod MR. Likely type 2 NSTEMI from respiratory failure. he is known to have poor EF. Continue Plavix, metoprolol and statin. Resume Entresto (7) Coronary artery disease: Code(s): I25.10 - Atherosclerotic heart disease of [place] coronary artery without angina pectoris Status: Acute Assessment and Plan: As above (8) Afib: Code(s): I48.91 - Unspecified atrial fibrillation Status: Acute Assessment and Plan: EKG showing NSR. Continue Toprol XL IV p.r.n. metoprolol available Plan Disp - PT/OT. OOB, remove Lazo DVT prophylaxis - Lovenox Code Status - Full Code Subjective Date/time seen: 10/28/24 11:52 Interval history: 69yo male with COPD, CAD s/p LAD and RCA stents, and CHF (previously with EF of 25% wearing a life vest with plans for an ICD) here for SOB. Patient was on and off his BiPAP last night. Shortness of breath is better. Cough is persistent. He did eat well this morning. Exam Narrative: AF 97.5 134/89 94 24 98% 2L Gen - NARD with bipap in place at the time of the visit. Chest -distant breath sounds. CV - RRR S1/S2. Telemetry showing no significant dysrhythmias Abd - Soft, NT/ND, Positive BS -Lazo catheter secured draining clear yellow urine. Ext - No pedal edema Psych - less anxious today; appears motivated Skin - Warm and dry Objective Data Vital Signs Vital Signs: Vital Signs - 24 hr 10/27/24 12:00 10/27/24 12:00 10/27/24 12:00 Temperature 97.5 F L Pulse Rate 68 68 70 Respiratory Rate 24 H 24 H Blood Pressure 115/72 Pulse Oximetry 99 99 Oxygen Delivery BiPAP Oxygen Flow Rate Fraction of [employer] 28 10/27/24 12:07 10/27/24 13:33 10/27/24 13:38 Temperature Pulse Rate 68 62 66 Respiratory Rate 24 H 22 H 24 H Blood Pressure Pulse Oximetry 99 Oxygen Delivery BiPAP Oxygen Flow Rate Fraction of [employer] 10/27/24 14:00 10/27/24 14:00 10/27/24 14:02 Temperature Pulse Rate 80 80 80 Respiratory Rate 23 H 23 H Blood Pressure 118/72 Pulse Oximetry 97 Oxygen Delivery Oxygen Flow Rate Fraction of [employer] 10/27/24 16:00 10/27/24 16:00 10/27/24 16:00 Temperature 98.1 F Pulse Rate 80 67 66 Respiratory Rate 23 H 16 Blood Pressure 114/77 Pulse Oximetry 97 99 Oxygen Delivery BiPAP Oxygen Flow Rate Fraction of [employer] 28 10/27/24 16:00 10/27/24 16:36 10/27/24 16:49 Temperature Pulse Rate 66 88 88 Respiratory Rate 16 24 H 16 Blood Pressure Pulse Oximetry 96 Oxygen Delivery BiPAP Oxygen Flow Rate Fraction of [employer] O[employer] 10/27/24 16:51 10/27/24 17:38 10/27/24 18:00 Temperature Pulse Rate 73 80 95 Respiratory Rate 25 H 27 H 27 H Blood Pressure 119/68 Pulse Oximetry 93 Oxygen Delivery Oxygen Flow Rate Fraction of [employer] 10/27/24 18:00 10/27/24 20:00 10/27/24 20:00 Temperature Pulse Rate 95 87 82 Respiratory Rate 19 Blood Pressure Pulse Oximetry 99 Oxygen Delivery BiPAP Oxygen Flow Rate Fraction of [employer] 28 10/27/24 20:00 10/27/24 21:56 10/27/24 21:56 Temperature Pulse Rate 82 87 Respiratory Rate 22 H 26 H Blood Pressure 107/74 Pulse Oximetry 100 99 99 Oxygen Delivery BiPAP Nasal Cannula Oxygen Flow Rate 2 Fraction of [employer] 10/27/24 21:56 10/27/24 22:00 10/27/24 22:00 Temperature Pulse Rate 87 84 88 Respiratory Rate 19 23 H Blood Pressure 123/75 Pulse Oximetry 100 Oxygen Delivery Oxygen Flow Rate Fraction of [employer] O[employer] 10/28/24 00:00 10/28/24 00:00 10/28/24 00:00 Temperature 98.5 F Pulse Rate 88 78 80 Respiratory Rate 23 H 19 Blood Pressure 132/82 Pulse Oximetry 100 100 Oxygen Delivery BiPAP Oxygen Flow Rate Fraction of [employer] O[employer] 28 10/28/24 00:16 10/28/24 00:16 10/28/24 00:30 Temperature Pulse Rate 81 81 90 Respiratory Rate 23 H 23 H 22 H Blood Pressure Pulse Oximetry 99 Oxygen Delivery BiPAP Oxygen Flow Rate Fraction of [employer] O[employer] 10/28/24 02:00 10/28/24 02:00 10/28/24 03:35 Temperature Pulse Rate 80 80 80 Respiratory Rate 20 20 Blood Pressure 123/78 Pulse Oximetry 99 99 Oxygen Delivery BiPAP Oxygen Flow Rate Fraction of [employer] O[employer] 28 10/28/24 04:00 10/28/24 04:00 10/28/24 04:15 Temperature Pulse Rate 78 78 90 Respiratory Rate 24 H 24 H Blood Pressure 131/79 Pulse Oximetry 98 99 Oxygen Delivery BiPAP Oxygen Flow Rate Fraction of [employer] O[employer] 10/28/24 04:15 10/28/24 06:00 10/28/24 06:00 Temperature Pulse Rate 92 120 H 120 H Respiratory Rate 24 H 25 H Blood Pressure 107/59 L Pulse Oximetry 100 Oxygen Delivery Oxygen Flow Rate Fraction of [employer] 10/28/24 08:00 10/28/24 08:00 10/28/24 08:00 Temperature 97.8 F Pulse Rate 92 96 Respiratory Rate 22 H 21 H Blood Pressure 128/86 Pulse Oximetry 100 99 Oxygen Delivery Nasal Cannula Oxygen Flow Rate 2 Fraction of [employer] O[employer] 10/28/24 08:00 10/28/24 08:12 10/28/24 10:00 Temperature Pulse Rate 83 96 91 Respiratory Rate 24 H Blood Pressure Pulse Oximetry Oxygen Delivery Oxygen Flow Rate Fraction of [employer] O[employer] 10/28/24 10:00 10/28/24 10:09 10/28/24 11:16 Temperature 97.5 F L Pulse Rate 85 83 90 Respiratory Rate 24 H 20 Blood Pressure 134/89 Pulse Oximetry 98 Oxygen Delivery Oxygen Flow Rate Fraction of [employer] O[employer] 10/28/24 11:26 Temperature Pulse Rate 94 Respiratory Rate 24 H Blood Pressure Pulse Oximetry Oxygen Delivery Oxygen Flow Rate Fraction of [employer] O[employer] Intake/Output Intake/Output: Intake & Output 10/25/24 10/26/24 10/27/24 10/28/24 23:59 23:59 23:59 23:59 Intake Total 4250.1 873.5 540.2 120 Output Total 450 700 625 350 Balance 3800.1 173.5 -84.8 -230 Meds/Results Medications: Active Medications Generic Name Dose Route Start Last Admin Trade Name Freq PRN Reason Stop Dose Admin Acetaminophen 650 mg 10/24/24 18:55 Acetaminophen 325 Mg Tablet PO Q4H PRN Mild Pain (1-3) or Fever Hydrocodone Bitart/Acetaminophen 1 tab 10/24/24 19:04 10/28/24 01:19 Hydrocodone/Acetaminophen (*Crx) 5-325 Mg Tablet PO 1 tab Q4H PRN Administration Moderate Pain (4-6) Albuterol/Ipratropium 3 ml 10/25/24 16:00 10/28/24 11:15 Ipratropium 0.5 Mg/Albuterol Sulfate 2.5 Mg Ampul.Neb 3 Ml INHALATION 3 ml Q4HRT LIANE Administration Buspirone HCl 5 mg 10/27/24 21:00 10/28/24 10:09 Buspirone Hcl 5 Mg Tablet PO 5 mg Q12HR [facility]ANE Administration Clopidogrel Bisulfate 75 mg 10/25/24 09:00 10/28/24 10:09 Clopidogrel Bisulfate 75 Mg Tablet PO 75 mg DAILY [facility] Administration Docusate Sodium 100 mg 10/25/24 09:00 10/28/24 10:09 Docusate Sodium 100 Mg Capsule PO 100 mg Q12HR [facility]ANE Administration Enoxaparin Sodium 40 mg 10/25/24 09:00 10/28/24 10:09 Enoxaparin 40 Mg/0.4 Ml Syringe SUB-Q 40 mg DAILY [facility] Administration Guaifenesin 1,200 mg 10/25/24 14:30 10/28/24 10:09 Guaifenesin 12 Hr 600 Mg Tabcr PO 1,200 mg Q12HR [facility]ANE Administration Ceftriaxone Sodium 2 gm in 100 mls @ 200 mls/hr 10/25/24 14:00 10/27/24 17:37 Rocephin 2 Gm/Ns 100 Ml IVPB Infused Q24H [facility] Infusion Azithromycin 500 mg in 250 mls @ 250 mls/hr 10/25/24 14:00 10/27/24 17:37 Zithromax IVPB 10/28/24 14:59 Infused Q24H [facility] Infusion Isosorbide Mononitrate 30 mg 10/24/24 23:15 10/28/24 10:09 Isosorbide Mononitrate 30 Mg Tab.Er.24h PO 30 mg Q12HR [facility]ANE Administration Lorazepam 1 mg 10/26/24 13:17 10/28/24 10:09 Lorazepam (*Crx) 1 Mg Tablet PO 1 mg Q4H PRN Administration Anxiety Metoprolol Succinate 25 mg 10/25/24 09:00 10/28/24 10:09 Metoprolol Succinate Ext Rel 25 Mg Tabcr PO 25 mg QAM LIANE Administration Metoprolol Tartrate 5 mg 10/25/24 15:39 Metoprolol Tartrate Inj 5 Mg/5 Ml Vial IV PUSH Q4H PRN Heart rate > 120 and SBP > 100 Midodrine 10 mg 10/24/24 21:25 10/28/24 10:09 Midodrine Hcl 10 Mg Tablet PO 10 mg TID LIANE Administration Pramipexole Dihydrochloride 1 mg 10/24/24 23:15 10/27/24 21:03 Pramipexole 1 Mg Tablet PO 1 mg HS LIANE Administration Prednisone 40 mg 10/26/24 09:20 10/28/24 10:09 Prednisone 20 Mg Tablet PO 40 mg DAILY@0800 [facility] Administration Rosuvastatin Calcium 10 mg 10/25/24 09:00 10/28/24 10:09 Rosuvastatin 10 Mg Tablet PO 10 mg DAILY LIANE Administration Radiology Results: ITS Impressions Chest CTA 10/25/24 21:04 IMPRESSION: No pulmonary embolus. No thoracic aortic dissection. Severe panlobular bullous emphysema, unchanged from 05/03/2024. Interval development of small bilateral pleural effusions, right greater than left with adjacent compressive atelectasis. Chest X-Ray 10/28/24 08:35 Impression: 1: Patchy bilateral airspace disease, compatible with pneumonia. Labs Labs: Laboratory Results - last 24 hr 10/28/24 03:49 WBC 13.5 H RBC 3.79 L Hgb 11.9 L Hct 37.0 L MCV 97.6 MCH 31.4 MCHC 32.2 RDW 13.2 Plt Count 215 MPV 10.4 Sodium 140 Potassium 4.1 Chloride 105 Carbon Dioxide 29 Anion Gap 6 BUN 32 H Creatinine 0.84 Estim Creat Clear Calc 54 Estimated GFR > 60 Glucose 87 Calcium 8.8 Magnesium 2.5 H Total Bilirubin 0.4 AST 41 ALT 29 Alkaline Phosphatase 65 Total Protein 7.0 Albumin 3.8
[2024-10-28] MEDS: cefTRIAXone 2 GM/NS 100 ML 2 GM/100 ML BAG IVPB (14:29)
[2024-10-28] MEDS: AZITHROMYCIN 500 MG/NS 250 ML 500 MG/250 ML BAG 250 MG IVPB (15:03)
--- NOTE | 2024-10-28 15:45 | PCSTNOTE ---
Attempted bedside swallow evaluation but first checked with nurse who indicated the order should have been cancelled. Nurse indicated the bedside swallow evaluation was no longer warranted.
[2024-10-28] MEDS: SACUBITRIL/VALSARTAN 24-26 MG TABLET 1 TAB PO (17:34)
--- NOTE | 2024-10-28 17:58 | PC.NURSE ---
Report given to SABINA Lovell in IMU. Patient belongings collected and sent with appropriate documentation to receiving unit.
[2024-10-28 19:53] LABS: Legionella pneumophila Ag Ur NOT DETECTED
[2024-10-28] MEDS: PRAMIPEXOLE 1 MG TABLET PO (20:51)
[2024-10-29] VITALS (28 sets, daily range): BP systolic 121–128; BP diastolic 78–87; PULSE 69–99; RESP 16–29; TEMP 36.3–36.4; O2SAT 97–100
[2024-10-29] MEDS: IPRATROPIUM 0.5 MG/ALBUTEROL SULFATE 2.5 MG AMPUL.NEB 3 ML INHALATION ×5 (00:11→19:57)
[2024-10-29] MEDS: LORazepam (*CRX) 1 MG TABLET PO ×3 (01:12→23:05)
--- NOTE | 2024-10-29 04:11 | PCRCNOTE ---
0400 treatment omitted as patient was finally sleeping.
[2024-10-29 05:17] LABS: Hemoglobin 11.1 g/dL (14.0-18.0); Mean Corpuscular HGB Conc 31.7 g/dl (32-36); Mean Corpuscular Hemoglobin 30.9 pg (26-34); Mean Corpuscular Volume 97.5 fl (80-100); Mean Platelet Volume 10.5 fl (7.4-10.4); Platelet Count Result 236 k/mm3 (150-375); Red Blood Count 3.59 M/mm3 (4.6-6.20); Red Cell Distribution Width 13.2 % (11.5-14.5); White Blood Count 10.3 K/mm3 (4.5-10.0)
[2024-10-29 05:28] LABS: Alanine Aminotransferase 29 U/L (6-50); Albumin Level 3.6 g/dL (3.5-5.1); Alkaline Phosphatase 60 U/L (38-126); Anion Gap 6 mmol/L (4-12); Aspartate Amino Transferase 35 U/L (17-59); Bilirubin,Total 0.6 mg/dL (0.2-1.3); Blood Urea Nitrogen 22 mg/dL (9-20); Calcium 8.5 mg/dL (8.4-10.2); Carbon Dioxide 31 mmol/L (22-30); Chloride 103 mmol/L (98-107); Estimated CRCL calculation 64 ml/min; Estimated Glomerular Filt Rate > 60; Glucose 97 mg/dL (65-110); Magnesium 2.2 mg/dL (1.6-2.3); Potassium 4.3 mmol/L (3.4-5.0); Sodium 140 mmol/L (137-145)
[2024-10-29] MEDS: ROSUVASTATIN 10 MG TABLET PO (08:22)
[2024-10-29] MEDS: METOPROLOL SUCCINATE EXT REL 25 MG TABCR PO (08:22)
[2024-10-29] MEDS: guaiFENesin 12 HR 600 MG TABCR 1200 MG PO ×2 (08:23→23:05)
[2024-10-29] MEDS: ISOSORBIDE MONONITRATE 30 MG TAB.ER.24H PO ×2 (08:23→23:05)
[2024-10-29] MEDS: CYANOCOBALAMIN 1,000 MCG TABLET 1000 MCG PO (08:23)
[2024-10-29] MEDS: busPIRone HCL 5 MG TABLET PO ×2 (08:24→23:05)
[2024-10-29] MEDS: ENOXAPARIN 40 MG/0.4 ML SYRINGE SUB-Q (08:24)
[2024-10-29] MEDS: MIDODRINE HCL 10 MG TABLET PO ×3 (08:24→16:55)
[2024-10-29] MEDS: predniSONE 20 MG TABLET 40 MG PO (08:24)
[2024-10-29] MEDS: CLOPIDOGREL BISULFATE 75 MG TABLET PO (08:24)
[2024-10-29] MEDS: SACUBITRIL/VALSARTAN 24-26 MG TABLET 1 TAB PO (08:39)
--- NOTE | 2024-10-29 08:54 | PM.PNPUL ---
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 CT scan on 03/27/2022 with severe apical predominant panlobular emphysema.? PFTs on 04/10/2022 demonstrate moderately severe obstructive abnormality, FEV1 1.61 L, 53% predicted, FEV1:FVC ratio 48%, ?normal lung volumes, DLCO moderately decreased when adjusted for alveolar volume at 51%. ?No oxygen at rest, with ambulation or at night per 6 minutes walk on 10/21/2022 and overnight oximetry on 10/12/2022. Outpatient exacerbation 03/2023. he was clinically stable with dyspnea on exertion at 5 blocks, M MRC grade of 1, cat score of 17 on Stiolto Respimat 1 puff twice a day, rescue albuterol which she use 2 to 3 times a month and guaifenesin 1200 p.o. twice a day. He was smoking 10 cigarettes a day. He was up-to-date on influenza and COVID vaccine and received RSV and 2022. 10/24/2024: Patient presents with 3 days history acute worsening shortness of breath, dyspnea on exertion and hypoxic respiratory distress. He had wheezing in the emergency room. Son had COVID last week his initial COVID test in the ED was negative. Treated with steroids, bronchodilators, ceftriaxone and azithromycin. 10/26/2023: The patient tells me he feels about the same as yesterday. When I enter the room he was on BiPAP rate of 16 breathing 30, pressures 10/5 with tidal volumes 576. He was on 28% FiO2 with saturations 98%. ABG 7.25/37/100. His white blood cell count is 12.7, creatinine 0.6. His weight is 52.9. He was in mild respiratory distress with decreased air movement bilaterally. He said the machine was not giving him air fast enough and I switched him to a noninvasive ventilation mode with the AVAPS mode rate of 20, tidal volume 500, EPAP 5, minimal inspiratory pressure 6, maximal inspiratory pressure 25, inspiratory time 0.8, rise of 1 and 28% FiO2. Peak airway pressures were 12. Patient told me this felt better. Plan: I will check a D-dimer and if this is positive will do a CT angiogram of the chest. Place the patient on DuoNebs q.4 hours. Currently is on Solu-Medrol 60 mg IV q.8 hours, will continue. Continue ceftriaxone and azithromycin, both day 2. I have ordered an respiratory pathogen panel, urine Legionella, urine pneumococcal, serum mycoplasma IgM and will repeat COVID, RSV, influenza swab on 10/27/2023. Will place on guaifenesin 1200 mg p.o. b.i.d. to aid expectoration. Patient with difficulty breathing on BiPAP and I have changed to noninvasive ventilation with the AVAPS mode and will check a blood gas in 30 minutes.. Patient tells me he takes Ativan 2 mg 4 times a day at home and he is very anxious at this time. Discussed with girlfriend in the room, Drs. Watkins and Walt. Patient developed worsening anxiety and shortness of breath and was transferred to the ICU and started on a Precedex drip. CT angiogram of the chest showed no PE, right upper lobe posterior infiltrate new since 05/03/2024 and panlobular emphysema unchanged. Patient had an echocardiogram with an EF of 30-35%, grade 1 diastolic dysfunction, [id number] mitral regurg, normal RV size and function, normal right atrial size, PASP 39. 10/27/2023. Overall patient tells me he is breathing about the same. He is afebrile. He remains on Precedex drip 0.7 and noninvasive ventilation with the AVAPS mode at 28% FiO2 with saturations 100%. He has no wheezing on exam. White blood cell count 11.8, creatinine 0.89. He was +3.5 L yesterday and is +5.5 L since admission. Weight is 51.6 with an admission weight of 48. Respiratory pathogen panel, urine Legionella, urine pneumococcal and mycoplasma IgM pending. Plan: Continue noninvasive ventilation with the AVAPS mode on a p.r.n. basis during the day and continue this at night. Will decrease his Solu-Medrol to prednisone 40 mg p.o. q.day. Continue DuoNebs q.4 hours, guaifenesin 1200 mg p.o. b.i.d.. Continue ceftriaxone and azithromycin, both day 3. 10/27/2024: patient wore the noninvasive ventilation with the AVAPS mode overnight. When I entered the room he was on the noninvasive ventilator and said the airflow was too high and I adjusted the settings to comfort by decreasing his respiratory rate from 20-16. Increasing his inspiratory time from 0.7-1.1 and slowing his rise from a setting of 1 to a setting of 4. He said this was more comfortable. He said he was willing to come off of the noninvasive ventilator and he was placed on 2 L nasal cannula and his saturations were 100% And he was then placed on room air with saturations on room air of 100%. He said his breathing was back to his normal, no cough, a little bit of phlegm which is a baseline and no hemoptysis. His white blood cell count is 14.1, creatinine 0.9. He was -176 mL yesterday and cumulative he is +5.9 mL. His weight is 51.6 kg. Plan: Continue prednisone 40 mg p.o. q.day, day 4 of steroids. Continue DuoNebs q.4 hours. Continue ceftriaxone and azithromycin, both day 4. Goal saturation 90-94% and currently is on room air. Out of bed to chair as tolerated. 10/28/2024: Patient wore the noninvasive ventilator overnight and said that he slept better and he feels better. He currently is wearing the noninvasive ventilator. He says he has little bit of cough and phlegm close to his normal. No hemoptysis. White blood cell count 13.5, creatinine 0.84, BNP 7720. Chest x-ray compared to 10/24/2024 with unchanged right upper lobe infiltrate and new left lower lobe infiltrate. -84 mL yesterday cumulative he is positive 5.7 L. Weight 52.2 with an admission weight of 48. Continues to receive 1 mg of abdomen p.o. q.4 hours p.r.n. and taking this every 4 hours. Plan: today is the 1st day he feels like he is improving. Continue prednisone 40 mg a day, day 5 of steroids. Continue DuoNebs q.4 hours. Continue ceftriaxone and azithromycin both day 5. Will discontinue azithromycin after today's dose. Noninvasive ventilation p.r.n. during the day and nasal cannula oxygen for goal saturation 90-94% as tolerated. 10/29/2024: Patient transferred out of the ICU. Patient is wearing a noninvasive ventilator off and on throughout the day yesterday and last night. Overall he says he is 70-80% back to his normal. His cough is the same as usual and dry without phlegm or hemoptysis. He is afebrile. White blood cell count 10.3, creatinine 0.68. When I enter the room the patient was on room air with saturations 94%. Used 1 mg lorazepam x3 in the last 24 hours. yesterday was positive 490 mL in cumulative he has positive 6.5 L since admission. His weight is 49.3. urine Legionella negative. Urine pneumococcal antigen, mycoplasma IgM and respiratory pathogen panel pending. Plan: Continues to slowly improve. Continue prednisone 40 mg p.o. q.day, day 6 of steroids. Continue nebs q.4 hours. Status post ceftriaxone and is a throat for 5 days. Goal saturation 90-94%, currently is on room air. He becomes anxious and requests oxygen as well as his noninvasive ventilator. Will attempt to leave him off the noninvasive ventilator for the next 24 hours and if he tolerates this will repeat ABG. I will perform overnight oximetry on room air to determine if he qualifies for oxygen at night. Discussed with Dr. Hartley. (2) Acute hypercapnic respiratory failure: Code(s): J96.02 - Acute respiratory failure with hypercapnia Status: Acute Assessment and Plan: Patient is on no oxygen at rest, with activity or with sleep. VBG in the emergency department on 2 L was 7.29/57/less than 27. 4/02/11: Plan: Patient in mild respiratory distress on BiPAP and if changed to noninvasive ventilation with the AVAPS mode using the settings as above which were adjusted for comfort. Will repeat a blood gas in 30 minutes. I have discussed the case with the supervisor evaporator to make him aware that the patient is in mild respiratory distress on maximal noninvasive ventilation settings and and he has a history of severe anxiety requiring Ativan 2 mg p.o. 4 times a day at home in case he needs transfer to the ICU for respiratory failure or agitation requiring Precedex. I did talk to the patient and he is in agreement for intubation if needed. repeat blood gas on the AVAPS settings was 7.37/36/86. Patient developed worsening anxiety and shortness of breath and was transferred to the ICU and started on a Precedex drip. 10/27/2023. Overall patient tells me he is breathing about the same. He is afebrile. He remains on Precedex drip 0.7 and noninvasive ventilation with the AVAPS mode at 28% FiO2 with saturations 100%. Plan: attempt to wean Precedex off today. 10/27/2024: Will continue noninvasive ventilation p.r.n. during the day And at night. Plan: Attempt to wean Precedex off today. Once patient's breathing status has improved and he can tolerate off of the noninvasive ventilator for 24 hours will repeat blood gas to reassess for hypercarbic respiratory failure. Precedex turned off at 12 noon. BuSpar 5 bid started. 10/28/24: Patient continues to require noninvasive ventilation for work of breathing. Plan: Currently off Precedex and on BuSpar 5 p.o. b.i.d.. He requiring Ativan 1 mg p.o. q.4 hours p.r.n. and taking this every 4 hours. 10/29/24: On BuSpar 5 p.o. b.i.d.. On Ativan 1 mg p.o. q.4 hours p.r.n. and required 3 doses yesterday. plan Will attempt to leave him off the noninvasive ventilator for the next 24 hours and repeat a blood gas to reassess for chronic hypercarbic respiratory failure from his COPD. Subjective Date/time seen: 10/29/24 08:54 Interval history: 10/25/2024: This is a new pulmonary consult for COPD exacerbation on BiPAP. 69-year-old with a history of gold grade 2 group B COPD on no home oxygen, coronary artery disease S/P LAD and RCA stents, CHF (previously with EF of 25% wearing a life vest with plans for an ICD) per outside cardiology. patient last seen on 06/30/2024 in the [facility]. 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 CT scan on 03/27/2022 with severe apical predominant panlobular emphysema.? PFTs on 04/10/2022 demonstrate moderately severe obstructive abnormality, FEV1 1.61 L, 53% predicted, FEV1:FVC ratio 48%, ?normal lung volumes, DLCO moderately decreased when adjusted for alveolar volume at 51%. ?No oxygen at rest, with ambulation or at night per 6 minutes walk on 10/21/2022 and overnight oximetry on 10/12/2022. Outpatient exacerbation 03/2023. he was clinically stable with dyspnea on exertion at 5 blocks, M MRC grade of 1, cat score of 17 on Stiolto Respimat 1 puff twice a day, rescue albuterol which she use 2 to 3 times a month and guaifenesin 1200 p.o. twice a day. He was smoking 10 cigarettes a day. He was up-to-date on influenza and COVID vaccine and received RSV and 2022. The patient is currently on BiPAP so history is limited. Patient has acute illness for the last 3 days with worsening shortness of breath and dyspnea on exertion. patient's girlfriend tells me that his son who lives with him had COVID last week and the patient did well and is now back at work. His girlfriend who is in the room went to his house and he was in distress and they called EMS on 10/24/2024. Room air saturations were 70 the placed him on oxygen gave him a DuoNeb. In the emergency department blood pressure was 80/40, heart rate 87, 2 L nasal cannula saturation 98%. he had wheezing on exam. He was placed on BiPAP for work of breathing or respiratory distress. His white blood cell count was 15.5 with eosinophil 0.1% equals 15 per micro L, creatinine 0.86. Venous blood gas on 2 L 7.29/57/ less than 27. COVID, influenza, RSV RT PCR studies negative. Chest x-ray with hyperinflation and increased interstitial infiltrates in the upper lobes. Patient was treated with IV steroids, DuoNebs, ceftriaxone and azithromycin. 10/25/2024: The patient tells me he feels about the same as yesterday. When I enter the room he was on BiPAP rate of 16 breathing 30, pressures 10/5 with tidal volumes 576. He was on 28% FiO2 with saturations 98%. ABG 7.25/37/100. His white blood cell count is 12.7, creatinine 0.6. His weight is 52.9. He was in mild respiratory distress with decreased air movement bilaterally. He said the machine was not giving him air fast enough and I switched him to a noninvasive ventilation mode with the AVAPS mode rate of 20, tidal volume 500, EPAP 5, minimal inspiratory pressure 6, maximal inspiratory pressure 25, inspiratory time 0.8, rise of 1 and 28% FiO2. Peak airway pressures were 12. Patient told me this felt better. repeat blood gas on the AVAPS settings was 7.37/36/86. Patient developed worsening anxiety and shortness of breath and was transferred to the ICU and started on a Precedex drip. CT angiogram of the chest showed no PE, right upper lobe posterior infiltrate new since 05/03/2024 and panlobular emphysema unchanged. Patient had an echocardiogram with an EF of 30-35%, grade 1 diastolic dysfunction, [id number] mitral regurg, normal RV size and function, normal right atrial size, PASP 39. 10/26/2024. Overall patient tells me he is breathing about the same. He is afebrile. He remains on Precedex drip 0.7 and noninvasive ventilation with the AVAPS mode at 28% FiO2 with saturations 100%. He has no wheezing on exam. White blood cell count 11.8, creatinine 0.89. He was +3.5 L yesterday and is +5.5 L since admission. Weight is 51.6 with an admission weight of 48. 10/27/2024: Patient remains on Precedex drip 0.7. patient wore the noninvasive ventilation with the AVAPS mode overnight. When I entered the room he was on the noninvasive ventilator and said the airflow was too high and I adjusted the settings to comfort by decreasing his respiratory rate from 20 to 16. Increasing his inspiratory time from 0.7 to 1.1 and slowing his rise from a setting of 1 to a setting of 4. He said this was more comfortable. He said he was willing to come off of the noninvasive ventilator and he was placed on 2 L nasal cannula and his saturations were 100% And he was then placed on room air with saturations on room air of 100%. He said his breathing was back to his normal, no cough, a little bit of phlegm which is a baseline and no hemoptysis. His white blood cell count is 14.1, creatinine 0.9. He was -176 mL yesterday and cumulative he is +5.9 mL. His weight is 51.6 kg. Precedex turned off at 12 noon. BuSpar 5 bid started. 10/28/2024: Patient wore the noninvasive ventilator overnight and said that he slept better and he feels better. He currently is wearing the noninvasive ventilator. He says he has little bit of cough and phlegm close to his normal. No hemoptysis. White blood cell count 13.5, creatinine 0.84, BNP 7720. Chest x-ray compared to 10/24/2024 with unchanged right upper lobe infiltrate and new left lower lobe infiltrate. -84 mL yesterday cumulative he is positive 5.7 L. Weight 52.2 with an admission weight of 48. Continues to receive 1 mg of lorazepam p.o. q.4 hours p.r.n. and taking this every 4 hours. 10/29/2024: Patient transferred out of the ICU. Patient is wearing a noninvasive ventilator off and on throughout the day yesterday and last night. Overall he says he is 70-80% back to his normal. His cough is the same as usual and dry without phlegm or hemoptysis. He is afebrile. White blood cell count 10.3, creatinine 0.68. When I enter the room the patient was on room air with saturations 94%. Used 1 mg lorazepam x3 in the last 24 hours. yesterday was positive 490 mL in cumulative he has positive 6.5 L since admission. His weight is 49.3. DATA: 04/29/24: CT Scan of the Chest without Contrast: Clinical Indication: Lung cancer screening, nicotine dependence COMPARISON: 04/29/2023 Findings: There is no evidence of any significant mediastinal, hilar or axillary lymphadenopathy. Coronary artery calcifications are present. There is no evidence of pleural or pericardial effusion. 6 mm right lower lobe pulmonary nodule present (axial image 90). Severe emphysema present. Images through the upper abdomen reveal no abnormalities. Impression: Lung RADS 3: Probably benign. Six-month follow-up CT recommended. 04/29/23:?EXAMINATION: CT lung screening ?INDICATION: Personal history of nicotine dependence ?COMPARISON: CT dated 03/27/2022 ?FINDINGS: No thoracic lymphadenopathy. There is atherosclerosis. Heart size normal. No significant pleural or pericardial effusion. There is evidence for chronic granulomatous disease. There is apical pleural thickening/scarring. There is a stable 4 mm right apical nodule, image 18. There is lower lobe atelectasis. There is severe emphysema. No new pulmonary nodules or masses. No focal airspace consolidation. There is diffuse idiopathic skeletal hyperostosis (DISH) of the thoracic spine. There is pneumobilia of the left hepatic lobe, consistent with previous sphincterotomy. ?IMPRESSION: ?1. Lung-RADS category 2: Benign appearance or behavior. Continue annual screening with noncontrast low-dose chest CT in 12 months. ?10/21/2022 This is a 6 minute walk test. The test was performed and interpreted in accordance with the 2014 ERS/ATS task force guidelines. ??Findings:? The patient's resting room air oxygen saturation measured by pulse oximetry was 98% and heart rate was 65 bpm.? Patient ambulated for 244 meters and oxygen saturation remained 98 to 100%.? Heart rate at the end of the study was 70 bpm. ??The patient did not qualify for supplemental oxygen at rest or with ambulation. ??There are no prior studies for comparison. ? 10/12/2022: Overnight oximetry on room air.? Basal saturation 93.8%.? High saturation 99%.? Low saturation 87%.? Time with saturation less than or equal to 88% was 33 seconds.? Oxygen desaturation index was 9 events per hour.? Patient requires no supplemental oxygen at night. ? ??04/10/2022 PFTs ??The test was performed and results interpreted in accordance with the 2019 and 2005 ATS/ERS Task Force guidelines respectively using the Global Lung Function Initiative-2012 reference equations. Patient demonstrated good effort and cooperation. Reproducibility criteria were met. The quality of the spirometry maneuver was Grade A. ???Findings: ???Spirometry:? There is decreased maximal expiratory airflow at all lung volumes with concave expiratory flow tracing.? The contour the inspiratory flow tracing is normal.? The FVC is 3.33 L, 85% predicted.? The FEV1 is 1.61 L, a 53% predicted.? The FEV1:? FVC ratio is 48%.?Plethysmography:? The total lung capacity is 6.12 L, 96% predicted.? The functional residual capacity is 4.49 L, 135% predicted.? The residual volume is 2.79 L, 126% predicted.?Diffusion capacity:? The diffusing capacity unadjusted for hemoglobin and carboxyhemoglobin is 16.2, 63% predicted.? The diffusing capacity adjusted for alveolar volume is 2.15, 51% predicted. ???Impression:?There is a moderately severe obstructive abnormality.?? The lung volumes are normal.? The diffusing capacity unadjusted for hemoglobin is mildly decreased and?remains moderately decreased when adjusted for alveolar volume. ???There are no prior studies for comparison. ? ?03/27/2022 EXAMINATION: CT lung screening ???DATE: 03/27/2022 08:58 ???INDICATION: Personal history of nicotine dependence, current smoker with 45 pack year history. ??COMPARISON: None ???FINDINGS: There is severe emphysema. There is a 5 mm nodule in the right lung apex. No pleural effusion or pneumothorax. There our secretions in the trachea. No pathologically enlarged thoracic lymph nodes are identified. The heart size is normal. Calcified coronary artery atherosclerosis is noted. Calcified pulmonary nodules and calcified right hilar lymph nodes are consistent with old granulomatous disease. Punctate calcifications in an otherwise normal spleen likely represent healed granulomatous disease. Pneumobilia is noted in the left hepatic lobe, likely related to prior biliary intervention. There are bridging osteophytes at multiple levels in the spine, consistent with diffuse idiopathic skeletal hyperostosis (DISH). ???IMPRESSION: ???1. Lung-RADS category 2: Benign appearance or behavior. Continue annual screening with noncontrast low-dose chest CT in 12 months. ?04/04/2022:? Echocardiogram at [facility]: ??Conclusions:? 1. Abnormal septal motion consistent with pacemaker ICD implant.? Severe global LV systolic hypokinesis.? Normal left ventricular size.? Normal left ventricular wall thickness.? Left ventricular ejection fraction is measured at 25%.? Normal right ventricular size.? There is nonspecific thickening of the mitral valve leaflets.? There is trace physiologic mitral valve regurgitation.? Normal appearing tricuspid valve leaflets.? There is trace physiologic tricuspid valve regurgitation.? Estimated peak pulmonary arterial systolic pressure is 20. Review of Systems Review of Systems: ROS unobtainable: Yes unobtainable due to medical condition Constitutional: Constitutional: Reports no additional constitutional complaints Eyes: Eyes: Reports no additional eye complaints ENT: Reports system reviewed and no additional complaints, except as documented Cardiovascular: Cardiovascular: Reports no additional cardiovascular complaints Respiratory: Respiratory: Reports no additional respiratory complaints Gastrointestinal: Gastrointestinal: Reports no additional gastrointestinal complaints Musculoskeletal: Musculoskeletal: Reports no additional musculoskeletal complaints Neurologic: Reports system reviewed and no additional complaints, except as documented Psychiatric: Psychiatric: Reports no additional psychiatric complaints Endocrine: Endocrine: Reports no additional endocrine complaints Hematologic/Lymphatic: Hematologic/Lymphatic: Reports no additional hematologic/lymphatic complaints Allergic/Immunologic: Allergic/Immunologic: Reports no additional allergic/immunologic complaints Exam Const: General: cooperative, healthy appearing, comfortable and in distress Orientation/consciousness: oriented to person, oriented to place and oriented to time Other: In mild distress on noninvasive ventilation HENMT: Head: normal to inspection Ears: hearing grossly normal bilaterally Eyes: General: appearance normal, both eyes and all related structures Neck: Neck: normal visual inspection Chest: Chest palpation & inspection: normal inspection of the chest Resp: Effort & Inspection: normal respiratory effort and able to speak in complete sentences Auscultation: no crackles, no rales, no rhonchi, no wheezes and diminished lung sounds Other: no wheezes Cardio: Jugular venous distension: no JVD GI: Inspection: normal to inspection Skin: General skin exam: normal color Neuro: General: oriented to person, oriented to place and oriented to time Extrem: General: normal to inspection and no edema Psych: Appearance: grossly normal Objective Data Vital Signs Vital Signs: Vital Signs - 24 hr 10/28/24 10:00 10/28/24 10:00 10/28/24 10:09 Temperature 36.4 C L Pulse Rate 91 85 83 Respiratory Rate 24 H Blood Pressure 134/89 Pulse Oximetry 98 Oxygen Delivery Oxygen Flow Rate Fraction of Inspired Oxygen 10/28/24 11:16 10/28/24 11:26 10/28/24 12:00 Temperature 36.4 C L Pulse Rate 90 94 87 Respiratory Rate 20 24 H 27 H Blood Pressure 123/85 Pulse Oximetry Oxygen Delivery Oxygen Flow Rate Fraction of Inspired Oxygen 10/28/24 12:00 10/28/24 12:00 10/28/24 14:00 Temperature 36.4 C Pulse Rate 95 88 85 Respiratory Rate 26 H 24 H Blood Pressure 126/89 Pulse Oximetry 91 Oxygen Delivery Nasal Cannula Oxygen Flow Rate 2 Fraction of Inspired Oxygen 10/28/24 14:00 10/28/24 15:34 10/28/24 15:48 Temperature Pulse Rate 83 90 95 Respiratory Rate 23 H 22 H Blood Pressure Pulse Oximetry Oxygen Delivery Oxygen Flow Rate Fraction of Inspired Oxygen 10/28/24 16:00 10/28/24 16:00 10/28/24 16:00 Temperature 36.3 C L Pulse Rate 85 95 115 H Respiratory Rate 21 H 19 Blood Pressure 141/95 H Pulse Oximetry 91 Oxygen Delivery Nasal Cannula Oxygen Flow Rate 2 Fraction of Inspired Oxygen 10/28/24 18:00 10/28/24 19:00 10/28/24 19:00 Temperature Pulse Rate 86 81 80 Respiratory Rate 25 H 25 H Blood Pressure Pulse Oximetry 97 Oxygen Delivery BiPAP Oxygen Flow Rate Fraction of Inspired Oxygen 10/28/24 19:08 10/28/24 20:00 10/28/24 20:00 Temperature 36.3 C L Pulse Rate 86 60 Respiratory Rate 25 H 21 H Blood Pressure 136/83 Pulse Oximetry 97 98 Oxygen Delivery BiPAP Oxygen Flow Rate Fraction of Inspired Oxygen 10/28/24 20:00 10/28/24 22:00 10/29/24 00:00 Temperature 36.4 C Pulse Rate 68 72 91 Respiratory Rate 20 Blood Pressure 128/87 Pulse Oximetry 98 Oxygen Delivery Oxygen Flow Rate Fraction of Inspired Oxygen 10/29/24 00:00 10/29/24 00:00 10/29/24 00:11 Temperature Pulse Rate 79 91 Respiratory Rate 20 Blood Pressure Pulse Oximetry 98 Oxygen Delivery BiPAP Oxygen Flow Rate Fraction of Inspired Oxygen 10/29/24 00:19 10/29/24 02:00 10/29/24 02:34 Temperature Pulse Rate 91 81 79 Respiratory Rate 20 25 H Blood Pressure Pulse Oximetry 97 Oxygen Delivery BiPAP Oxygen Flow Rate Fraction of Inspired Oxygen 10/29/24 04:00 10/29/24 04:00 10/29/24 04:00 Temperature 36.3 C L Pulse Rate 86 81 Respiratory Rate 20 Blood Pressure 121/78 Pulse Oximetry 97 97 Oxygen Delivery Nasal Cannula Oxygen Flow Rate 1 Fraction of Inspired Oxygen 10/29/24 06:00 10/29/24 07:52 10/29/24 08:22 Temperature 36.4 C L Pulse Rate 90 82 89 Respiratory Rate 17 Blood Pressure 127/86 Pulse Oximetry 98 Oxygen Delivery Oxygen Flow Rate Fraction of Inspired Oxygen 10/29/24 08:51 10/29/24 08:53 Temperature Pulse Rate 90 Respiratory Rate 20 Blood Pressure Pulse Oximetry 97 Oxygen Delivery Room Air Oxygen Flow Rate Fraction of Inspired Oxygen Intake/Output Intake/Output: Intake & Output 10/26/24 10/27/24 10/28/24 10/29/24 23:59 23:59 23:59 23:59 Intake Total 873.5 540.2 840 120 Output Total 700 625 350 625 Balance 173.5 -84.8 490 -505 Meds/Results Medications: Active Medications Generic Name Dose Route Start Last Admin Trade Name Freq PRN Reason Stop Dose Admin Acetaminophen 650 mg 10/24/24 18:55 Acetaminophen 325 Mg Tablet PO Q4H PRN Mild Pain (1-3) or Fever Hydrocodone Bitart/Acetaminophen 1 tab 10/24/24 19:04 10/28/24 01:19 Hydrocodone/Acetaminophen (*Crx) 5-325 Mg Tablet PO 1 tab Q4H PRN Administration Moderate Pain (4-6) Albuterol/Ipratropium 3 ml 10/25/24 16:00 10/29/24 08:51 Ipratropium 0.5 Mg/Albuterol Sulfate 2.5 Mg Ampul.Neb 3 Ml INHALATION 3 ml Q4HRT [facility] Administration Buspirone HCl 5 mg 10/27/24 21:00 10/29/24 08:24 Buspirone Hcl 5 Mg Tablet PO 5 mg Q12HR [facility] Administration Clopidogrel Bisulfate 75 mg 10/25/24 09:00 10/29/24 08:24 Clopidogrel Bisulfate 75 Mg Tablet PO 75 mg DAILY [facility] Administration Cyanocobalamin 1,000 mcg 10/29/24 09:00 10/29/24 08:23 Cyanocobalamin 1,000 Mcg Tablet PO 1,000 mcg DAILY [facility] Administration Docusate Sodium 100 mg 10/25/24 09:00 10/29/24 08:36 Docusate Sodium 100 Mg Capsule PO Not Given Q12HR [facility] Enoxaparin Sodium 40 mg 10/25/24 09:00 10/29/24 08:24 Enoxaparin 40 Mg/0.4 Ml Syringe SUB-Q 40 mg DAILY [facility] Administration Guaifenesin 1,200 mg 10/25/24 14:30 10/29/24 08:23 Guaifenesin 12 Hr 600 Mg Tabcr PO 1,200 mg Q12HR [facility] Administration Isosorbide Mononitrate 30 mg 10/24/24 23:15 10/29/24 08:23 Isosorbide Mononitrate 30 Mg Tab.Er.24h PO 30 mg Q12HR [facility] Administration Lorazepam 1 mg 10/26/24 13:17 10/29/24 08:38 Lorazepam (*Crx) 1 Mg Tablet PO 1 mg Q4H PRN Administration Anxiety Metoprolol Succinate 25 mg 10/25/24 09:00 10/29/24 08:22 Metoprolol Succinate Ext Rel 25 Mg Tabcr PO 25 mg QAM [facility] Administration Metoprolol Tartrate 5 mg 10/25/24 15:39 Metoprolol Tartrate Inj 5 Mg/5 Ml Vial IV PUSH Q4H PRN Heart rate > 120 and SBP > 100 Midodrine 10 mg 10/24/24 21:25 10/29/24 08:24 Midodrine Hcl 10 Mg Tablet PO 10 mg TID [facility] Administration Pramipexole Dihydrochloride 1 mg 10/24/24 23:15 10/28/24 20:51 Pramipexole 1 Mg Tablet PO 1 mg HS [facility] Administration Prednisone 40 mg 10/26/24 09:20 10/29/24 08:24 Prednisone 20 Mg Tablet PO 40 mg DAILY@0800 [facility] Administration Rosuvastatin Calcium 10 mg 10/25/24 09:00 10/29/24 08:22 Rosuvastatin 10 Mg Tablet PO 10 mg DAILY [facility] Administration Sacubitril/Valsartan 1 tab 10/28/24 17:00 10/29/24 08:39 Sacubitril/Valsartan 24-26 Mg Tablet PO 0.5 tab BID [facility] Administration Radiology Results: ITS Impressions Chest CTA 10/25/24 21:04 IMPRESSION: No pulmonary embolus. No thoracic aortic dissection. Severe panlobular bullous emphysema, unchanged from 05/03/2024. Interval development of small bilateral pleural effusions, right greater than left with adjacent compressive atelectasis. Chest X-Ray 10/28/24 08:35 Impression: 1: Patchy bilateral airspace disease, compatible with pneumonia. Labs Labs: Laboratory Results - last 24 hr 10/25/24 10/25/24 10/29/24 17:57 17:59 04:42 WBC 10.3 H RBC 3.59 L Hgb 11.1 L Hct 35.0 L MCV 97.5 MCH 30.9 MCHC 31.7 L RDW 13.2 Plt Count 236 MPV 10.5 H Sodium 140 Potassium 4.3 Chloride 103 Carbon Dioxide 31 H Anion Gap 6 BUN 22 H D Creatinine 0.68 L Estim Creat Clear Calc 64 Estimated GFR > 60 Glucose 97 Calcium 8.5 Magnesium 2.2 Total Bilirubin 0.6 AST 35 ALT 29 Alkaline Phosphatase 60 Total Protein 6.0 L Albumin 3.6 Ur L.pneumophila Ag Not detected SARS-CoV-2 RNA (RT-PCR) Not detected
--- NOTE | 2024-10-29 10:27 | PCPTNOTE ---
Attemtped PT evaluation. Per shakila, pt just returned to bed and was SOB. Pt now on BiPap. Will follow.
--- NOTE | 2024-10-29 13:04 | PC.NURSE ---
On 10/29/24, the student, [Luci Downing], provided care and completed [facility] documentation on this patient. I have reviewed the student's documentation and agree with the findings.
--- NOTE | 2024-10-29 14:54 | PCRCNOTE ---
dr batista states he wants pt to be on room air as long as possible, pt can go back to oxygen if needed.
[2024-10-29 16:39] LABS: Mycoplasma IgM Antibody Titer 309 U/mL
[2024-10-29 16:48] LABS: Adenovirus DNA Not Detected (Not Detected); Chlamydophila pneumoniae Not Detected (Not Detected); Coronavirus 229E Not Detected (Not Detected); Coronavirus HKU1 Not Detected (Not Detected); Coronavirus NL63 Not Detected (Not Detected); Coronavirus OC43 Detected (Not Detected); Human Metapneumovirus Not Detected (Not Detected); Human Parainfluenza Virus 1 Not Detected (Not Detected); Human Parainfluenza Virus 2 Not Detected (Not Detected); Human Parainfluenza Virus 3 Not Detected (Not Detected); Human Parainfluenza Virus 4 Not Detected (Not Detected); Human RSV B Not Detected (Not Detected); Influenza A Not Detected (Not Detected); Influenza B Not Detected (Not Detected); Mycoplasma pneumoniae Not Detected (Not Detected); Rhinovirus/Enterovirus Not Detected (Not Detected)
[2024-10-29] MEDS: SACUBITRIL/VALSARTAN 12-13 MG TABLET 1 TAB PO (16:55)
--- NOTE | 2024-10-29 16:57 | PM.IMPN ---
Progress Note: A&P Assessment and Plan (1) Acute and chronic respiratory failure with hypoxia: Code(s): J96.21 - Acute and chronic respiratory failure with hypoxia Status: Acute Assessment and Plan: Patient has acute on chronic respiratory failure secondary to COPD exacerbation, anxiety and component of drug-seeking behavior CTA of the chest showed no PE or aortic dissection. He had severe panlobular bolus emphysema unchanged from last year. Interval development of small bilateral pleural effusions right greater than left with compressive atelectasis noted. Continue AVAPS as per pulmonology. Otherwise during the day he is on room air. Continue prednisone and bronchodilator He completed a course of abx Continue p.r.n. Ativan and buspar for anxiety. Precedex was weaned off. Hopefully home tomorrow if okay of bipap today and tonight (2) COPD exacerbation: Code(s): J44.1 - Chronic obstructive pulmonary disease with (acute) exacerbation Status: Acute Assessment and Plan: As above (3) Anxiety: Code(s): F41.9 - Anxiety disorder, unspecified Status: Acute Assessment and Plan: Patient with known anxiety and was on lorazepam before being weaned off by his PCP. He becomes extremely agitated and demands lorazepam regularly. Concern for abuse Uncontrolled anxiety is impacting his respiratory problems. Continue Lorazepam prn. Buspar added with some benefit. (4) Cardiomyopathy: Code(s): I42.9 - Cardiomyopathy, unspecified Status: Acute Assessment and Plan: Patient has history of cardiomyopathy. Echo showing EF 30-35% now. Cardiology following and appreciate their input. Continue Plavix, Imdur, Toprol and Crestor. Resumed Entresto and tolerating Follow (5) Sepsis: Code(s): A41.9 - Sepsis, unspecified organism Status: Acute Assessment and Plan: Patient met criteria for sepsis and had elevated lactic acid level which has improved Chest imaging did not show any pneumonia. UA negative. BCx NGTD. Sputum NGTD Patient completed a 5 day course of abx Monitor (6) Elevated troponin: Code(s): R79.89 - Other specified abnormal findings of blood chemistry Status: Acute Assessment and Plan: Mild elevation in troponin level to 0.8 that is already trending down. EKG reviewed showing no acute ST-T wave changes and patient denies any chest pain Echo showing EF 30-35% with akinetic anteroseptum and diffuse hypokinetic lobato. Grade I diastolic dysfxn. Mild-mod MR. Likely type 2 NSTEMI from respiratory failure. he is known to have poor EF. Continue Plavix, Entresto, metoprolol and statin. (7) Coronary artery disease: Code(s): I25.10 - Atherosclerotic heart disease of [place] coronary artery without angina pectoris Status: Acute Assessment and Plan: As above Plan Disp - PT/OT. DVT prophylaxis - Lovenox Code Status - Full Code Subjective Date/time seen: 10/29/24 16:57 Interval history: 69yo male with COPD, CAD s/p LAD and RCA stents, and CHF (previously with EF of 25% wearing a life vest with plans for an ICD) here for SOB. Slept off and on. SOB better. No CP. Voiding well after Lazo removed. Exam Narrative: AF 97.5 128/79 70 20 98% bipap Gen - NARD with bipap in place at the time of the visit. Chest -distant breath sounds. CV - RRR S1/S2. Telemetry showing PVCs Abd - Soft, NT/ND, Positive BS Ext - No pedal edema Psych - mood stable Skin - Warm and dry Objective Data Vital Signs Vital Signs: Vital Signs - 24 hr 10/28/24 18:00 10/28/24 19:00 10/28/24 19:00 Temperature Pulse Rate 86 81 80 Respiratory Rate 25 H 25 H Blood Pressure Pulse Oximetry 97 Oxygen Delivery BiPAP Oxygen Flow Rate Fraction of Inspired Oxygen 10/28/24 19:08 10/28/24 20:00 10/28/24 20:00 Temperature 97.3 F L Pulse Rate 86 60 Respiratory Rate 25 H 21 H Blood Pressure 136/83 Pulse Oximetry 97 98 Oxygen Delivery BiPAP Oxygen Flow Rate Fraction of Inspired Oxygen 10/28/24 20:00 10/28/24 22:00 10/29/24 00:00 Temperature 97.6 F Pulse Rate 68 72 91 Respiratory Rate 20 Blood Pressure 128/87 Pulse Oximetry 98 Oxygen Delivery Oxygen Flow Rate Fraction of Inspired Oxygen 10/29/24 00:00 10/29/24 00:00 10/29/24 00:11 Temperature Pulse Rate 79 91 Respiratory Rate 20 Blood Pressure Pulse Oximetry 98 Oxygen Delivery BiPAP Oxygen Flow Rate Fraction of Inspired Oxygen 10/29/24 00:19 10/29/24 02:00 10/29/24 02:34 Temperature Pulse Rate 91 81 79 Respiratory Rate 20 25 H Blood Pressure Pulse Oximetry 97 Oxygen Delivery BiPAP Oxygen Flow Rate Fraction of Inspired Oxygen 10/29/24 04:00 10/29/24 04:00 10/29/24 04:00 Temperature 97.3 F L Pulse Rate 86 81 Respiratory Rate 20 Blood Pressure 121/78 Pulse Oximetry 97 97 Oxygen Delivery Nasal Cannula Oxygen Flow Rate 1 Fraction of Inspired Oxygen 10/29/24 06:00 10/29/24 07:52 10/29/24 08:00 Temperature 97.5 F L Pulse Rate 90 82 Respiratory Rate 17 Blood Pressure 127/86 Pulse Oximetry 98 97 Oxygen Delivery Nasal Cannula Oxygen Flow Rate 1 Fraction of Inspired Oxygen 10/29/24 08:22 10/29/24 08:40 10/29/24 08:51 Temperature Pulse Rate 89 99 Respiratory Rate Blood Pressure Pulse Oximetry 97 Oxygen Delivery Room Air Oxygen Flow Rate Fraction of Inspired Oxygen 10/29/24 08:53 10/29/24 10:00 10/29/24 12:00 Temperature 97.5 F L Pulse Rate 90 86 72 Respiratory Rate 20 16 Blood Pressure 128/83 Pulse Oximetry 97 Oxygen Delivery Oxygen Flow Rate Fraction of Inspired Oxygen 10/29/24 12:30 10/29/24 14:00 10/29/24 15:57 Temperature Pulse Rate 93 72 79 Respiratory Rate 22 H Blood Pressure Pulse Oximetry Oxygen Delivery Oxygen Flow Rate Fraction of Inspired Oxygen 10/29/24 16:00 10/29/24 16:00 10/29/24 16:07 Temperature 97.5 F L Pulse Rate 71 75 70 Respiratory Rate 29 H 23 H 20 Blood Pressure 128/79 Pulse Oximetry 98 98 Oxygen Delivery BiPAP Oxygen Flow Rate Fraction of Inspired Oxygen Intake/Output Intake/Output: Intake & Output 10/26/24 10/27/24 10/28/24 10/29/24 23:59 23:59 23:59 23:59 Intake Total 873.5 540.2 840 600 Output Total 700 625 350 625 Balance 173.5 -84.8 490 -25 Meds/Results Medications: Active Medications Generic Name Dose Route Start Last Admin Trade Name Freq PRN Reason Stop Dose Admin Acetaminophen 650 mg 10/24/24 18:55 Acetaminophen 325 Mg Tablet PO Q4H PRN Mild Pain (1-3) or Fever Hydrocodone Bitart/Acetaminophen 1 tab 10/24/24 19:04 10/28/24 01:19 Hydrocodone/Acetaminophen (*Crx) 5-325 Mg Tablet PO 1 tab Q4H PRN Administration Moderate Pain (4-6) Albuterol/Ipratropium 3 ml 10/25/24 16:00 10/29/24 15:56 Ipratropium 0.5 Mg/Albuterol Sulfate 2.5 Mg Ampul.Neb 3 Ml INHALATION 3 ml Q4HRT [facility] Administration Buspirone HCl 5 mg 10/27/24 21:00 10/29/24 08:24 Buspirone Hcl 5 Mg Tablet PO 5 mg Q12HR [facility] Administration Clopidogrel Bisulfate 75 mg 10/25/24 09:00 10/29/24 08:24 Clopidogrel Bisulfate 75 Mg Tablet PO 75 mg DAILY [facility] Administration Cyanocobalamin 1,000 mcg 10/29/24 09:00 10/29/24 08:23 Cyanocobalamin 1,000 Mcg Tablet PO 1,000 mcg DAILY [facility] Administration Docusate Sodium 100 mg 10/25/24 09:00 10/29/24 08:36 Docusate Sodium 100 Mg Capsule PO Not Given Q12HR [facility] Enoxaparin Sodium 40 mg 10/25/24 09:00 10/29/24 08:24 Enoxaparin 40 Mg/0.4 Ml Syringe SUB-Q 40 mg DAILY [facility] Administration Guaifenesin 1,200 mg 10/25/24 14:30 10/29/24 08:23 Guaifenesin 12 Hr 600 Mg Tabcr PO 1,200 mg Q12HR [facility] Administration Isosorbide Mononitrate 30 mg 10/24/24 23:15 10/29/24 08:23 Isosorbide Mononitrate 30 Mg Tab.Er.24h PO 30 mg Q12HR [facility] Administration Lorazepam 1 mg 10/26/24 13:17 10/29/24 08:38 Lorazepam (*Crx) 1 Mg Tablet PO 1 mg Q4H PRN Administration Anxiety Metoprolol Succinate 25 mg 10/25/24 09:00 10/29/24 08:22 Metoprolol Succinate Ext Rel 25 Mg Tabcr PO 25 mg QAM [facility] Administration Metoprolol Tartrate 5 mg 10/25/24 15:39 Metoprolol Tartrate Inj 5 Mg/5 Ml Vial IV PUSH Q4H PRN Heart rate > 120 and SBP > 100 Midodrine 10 mg 10/24/24 21:25 10/29/24 16:55 Midodrine Hcl 10 Mg Tablet PO 10 mg TID [facility] Administration Pramipexole Dihydrochloride 1 mg 10/24/24 23:15 10/28/24 20:51 Pramipexole 1 Mg Tablet PO 1 mg HS [facility] Administration Prednisone 40 mg 10/26/24 09:20 10/29/24 08:24 Prednisone 20 Mg Tablet PO 40 mg DAILY@0800 [facility] Administration Rosuvastatin Calcium 10 mg 10/25/24 09:00 10/29/24 08:22 Rosuvastatin 10 Mg Tablet PO 10 mg DAILY [facility] Administration Sacubitril/Valsartan 1 tab 10/29/24 17:00 10/29/24 16:55 Sacubitril/Valsartan 12-13 Mg Tablet PO 1 tab BID [facility] Administration Radiology Results: ITS Impressions Chest CTA 10/25/24 21:04 IMPRESSION: No pulmonary embolus. No thoracic aortic dissection. Severe panlobular bullous emphysema, unchanged from 05/03/2024. Interval development of small bilateral pleural effusions, right greater than left with adjacent compressive atelectasis. Chest X-Ray 10/28/24 08:35 Impression: 1: Patchy bilateral airspace disease, compatible with pneumonia. Labs Labs: Laboratory Results - last 24 hr 10/25/24 10/25/24 10/26/24 17:57 17:59 04:33 WBC RBC Hgb Hct MCV MCH MCHC RDW Plt Count MPV Sodium Potassium Chloride Carbon Dioxide Anion Gap BUN Creatinine Estim Creat Clear Calc Estimated GFR Glucose Calcium Magnesium Total Bilirubin AST ALT Alkaline Phosphatase Total Protein Albumin Nasal RSV Type A (PCR) Not detected Nasal RSV Type B (PCR) Not detected Chlamy pneumoniae PCR Not detected Adenovirus DNA Not detected Human Bocavirus ([facility]) Not detected Coronavirus Type OC43 Detected A Coronavirus Type HKU1 Not detected Coronavirus Type 229E Not detected Coronavirus Type NL63 Not detected Human Metapneumovir PCR Not detected Influenza A (PCR) Not detected Influenza A (H1) RNA Not detected Influenza A (H3) PCR Not detected Ur L.pneumophila Ag Not detected Mycoplasma pneumon IgM 309 M. pneumoniae DNA Not detected Parainfluenza PCR Not detected Parainfluenza 2 (PCR) Not detected Parainfluenza 3 RNA (PCR) Not detected Parainfluenza 4 (PCR) Not detected Rhino/Enterovirus ([facility]) Not detected SARS-CoV-2 RNA (RT-PCR) Not detected Influenza Type B (PCR) Not detected Misc Test Comment see note 10/29/24 04:42 WBC 10.3 H RBC 3.59 L Hgb 11.1 L Hct 35.0 L MCV 97.5 MCH 30.9 MCHC 31.7 L RDW 13.2 Plt Count 236 MPV 10.5 H Sodium 140 Potassium 4.3 Chloride 103 Carbon Dioxide 31 H Anion Gap 6 BUN 22 H D Creatinine 0.68 L Estim Creat Clear Calc 64 Estimated GFR > 60 Glucose 97 Calcium 8.5 Magnesium 2.2 Total Bilirubin 0.6 AST 35 ALT 29 Alkaline Phosphatase 60 Total Protein 6.0 L Albumin 3.6 Nasal RSV Type A (PCR) Nasal RSV Type B (PCR) Chlamy pneumoniae PCR Adenovirus DNA Human Bocavirus ([facility]) Coronavirus Type OC43 Coronavirus Type HKU1 Coronavirus Type 229E Coronavirus Type NL63 Human Metapneumovir PCR Influenza A (PCR) Influenza A (H1) RNA Influenza A (H3) PCR Ur L.pneumophila Ag Mycoplasma pneumon IgM M. pneumoniae DNA Parainfluenza PCR Parainfluenza 2 (PCR) Parainfluenza 3 RNA (PCR) Parainfluenza 4 (PCR) Rhino/Enterovirus ([facility]) SARS-CoV-2 RNA (RT-PCR) Influenza Type B (PCR) Misc Test Comment
[2024-10-29] MEDS: PRAMIPEXOLE 1 MG TABLET PO (23:05)
[2024-10-30] VITALS (21 sets, daily range): BP systolic 125–135; BP diastolic 76–87; PULSE 73–102; RESP 16–23; TEMP 36.5–36.7; O2SAT 92–95
--- NOTE | 2024-10-30 00:21 | PCRCNOTE ---
patient is on an overnight sleep study, therefore he is not woken for his 0000 breathing treatment. See next scheduled tx
[2024-10-30] MEDS: LORazepam (*CRX) 1 MG TABLET PO (03:29)
[2024-10-30] MEDS: IPRATROPIUM 0.5 MG/ALBUTEROL SULFATE 2.5 MG AMPUL.NEB 3 ML INHALATION ×3 (04:33→13:06)
[2024-10-30] MEDS: SACUBITRIL/VALSARTAN 12-13 MG TABLET 1 TAB PO (09:39)
[2024-10-30] MEDS: MIDODRINE HCL 10 MG TABLET PO ×2 (09:39→12:57)
[2024-10-30] MEDS: METOPROLOL SUCCINATE EXT REL 25 MG TABCR PO (09:39)
[2024-10-30] MEDS: ROSUVASTATIN 10 MG TABLET PO (09:39)
[2024-10-30] MEDS: guaiFENesin 12 HR 600 MG TABCR 1200 MG PO (09:40)
[2024-10-30] MEDS: ENOXAPARIN 40 MG/0.4 ML SYRINGE SUB-Q (09:40)
[2024-10-30] MEDS: busPIRone HCL 5 MG TABLET PO (09:40)
[2024-10-30] MEDS: CLOPIDOGREL BISULFATE 75 MG TABLET PO (09:40)
[2024-10-30] MEDS: DOCUSATE SODIUM 100 MG CAPSULE PO (09:40)
[2024-10-30] MEDS: ISOSORBIDE MONONITRATE 30 MG TAB.ER.24H PO (09:40)
[2024-10-30] MEDS: CYANOCOBALAMIN 1,000 MCG TABLET 1000 MCG PO (09:40)
--- NOTE | 2024-10-30 10:21 | PM.PNPUL ---
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 CT scan on 03/27/2022 with severe apical predominant panlobular emphysema.? PFTs on 04/10/2022 demonstrate moderately severe obstructive abnormality, FEV1 1.61 L, 53% predicted, FEV1:FVC ratio 48%, ?normal lung volumes, DLCO moderately decreased when adjusted for alveolar volume at 51%. ?No oxygen at rest, with ambulation or at night per 6 minutes walk on 10/21/2022 and overnight oximetry on 10/12/2022. Outpatient exacerbation 03/2023. he was clinically stable with dyspnea on exertion at 5 blocks, M MRC grade of 1, cat score of 17 on Stiolto Respimat 1 puff twice a day, rescue albuterol which she use 2 to 3 times a month and guaifenesin 1200 p.o. twice a day. He was smoking 10 cigarettes a day. He was up-to-date on influenza and COVID vaccine and received RSV and 2022. 10/24/2024: Patient presents with 3 days history acute worsening shortness of breath, dyspnea on exertion and hypoxic respiratory distress. He had wheezing in the emergency room. Son had COVID last week his initial COVID test in the ED was negative. Treated with steroids, bronchodilators, ceftriaxone and azithromycin. 10/26/2023: The patient tells me he feels about the same as yesterday. When I enter the room he was on BiPAP rate of 16 breathing 30, pressures 10/5 with tidal volumes 576. He was on 28% FiO2 with saturations 98%. ABG 7.25/37/100. His white blood cell count is 12.7, creatinine 0.6. His weight is 52.9. He was in mild respiratory distress with decreased air movement bilaterally. He said the machine was not giving him air fast enough and I switched him to a noninvasive ventilation mode with the AVAPS mode rate of 20, tidal volume 500, EPAP 5, minimal inspiratory pressure 6, maximal inspiratory pressure 25, inspiratory time 0.8, rise of 1 and 28% FiO2. Peak airway pressures were 12. Patient told me this felt better. Plan: I will check a D-dimer and if this is positive will do a CT angiogram of the chest. Place the patient on DuoNebs q.4 hours. Currently is on Solu-Medrol 60 mg IV q.8 hours, will continue. Continue ceftriaxone and azithromycin, both day 2. I have ordered an respiratory pathogen panel, urine Legionella, urine pneumococcal, serum mycoplasma IgM and will repeat COVID, RSV, influenza swab on 10/27/2023. Will place on guaifenesin 1200 mg p.o. b.i.d. to aid expectoration. Patient with difficulty breathing on BiPAP and I have changed to noninvasive ventilation with the AVAPS mode and will check a blood gas in 30 minutes.. Patient tells me he takes Ativan 2 mg 4 times a day at home and he is very anxious at this time. Discussed with girlfriend in the room, Drs. Watkins and Walt. Patient developed worsening anxiety and shortness of breath and was transferred to the ICU and started on a Precedex drip. CT angiogram of the chest showed no PE, right upper lobe posterior infiltrate new since 05/03/2024 and panlobular emphysema unchanged. Patient had an echocardiogram with an EF of 30-35%, grade 1 diastolic dysfunction, [id number] mitral regurg, normal RV size and function, normal right atrial size, PASP 39. 10/27/2023. Overall patient tells me he is breathing about the same. He is afebrile. He remains on Precedex drip 0.7 and noninvasive ventilation with the AVAPS mode at 28% FiO2 with saturations 100%. He has no wheezing on exam. White blood cell count 11.8, creatinine 0.89. He was +3.5 L yesterday and is +5.5 L since admission. Weight is 51.6 with an admission weight of 48. Respiratory pathogen panel, urine Legionella, urine pneumococcal and mycoplasma IgM pending. Plan: Continue noninvasive ventilation with the AVAPS mode on a p.r.n. basis during the day and continue this at night. Will decrease his Solu-Medrol to prednisone 40 mg p.o. q.day. Continue DuoNebs q.4 hours, guaifenesin 1200 mg p.o. b.i.d.. Continue ceftriaxone and azithromycin, both day 3. 10/27/2024: patient wore the noninvasive ventilation with the AVAPS mode overnight. When I entered the room he was on the noninvasive ventilator and said the airflow was too high and I adjusted the settings to comfort by decreasing his respiratory rate from 20-16. Increasing his inspiratory time from 0.7-1.1 and slowing his rise from a setting of 1 to a setting of 4. He said this was more comfortable. He said he was willing to come off of the noninvasive ventilator and he was placed on 2 L nasal cannula and his saturations were 100% And he was then placed on room air with saturations on room air of 100%. He said his breathing was back to his normal, no cough, a little bit of phlegm which is a baseline and no hemoptysis. His white blood cell count is 14.1, creatinine 0.9. He was -176 mL yesterday and cumulative he is +5.9 mL. His weight is 51.6 kg. Plan: Continue prednisone 40 mg p.o. q.day, day 4 of steroids. Continue DuoNebs q.4 hours. Continue ceftriaxone and azithromycin, both day 4. Goal saturation 90-94% and currently is on room air. Out of bed to chair as tolerated. 10/28/2024: Patient wore the noninvasive ventilator overnight and said that he slept better and he feels better. He currently is wearing the noninvasive ventilator. He says he has little bit of cough and phlegm close to his normal. No hemoptysis. White blood cell count 13.5, creatinine 0.84, BNP 7720. Chest x-ray compared to 10/24/2024 with unchanged right upper lobe infiltrate and new left lower lobe infiltrate. -84 mL yesterday cumulative he is positive 5.7 L. Weight 52.2 with an admission weight of 48. Continues to receive 1 mg of abdomen p.o. q.4 hours p.r.n. and taking this every 4 hours. Plan: today is the 1st day he feels like he is improving. Continue prednisone 40 mg a day, day 5 of steroids. Continue DuoNebs q.4 hours. Continue ceftriaxone and azithromycin both day 5. Will discontinue azithromycin after today's dose. Noninvasive ventilation p.r.n. during the day and nasal cannula oxygen for goal saturation 90-94% as tolerated. 10/29/2024: Patient transferred out of the ICU. Patient is wearing a noninvasive ventilator off and on throughout the day yesterday and last night. Overall he says he is 70-80% back to his normal. His cough is the same as usual and dry without phlegm or hemoptysis. He is afebrile. White blood cell count 10.3, creatinine 0.68. When I enter the room the patient was on room air with saturations 94%. Used 1 mg lorazepam x3 in the last 24 hours. yesterday was positive 490 mL in cumulative he has positive 6.5 L since admission. His weight is 49.3. urine Legionella negative. Urine pneumococcal antigen, mycoplasma IgM and respiratory pathogen panel pending. Plan: Continues to slowly improve. Continue prednisone 40 mg p.o. q.day, day 6 of steroids. Continue nebs q.4 hours. Status post ceftriaxone and is a throat for 5 days. Goal saturation 90-94%, currently is on room air. He becomes anxious and requests oxygen as well as his noninvasive ventilator. Will attempt to leave him off the noninvasive ventilator for the next 24 hours and if he tolerates this will repeat ABG. I will perform overnight oximetry on room air to determine if he qualifies for oxygen at night. 10/30/24: Respiratory pathogen panel from admission returned positive today for coronavirus OC 43. the patient continues to slowly improve. He tells me that he has 80-90% back to his normal. He has a cough that is increased over his baseline but no phlegm or no hemoptysis. He has no wheezing. Currently he is on room air with saturations 92%. patient tolerated being off the noninvasive ventilator last night. Patient had an overnight oximetry on room air with recording duration 6 hours and 36 minutes. Average saturation 96%. Low saturation 86%. Time with saturation less than or equal to 88 was 2 minutes. Oxygen desaturation index 3.3. Patient is improved and feels he can go home. He requires no supplemental oxygen at night. Patient can be discharged from a pulmonary perspective on these pulmonary medications: Stiolto Respimat 2.5-2.5 at 2 puffs q.day Rescue albuterol 2 coughs q.4 hours p.r.n. shortness of breath or wheezing guaifenesin 600 mg p.o. b.i.d. p.r.n. congestion Oxygen at rest and with activity per formal home O2 assessment which I have ordered. Patient will keep his previously scheduled pulmonary appointment on 01/12/2025 with me and he will call the clinic if there are any changes in his respiratory condition once he gets home. Discussed with Dr. Hartley, will sign off, call with questions (2) Acute hypercapnic respiratory failure: Code(s): J96.02 - Acute respiratory failure with hypercapnia Status: Acute Assessment and Plan: Patient is on no oxygen at rest, with activity or with sleep. VBG in the emergency department on 2 L was 7.29/57/less than 27. 10/25/24: Plan: Patient in mild respiratory distress on BiPAP and if changed to noninvasive ventilation with the AVAPS mode using the settings as above which were adjusted for comfort. Will repeat a blood gas in 30 minutes. I have discussed the case with the grey roll worker to make him aware that the patient is in mild respiratory distress on maximal noninvasive ventilation settings and and he has a history of severe anxiety requiring Ativan 2 mg p.o. 4 times a day at home in case he needs transfer to the ICU for respiratory failure or agitation requiring Precedex. I did talk to the patient and he is in agreement for intubation if needed. repeat blood gas on the AVAPS settings was 7.37/36/86. Patient developed worsening anxiety and shortness of breath and was transferred to the ICU and started on a Precedex drip. 10/27/2023. Overall patient tells me he is breathing about the same. He is afebrile. He remains on Precedex drip 0.7 and noninvasive ventilation with the AVAPS mode at 28% FiO2 with saturations 100%. Plan: attempt to wean Precedex off today. 10/27/2024: Will continue noninvasive ventilation p.r.n. during the day And at night. Plan: Attempt to wean Precedex off today. Once patient's breathing status has improved and he can tolerate off of the noninvasive ventilator for 24 hours will repeat blood gas to reassess for hypercarbic respiratory failure. Precedex turned off at 12 noon. BuSpar 5 bid started. 10/28/24: Patient continues to require noninvasive ventilation for work of breathing. Plan: Currently off Precedex and on BuSpar 5 p.o. b.i.d.. He requiring Ativan 1 mg p.o. q.4 hours p.r.n. and taking this every 4 hours. 10/29/24: On BuSpar 5 p.o. b.i.d.. On Ativan 1 mg p.o. q.4 hours p.r.n. and required 3 doses yesterday. plan Will attempt to leave him off the noninvasive ventilator for the next 24 hours and repeat a blood gas to reassess for chronic hypercarbic respiratory failure from his COPD. 10/30/2024: Remains on BuSpar 5 p.o. b.i.d.. Using Ativan 1 mg p.o. 3 times a day. Patient has an acute infection and at this time I will not repeat a blood gas looking for hypercarbic respiratory failure as I would not commit him to nocturnal noninvasive ventilation with a blood gas that was drawn during an acute infection. Plan: Patient requires no supplemental oxygen at night. will consider higher doses of BuSpar. Subjective Date/time seen: 10/30/24 10:21 Interval history: 10/25/2024: This is a new pulmonary consult for COPD exacerbation on BiPAP. 69-year-old with a history of gold grade 2 group B COPD on no home oxygen, coronary artery disease S/P LAD and RCA stents, CHF (previously with EF of 25% wearing a life vest with plans for an ICD) per outside cardiology. patient last seen on 06/30/2024 in the [facility]monary [facility]. 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 CT scan on 03/27/2022 with severe apical predominant panlobular emphysema.? PFTs on 04/10/2022 demonstrate moderately severe obstructive abnormality, FEV1 1.61 L, 53% predicted, FEV1:FVC ratio 48%, ?normal lung volumes, DLCO moderately decreased when adjusted for alveolar volume at 51%. ?No oxygen at rest, with ambulation or at night per 6 minutes walk on 10/21/2022 and overnight oximetry on 10/12/2022. Outpatient exacerbation 03/2023. he was clinically stable with dyspnea on exertion at 5 blocks, M MRC grade of 1, cat score of 17 on Stiolto Respimat 1 puff twice a day, rescue albuterol which she use 2 to 3 times a month and guaifenesin 1200 p.o. twice a day. He was smoking 10 cigarettes a day. He was up-to-date on influenza and COVID vaccine and received RSV and 2022. The patient is currently on BiPAP so history is limited. Patient has acute illness for the last 3 days with worsening shortness of breath and dyspnea on exertion. patient's girlfriend tells me that his son who lives with him had COVID last week and the patient did well and is now back at work. His girlfriend who is in the room went to his house and he was in distress and they called EMS on 10/24/2024. Room air saturations were 70 the placed him on oxygen gave him a DuoNeb. In the emergency department blood pressure was 80/40, heart rate 87, 2 L nasal cannula saturation 98%. he had wheezing on exam. He was placed on BiPAP for work of breathing or respiratory distress. His white blood cell count was 15.5 with eosinophil 0.1% equals 15 per micro L, creatinine 0.86. Venous blood gas on 2 L 7.29/57/ less than 27. COVID, influenza, RSV RT PCR studies negative. Chest x-ray with hyperinflation and increased interstitial infiltrates in the upper lobes. Patient was treated with IV steroids, DuoNebs, ceftriaxone and azithromycin. 10/25/2024: The patient tells me he feels about the same as yesterday. When I enter the room he was on BiPAP rate of 16 breathing 30, pressures 10/5 with tidal volumes 576. He was on 28% FiO2 with saturations 98%. ABG 7.25/37/100. His white blood cell count is 12.7, creatinine 0.6. His weight is 52.9. He was in mild respiratory distress with decreased air movement bilaterally. He said the machine was not giving him air fast enough and I switched him to a noninvasive ventilation mode with the AVAPS mode rate of 20, tidal volume 500, EPAP 5, minimal inspiratory pressure 6, maximal inspiratory pressure 25, inspiratory time 0.8, rise of 1 and 28% FiO2. Peak airway pressures were 12. Patient told me this felt better. repeat blood gas on the AVAPS settings was 7.37/36/86. Patient developed worsening anxiety and shortness of breath and was transferred to the ICU and started on a Precedex drip. CT angiogram of the chest showed no PE, right upper lobe posterior infiltrate new since 05/03/2024 and panlobular emphysema unchanged. Patient had an echocardiogram with an EF of 30-35%, grade 1 diastolic dysfunction, [id number] mitral regurg, normal RV size and function, normal right atrial size, PASP 39. 10/26/2024. Overall patient tells me he is breathing about the same. He is afebrile. He remains on Precedex drip 0.7 and noninvasive ventilation with the AVAPS mode at 28% FiO2 with saturations 100%. He has no wheezing on exam. White blood cell count 11.8, creatinine 0.89. He was +3.5 L yesterday and is +5.5 L since admission. Weight is 51.6 with an admission weight of 48. 10/27/2024: Patient remains on Precedex drip 0.7. patient wore the noninvasive ventilation with the AVAPS mode overnight. When I entered the room he was on the noninvasive ventilator and said the airflow was too high and I adjusted the settings to comfort by decreasing his respiratory rate from 20 to 16. Increasing his inspiratory time from 0.7 to 1.1 and slowing his rise from a setting of 1 to a setting of 4. He said this was more comfortable. He said he was willing to come off of the noninvasive ventilator and he was placed on 2 L nasal cannula and his saturations were 100% And he was then placed on room air with saturations on room air of 100%. He said his breathing was back to his normal, no cough, a little bit of phlegm which is a baseline and no hemoptysis. His white blood cell count is 14.1, creatinine 0.9. He was -176 mL yesterday and cumulative he is +5.9 mL. His weight is 51.6 kg. Precedex turned off at 12 noon. BuSpar 5 bid started. 10/28/2024: Patient wore the noninvasive ventilator overnight and said that he slept better and he feels better. He currently is wearing the noninvasive ventilator. He says he has little bit of cough and phlegm close to his normal. No hemoptysis. White blood cell count 13.5, creatinine 0.84, BNP 7720. Chest x-ray compared to 10/24/2024 with unchanged right upper lobe infiltrate and new left lower lobe infiltrate. -84 mL yesterday cumulative he is positive 5.7 L. Weight 52.2 with an admission weight of 48. Continues to receive 1 mg of lorazepam p.o. q.4 hours p.r.n. and taking this every 4 hours. 10/29/2024: Patient transferred out of the ICU. Patient is wearing a noninvasive ventilator off and on throughout the day yesterday and last night. Overall he says he is 70-80% back to his normal. His cough is the same as usual and dry without phlegm or hemoptysis. He is afebrile. White blood cell count 10.3, creatinine 0.68. When I enter the room the patient was on room air with saturations 94%. Used 1 mg lorazepam x3 in the last 24 hours. yesterday was positive 490 mL in cumulative he has positive 6.5 L since admission. His weight is 49.3. 10/30/24: Respiratory pathogen panel from admission returned positive today for coronavirus OC 43. the patient continues to slowly improve. He tells me that he has 80-90% back to his normal. He has a cough that is increased over his baseline but no phlegm or no hemoptysis. He has no wheezing. Currently he is on room air with saturations 92%. Patient had an overnight oximetry on room air with recording duration 6 hours and 36 minutes. Average saturation 96%. Low saturation 86%. Time with saturation less than or equal to 88 was 2 minutes. Oxygen desaturation index 3.3. DATA: 10/30/24: Patient had an overnight oximetry on room air with recording duration 6 hours and 36 minutes. Average saturation 96%. Low saturation 86%. Time with saturation less than or equal to 88 was 2 minutes. Oxygen desaturation index 3.3. 04/29/24: CT Scan of the Chest without Contrast: Clinical Indication: Lung cancer screening, nicotine dependence COMPARISON: 04/29/2023 Findings: There is no evidence of any significant mediastinal, hilar or axillary lymphadenopathy. Coronary artery calcifications are present. There is no evidence of pleural or pericardial effusion. 6 mm right lower lobe pulmonary nodule present (axial image 90). Severe emphysema present. Images through the upper abdomen reveal no abnormalities. Impression: Lung RADS 3: Probably benign. Six-month follow-up CT recommended. 04/29/23:?EXAMINATION: CT lung screening ?INDICATION: Personal history of nicotine dependence ?COMPARISON: CT dated 03/27/2022 ?FINDINGS: No thoracic lymphadenopathy. There is atherosclerosis. Heart size normal. No significant pleural or pericardial effusion. There is evidence for chronic granulomatous disease. There is apical pleural thickening/scarring. There is a stable 4 mm right apical nodule, image 18. There is lower lobe atelectasis. There is severe emphysema. No new pulmonary nodules or masses. No focal airspace consolidation. There is diffuse idiopathic skeletal hyperostosis (DISH) of the thoracic spine. There is pneumobilia of the left hepatic lobe, consistent with previous sphincterotomy. ?IMPRESSION: ?1. Lung-RADS category 2: Benign appearance or behavior. Continue annual screening with noncontrast low-dose chest CT in 12 months. ?10/21/2022 This is a 6 minute walk test. The test was performed and interpreted in accordance with the 2014 ERS/ATS task force guidelines. ??Findings:? The patient's resting room air oxygen saturation measured by pulse oximetry was 98% and heart rate was 65 bpm.? Patient ambulated for 244 meters and oxygen saturation remained 98 to 100%.? Heart rate at the end of the study was 70 bpm. ??The patient did not qualify for supplemental oxygen at rest or with ambulation. ??There are no prior studies for comparison. ? 10/12/2022: Overnight oximetry on room air.? Basal saturation 93.8%.? High saturation 99%.? Low saturation 87%.? Time with saturation less than or equal to 88% was 33 seconds.? Oxygen desaturation index was 9 events per hour.? Patient requires no supplemental oxygen at night. ? ??04/10/2022 PFTs ??The test was performed and results interpreted in accordance with the 2019 and 2005 ATS/ERS Task Force guidelines respectively using the Global Lung Function Initiative-2012 reference equations. Patient demonstrated good effort and cooperation. Reproducibility criteria were met. The quality of the spirometry maneuver was Grade A. ???Findings: ???Spirometry:? There is decreased maximal expiratory airflow at all lung volumes with concave expiratory flow tracing.? The contour the inspiratory flow tracing is normal.? The FVC is 3.33 L, 85% predicted.? The FEV1 is 1.61 L, a 53% predicted.? The FEV1:? FVC ratio is 48%.?Plethysmography:? The total lung capacity is 6.12 L, 96% predicted.? The functional residual capacity is 4.49 L, 135% predicted.? The residual volume is 2.79 L, 126% predicted.?Diffusion capacity:? The diffusing capacity unadjusted for hemoglobin and carboxyhemoglobin is 16.2, 63% predicted.? The diffusing capacity adjusted for alveolar volume is 2.15, 51% predicted. ???Impression:?There is a moderately severe obstructive abnormality.?? The lung volumes are normal.? The diffusing capacity unadjusted for hemoglobin is mildly decreased and?remains moderately decreased when adjusted for alveolar volume. ???There are no prior studies for comparison. ? ?03/27/2022 EXAMINATION: CT lung screening ???DATE: 03/27/2022 08:58 ???INDICATION: Personal history of nicotine dependence, current smoker with 45 pack year history. ??COMPARISON: None ???FINDINGS: There is severe emphysema. There is a 5 mm nodule in the right lung apex. No pleural effusion or pneumothorax. There our secretions in the trachea. No pathologically enlarged thoracic lymph nodes are identified. The heart size is normal. Calcified coronary artery atherosclerosis is noted. Calcified pulmonary nodules and calcified right hilar lymph nodes are consistent with old granulomatous disease. Punctate calcifications in an otherwise normal spleen likely represent healed granulomatous disease. Pneumobilia is noted in the left hepatic lobe, likely related to prior biliary intervention. There are bridging osteophytes at multiple levels in the spine, consistent with diffuse idiopathic skeletal hyperostosis (DISH). ???IMPRESSION: ???1. Lung-RADS category 2: Benign appearance or behavior. Continue annual screening with noncontrast low-dose chest CT in 12 months. ?04/04/2022:? Echocardiogram at [facility]: ??Conclusions:? 1. Abnormal septal motion consistent with pacemaker ICD implant.? Severe global LV systolic hypokinesis.? Normal left ventricular size.? Normal left ventricular wall thickness.? Left ventricular ejection fraction is measured at 25%.? Normal right ventricular size.? There is nonspecific thickening of the mitral valve leaflets.? There is trace physiologic mitral valve regurgitation.? Normal appearing tricuspid valve leaflets.? There is trace physiologic tricuspid valve regurgitation.? Estimated peak pulmonary arterial systolic pressure is 20. Review of Systems Review of Systems: ROS unobtainable: Yes unobtainable due to medical condition Constitutional: Constitutional: Reports no additional constitutional complaints Eyes: Eyes: Reports no additional eye complaints ENT: Reports system reviewed and no additional complaints, except as documented Cardiovascular: Cardiovascular: Reports no additional cardiovascular complaints Respiratory: Respiratory: Reports no additional respiratory complaints Gastrointestinal: Gastrointestinal: Reports no additional gastrointestinal complaints Musculoskeletal: Musculoskeletal: Reports no additional musculoskeletal complaints Neurologic: Reports system reviewed and no additional complaints, except as documented Psychiatric: Psychiatric: Reports no additional psychiatric complaints Endocrine: Endocrine: Reports no additional endocrine complaints Hematologic/Lymphatic: Hematologic/Lymphatic: Reports no additional hematologic/lymphatic complaints Allergic/Immunologic: Allergic/Immunologic: Reports no additional allergic/immunologic complaints Exam Const: General: cooperative, healthy appearing, comfortable and in distress Orientation/consciousness: oriented to person, oriented to place and oriented to time Other: In mild distress on noninvasive ventilation HENMT: Head: normal to inspection Ears: hearing grossly normal bilaterally Eyes: General: appearance normal, both eyes and all related structures Neck: Neck: normal visual inspection Chest: Chest palpation & inspection: normal inspection of the chest Resp: Effort & Inspection: normal respiratory effort and able to speak in complete sentences Auscultation: no crackles, no rales, no rhonchi, no wheezes and diminished lung sounds Other: no wheezes Cardio: Jugular venous distension: no JVD GI: Inspection: normal to inspection Skin: General skin exam: normal color Neuro: General: oriented to person, oriented to place and oriented to time Extrem: General: normal to inspection and no edema Psych: Appearance: grossly normal Objective Data Vital Signs Vital Signs: Vital Signs - 24 hr 10/29/24 12:00 10/29/24 12:30 10/29/24 14:00 Temperature 36.4 C L Pulse Rate 72 93 72 Respiratory Rate 16 Blood Pressure 128/83 Pulse Oximetry 97 Oxygen Delivery Oxygen Flow Rate 10/29/24 15:57 10/29/24 16:00 10/29/24 16:00 Temperature 36.4 C L Pulse Rate 79 71 75 Respiratory Rate 22 H 29 H 23 H Blood Pressure 128/79 Pulse Oximetry 98 98 Oxygen Delivery BiPAP Oxygen Flow Rate 10/29/24 16:00 10/29/24 16:07 10/29/24 18:00 Temperature Pulse Rate 69 70 86 Respiratory Rate 20 Blood Pressure Pulse Oximetry Oxygen Delivery Oxygen Flow Rate 10/29/24 19:57 10/29/24 19:58 10/29/24 20:00 Temperature 36.3 C L Pulse Rate 87 72 75 Respiratory Rate 18 20 Blood Pressure 124/79 Pulse Oximetry 100 Oxygen Delivery Oxygen Flow Rate 10/29/24 20:02 10/29/24 20:07 10/29/24 22:00 Temperature Pulse Rate 74 76 Respiratory Rate 20 Blood Pressure Pulse Oximetry 98 Oxygen Delivery Nasal Cannula Oxygen Flow Rate 1 10/29/24 22:30 10/30/24 00:00 10/30/24 00:00 Temperature 36.6 C Pulse Rate 87 76 76 Respiratory Rate 18 20 Blood Pressure 125/76 Pulse Oximetry 100 95 Oxygen Delivery Room Air Oxygen Flow Rate 10/30/24 00:15 10/30/24 02:00 10/30/24 03:28 Temperature 36.5 C Pulse Rate 76 75 85 Respiratory Rate 20 22 H Blood Pressure 135/85 Pulse Oximetry 95 93 Oxygen Delivery Room Air Oxygen Flow Rate 10/30/24 04:00 10/30/24 04:00 10/30/24 04:33 Temperature Pulse Rate 85 74 73 Respiratory Rate 22 H 20 Blood Pressure Pulse Oximetry 93 Oxygen Delivery Room Air Oxygen Flow Rate 10/30/24 04:39 10/30/24 06:00 10/30/24 07:52 Temperature 36.7 C Pulse Rate 76 76 85 Respiratory Rate 20 23 H Blood Pressure 131/87 Pulse Oximetry 92 Oxygen Delivery Oxygen Flow Rate 10/30/24 08:09 10/30/24 08:22 10/30/24 08:23 Temperature Pulse Rate 86 Respiratory Rate 16 Blood Pressure Pulse Oximetry 95 92 Oxygen Delivery Nasal Cannula Room Air Oxygen Flow Rate 2 10/30/24 08:26 10/30/24 09:39 Temperature Pulse Rate 86 99 Respiratory Rate 16 Blood Pressure Pulse Oximetry Oxygen Delivery Oxygen Flow Rate Intake/Output Intake/Output: Intake & Output 10/27/24 10/28/24 10/29/24 10/30/24 23:59 23:59 23:59 23:59 Intake Total 540.2 840 840 340 Output Total 625 350 625 440 Balance -84.8 490 215 -100 Meds/Results Medications: Active Medications Generic Name Dose Route Start Last Admin Trade Name Freq PRN Reason Stop Dose Admin Acetaminophen 650 mg 10/24/24 18:55 Acetaminophen 325 Mg Tablet PO Q4H PRN Mild Pain (1-3) or Fever Hydrocodone Bitart/Acetaminophen 1 tab 10/24/24 19:04 10/28/24 01:19 Hydrocodone/Acetaminophen (*Crx) 5-325 Mg Tablet PO 1 tab Q4H PRN Administration Moderate Pain (4-6) Albuterol/Ipratropium 3 ml 10/25/24 16:00 10/30/24 08:18 Ipratropium 0.5 Mg/Albuterol Sulfate 2.5 Mg Ampul.Neb 3 Ml INHALATION 3 ml Q4HRT LIANE Administration Buspirone HCl 5 mg 10/27/24 21:00 10/30/24 09:40 Buspirone Hcl 5 Mg Tablet PO 5 mg Q12HR LIANE Administration Clopidogrel Bisulfate 75 mg 10/25/24 09:00 10/30/24 09:40 Clopidogrel Bisulfate 75 Mg Tablet PO 75 mg DAILY LIANE Administration Cyanocobalamin 1,000 mcg 10/29/24 09:00 10/30/24 09:40 Cyanocobalamin 1,000 Mcg Tablet PO 1,000 mcg DAILY LIANE Administration Docusate Sodium 100 mg 10/25/24 09:00 10/30/24 09:40 Docusate Sodium 100 Mg Capsule PO 100 mg Q12HR [facility]ANE Administration Enoxaparin Sodium 40 mg 10/25/24 09:00 10/30/24 09:40 Enoxaparin 40 Mg/0.4 Ml Syringe SUB-Q 40 mg DAILY [facility]ANE Administration Guaifenesin 1,200 mg 10/25/24 14:30 10/30/24 09:40 Guaifenesin 12 Hr 600 Mg Tabcr PO 1,200 mg Q12HR [facility]ANE Administration Isosorbide Mononitrate 30 mg 10/24/24 23:15 10/30/24 09:40 Isosorbide Mononitrate 30 Mg Tab.Er.24h PO 30 mg Q12HR [facility]ANE Administration Lorazepam 1 mg 10/26/24 13:17 10/30/24 03:29 Lorazepam (*Crx) 1 Mg Tablet PO 1 mg Q4H PRN Administration Anxiety Metoprolol Succinate 25 mg 10/25/24 09:00 10/30/24 09:39 Metoprolol Succinate Ext Rel 25 Mg Tabcr PO 25 mg QAM [facility] Administration Metoprolol Tartrate 5 mg 10/25/24 15:39 Metoprolol Tartrate Inj 5 Mg/5 Ml Vial IV PUSH Q4H PRN Heart rate > 120 and SBP > 100 Midodrine 10 mg 10/24/24 21:25 10/30/24 09:39 Midodrine Hcl 10 Mg Tablet PO 10 mg TID [facility]ANE Administration Pramipexole Dihydrochloride 1 mg 10/24/24 23:15 10/29/24 23:05 Pramipexole 1 Mg Tablet PO 1 mg HS [facility] Administration Rosuvastatin Calcium 10 mg 10/25/24 09:00 10/30/24 09:39 Rosuvastatin 10 Mg Tablet PO 10 mg DAILY [facility] Administration Sacubitril/Valsartan 1 tab 10/29/24 17:00 10/30/24 09:39 Sacubitril/Valsartan 12-13 Mg Tablet PO 1 tab BID [facility]ANE Administration Radiology Results: ITS Impressions Chest CTA 10/25/24 21:04 IMPRESSION: No pulmonary embolus. No thoracic aortic dissection. Severe panlobular bullous emphysema, unchanged from 05/03/2024. Interval development of small bilateral pleural effusions, right greater than left with adjacent compressive atelectasis. Chest X-Ray 10/28/24 08:35 Impression: 1: Patchy bilateral airspace disease, compatible with pneumonia. Labs Labs: Laboratory Results - last 24 hr 10/25/24 10/26/24 17:59 04:33 Nasal RSV Type A (PCR) Not detected Nasal RSV Type B (PCR) Not detected Chlamy pneumoniae PCR Not detected Adenovirus DNA Not detected Human Bocavirus (SARITA) Not detected Coronavirus Type OC43 Detected A Coronavirus Type HKU1 Not detected Coronavirus Type 229E Not detected Coronavirus Type NL63 Not detected Human Metapneumovir PCR Not detected Influenza A (PCR) Not detected Influenza A (H1) RNA Not detected Influenza A (H3) PCR Not detected Mycoplasma pneumon IgM 309 M. pneumoniae DNA Not detected Parainfluenza PCR Not detected Parainfluenza 2 (PCR) Not detected Parainfluenza 3 RNA (PCR) Not detected Parainfluenza 4 (PCR) Not detected Rhino/Enterovirus (SARITA) Not detected Influenza Type B (PCR) Not detected Misc Test Comment see note
--- NOTE | 2024-10-30 13:10 | PM.DS ---
DS: Admitting Diagnosis Discharge Date 10/30/24 Admitting Diagnosis Shortness of breath DS: Discharge Diagnosis Discharge Diagnosis (1) Acute and chronic respiratory failure with hypoxia: Code(s): J96.21 - Acute and chronic respiratory failure with hypoxia Status: Acute (2) COPD exacerbation: Code(s): J44.1 - Chronic obstructive pulmonary disease with (acute) exacerbation Status: Acute (3) Anxiety: Code(s): F41.9 - Anxiety disorder, unspecified Status: Acute (4) Cardiomyopathy: Code(s): I42.9 - Cardiomyopathy, unspecified Status: Acute (5) Sepsis: Code(s): A41.9 - Sepsis, unspecified organism Status: Acute (6) Elevated troponin: Code(s): R79.89 - Other specified abnormal findings of blood chemistry Status: Acute (7) Coronary artery disease: Code(s): I25.10 - Atherosclerotic heart disease of tribal coronary artery without angina pectoris Status: Acute DS: Summary Hospital Course Reason for hospitalization: 69yo male with COPD, CAD s/p LAD and RCA stents, and CHF (previously with EF of 25% wearing a life vest with plans for an ICD) here for SOB. Please see H&P for details. Hospital Course: Patient has acute on chronic respiratory failure secondary to COPD exacerbation, anxiety and component of drug-seeking behavior. CTA of the chest showed no PE or aortic dissection. He had severe panlobular bolus emphysema unchanged from last year. Interval development of small bilateral pleural effusions right greater than left with compressive atelectasis noted. He was started on non-invasive ventilation. Pulmonary consulted. Treated with steroids and bronchodilators. Patient met criteria for sepsis and had elevated lactic acid level which has improved. Chest imaging did not show any pneumonia. UA negative. BCx negative. Sputum grew scant amount of yeast. COVID, influenza and RSV PCR negative. Respiratory viral panel was positive for Coronavirus Type OC43 which might explain his sudden decompensation. Patient completed a 5 day course of abx. He had a mild elevation in troponin level to 0.8 that was already trending down. EKG reviewed showing no acute ST-T wave changes and patient denied any chest pain. Echo showing EF 30-35% with akinetic anteroseptum and diffuse hypokinetic lobato. Grade I diastolic dysfxn. Mild-mod MR. Patient has history of cardiomyopathy. Echo improved and showing EF 30-35% now. Cardiology followed and appreciate their input. We continued Plavix, Imdur, Toprol and Crestor. His blood pressure was soft so Entresto was held and midodrine started. We were able to resume Entresto. Midodrine dose was weaned. Likely elevated Troponin secondary to a type 2 NSTEMI from respiratory failure. Patient with known hx of anxiety and was on lorazepam before being weaned off by his PCP. He became extremely agitated and demanding lorazepam regularly. Concern for abuse. His uncontrolled anxiety was impacting his respiratory problems. He was treated with Lorazepam prn. Buspar added with some benefit. He was weaned off BiPAP. Apnea link on room air was normal. He did not require oxygen by home O2 evaluation. He overall did well and was able to be discharged home on 10/30/24. Status at Discharge Cognitive/behavioral status at discharge: stable Time Spent with Patient Time attestation: Total time spent providing and/or coordinating discharge services: 36 minutes Time spent: Greater than 30 minutes Exam Narrative: AF 98.0 130/85 99 20 92% RA Gen - NARD Chest -distant, clear breath sounds. CV - RRR S1/S2. Telemetry showing no significant dysrhythmias Abd - Soft, NT/ND, Positive BS Ext - No pedal edema Psych - mood stable Skin - Warm and dry DS: Data Data Completed and Pending Labs on day of discharge: Labs from last 24 hours 10/26/24 10/25/24 04:33 17:59 Nasal RSV Type A (PCR) Not detected Nasal RSV Type B (PCR) Not detected Chlamy pneumoniae PCR Not detected Adenovirus DNA Not detected Human Bocavirus (SARITA) Not detected Coronavirus Type OC43 Detected A Coronavirus Type HKU1 Not detected Coronavirus Type 229E Not detected Coronavirus Type NL63 Not detected Human Metapneumovir PCR Not detected Influenza A (PCR) Not detected Influenza A (H1) RNA Not detected Influenza A (H3) PCR Not detected Mycoplasma pneumon IgM 309 M. pneumoniae DNA Not detected Parainfluenza PCR Not detected Parainfluenza 2 (PCR) Not detected Parainfluenza 3 RNA (PCR) Not detected Parainfluenza 4 (PCR) Not detected Rhino/Enterovirus (SARITA) Not detected Influenza Type B (PCR) Not detected Misc Test Comment see note Preliminary micro results at discharge 10/27/24 21:26 Sputum Culture - Preliminary Sputum Yeast isolated Discharge Plan Discharge Attending physician on discharge: Yakov Hartley Consulting providers: Mary Martinez; Kingsley Medina; Hao Godoy Discharging Clinician: Yakov Hartley Anticipated Discharge Date/Time: 10/30/24 13:22 Patient Disposition: Home Activity: as tolerated Diet: heart healthy Discharge Instructions: Take precautions to avoid falls. Rise slowly from a lying or sitting position. Pause before standing or walking. Check daily morning weights after voiding. Call your doctor if you gain more than 3 lb in 2 days or 5 lb in 1 week. Contact your doctor or call 911 and come to the Emergency Room if you have increasing shortness of breath, lightheadedness with standing or other worrisome symptoms. Avoid NSAIDs (ibuprofen, naproxen, Aleve). Tylenol is safe to take. Follow-up with your primary care provider in 1-2 weeks. Please call for appointment. Follow-up with Marketing Communications Leader in 1-2 weeks. Please call for an appointment. Follow-up with Domestic Cleaner in 1-2 weeks. Please call for an appointment. Thank you for using [facility] for your health care needs. Patient Instructions: Antibiotic Form, Heart Failure (GEN), How to Stop Smoking (DC) Patient Language: Icelandic Stand Alone Forms: General Discharge Information Follow-up/Referrals: Chase Barrientos MD [Primary Care Provider] - Call for Appointment Mary Martinez, WIRE STRAIGHTENING MACHINE OPERATOR-C [Advanced Practice Nurse] - Call for Appointment Kingsley Medina MD [Physician] - Call for Appointment Discharge Medications: New midodrine 5 mg tablet 5 mg PO BID Qty: 60 0RF Rx Instructions: do not give last dose of day after 6PM or within 4 hrs of bedtime buspirone 10 mg tablet 10 mg PO BID Qty: 60 1RF Continued cyanocobalamin (vitamin B-12) 1,000 mcg tablet 1,000 mcg PO DAILY ergocalciferol (vitamin D2) 1,250 mcg (50,000 unit) capsule 1,250 mcg PO WEEKLY Rx Instructions: Patient takes on Fridays pramipexole 1 mg tablet 1 mg PO HS clopidogrel 75 mg Tablet 75 mg PO DAILY isosorbide mononitrate 60 mg Tablet Extended Release 24 Hr 30 mg PO BID metoprolol tartrate 25 mg Tablet 25 mg PO DAILY rosuvastatin 10 mg Tablet 10 mg PO DAILY Entresto 24-26 mg Tablet 0.5 tablet PO BID Patient Comments: pt states he takes 1/2 tablet twice a day albuterol sulfate [Ventolin HFA] 90 mcg/actuation HFA aerosol inhaler 1 inh INHALATION QID PRN (Reason: Shortness Of Breath) Qty: 8 6RF guaifenesin 600 mg tablet extended release 12hr See Rx Instructions .ROUTE .COMPLEX Qty: 60 6RF Dose Instruction: TAKE 2 TABLETS BY MOUTH TWICE A DAY NEEDED FOR CONGESTION Rx Instructions: TAKE 2 TABLETS BY MOUTH TWICE A DAY NEEDED FOR CONGESTION Stiolto Respimat 2.5-2.5 mcg/actuation mist See Rx Instructions .ROUTE .COMPLEX Qty: 4 6RF Dose Instruction: INHALE 2 PUFFS BY MOUTH ONCE DAILY Rx Instructions: INHALE 2 PUFFS BY MOUTH ONCE DAILY Date of admission: 10/25/24 07:24 Primary Care Provider: Chase Barrientos Admitting Provider: Marsha Mathew Attending physician on admission: Raya Watkins Condition: Stable Hospitalist MIPS Heart Failure (Exclusion) Patient has history of Heart Transplant or Left Ventricular Assistive Device?: No IF YES, STOP HERE Heart Failure (Qualifier) Patient has current or prior documentation of LVEF less than or equal to 40%, or mod/servere depressed LVSF?: Yes IF NO, STOP HERE If Yes, Heart Failure (Qualifier) Patient was prescribed or already taking an Angiotensin-Converting Enzyme (SHIRLEY) Inhibitor, or Antiotensin Receptor Kassidy (ARB): Yes Patient was prescribed or already taking bisoprolol, carvedilol, or sustained release metoprolol succinate: Yes
--- NOTE | 2024-10-30 14:12 | PCPTNOTE ---
Attempting to do PT evaluation, but patient has discharge orders and nursing states patient is walking fine. Will check on again tomorrow if still here.
[2024-11-03 19:18] LABS: Pneumococcal Antigen Urine NOT DETECTED
--- NOTE | 2024-11-05 08:09 | PC.NURSE ---
Urine pneumococcal Ag is not detected.
== END 2024-10-30 13:08 | disposition home or self-care (01) | DRG 871 ==
LOC: ANHED 18:34 → ANHIMU 20:07 → ANHICU 10-25 16:14 → ANHIMU 10-30 13:24 → ANHICU 11-01 10:54
PROVIDERS: Family Medicine; Internal Medicine; Internal Medicine Pulmonary Disease; Nurse Practitioner Gerontology; Admitting Provider Internal Medicine; Emergency Provider Physician Assistant; PCP Internal Medicine; Visit Provider Internal Medicine
DX: A41.9 Sepsis, unspecified organism (principal); I21.A1 Myocardial infarction type 2; J96.21 Acute and chronic respiratory failure with hypoxia; J44.1 Chronic obstructive pulmonary disease with (acute) exacerbation; I42.9 Cardiomyopathy, unspecified; B37.9 Candidiasis, unspecified; F41.9 Anxiety disorder, unspecified; F17.210 Nicotine dependence, cigarettes, uncomplicated; I25.10 Atherosclerotic heart disease of native coronary artery without angina pectoris; I48.91 Unspecified atrial fibrillation; J43.1 Panlobular emphysema; R79.89 Other specified abnormal findings of blood chemistry; Z76.5 Malingerer [conscious simulation]; Z20.822 Contact with and (suspected) exposure to COVID-19; Z79.02 Long term (current) use of antithrombotics/antiplatelets; Z90.49 Acquired absence of other specified parts of digestive tract; Z95.5 Presence of coronary angioplasty implant and graft
CPT/HCPCS: 36415; 36600; 71045; 71275; 80048; 80053; 81001; 82375; 82803; 82805; 83050; 83605; 83735; 83880; 84100; 84132; 84145; 84484; 85018; 85025; 85027; 85380; 85652; 86140; 86738; 87040; 87070; 87205; 87449; 87633; 87637; 87641; 87899; 93005; 94002; 94003; 94618; 94640; 94762; 96365; 96367; 96375; 99285; A9270; C1751; C1883; C8929; J0456; J0613; J0696; J1650; J2250; J2919; J3475; J7030; J7040; J7512; P9047; Q9957; Q9967

== ENCOUNTER 2025-01-17 14:19 | Outpatient (CLI) | payer MEDICARE, OTHER, SELFPAY ==
--- NOTE | ~2025-01-17 | CT_ITS ---
CT Scan of the Chest without Contrast: Clinical Indication: Pulmonary nodule Technique: Contiguous sections were acquired throughout the chest without intravenous contrast. Dose reduction technique was used on this scan by utilizing automated exposure control and iterative recon struction technique. The dose-length product (DLP) was 45.68 mGy-cm. COMPARISON: 10/25/2024 Findings: There is no evidence of any significant mediastinal, hilar or axillary lymphadenopathy. Coronary nadia ry calcifications are present. There is no evidence of pleural or pericardial effusion. There is advanced emphysema. There is probable focal scarring at the left upper lobe/left lung apex. Images through the upper abdomen reveal no abnormalities. Extensive DISH versus possibly ankylosing s pondylitis. Impression: Advanced emphysema with left upper lobe linear scarring. Extensive DISH versus possibly ankylosing spondylitis. Reviewed, dictated and finalized at [facility]. Impression: Advanced emphysema with left upper lobe linear scarring. Extensive DISH versus possibly ankylosing spondylitis.
== END 2025-01-17 14:20 | disposition home or self-care (01) ==
LOC: MICIMG 14:20
PROVIDERS: PCP Internal Medicine; Visit Provider Internal Medicine Pulmonary Disease
DX: R91.1 Solitary pulmonary nodule (principal); J43.9 Emphysema, unspecified
CPT/HCPCS: 71250